=== PATIENT | male | born 1945 | race Caucasian/White ===

== ENCOUNTER → 2018-06-14 14:54 | Outpatient (CLI) | payer OTHER, SELFPAY ==
[2018-06-14 15:36] LABS: Add Manual Diff / Slide Review NO; Basophils Percent Auto 0.7 % (0-2); Eosinophils Percent Auto 2.7 % (2-4); Hemoglobin 10.4 g/dL (13.5-17.5); Lymphocytes Percent Auto 14.8 % (25-40); Mean Corpuscular HGB Conc 31.5 % (30-36); Mean Corpuscular Hemoglobin 24.2 PG (26-34); Mean Corpuscular Volume 76.8 fL (80-100); Monocytes Percent Auto 10.4 % (3-14); Neutrophils Absolute Auto 8100 /uL (3000-5900); Neutrophils Percent Auto 71.4 % (50-75); Platelet Count 445 X10^3/uL (150-400); Red Cell Distribution Width 23.1 % (11.6-14.8); White Blood Cell Count 11.3 X10^3/uL (4.5-11.0)
[2018-06-14 16:08] LABS: Anisocytosis 2+; Microcytosis 1+; Poikilocytosis 1+
[2018-06-14 16:09] LABS: Hypochromasia 1+
[2018-06-14 16:11] LABS: Alanine Aminotransferase 34 IU/L (21-72); Albumin 3.7 g/dL (3.5-5.0); Albumin Globulin Ratio 1.3 (1.0-2.8); Alkaline Phosphatase 67 U/L (38-126); Aspartate Aminotransferase 28 IU/L (17-59); BUN Creatinine Ratio 16.2 (6-22); Bilirubin Total 0.4 mg/dL (0.2-1.3); Blood Urea Nitrogen 21 mg/dL (9-20); Calcium 9.5 mg/dL (8.4-10.2); Carbon Dioxide 27 mmol/L (22-32); Chloride 101 mmol/L (98-107); Estimated Glomerular Filt Rate 54.4 mL/min (>60); Globulin 2.8 g/dL (1.7-4.1); Glucose 130 mg/dL (80-110); HEMOLYSIS < 15 (0-50); Potassium 4.5 mmol/L (3.4-5.1); Sodium 141 mmol/L (137-145); Total Protein 6.5 g/dL (6.3-8.2)
== END ==
DX: C18.9 Malignant neoplasm of colon, unspecified (principal)
CPT/HCPCS: 36415; 80053; 85025

== ENCOUNTER 2018-06-22 10:40 | Observation (INO) | payer OTHER, SELFPAY ==
[2018-06-22] VITALS (21 sets, daily range): BP systolic 113–165; BP diastolic 56–93; PULSE 75–90; RESP 10–22; TEMP 35.9–36.9; O2SAT 91–100; BMI 50.1
[2018-06-22] MEDS: LACTATED RINGERS 1,000 ML 42 ML IV (11:47)
[2018-06-22] MEDS: CLINDAMYCIN 900 MG/50 ML PIGGYBACK 50 MG IV (12:02)
--- NOTE | 2018-06-22 12:08 | P.HP_ITS ---
History of Present Illness Date Patient Seen: 06/22/18 Time Patient Seen: 12:05 Chief complaint: [id number] PORTACATH PLACEMENT Narrative: Pleasant gentleman with locally advanced colon cancer here for Port-A -Cath placement to facilitate chemotherapy. He has multiple complicating medical problems including morbid obesity. Patient History Medical History Diabetes mellitus with neuropathy (Acute) Difficulty walking (Acute) Dry skin (Acute) Edema (Acute) History of CHF (congestive heart failure) (Acute) History of headache (Acute) History of urinary retention (Acute) History of urinary tract obstruction (Acute) Incarcerated ventral hernia (Acute ~05/2018) Lightheaded (Acute) Limited mobility (Acute) Malaise and fatigue (Acute) Morbid obesity (Acute) Open wound (Acute) Paresthesias (Acute) Renal insufficiency (Acute) Shortness of breath (Acute) Sleep apnea (Acute) Tinnitus (Acute) Weakness (Acute) Weight loss (Acute) Surgical History H/O right hemicolectomy (Acute ~05/2018) History of cataract extraction with lens replacement (Acute) Family & Social History Family History: Reviewed 06/22/18 by Grace Singh MD Social History: household members spouse Tobacco & Substance use: Smoking Status Former smoker alcohol intake current alcohol intake frequency holiday/special occasion Substance Use Type prescription drug Meds Home Medications Medication Instructions Recorded Confirmed Type Topical Lidocaine Ointment 1 appful INTRA-URETHRAL PRN PRN 06/07/18 History calcium carbonate [Tums] 200 mg PO QID 06/07/18 06/15/18 History cholecalciferol (vitamin D3) 5,000 unit PO DAILY 06/07/18 06/15/18 History [Vitamin D3] diphenoxylate-atropine [Lomotil] 1 tab PO Q6-8H PRN 06/07/18 06/15/18 History ferrous sulfate [iron] 325 mg PO BID 06/07/18 06/15/18 History fluorouracil 4,800 mg IV NOW #1 device 06/07/18 Rx gabapentin 900 mg PO QDRHS 06/07/18 06/15/18 History hydrocodone-acetaminophen [Vicodin] 2 tab PO Q6H PRN 06/07/18 06/15/18 History losartan 100 mg PO DAILY 06/07/18 06/15/18 History metoclopramide HCl [Reglan] 10 mg PO Q6H 06/07/18 06/15/18 History tramadol [Ultram] 50 mg PO Q6H PRN 06/07/18 06/15/18 History zolpidem [Ambien] 10 mg PO BEDTIME PRN 06/07/18 06/15/18 History hydralazine 50 mg PO TID 06/09/18 06/09/18 History ondansetron [Zofran ODT] 4 mg PO Q6-8H PRN #30 tab 06/09/18 Rx Lasix 06/15/18 History Miralax 06/15/18 History lidocaine 1 applic TOPICAL PRN PRN 06/15/18 06/15/18 History methocarbamol 06/15/18 History oxycodone 06/15/18 History Allergies Allergy/AdvReac Type Severity Reaction Status Date / Time cephalexin AdvReac Severe Gastrointestinal Verified 06/07/18 14:48 Upset Review of Systems Review of Systems All systems reviewed & are unremarkable except as noted in HPI and below Exam Vital Signs (past 8 hours): - 06/22/18 11:23 Temperature 98.5 F Pulse Rate 86 Respiratory Rate 22 Blood Pressure 157/88 H Pulse Oximetry 95 Oxygen Delivery Method Room Air Narrative Exam Narrative: Pleasant gentleman in no obvious distress HEENT: Normocephalic atraumatic, pupils equal round reactive to light accommodation with anicteric sclera Lungs: Essentially clear but decreased bilaterally Heart: Regular rate and rhythm, distant heart sounds Abdomen: Soft, minimal tenderness to palpation, active bowel sounds Extremities: Bilateral edema without open lesions Assessment & Plan Plan: Assessment/Plan Narrative: 72-year-old gentleman with locally advanced colon cancer. We discussed the risks and benefits of Port-A-Cath placement including but not limited to infection, bleeding, damage to other organs or structures in the area, the risk of unexpected findings results, and risks associated with anesthesia including stroke, heart attack, and . The patient has expressed an understanding of the risks and desired to have the procedure.
--- NOTE | 2018-06-22 12:25 | SUR.OPER ---
Supine on padded OR bed, head on pillow, arms secured on padded arm boards at <90 degrees abduction, legs uncrossed, safety belt at thigh, tape over blanket over lower legs.
[2018-06-22] MEDS: BUPIVACAINE 0.5% (PF) VIAL 30 ML INJ (12:36)
[2018-06-22] MEDS: LIDOCAINE 1% W/EPI INJ 20 ML INJ (12:37)
[2018-06-22] MEDS: SODIUM CHLORIDE 0.9% FLUSH 10 ML IV (12:38)
--- NOTE | 2018-06-22 12:51 | DI.RAD.S_ITS ---
PROCEDURE: XR CHEST 1V INDICATIONS: PORT A CATH TECHNIQUE: One view of the chest was acquired. COMPARISON: None. FINDINGS: Surgical changes and devices: There is a new chest port, with the tip overlying the superior aspect of the superior vena cava. Lungs and pleura: There is a small left apical pneumothorax. Low lung volumes are noted, consistent with the incisional expiratory technique. This causes a crowded appearance to the lung markings and limits evaluation. Mediastinum: Mediastinal contours appear normal. Heart size is normal. Bones and chest wall: No suspicious bony lesions. Age-appropriate bony degenerative changes are seen. Overlying soft tissues appear unremarkable. IMPRESSION: Small left apical pneumothorax. Chest port, with the tip overlying the superior aspect of the superior vena cava. Note: The critical finding of pneumothorax [facility] Dr. Singh [facility]3 hrs[facility] on June 22, 2018. Dictated by: Garry Gamble M.D. on 06/22/2018 at 13:39 Transcribed by: GALLITO on 06/22/2018 at 13:43 Approved by: Garry Gamble M.D. on 06/22/2018 at 17:22
--- NOTE | 2018-06-22 13:02 | P.OP_ITS ---
Operative Date/Time/Diagnoses Date of procedure: 06/22/18 Time of procedure: 13:00 Pre-op diagnosis: Colon cancer Procedure & Clinicians Procedure: Left subclavian port placement Same procedure as scheduled: Yes Indications: Access for chemotherapy Surgeon: Grace Singh Click Yes if Unassisted: Yes Anesthesia Type: General (Goetter) and Local Operative Notes Findings: Power port in good position in the superior vena cava Closure Type: primary Specimen(s): none sent Implants & Drains: Low-profile power port Estimated Blood Loss (mL): 10 Procedure in detail: After obtaining informed consent, the patient was brought to the operating room and placed in the supine position on the operating table. Following successful induction of general endotracheal anesthesia, appropriate padding of all bony prominences, and placement of appropriate monitors, the left chest was prepped and draped in a standard surgical fashion. A timeout was held per SCOAP protocol.A mixture of local anesthetics was infiltrated in the deltopectoral groove on the left side. The right subclavian vein was accessed via the Seldinger technique and a wire was gently placed into the vein. Fluoroscopy was used to verify position of the wire in the subclavian vein. We next created a pocket of approximately 2 cm inferior to the access site of the vein. This was checked for size and found to fit the port nicely. The included tunneling device was used to place the tubing and the pocket connecting it to the access site of the subclavian vein. The tubing was trimmed to an appropriate length and connected to the Port-A-Cath. The Port -A-Cath was sewn into place in the pocket using interrupted Prolene sutures. The pocket was closed in 2 layers. The dilator and introducer were then gently passed over the wire and into the subclavian vein. The wire and dilator were removed leaving only the introducer. The tubing was then placed in the introducer and the introducer removed per journeyman welder's directions. The port was then flushed with saline solution and found to be functional and in good position. It was then hep-locked with 2000 units of heparin.The incision was closed in 2 layers with Vicryl and Monocryl sutures. Dermabond was applied to the skin. All sponge, needle, and instrument counts were correct at the conclusion of the case. Patient was allowed to awaken from anesthesia and taken to the post-anesthesia care unit in good condition. Complications: none Condition: stable Disposition: PACU Plan for aftercare: 1. A small pneumothorax is visualized on the post operative chest xray. I will admit the patient for observation. 2. The port is ready for use
[2018-06-22] MEDS: fentaNYL 100 MCG/2 ML INJ 50 MCG IV (13:24)
--- NOTE | 2018-06-22 14:26 | SUR.PHASEII ---
Ok to give po intake per Dr. Singh. Report called to Ragini. Lt chest surgical sites cdi. Ice in place.
--- NOTE | 2018-06-22 14:48 | SUR.PHASEII ---
Pt transferred to the floor. Report to JENNY Eid. VS stable. IV saline locked. Lt chest surgical site cdi, ice in place. RLQ joseg cdi. urinary catheter in place, draining clear, yellow urine.
--- NOTE | 2018-06-22 14:49 | SUR.PHASEII ---
Addendum: belongings bag and walker with wheels with patient
--- NOTE | 2018-06-22 14:56 | PC.NURSE ---
Pt arrived to floor from pacu via stretcher, pt was able to slid self over to bed. is A&Ox3 able to make needs known. oriented to room and call light. sats [id number]. pt does report he has more SOB then normal. lung sounds are clear. spouse at bedside. incision site to chest is dermabon and open to air, ice pack in place. pt has superpubic cath and dressing to right middle abdomen. vs 148/72 p 88 r 16 call light within erach and bed alarm on.
--- NOTE | 2018-06-22 16:04 | SUR.PHASEII ---
Addendum: Pt reported mild sob, Dr. Singh notified.
--- NOTE | 2018-06-22 17:40 | DI.RAD.S_ITS ---
PROCEDURE: XR CHEST 2V INDICATIONS: pneumothorax TECHNIQUE: 2 views of the chest were acquired. COMPARISON: [facility], , XR CHEST 1V, 06/22/2018, 13:08. FINDINGS: Surgical changes and devices: Left chest wall Port-A-Cath tip is in the region of SVC. Lungs and pleura: Pneumothorax in left upper lung field is again seen, increased in size from earlier study. Increased markings in left perihilar region and infrahilar region are seen, which may represent perihilar atelectasis. Mediastinum: Mildly tortuous thoracic aorta is seen. Heart size is mildly enlarged. Bones and chest wall: No suspicious bony abnormalities. Soft tissues appear unremarkable. IMPRESSION: Interval increase in size of patient's known left apical pneumothorax. No right-sided pneumothorax. Dictated by: Cullen Angulo M.D. on 06/22/2018 at 18:25 Approved by: Cullen Angulo M.D. on 06/22/2018 at 18:27
[2018-06-22] MEDS: CODEINE/ACETAMINOPHEN 30/300 TABLET 2 TAB PO ×2 (18:14→23:36)
--- NOTE | 2018-06-22 21:32 | PC.NURSE ---
oxygen RA sats continue mid s. 3L O2 via NC applied as pt states wears per home routine. 99%3L. continuous O2 monitor on. Pt has denied increase in SOB.
[2018-06-22] MEDS: TRAMADOL 50 MG TABLET PO (21:35)
[2018-06-22] MEDS: GABAPENTIN 300 MG CAPSULE 900 MG PO (21:36)
[2018-06-22] MEDS: HYDRALAZINE 25 MG TABLET 50 MG PO (21:36)
[2018-06-22] MEDS: FUROSEMIDE 40 MG TABLET PO (21:36)
[2018-06-22] MEDS: LOSARTAN 50 MG TABLET PO (22:51)
[2018-06-23] VITALS (11 sets, daily range): BP systolic 128–155; BP diastolic 62–89; PULSE 70–79; RESP 16–22; TEMP 36.3–36.8; O2SAT 93–98; BMI 50.1
[2018-06-23] MEDS: ZOLPIDEM 5 MG TABLET 10 MG PO ×2 (01:15→22:10)
[2018-06-23] MEDS: CODEINE/ACETAMINOPHEN 30/300 TABLET 2 TAB PO ×3 (05:59→17:09)
--- NOTE | 2018-06-23 07:00 | DI.RAD.S_ITS ---
PROCEDURE: XR CHEST 2V INDICATIONS: pneumothorax TECHNIQUE: 2 views of the chest were acquired. COMPARISON: [facility], CT, CT ABD PELVIS WO CON, 06/26/2015, 15:46. [facility], CR, XR CHEST 1V, 06/22/2018, 13:08. [facility], CR, XR CHEST 2V, 06/22/2018, 17:20. FINDINGS: Surgical changes and devices: Stable positioning of left subclavian chest port tube tip projected over the mid superior vena cava. Lungs and pleura: No significant change in size or appearance of moderate to large left non-tension pneumothorax. Left perihilar airspace and basilar airspace opacity unchanged. Right lung is clear.. Mediastinum: Mediastinal contours are normal. Heart size is enlarged. Bones and chest wall: No suspicious bony abnormalities. Soft tissues appear unremarkable. IMPRESSION: 1. No significant change in size or appearance of moderate to large left non-tension pneumothorax. 2. Left perihilar and basilar airspace opacity redemonstrated consistent with atelectasis versus pneumonia. Dictated by: Shaka Vargas A Interpreted: Elder Mcneal MD on 06/23/2018 at 9:53 Approved by: Elder Mcneal M.D. on 06/23/2018 at 10:37
[2018-06-23] MEDS: LOSARTAN 50 MG TABLET PO ×2 (09:25→22:10)
[2018-06-23] MEDS: ENOXAPARIN 40 MG/0.4 ML SYRINGE SUBCUT (09:25)
[2018-06-23] MEDS: HYDRALAZINE 25 MG TABLET 50 MG PO ×3 (09:26→22:09)
[2018-06-23] MEDS: CALCIUM CARBONATE 500 MG TAB 200 MG PO ×4 (09:29→22:09)
--- NOTE | 2018-06-23 10:32 | PC.NURSE ---
AC/AH blood sugar checks cancelled from interventions as pt takes no medication for his diabetes at this time. His reports that his blood sugars are checked regularly at home and have been within normal range. Pt is a retired RN.
--- NOTE | 2018-06-23 10:46 | CM.DANOTE ---
Patient is a 72 yo male admitted for Portacath placement. Insurance: [employer] Advantage Assessment: Patient with locally advanced colon cancer here for Port-A-Cath placement to facilitate chemotherapy. He has multiple complicating medical problems including morbid obesity. He reports living at home with his , son, grandson. He is I at baseline. He will be receiving chemo through [facility]. He reports using a HH agency in the past for wound care but felt it wasn't necessary, his could have done it. He doesn't know the plan yet for his chemo. He does not anticipate and barrier to d/c at this time. Plan: Home with family when medically stable.
[2018-06-23] MEDS: SODIUM CHLORIDE 0.9% FLUSH 10 ML IV ×2 (11:39→22:11)
[2018-06-23] MEDS: GABAPENTIN 300 MG CAPSULE 900 MG PO ×2 (11:39→22:09)
--- NOTE | 2018-06-23 13:23 | P.PN_ITS ---
Subjective Date Patient Seen: 06/23/18 Time Patient Seen: 13:21 Interval history: Postop day 1 after left subclavian PowerPort placement with iatrogenic pneumothorax. The pneumothorax was slightly larger on this morning' s chest x-ray but the patient remains asymptomatic. Mr. Bah denies any pain and reports that he feels pretty well. He denies any shortness of breath. Exam Vital Signs (past 8 hours): - 06/23/18 07:40 06/23/18 10:11 Temperature 97.3 F L Pulse Rate 72 Respiratory Rate 16 Blood Pressure 132/69 Pulse Oximetry 96 94 Oxygen Delivery Method Room Air Oxygen Flow Rate 3 Narrative Exam Narrative: Lungs are clear bilaterally. No crepitance is noted in the left chest. Heart: Regular rate and rhythm Chest: Operative site is with minimal bruising. No erythema. Extremities: No edema in upper extremities. Easily palpable radial pulses. Assessment & Plan Plan: Assessment/Plan Narrative: Iatrogenic left pneumothorax without evidence of tension. I will repeat a chest x-ray in the morning. If the pneumothorax remained stable, he could be discharged.
[2018-06-24 03:40] VITALS: BP 152/54; PULSE 71; RESP 24; TEMP 36.4; O2SAT 99
--- NOTE | 2018-06-24 05:00 | DI.RAD.S_ITS ---
PROCEDURE: XR CHEST 1V INDICATIONS: Pneumothorax TECHNIQUE: One view of the chest was acquired. COMPARISON: [facility], CR, XR CHEST 2V, 06/23/2018, 8:58. [facility], CR, XR CHEST 2V, 06/22/2018, 17:20. [facility], CR, XR CHEST 1V, 06/22/2018, 13:08. FINDINGS: Surgical changes and devices: A Port-A-Cath is noted in the left anterior chest. Lungs and pleura: Left pneumothorax has decreased. There is a small residual pneumothorax. No pleural effusions or pneumothorax. Lungs are clear. Mediastinum: Mediastinal contours appear normal. Heart size is normal. Bones and chest wall: No suspicious bony lesions. Overlying soft tissues appear unremarkable. IMPRESSION: Decreased left pneumothorax. A small residual left apical pneumothorax is present. Dictated by: Elder Mcneal M.D. on 06/24/2018 at 7:54 Approved by: Elder Mcneal M.D. on 06/24/2018 at 7:57
[2018-06-24] MEDS: CODEINE/ACETAMINOPHEN 30/300 TABLET 2 TAB PO (05:17)
[2018-06-24 08:00] VITALS: BP 150/73; PULSE 75; RESP 18; TEMP 36.4; O2SAT 100
--- NOTE | 2018-06-24 08:17 | PM.DS.1 ---
History of Present Illness Date Patient Seen: 06/24/18 Time Patient Seen: 08:17 Chief complaint: [id number] PORTACATH PLACEMENT Narrative: 72-year-old morbidly obese male with recently diagnosed with colon cancer status [facility] who is scheduled for systemic chemotherapy in the near future. He required long-term IV access to facilitate treatment. Port placement was recommended. Discharge Providers Date of admission: 06/22/18 15:07 Consults: 06/22/18 15:39 Consult to Dietitian, Adult Routine Comment: Reason For Exam: assessed at high risk 06/22/18 17:40 Consult to Discharge Planning Routine Comment: Discharge provider: Isidoro Silva MD Summary Discharge Diagnosis: [address] [address] History & Physical Report Patient: Reid Bah MR#: [id number] : 1945 Acct:[id number] Age/Sex: 72 / M Date of Service: 06/22/18 Provider: Grace Singh MD Left pneumothorax Left subclavian vein tunneled central venous port placement June 22, 2018 Diabetes mellitus with neuropathy (Acute) Difficulty walking (Acute) Dry skin (Acute) Edema (Acute) History of CHF (congestive heart failure) (Acute) History of headache (Acute) History of urinary retention (Acute) History of urinary tract obstruction (Acute) Incarcerated ventral hernia (Acute ~05/2018) Lightheaded (Acute) Limited mobility (Acute) Malaise and fatigue (Acute) Morbid obesity (Acute) Open wound (Acute) Paresthesias (Acute) Renal insufficiency (Acute) Shortness of breath (Acute) Sleep apnea (Acute) Tinnitus (Acute) Weakness (Acute) Weight loss (Acute) H/O right hemicolectomy (Acute ~05/2018) History of cataract extraction with lens replacement (Acute) Hospital Course: Patient was admitted to the preoperative area for planned Port-A-Cath placement as above. He tolerated the procedure without immediate obvious issues although the procedure was somewhat difficult technically because of his significant morbid obesity and body habitus. Postoperatively chest x-ray confirmed of small apical left pneumothorax. He was admitted for observation and continuous oxygen therapy. He is normally on 3 L nasal cannula oxygen at night per his usual home regimen. He had baseline mild shortness of breath but no progressive symptoms. He remained afebrile and otherwise hemodynamically stable. Saturations were at least 95% on his usual oxygen therapy. Follow-up chest x-ray on postoperative day 1, however, showed slight progression of the pneumothorax but he remained asymptomatic. He was therefore kept as an inpatient for further observation and repeat chest x-ray on June 24, 2018. Chest x-ray shows residual rim pneumothorax but without progression. Patient remains otherwise stable with no new symptoms or issues. He has some mild soreness and swelling at the port insertion site, but oral narcotics are controlling his pain accordingly. He will be discharged on those medications. His chronic suprapubic tube remains in place draining clear urine and otherwise functioning normally. Because of the stable nature of the pneumothorax with some ongoing slow resolution not requiring tube thoracostomy he is discharged home on postoperative day 2. He will follow up with medical oncology as scheduled on June 28, 2018 to begin chemotherapy for his known colon cancer. He may continue to use his usual home oxygen throughout the day rather than only at night if he wishes, especially if he feels that this makes him more comfortable with regard to his overall breathing status. Nevertheless he has been clearly instructed on multiple occasions including at the time of discharge by this physician in the presence of the attending nurse to return or call immediately for progressive shortness of breath, chest pain, wound drainage, fever, chills, productive cough, or hemoptysis. All questions were answered to his satisfaction, and he voiced understanding. Status at Discharge Cognitive/behavioral status at discharge: Alert oriented x3 Functional status at discharge: independent ambulation Overall status at discharge: patient is progressing back to baseline Time Spent with Patient Less than 30 minutes Exam Vital Signs (past 8 hours): - 06/24/18 03:40 Temperature 97.5 F L Pulse Rate 71 Respiratory Rate 24 Blood Pressure 152/54 H Pulse Oximetry 99 Oxygen Delivery Method Nasal Cannula Oxygen Flow Rate 3 Narrative Exam Narrative: Markedly obese male lying in bed in no acute distress. 3 L nasal cannula oxygen in place. He is phonating normally and talking in complete sentences without shortness of breath Chest clear to auscultation bilaterally with no crackles or wheezes. Breath sounds are present in the left apex. Left infraclavicular incision site at the port is clean, dry, and intact without erythema or ecchymoses. No obvious hematoma or seroma. Regular rate and rhythm Abdomen is obese but soft. Suprapubic tube is in place draining clear urine. Extremities show significant edema with hyperpigmentation of bilateral lower extremities. Objective Imaging Chest x-ray: My impression: Today's chest x-ray on June 24, 2018 shows residual rim pneumothorax but without progression. In fact, pneumothorax appears mildly improved compared to yesterday's film. No infiltrates. No significant effusion. Port device remains in good position. Labs Labs: No new laboratory studies for review Discharge Plan Discharge Plan Patient Disposition: Home Discharge Med Rec/Prescriptions Prescriptions: New lidocaine-prilocaine 2.5-2.5 % cream 1 applictn TOP QID Qty: 30 RF: 2 hydrocodone-acetaminophen 10-325 mg Tablet 1 tab PO Q4HR PRN (Reason: Pain, Moderate (4-6)) Qty: 30 RF: 0 Continue Lasix 40 mg PO DAILY RF: 0 lidocaine 5 % Ointment 1 applic TOPICAL PRN PRN (Reason: Uretheral Pain) RF: 0 losartan 50 mg Tablet 50 mg PO BID RF: 0 diphenoxylate-atropine [Lomotil] 2.5-0.025 mg Tablet 1 tab PO Q6-8H PRN (Reason: Diarrhea) RF: 0 tramadol [Ultram] 50 mg Tablet 50 mg PO Q6H PRN (Reason: pain) RF: 0 ferrous sulfate [iron] 325 mg (65 mg iron) Tablet 325 mg PO BID RF: 0 calcium carbonate [Tums] 200 mg calcium (500 mg) Tablet,Chewable 200 mg PO QID PRN (Reason: Abdominal Discomfort) RF: 0 zolpidem [Ambien] 10 mg Tablet 10 mg PO BEDTIME PRN (Reason: Insomnia) RF: 0 cholecalciferol (vitamin D3) [Vitamin D3] 5,000 unit Tablet 5,000 unit PO DAILY RF: 0 gabapentin 300 mg (9)- 600 mg (69) Tablet Extended Release 24 Hr 900 mg PO BID RF: 0 hydralazine 50 mg Tablet 50 mg PO TID RF: 0 ondansetron [Zofran ODT] 4 mg Tablet,Disintegrating 4 mg PO Q6-8H PRN (Reason: Nausea) Qty: 30 RF: 0 Provider Discharge Instructions Diet: Diet as Tolerated Activity: You may shower as desired. Do not soak the incisions in water for at least 2 weeks. Cold/Heat Therapy: Apply ice to the incision as often as tolerated for at least 72 hours. This will help with pain and bruising. Oxygen: Usual 3 L oxygen at night. May use during daytime if desired. Other treatments: Follow-up as scheduled on June 28, 2018 with Medical Oncology for planned chemotherapy. Skin/Wound/Dressing Care Report to your healthcare provider any signs of infection, such as:: chills, fever, night sweats, increased pain and unusual drainage Dressing: No dressing necessary Other wound treatment: Return or call immediately for progressive shortness of breath, progressive chest pain, difficulty breathing, wound drainage Visit Report/Discharge Packet Instructions: [facility]: Wound Care Stand Alone Forms: Surgery Discharge Discharge Data Attending Provider: Grace Singh Admaylin Date/Time: 06/22/18 15:07
--- NOTE | 2018-06-24 08:27 | P.DS_ITS ---
History of Present Illness Date Patient Seen: 06/24/18 Time Patient Seen: 08:17 Chief complaint: [id number] PORTACATH PLACEMENT Narrative: 72-year-old morbidly obese male with recently diagnosed with colon cancer status [facility] who is scheduled for systemic chemotherapy in the near future. He required long-term IV access to facilitate treatment. Port placement was recommended. Discharge Providers Date of admission: 06/22/18 15:07 Consults: 06/22/18 15:39 Consult to Dietitian, Adult Routine Comment: Reason For Exam: assessed at high risk 06/22/18 17:40 Consult to Discharge Planning Routine Comment: Discharge provider: Isidoro Silva MD Summary Discharge Diagnosis: [address] [address] History & Physical Report Patient: Reid Bah MR#: [id number] : 1945 Acct:[id number] Age/Sex: 72 / M Date of Service: 06/22/18 Provider: Grace Singh MD Left pneumothorax Left subclavian vein tunneled central venous port placement June 22, 2018 Diabetes mellitus with neuropathy (Acute) Difficulty walking (Acute) Dry skin (Acute) Edema (Acute) History of CHF (congestive heart failure) (Acute) History of headache (Acute) History of urinary retention (Acute) History of urinary tract obstruction (Acute) Incarcerated ventral hernia (Acute ~05/2018) Lightheaded (Acute) Limited mobility (Acute) Malaise and fatigue (Acute) Morbid obesity (Acute) Open wound (Acute) Paresthesias (Acute) Renal insufficiency (Acute) Shortness of breath (Acute) Sleep apnea (Acute) Tinnitus (Acute) Weakness (Acute) Weight loss (Acute) H/O right hemicolectomy (Acute ~05/2018) History of cataract extraction with lens replacement (Acute) Hospital Course: Patient was admitted to the preoperative area for planned Port- A-Cath placement as above. He tolerated the procedure without immediate obvious issues although the procedure was somewhat difficult technically because of his significant morbid obesity and body habitus. Postoperatively chest x-ray confirmed of small apical left pneumothorax. He was admitted for observation and continuous oxygen therapy. He is normally on 3 L nasal cannula oxygen at night per his usual home regimen. He had baseline mild shortness of breath but no progressive symptoms. He remained afebrile and otherwise hemodynamically stable. Saturations were at least 95% on his usual oxygen therapy. Follow-up chest x-ray on postoperative day 1, however, showed slight progression of the pneumothorax but he remained asymptomatic. He was therefore kept as an inpatient for further observation and repeat chest x-ray on June 24, 2018. Chest x-ray shows residual rim pneumothorax but without progression. Patient remains otherwise stable with no new symptoms or issues. He has some mild soreness and swelling at the port insertion site, but oral narcotics are controlling his pain accordingly. He will be discharged on those medications. His chronic suprapubic tube remains in place draining clear urine and otherwise functioning normally. Because of the stable nature of the pneumothorax with some ongoing slow resolution not requiring tube thoracostomy he is discharged home on postoperative day 2. He will follow up with medical oncology as scheduled on June 28, 2018 to begin chemotherapy for his known colon cancer. He may continue to use his usual home oxygen throughout the day rather than only at night if he wishes, especially if he feels that this makes him more comfortable with regard to his overall breathing status. Nevertheless he has been clearly instructed on multiple occasions including at the time of discharge by this physician in the presence of the attending nurse to return or call immediately for progressive shortness of breath, chest pain, wound drainage , fever, chills, productive cough, or hemoptysis. All questions were answered to his satisfaction, and he voiced understanding. Status at Discharge Cognitive/behavioral status at discharge: Alert oriented x3 Functional status at discharge: independent ambulation Overall status at discharge: patient is progressing back to baseline Time Spent with Patient Less than 30 minutes Exam Vital Signs (past 8 hours): - 06/24/18 03:40 Temperature 97.5 F L Pulse Rate 71 Respiratory Rate 24 Blood Pressure 152/54 H Pulse Oximetry 99 Oxygen Delivery Method Nasal Cannula Oxygen Flow Rate 3 Narrative Exam Narrative: Markedly obese male lying in bed in no acute distress. 3 L nasal cannula oxygen in place. He is phonating normally and talking in complete sentences without shortness of breath Chest clear to auscultation bilaterally with no crackles or wheezes. Breath sounds are present in the left apex. Left infraclavicular incision site at the port is clean, dry, and intact without erythema or ecchymoses. No obvious hematoma or seroma. Regular rate and rhythm Abdomen is obese but soft. Suprapubic tube is in place draining clear urine. Extremities show significant edema with hyperpigmentation of bilateral lower extremities. Objective Imaging Chest x-ray: My impression: Today's chest x-ray on June 24, 2018 shows residual rim pneumothorax but without progression. In fact, pneumothorax appears mildly improved compared to yesterday's film. No infiltrates. No significant effusion. Port device remains in good position. Labs Labs: No new laboratory studies for review Discharge Plan Discharge Plan Patient Disposition: Home Discharge Med Rec/Prescriptions Prescriptions: New lidocaine-prilocaine 2.5-2.5 % cream 1 applictn TOP QID Qty: 30 RF: 2 hydrocodone-acetaminophen 10-325 mg Tablet 1 tab PO Q4HR PRN (Reason: Pain, Moderate (4-6)) Qty: 30 RF: 0 Continue Lasix 40 mg PO DAILY RF: 0 lidocaine 5 % Ointment 1 applic TOPICAL PRN PRN (Reason: Uretheral Pain) RF: 0 losartan 50 mg Tablet 50 mg PO BID RF: 0 diphenoxylate-atropine [Lomotil] 2.5-0.025 mg Tablet 1 tab PO Q6-8H PRN (Reason: Diarrhea) RF: 0 tramadol [Ultram] 50 mg Tablet 50 mg PO Q6H PRN (Reason: pain) RF: 0 ferrous sulfate [iron] 325 mg (65 mg iron) Tablet 325 mg PO BID RF: 0 calcium carbonate [Tums] 200 mg calcium (500 mg) Tablet,Chewable 200 mg PO QID PRN (Reason: Abdominal Discomfort) RF: 0 zolpidem [Ambien] 10 mg Tablet 10 mg PO BEDTIME PRN (Reason: Insomnia) RF: 0 cholecalciferol (vitamin D3) [Vitamin D3] 5,000 unit Tablet 5,000 unit PO DAILY RF: 0 gabapentin 300 mg (9)- 600 mg (69) Tablet Extended Release 24 Hr 900 mg PO BID RF: 0 hydralazine 50 mg Tablet 50 mg PO TID RF: 0 ondansetron [Zofran ODT] 4 mg Tablet,Disintegrating 4 mg PO Q6-8H PRN (Reason: Nausea) Qty: 30 RF: 0 Provider Discharge Instructions Diet: Diet as Tolerated Activity: You may shower as desired. Do not soak the incisions in water for at least 2 weeks. Cold/Heat Therapy: Apply ice to the incision as often as tolerated for at least 72 hours. This will help with pain and bruising. Oxygen: Usual 3 L oxygen at night. May use during daytime if desired. Other treatments: Follow-up as scheduled on June 28, 2018 with Medical Oncology for planned chemotherapy. Skin/Wound/Dressing Care Report to your healthcare provider any signs of infection, such as:: chills, fever, night sweats, increased pain and unusual drainage Dressing: No dressing necessary Other wound treatment: Return or call immediately for progressive shortness of breath, progressive chest pain, difficulty breathing, wound drainage Visit Report/Discharge Packet Instructions: [facility]: Wound Care Stand Alone Forms: Surgery Discharge Discharge Data Attending Provider: Grace Singh Admaylin Date/Time: 06/22/18 15:07
[2018-06-24] MEDS: CALCIUM CARBONATE 500 MG TAB 200 MG PO (08:39)
[2018-06-24] MEDS: GABAPENTIN 300 MG CAPSULE 900 MG PO (08:40)
[2018-06-24] MEDS: HYDRALAZINE 25 MG TABLET 50 MG PO (08:41)
[2018-06-24] MEDS: ENOXAPARIN 40 MG/0.4 ML SYRINGE SUBCUT (08:41)
[2018-06-24] MEDS: LOSARTAN 50 MG TABLET PO (08:41)
[2018-06-24] MEDS: HYDROCODONE/ACET 10/325 TABLET 1 TAB PO (08:46)
[2018-06-24 09:26] VITALS: O2SAT 97
[2018-06-24 09:27] VITALS: O2SAT 88; O2SAT 93
--- NOTE | 2018-06-24 11:59 | PC.NURSE ---
DISCHARGE pt states norco helped his pain significantly and he is much more comfortable. d/c instructions provided to pt and his . PIV removed prior to d/c. port not accessed. Incision CDI with glue. aware to contact MD or return to ED for any questions/concerns. on RA, sats 94%. Pt states he is around 88% at home frequently. will check sats once home and use O2 during the day as per Dr Silva if needed. pt states he is taking all belongings home with him. Nothing in safe or pharmacy per pt. Rx for pain med given to pt's at d/c. Pt left in w/c with and [employer] escort to car.
== END 2018-06-24 12:00 | disposition home or self-care (01) ==
LOC: OR 13:58 → AC 06-23 09:04
PROVIDERS: Admitting Provider Surgery; Visit Provider Surgery
PROC: (CPT 36561; principal; 2018-06-22 12:00)
DX: C18.9 Malignant neoplasm of colon, unspecified (principal); Z45.2 Encounter for adjustment and management of vascular access device; E66.01 Morbid (severe) obesity due to excess calories; Z68.43 Body mass index [BMI] 50.0-59.9, adult; E11.42 Type 2 diabetes mellitus with diabetic polyneuropathy; I50.9 Heart failure, unspecified; G47.33 Obstructive sleep apnea (adult) (pediatric); Z87.891 Personal history of nicotine dependence; D64.9 Anemia, unspecified; J45.909 Unspecified asthma, uncomplicated; N28.9 Disorder of kidney and ureter, unspecified; J95.811 Postprocedural pneumothorax; Y69 Unspecified misadventure during surgical and medical care
CPT/HCPCS: 36561; 36415; 71045; 71046; 76000; 85025; 94760; 94762; C1788; G0378; G0379; J1644; J1650; J2250; J2405; J2704; J3010

== ENCOUNTER → 2018-06-22 10:44 | Outpatient (CLI) | payer OTHER, SELFPAY ==
[2018-06-22 11:30] LABS: Add Manual Diff / Slide Review NO; Basophils Percent Auto 0.8 % (0-2); Eosinophils Percent Auto 2.7 % (2-4); Hematocrit 33.3 % (41-53); Hemoglobin 10.8 g/dL (13.5-17.5); Lymphocytes Percent Auto 18.3 % (25-40); Mean Corpuscular HGB Conc 32.4 % (30-36); Mean Corpuscular Hemoglobin 25.3 PG (26-34); Neutrophils Absolute Auto 6100 /uL (3000-5900); Neutrophils Percent Auto 68.2 % (50-75); Platelet Count 386 X10^3/uL (150-400); Red Blood Cell Count 4.27 X10^6/uL (4.5-5.9); Red Cell Distribution Width 23.9 % (11.6-14.8); White Blood Cell Count 8.9 X10^3/uL (4.5-11.0)
[2018-06-22 12:16] LABS: Anisocytosis 1+; Hypochromasia 1+
== END ==
DX: C18.9 Malignant neoplasm of colon, unspecified (principal)
CPT/HCPCS: 36415; 85025

== ENCOUNTER → 2018-07-05 10:25 | Outpatient (CLI) | payer OTHER, SELFPAY ==
[2018-06-22 15:32] VITALS: BMI 50.1
[2018-07-05 10:39] LABS: Add Manual Diff / Slide Review NO; Eosinophils Percent Auto 5.5 % (2-4); Hematocrit 35.2 % (41-53); Hemoglobin 11.3 g/dL (13.5-17.5); Lymphocytes Percent Auto 14.2 % (25-40); Mean Corpuscular Hemoglobin 25.8 PG (26-34); Mean Corpuscular Volume 80.8 fL (80-100); Monocytes Percent Auto 7.2 % (3-14); Neutrophils Absolute Auto 7000 /uL (3000-5900); Neutrophils Percent Auto 72.1 % (50-75); Platelet Count 288 X10^3/uL (150-400); Red Blood Cell Count 4.36 X10^6/uL (4.5-5.9); Red Cell Distribution Width 22.5 % (11.6-14.8); White Blood Cell Count 9.6 X10^3/uL (4.5-11.0)
--- NOTE | 2018-07-05 10:50 | PC.NURSE ---
Pt presents one week after completing his first cycle of 5FU/LCV. CBC drawn as ordered, is showing stable at this time
[2018-07-05 11:04] LABS: Anisocytosis 1+
== END ==
DX: C18.9 Malignant neoplasm of colon, unspecified (principal)
CPT/HCPCS: 36415; 85025

== ENCOUNTER → 2018-08-15 10:46 | Outpatient (CLI) | payer OTHER, SELFPAY ==
[2018-06-22 15:32] VITALS: BMI 50.1
== END ==
PROVIDERS: PCP Family Medicine; Visit Provider Family Medicine
DX: S31.103A Unspecified open wound of abdominal wall, right lower quadrant without penetration into peritoneal cavity, initial encounter (principal); E11.628 Type 2 diabetes mellitus with other skin complications
CPT/HCPCS: 11043; 87070; 87075; 87077; 87186; 87205; 99213

== ENCOUNTER → 2018-08-22 15:12 | Outpatient (CLI) | payer OTHER, SELFPAY ==
[2018-06-22 15:32] VITALS: BMI 50.1
== END ==
PROVIDERS: PCP Family Medicine; Visit Provider Family Medicine
DX: T81.31XA Disruption of external operation (surgical) wound, not elsewhere classified, initial encounter (principal); S31.103A Unspecified open wound of abdominal wall, right lower quadrant without penetration into peritoneal cavity, initial encounter
CPT/HCPCS: 11042

== ENCOUNTER → 2018-08-30 15:47 | Outpatient (CLI) | payer OTHER, SELFPAY ==
[2018-06-22 15:32] VITALS: BMI 50.1
== END ==
PROVIDERS: PCP Family Medicine; Visit Provider Family Medicine
DX: S31.103A Unspecified open wound of abdominal wall, right lower quadrant without penetration into peritoneal cavity, initial encounter (principal)
CPT/HCPCS: 87070; 87075; 87077; 87186; 87205; 99213

== ENCOUNTER → 2018-09-06 13:47 | Outpatient (CLI) | payer OTHER, SELFPAY ==
[2018-06-22 15:32] VITALS: BMI 50.1
== END ==
PROVIDERS: PCP Family Medicine; Visit Provider Family Medicine
DX: S31.103A Unspecified open wound of abdominal wall, right lower quadrant without penetration into peritoneal cavity, initial encounter (principal); L08.9 Local infection of the skin and subcutaneous tissue, unspecified; L24.9 Irritant contact dermatitis, unspecified cause
CPT/HCPCS: 99213

== ENCOUNTER → 2018-09-06 15:27 | Outpatient (CLI) | payer OTHER, SELFPAY ==
[2018-06-22 15:32] VITALS: BMI 50.1
--- NOTE | 2018-09-06 | DI.CT.S_ITS ---
PROCEDURE: CT ABDOMEN W CON INDICATIONS: Unspecified open wound of abdominal wall, right lo TECHNIQUE: After the administration of oral and intravenous contrast, 5 mm thick sections acquired from the diaphragms to the iliac crests. 5 mm thick coronal and sagittal reformats were acquired. For radiation dose reduction, the following was used: automated exposure control, adjustment of mA and/or kV according to patient size. COMPARISON: None. FINDINGS: Image quality: Excellent. Lung bases: Lung bases are clear. Heart size is normal. Coronary artery calcifications are seen. Solid organs: Liver is normal in size and enhancement. Calcified granulomas can be seen within the liver and spleen. Gallbladder is not seen and is presumed to have been previously removed. Biliary system is non dilated. Pancreas enhances normally. Spleen is normal in size and enhancement. There is a left adrenal mass, which measures 7.7 x 6.1 cm in greatest axial dimension and measures 5.5 cm craniocaudally. On this postcontrast study, this measures 40 Hounsfield units centrally. No right adrenal nodules. Kidneys are normal in size, without hydronephrosis. Non-enhancing cysts are seen involving the kidneys with the largest seen at the inferior pole of the left kidney measuring 2.4 cm. Peritoneum and bowel: Contrast enhanced bowel loops appear normal in caliber. No free fluid or air. There is anastomotic staple line seen involving the ascending colon. Nodes and vessels: There is partial thrombosis seen of the superior mesenteric vein, as on series 4 image 29 and on series 2 image 38. No retroperitoneal or mesenteric adenopathy by size criteria. Aorta and inferior vena cava are normal in size. Bones: No suspicious bony lesions. No vertebral body compression fractures. Miscellaneous: There is focal inflammatory change seen involving the periumbilical region and the right abdomen, which is consistent with the given history of an open wound. Subcutaneous gas can be seen. No drainable abscess is seen. Age-appropriate bony degenerative changes are seen. IMPRESSION: Open wound involving the midline and the right anterior subcutaneous fat, which is incompletely seen. No drainable abscess can be seen. There is a left adrenal mass seen. Please correlate with known patient history and prior imaging. If this mass has not been previously defined, then please consider an adrenal protocol CT (without and with contrast) for further evaluation. 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 Incidental note is made of: Coronary artery calcifications Cholecystectomy Nonenhancing bilateral renal cysts Prior granulomatous exposure. Postoperative change of the ascending colon. Note: Findings left on the secure voicemail of Dr. Carney at 5:47 PM on September 06, 2018. Dictated by: Garry Gamble M.D. on 09/06/2018 at 16:41 Approved by: Garry Gamble M.D. on 09/06/2018 at 16:50
== END ==
PROVIDERS: PCP Family Medicine; Visit Provider Family Medicine
DX: S31.103A Unspecified open wound of abdominal wall, right lower quadrant without penetration into peritoneal cavity, initial encounter (principal); T81.89XA Other complications of procedures, not elsewhere classified, initial encounter; E27.9 Disorder of adrenal gland, unspecified; I81 Portal vein thrombosis; I25.10 Atherosclerotic heart disease of native coronary artery without angina pectoris; Z90.49 Acquired absence of other specified parts of digestive tract; N28.1 Cyst of kidney, acquired
CPT/HCPCS: 74160; Q9967

== ENCOUNTER → 2018-09-19 09:55 | Outpatient (CLI) | payer OTHER, SELFPAY ==
[2018-06-22 15:32] VITALS: BMI 50.1
--- NOTE | 2018-09-19 09:57 | DI.CT.S_ITS ---
PROCEDURE: CT ABDOMEN WO/W CON INDICATIONS: Left adrenal mass identified on CT abd 09/06 TECHNIQUE: Noncontrast 3 mm thick sections acquired from the diaphragms to the iliac crests. After the administration of intravenous contrast, 3 mm thick venous-phase and 10-minute delayed images acquired from the diaphragms to the iliac crests. For radiation dose reduction, the following was used: automated exposure control, adjustment of mA and/or kV according to patient size. COMPARISON: [facility], CT, CT ABDOMEN W CON, 09/06/2018, 16:14. FINDINGS: Image quality: Excellent. Lung bases: Mild bibasilar dependent atelectasis are noted posteriorly. Heart size is normal. Adrenal glands: 6 x 8.4 x 5.9 cm left adrenal gland heterogeneously hypodense lesion is seen and measures 34 Hounsfield unit in density without contrast. Post contrast density measures 63 Hounsfield units. Density delayed series measures 50 Hounsfield unit. Absolute washout is 44.8%. Relative washout is 20.6%. No right adrenal nodule is seen. Solid organs: Liver is normal in size and enhancement. A few calcified granulomas are seen scattered in the liver parenchyma. Gallbladder is surgically absent. Biliary system is non dilated. Pancreas enhances normally. Spleen is normal in size and enhancement. A few calcified granuloma are seen scattered in splenic parenchyma. Kidneys are normal in size and enhancement. No hydronephrosis or nephrolithiasis. Peritoneum and bowel: Unenhanced bowel loops are normal in caliber and wall thickness. No free fluid or air. Post surgical changes from prior partial colectomy are again seen in right side of abdomen. Nodes and vessels: No retroperitoneal or mesenteric adenopathy by size criteria. Aorta and inferior vena cava are normal in size. 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 Miscellaneous: Postsurgical changes in right anterior abdominal wall are seen consistent with patient's given history of open wound. Subcutaneous gas is noted in this region. Small fluid collection is seen in subcutaneous soft tissue of anterior abdominal wall and measures 2.5 x 2.2 x 8.6 cm in size, and is concerning for abscess collection. Surrounding fat stranding is seen. No communication with the peritoneal space is noted. Bones: No suspicious bony lesions. No vertebral body compression fractures. IMPRESSION: 1. 6 x 8.4 x 5.9 cm heterogeneously hypodense left adrenal gland lesion as described above. Enhancement characteristics are not consistent with benign adrenal adenoma. Given its shear size, finding is more concerning for malignant process involving left adrenal gland. Endocrine correlation is recommended. Normal appearing right adrenal gland. 2. Post surgical changes in right side of abdomen. Interval decrease in amount of air in right anterior abdominal wall deep to open wound with a communicating fluid collection in right anterior abdominal wall subcutaneous soft tissue and measures approximately 2.5 x 2.2 x 8.6 cm in size concerning for abscess collection. 3. No peritoneal free fluid or free air. Dictated by: Cullen Angulo M.D. on 09/19/2018 at 17:07 Approved by: Cullen Angulo M.D. on 09/19/2018 at 17:38
== END ==
PROVIDERS: PCP Family Medicine
DX: C18.9 Malignant neoplasm of colon, unspecified (principal); E27.9 Disorder of adrenal gland, unspecified; Z90.49 Acquired absence of other specified parts of digestive tract
CPT/HCPCS: 74170; Q9967

== ENCOUNTER 2018-09-26 08:16 | Day surgery (SDC) | payer OTHER, SELFPAY ==
[2018-06-22 15:32] VITALS: BMI 50.1
[2018-09-26] VITALS (17 sets, daily range): BP systolic 105–181; BP diastolic 56–105; PULSE 58–75; RESP 15–24; TEMP 36.4–37; O2SAT 18–98; BMI 53.2
--- NOTE | 2018-09-26 | PATH_ITS ---
[facility] Accession Number: [id number] . 01 Material submitted: . L ADRENAL MASS . 01 Clinical history: . L ADRENAL MASS NEEDLE CORE BIOPSY PATHOLOGY + ODIN MUTATION + MMR. . 02 Diagnosis: Needle Core Biopsies from Left Adrenal Mass: Metastatic poorly differentiated carcinoma, not further classified (see microscopic description). Special studies for possible KRAS mutation ordered and to be reported by addendum. Mismatch repair gene immunohistochemistry panel ordered, to be reported by addendum. MRV/09/29/2018 . 02 Electronically signed: . Vitaly Escudero MD, Pathologist NPI- [id number] . 01 Gross description: . Received in formalin labeled Mathews Bah are multiple alvarez-white delicate core biopsies, which range from 0.2 x less than 0.1 cm to 1.6 x 0.1 cm. These cores are entirely submitted as A1 and A2. Multiple pieces in each cassette. (SB:[id number]) /[facility] . 02 Microscopic: . Sections are of needle core biopsy material stated to be from a mass in the left adrenal gland. The tissue cores are all involved by an infiltrating and very poorly differentiated carcinoma. The neoplastic cells are of intermediate to large size with irregular configuration, large, somewhat vesicular nuclei and prominent nucleoli. Mitotic figures are frequent and there are broad areas of necrosis present. Some background chronic inflammatory infiltrate is also noted as well as reactive fibrosis. Normal adrenal tissue is not seen. In some areas the neoplastic cells appear to be forming abortive duct and/or gland-like structures suggestive of possible adenocarcinoma; however, the findings are not at all definitive. . At the request of the attending physician special studies are ordered including KRAS mutation studies and also the immunohistochemistry for mismatch repair gene alterations. Because the attending physician has ordered these special studies it is assumed that the primary site of this tumor is known. For this reason additional immuohistochemistry studies attempting to definitely ascertain the primary site are not ordered. If these studies are necessary, they can be performed if requested. . 02 Pathologist provided ICD-10: C79.72 . 02 CPT . 902422, A40631, [id number] Performed at: 01 [facility] [address] [id number] MD Yann Dia MD Phone: [phone] Performed at: 02 [facility] [id number] [place] [id number] MD Ally Sanchez MD Phone: [phone]
--- NOTE | 2018-09-26 | DI.RAD.S_ITS ---
PROCEDURE: XR CHEST 1V INDICATIONS: post biospy chest xray TECHNIQUE: One view of the chest was acquired. COMPARISON: [facility], CT, CT ABDOMEN WO/W CON, 09/19/2018, 10:46. [facility], CT, CT BIOPSY ABDOMEN PERCUTANEOUS, 09/26/2018, 9:14. [facility], CR, XR CHEST 1V, 06/24/2018, 5:04. FINDINGS: Surgical changes and devices: Chest port. Lungs and pleura: No pleural effusions or pneumothorax. Lungs are clear. Mediastinum: The cardiac contours are within normal limits. The aorta demonstrates calcification and tortuosity. Bones and chest wall: No suspicious bony lesions. Overlying soft tissues appear unremarkable. Age-appropriate bony degenerative changes are seen. No pneumoperitoneum can be seen. IMPRESSION: No pneumothorax or pneumoperitoneum can be seen by plain film. Dictated by: Garry Gamble M.D. on 09/26/2018 at 13:06 Approved by: Garry Gamble M.D. on 09/26/2018 at 13:08
--- NOTE | 2018-09-26 08:20 | DI.CT.S_ITS ---
PROCEDURE: CT BIOPSY ABDOMEN PERCUTANEOUS INDICATIONS: newly identified adrenal mass, possible mets TECHNIQUE: The indications, alternatives, benefits, risks, and possible complications of the procedure were communicated to the patient. Informed written consent from the patient was obtained and placed in the chart. Continuous EKG and hemodynamic monitoring was started by trained personnel. The patient was brought to the CT suite and abrasive mixer spiral CT imaging was performed with localization grid. The appropriate site for percutaneous access to the biopsy target was marked, was prepped and draped sterilely, and was infused with local anaesthesia. Under CT guidance, a core biopsy trocar and needle set was advanced to the biopsy target, and specimen(s) were obtained. The trocar and needle were then removed, and the patient was sent for post-procedure monitoring. COMPARISON: [facility], CR, XR CHEST 1V, 09/26/2018, 13:46. [facility], CT, CT ABDOMEN WO/W CON, 09/19/2018, 10:46. [facility], CT, CT ABDOMEN W CON, 09/06/2018, 16:14. FINDINGS: Biopsy site: Left adrenal gland mass. Needle: 20 gauge biopsy needle with introducer trocar. Number of passes: 6 Medications: 1% lidocaine for local anaesthesia. IV Fentanyl and Versed were utilized for conscious sedation (see nursing record). Complications: The patient was observed for 4 hours after the procedure and demonstrated no postprocedural complications. Patient reports that his baseline blood pressure varies between 120 and 180 systolic; blood pressure was approximately 170-180 systolic prior to the procedure, and decreased in an expected manner to between 120 and 140 systolic after the procedure after the patient had taken his regular blood pressure medication. Post biopsy chest radiograph demonstrated no pneumothorax. Limited noncontrast abdominal CT was performed 4 hours after biopsy and identified no significant postbiopsy hematoma, no CT evidence of injury to the spleen or left kidney, and no pneumothorax. The patient reported no current symptoms and feeling that he had returned to his normal baseline at 4 hours post biopsy, and was subsequently discharged after being advised to return to the emergency department for further evaluation should he feel anything change from his normal baseline status. Additional discharge instructions were provided. IMPRESSION: Successful CT-guided biopsy of a left adrenal gland mass. Dictated by: Richard Felder M.D. on 09/26/2018 at 16:51 Approved by: Richard Felder M.D. on 09/26/2018 at 17:03
[2018-09-26 14:14] LABS: Hematocrit 38.4 % (41-53)
--- NOTE | 2018-09-26 14:53 | SUR.PHASEII ---
In the past hour has made two trips to XR per Dr Felder to assess for post procedural internal bleeding. Tolerated both well. Okay to discharge received in person from Dr. Felder now.
--- NOTE | 2018-09-26 15:00 | SUR.PHASEII ---
last bp lower than previous - pt states took his own BP meds at 1100 am here in department. radiologist took one more film to rule out bleed and cleared him to go home- pt and reviewed post op instructions
[2018-09-26] MEDS: fentaNYL 100 MCG/2 ML INJ IV (16:44)
[2018-09-26] MEDS: MIDAZOLAM 2 MG/2 ML VIAL 1.5 MG IV (16:44)
--- NOTE | 2018-09-29 14:53 | PC.NURSE ---
Pathologist Dr Escudero called regarding Adrenal sample he received. Prior to my speaking with him, he initially had already done the work up on the sample but after reading your notes I did explain to him he had multiple morbidities with the primary being Colon Ca. I also told him per your notes that this was a new finding. He indicated you wanted some specific testing and he really didnt want to move in that direction if it wasnt necessary. In short, he will be ordering further testing to identify the source of the new finding bladder being one as well as colon. When you receive the report it may or may not include the addendum, but it will be forthcoming if it isnt present by the time you receive it
== END 2018-09-26 15:05 | disposition home or self-care (01) ==
PROVIDERS: Radiology Diagnostic Radiology; PCP Family Medicine
PROC: BR2CZZZ Computerized Tomography (CT Scan) of Pelvis (ICD-10-PCS; CPT 77012; principal; 2018-09-26 09:30)
DX: C79.72 Secondary malignant neoplasm of left adrenal gland (principal); C18.9 Malignant neoplasm of colon, unspecified; E66.9 Obesity, unspecified; E11.42 Type 2 diabetes mellitus with diabetic polyneuropathy; I50.9 Heart failure, unspecified; Z93.6 Other artificial openings of urinary tract status; N28.9 Disorder of kidney and ureter, unspecified; R06.00 Dyspnea, unspecified; G47.33 Obstructive sleep apnea (adult) (pediatric); R45.4 Irritability and anger
CPT/HCPCS: 49180; 71045; 77012; 85014; J2250; J3010

== ENCOUNTER → 2018-10-10 13:15 | Outpatient (CLI) | payer OTHER, SELFPAY ==
[2018-06-22 15:32] VITALS: BMI 50.1
== END ==
PROVIDERS: PCP Family Medicine; Visit Provider Family Medicine
DX: Z48.817 Encounter for surgical aftercare following surgery on the skin and subcutaneous tissue (principal)
CPT/HCPCS: 99212

== ENCOUNTER 2018-12-13 08:19 | Emergency (ER) | payer OTHER, SELFPAY ==
[2018-06-22 15:32] VITALS: BMI 50.1
[2018-12-13 08:18] VITALS: BP 146/95; PULSE 77; RESP 21; O2SAT 94; BMI 50.8
--- NOTE | 2018-12-13 08:27 | DI.RAD.S_ITS ---
PROCEDURE: XR CHEST 1V INDICATIONS: [place] TECHNIQUE: One view of the chest was acquired. COMPARISON: [facility], CR, XR CHEST 1V, 09/26/2018, 13:46. [facility], CR, XR CHEST 1V, 06/24/2018, 5:04. [facility], CR, XR CHEST 1V, 06/22/2018, 13:08. FINDINGS: Surgical changes and devices: Left chest wall brittany catheter, tip of which is in the upper SVC. Lungs and pleura: Lungs are clear. No pleural effusions or pneumothorax. Mediastinum: Mediastinal contours appear normal. Heart size is normal. Bones and chest wall: No suspicious bony lesions. Overlying soft tissues appear unremarkable. IMPRESSION: No acute process. Dictated by: Orlando Sparks M.D. on 12/13/2018 at 9:09 Approved by: Orlando Sparks M.D. on 12/13/2018 at 9:09
--- NOTE | 2018-12-13 08:34 | ED_ITS ---
HPI - Weakness General Chief complaint: Weakness Stated complaint: Weakness, GLF Time Seen by Provider: 12/13/18 08:26 Source: patient, EMS and old records reviewed Mode of arrival: EMS Limitations: no limitations History of Present Illness HPI Narrative: The patient is a 73-year-old male with history of metastatic colon cancer presenting with increased weakness and falling. Scheduled chemotherapy at 9:[address] Blunt at the cancer center. He was actually admitted December [address] [facility]. He has home health set up for him after discharge. Today he fell while getting up to shower and was unable to get himself up therefore EMS was called. He denies hitting his head no injury. Still requesting to go to chemotherapy. He states he did not want to come to the emergency department want the ambulance to deliver him straight chemotherapy MD Complaint: generalized weakness Related Data Home Medications Medication Instructions Recorded Confirmed calcium carbonate [Tums] 200 mg PO QID PRN 06/07/18 11/08/18 cholecalciferol (vitamin D3) 5,000 unit PO DAILY 06/07/18 11/08/18 [Vitamin D3] diphenoxylate-atropine [Lomotil] 1 tab PO Q6-8H PRN 06/07/18 11/08/18 ferrous sulfate [iron] 325 mg PO BID 06/07/18 11/08/18 gabapentin 900 mg PO BID 06/07/18 11/08/18 zolpidem [Ambien] 10 mg PO BEDTIME PRN 06/07/18 11/08/18 hydralazine 50 mg PO TID 06/09/18 11/08/18 Lasix 20 mg PO BID 06/15/18 12/13/18 lidocaine 1 applic TOPICAL PRN PRN 06/15/18 11/08/18 losartan 50 mg PO BID 07/12/18 11/08/18 Previous Rx's Medication Instructions Recorded oxycodone-acetaminophen 1 tab PO Q4-6H PRN #60 tab 10/18/18 fluorouracil 4,800 mg IV NOW #1 device 11/08/18 paroxetine HCl [Paxil] 20 mg PO DAILY 30 Days #30 tab 11/08/18 paroxetine HCl [Paxil] 30 mg PO DAILY #30 tab 11/08/18 ondansetron 8 mg PO TID PRN #60 tab 11/22/18 fluorouracil 4,000 mg IV NOW #1 device 12/13/18 sulfamethoxazole-trimethoprim 1 tab PO BID #14 tab 12/13/18 [Bactrim DS] Allergies Allergy/AdvReac Type Severity Reaction Status Date / Time cephalexin AdvReac Severe Gastrointestinal Verified 12/13/18 08:31 Upset Review of Systems Review of Systems ROS Unobtainable: All systems reviewed & are unremarkable except as noted in HPI and below Constitutional Denies body ache(s), Reports fatigue, Denies fever(s), Reports frequent falls, Reports poor appetite and Reports weakness Eyes Denies change in vision, Denies eye discharge, Denies irritation and Denies loss of vision ENT Ears, Nose, Mouth, and Throat: Denies change in voice, Denies neck pain and Denies sore throat Cardiovascular Denies chest pain, Denies irregular heart rhythm, Denies lightheadedness, Denies palpitations, Denies dyspnea, Denies dyspnea on exertion and Denies orthopnea Respiratory Denies cough, Denies dyspnea, Denies dyspnea on exertion and Denies wheezing Gastrointestinal Gastrointestinal: Denies abdominal pain, Denies change in bowel habits, Denies diarrhea, Denies nausea and Denies vomiting Genitourinary Comments: Suprapubic catheter Musculoskeletal Denies deformity and Denies neck pain Integumentary/Breasts Denies pruritus, Denies erythema, Denies rash and Denies wounds Neurologic Reports frequent falls, Denies loss of vision and Reports weakness Endocrine Reports fatigue and Denies palpitations Allergic/Immunologic Denies wheezing FORMERLY [facility] Medical History Colon cancer (Acute) Diabetes mellitus with neuropathy (Acute) Difficulty walking (Acute) Dry skin (Acute) Edema (Acute) History of CHF (congestive heart failure) (Acute) History of headache (Acute) History of urinary retention (Acute) History of urinary tract obstruction (Acute) Incarcerated ventral hernia (Acute ~05/2018) Lightheaded (Acute) Limited mobility (Acute) Malaise and fatigue (Acute) Morbid obesity (Acute) Open wound (Acute) Paresthesias (Acute) Renal insufficiency (Acute) Shortness of breath (Acute) Sleep apnea (Acute) Tinnitus (Acute) Weakness (Acute) Weight loss (Acute) Surgical History H/O hernia repair (Acute) H/O right hemicolectomy (Acute ~05/2018) History of cataract extraction with lens replacement (Acute) Social History household members: spouse and children Smoking Status: Former smoker substance use type: does not use Social History Smoking Status: Former smoker substance use type: does not use Exam Initial Vital Signs Initial Vital Signs: Vital Signs Pulse Rate 77 12/13/18 08:18 Respiratory Rate 21 12/13/18 08:18 Blood Pressure 146/95 H 12/13/18 08:18 Pulse Oximetry 94 12/13/18 08:18 Const General: cooperative Nutritional Appearance: malnourished and overweight Orientation: alert, awake and oriented x3 HENMT Head: normal to inspection and normocephalic Eyes General: appearance normal, both eyes and all related structures Neck Neck: normal visual inspection and full ROM Chest Chest: normal inspection of the chest and normal palpation of entire chest wall Resp Effort & Inspection: normal respiratory effort and able to speak in complete sentences Auscultation: clear to auscultation bilaterally, no rales, no rhonchi and no wheezes Cardio Rate: regular rate Rhythm: regular rhythm Heart Sounds: S1 normal, S2 normal and no murmurs GI Palpation: soft, No firm and No guarding Other: Suprapubic catheter grow sediment in ellis Skin General: no rashes or lesions noted, No jaundice and No petechiae Neuro General: alert, oriented x3, gait normal and no focal motor deficits Speech: speech normal Course Orders Ordered: ED Orders 12/13/18 08:27 XR chest 1V Stat 12/13/18 08:41 Influenza A and B by PCR Rapid Stat 12/13/18 09:10 Complete Blood Count AUTO DIFF Stat Comprehensive Metabolic Panel Stat Lactate (Lactic Acid) Stat Magnesium Stat Partial Thromboplastin Time Stat Procalcitonin Stat Prothrombin Time INR Stat 12/13/18 09:19 Blood Culture Stat 12/13/18 10:45 Urinalysis and Microscopic Stat Urine Culture Stat Discontinued Medications Sodium Chloride (Normal Saline 0.9%) 1,000 mls @ 250 mls/hr IV BOLUS ONE Stop: 12/13/18 12:26 Last Infusion: 12/13/18 11:40 Dose: 0 mls/hr Admin: 12/13/18 09:06 Dose: 250 mls/hr Vital Signs - 8 hr 12/13/18 08:18 12/13/18 09:00 12/13/18 10:05 Pulse Rate 77 73 72 Respiratory Rate 21 18 19 Blood Pressure 146/95 H Blood Pressure [Right Arm] 139/81 156/66 H Pulse Oximetry 94 95 95 12/13/18 11:47 Pulse Rate 75 Respiratory Rate 18 Blood Pressure Blood Pressure [Right Arm] 173/96 H Pulse Oximetry 94 MDM - Weakness Lab Data Attestation: I reviewed the patient's lab results. Result diagrams: 12/13/18 09:10 12/13/18 09:10 Lab Results 12/13/18 12/13/18 12/13/18 Range/Units 08:41 09:10 09:10 WBC 5.4 (4.5-11.0) X10^3/uL RBC 4.04 L (4.5-5.9) X10^6/uL Hgb 12.4 L (13.5-17.5) g/dL Hct 36.6 L (41-53) % MCV 90.8 (80-100) fL MCH 30.8 (26-34) PG MCHC 33.9 (30-36) % RDW 14.6 (11.6-14.8) % Plt Count 252 (150-400) X10^3/uL Neut % (Auto) 59.7 (50-75) % Lymph % (Auto) 22.7 L (25-40) % [place] % (Auto) 8.6 (3-14) % Eos % (Auto) 8.0 H (2-4) % Baso % (Auto) 1.0 (0-2) % Neut # (Auto) 3200 (5756-3029) /uL Lymph # (Auto) 1200 (4175-4232) /uL [place] # (Auto) 500 (0-900) /uL Eos # (Auto) 400 (0-450) /uL Baso # (Auto) 100 (0-100) /uL PT 10.8 (10.1-12.7) SECONDS INR 0.9 (0.9-1.3) APTT 31 (26.4-36.2) SECONDS Sodium (137-145) mmol/L Potassium (3.4-5.1) mmol/L Chloride (98-107) mmol/L Carbon Dioxide (22-32) mmol/L BUN (9-20) mg/dL Creatinine (0.66-1.25) mg/dL Estimated GFR (>60) mL/min BUN/Creatinine Ratio (6-22) Glucose (80-110) mg/dL Lactate (0.7-2.1) mmol/L Calcium (8.4-10.2) mg/dL Magnesium (1.6-2.3) mg/dL Total Bilirubin (0.2-1.3) mg/dL AST (17-59) IU/L ALT (21-72) IU/L Alkaline Phosphatase (38-126) U/L Total Protein (6.3-8.2) g/dL Albumin (3.5-5.0) g/dL Globulin (1.7-4.1) g/dL Albumin/Globulin Ratio (1.0-2.8) Procalcitonin (<0.5) ng/mL Urine Color Urine Appearance Urine pH (4.5-8.0) Ur Specific [place] (1.000-1.035) Urine Protein (Negative) Urine Glucose (UA) (Negative) g/dL Urine Ketones (NEGATIVE) Urine Occult Blood (Negative) Urine Nitrate (Negative) Urine Bilirubin (NEGATIVE) Urine Urobilinogen (0.2) E.U./dL Ur Leukocyte Esterase (NEGATIVE) Urine RBC (0-5/HPF) Urine WBC (0-5/HPF) Urine Bacteria (None) Hyaline Casts (None) Ur Culture Indicated? Micro UA Comment Influenza A & B (PCR) Negative (Negative) 12/13/18 12/13/18 12/13/18 Range/Units 09:10 09:10 09:10 WBC (4.5-11.0) X10^3/uL RBC (4.5-5.9) X10^6/uL Hgb (13.5-17.5) g/dL Hct (41-53) % MCV (80-100) fL MCH (26-34) PG MCHC (30-36) % RDW (11.6-14.8) % Plt Count (150-400) X10^3/uL Neut % (Auto) (50-75) % Lymph % (Auto) (25-40) % [place] % (Auto) (3-14) % Eos % (Auto) (2-4) % Baso % (Auto) (0-2) % Neut # (Auto) (8366-5056) /uL Lymph # (Auto) (0231-6132) /uL [place] # (Auto) (0-900) /uL Eos # (Auto) (0-450) /uL Baso # (Auto) (0-100) /uL PT (10.1-12.7) SECONDS INR (0.9-1.3) APTT (26.4-36.2) SECONDS Sodium 139 (137-145) mmol/L Potassium 3.9 (3.4-5.1) mmol/L Chloride 98 (98-107) mmol/L Carbon Dioxide 33 H (22-32) mmol/L BUN 14 (9-20) mg/dL Creatinine 1.30 H (0.66-1.25) mg/dL Estimated GFR 54.3 L (>60) mL/min BUN/Creatinine Ratio 10.8 (6-22) Glucose 104 (80-110) mg/dL Lactate 2.1 (0.7-2.1) mmol/L Calcium 8.9 (8.4-10.2) mg/dL Magnesium 1.5 L (1.6-2.3) mg/dL Total Bilirubin 0.3 (0.2-1.3) mg/dL AST 34 (17-59) IU/L ALT 47 (21-72) IU/L Alkaline Phosphatase 81 (38-126) U/L Total Protein 6.5 (6.3-8.2) g/dL Albumin 3.5 (3.5-5.0) g/dL Globulin 3.0 (1.7-4.1) g/dL Albumin/Globulin Ratio 1.2 (1.0-2.8) Procalcitonin 0.08 (<0.5) ng/mL Urine Color Urine Appearance Urine pH (4.5-8.0) Ur Specific [place] (1.000-1.035) Urine Protein (Negative) Urine Glucose (UA) (Negative) g/dL Urine Ketones (NEGATIVE) Urine Occult Blood (Negative) Urine Nitrate (Negative) Urine Bilirubin (NEGATIVE) Urine Urobilinogen (0.2) E.U./dL Ur Leukocyte Esterase (NEGATIVE) Urine RBC (0-5/HPF) Urine WBC (0-5/HPF) Urine Bacteria (None) Hyaline Casts (None) Ur Culture Indicated? Micro UA Comment Influenza A & B (PCR) (Negative) 12/13/18 Range/Units 10:45 WBC (4.5-11.0) X10^3/uL RBC (4.5-5.9) X10^6/uL Hgb (13.5-17.5) g/dL Hct (41-53) % MCV (80-100) fL MCH (26-34) PG MCHC (30-36) % RDW (11.6-14.8) % Plt Count (150-400) X10^3/uL Neut % (Auto) (50-75) % Lymph % (Auto) (25-40) % [place] % (Auto) (3-14) % Eos % (Auto) (2-4) % Baso % (Auto) (0-2) % Neut # (Auto) (5760-0947) /uL Lymph # (Auto) (5697-5891) /uL [place] # (Auto) (0-900) /uL Eos # (Auto) (0-450) /uL Baso # (Auto) (0-100) /uL PT (10.1-12.7) SECONDS INR (0.9-1.3) APTT (26.4-36.2) SECONDS Sodium (137-145) mmol/L Potassium (3.4-5.1) mmol/L Chloride (98-107) mmol/L Carbon Dioxide (22-32) mmol/L BUN (9-20) mg/dL Creatinine (0.66-1.25) mg/dL Estimated GFR (>60) mL/min BUN/Creatinine Ratio (6-22) Glucose (80-110) mg/dL Lactate (0.7-2.1) mmol/L Calcium (8.4-10.2) mg/dL Magnesium (1.6-2.3) mg/dL Total Bilirubin (0.2-1.3) mg/dL AST (17-59) IU/L ALT (21-72) IU/L Alkaline Phosphatase (38-126) U/L Total Protein (6.3-8.2) g/dL Albumin (3.5-5.0) g/dL Globulin (1.7-4.1) g/dL Albumin/Globulin Ratio (1.0-2.8) Procalcitonin (<0.5) ng/mL Urine Color Yellow Urine Appearance Cloudy Urine pH 5.5 (4.5-8.0) Ur Specific [place] 1.020 (1.000-1.035) Urine Protein Negative (Negative) Urine Glucose (UA) Negative (Negative) g/dL Urine Ketones Negative (NEGATIVE) Urine Occult Blood 1+ H (Negative) Urine Nitrate Positive (Negative) Urine Bilirubin Negative (NEGATIVE) Urine Urobilinogen 0.2 (0.2) E.U./dL Ur Leukocyte Esterase 2+ H (NEGATIVE) Urine RBC 1-5/hpf (0-5/HPF) Urine WBC 10-30/hpf H (0-5/HPF) Urine Bacteria Many (>30) H (None) Hyaline Casts 0-1/lpf (None) Ur Culture Indicated? Specimen cultured Micro UA Comment Influenza A & B (PCR) (Negative) Imaging Data Chest x-ray: Radiologist's impression: PROCEDURE: XR CHEST 1V INDICATIONS: wekaness TECHNIQUE: One view of the chest was acquired. COMPARISON: [facility], , XR CHEST 1V, 09/26/2018, 13:46. [facility], , XR CHEST 1V, 06/24/2018, 5:04. [facility], , XR CHEST 1V, 06/22/2018, 13:08. FINDINGS: Surgical changes and devices: Left chest wall brittany catheter, tip of which is in the upper SVC. Lungs and pleura: Lungs are clear. No pleural effusions or pneumothorax. Mediastinum: Mediastinal contours appear normal. Heart size is normal. Bones and chest wall: No suspicious bony lesions. Overlying soft tissues appear unremarkable. IMPRESSION: No acute process. Dictated by: Orlando Sparks M.D. on 12/13/2018 at 9:09 MDM Narrative Medical decision making narrative: Patient requesting he go immediately to chemotherapy. He is agreeable to blood work and workup. I have reviewed records and discharge summary from [facility]. The patient does not want to be admitted to the hospital he does not want to be in a long-term care facility. I have spoken at length with his who states that he yesterday was able to walk around and get himself around. He has difficulty getting out of bed which is when he fell this morning. She is unable to get him up off the floor which is when 911 was called. She says that this frequently happens. She feels comfortable with him going home. At this time blood work is reassuring. Minimally elevated lactic acid. Await for urinalysis culture results. Patient has chronic Ellis catheter. He does have nitrates. Based on previous culture results will start Bactrim empirical ly. I talked with both and patient about possibly getting a wheelchair is at home. He is given information. Recommend he follow up with PCP in regards to that. We arranged for chemotherapy with the [facility]. Patient ambulate well with walker. Discharge Plan Departure Patient Disposition: Home Clinical Impression: Acute UTI, Weakness Colon cancer Qualifiers: Colon location: ascending Qualified Code(s): C18.2 - Malignant neoplasm of ascending colon Discharge Date/Time: 12/13/18 11:38 Interventions: ED Discharge Assessment Last Done: 12/13/18 11:40 Instructions: DI for Dehydration -- Adult Activity Restrictions/Additional Instructions: *You have been diagnosed with weakness, colon cancer *What to do: Use a walker or wheelchair well getting around be sure to use assistance *Continue to take medications as directed -Bactrim 1 tab twice a day for 7 days *Follow up with your primary care provider in 2-3 days *Return to ER if you should have persistent vomiting inability to tolerate fluids, increasing falls or any new, worsening or concerning symptoms Prescriptions: New sulfamethoxazole-trimethoprim [Bactrim DS] 800-160 mg tablet 1 tab PO BID Qty: 14 RF: 0 No Action Lasix 20 mg PO BID RF: 0 lidocaine 5 % Ointment 1 applic TOPICAL PRN PRN (Reason: Uretheral Pain) RF: 0 diphenoxylate-atropine [Lomotil] 2.5-0.025 mg Tablet 1 tab PO Q6-8H PRN (Reason: Diarrhea) RF: 0 ferrous sulfate [iron] 325 mg (65 mg iron) Tablet 325 mg PO BID RF: 0 calcium carbonate [Tums] 200 mg calcium (500 mg) Tablet,Chewable 200 mg PO QID PRN (Reason: Abdominal Discomfort) RF: 0 zolpidem [Ambien] 10 mg Tablet 10 mg PO BEDTIME PRN (Reason: Insomnia) RF: 0 cholecalciferol (vitamin D3) [Vitamin D3] 5,000 unit Tablet 5,000 unit PO DAILY RF: 0 gabapentin 300 mg (9)- 600 mg (69) Tablet Extended Release 24 Hr 900 mg PO BID RF: 0 hydralazine 50 mg Tablet 50 mg PO TID RF: 0 losartan 50 mg Tablet 50 mg PO BID RF: 0 oxycodone-acetaminophen 5-325 mg Tablet 1 tab PO Q4-6H PRN (Reason: Pain (Scale Score 4-6)) Qty: 60 RF: 0 paroxetine HCl [Paxil] 20 mg Tablet 20 mg PO DAILY 30 Days Qty: 30 RF: 3 paroxetine HCl [Paxil] 30 mg Tablet 30 mg PO DAILY Qty: 30 RF: 3 fluorouracil 2.5 gram/50 mL Solution 4,800 mg IV NOW Qty: 1 RF: 0 ondansetron 8 mg Tablet,Disintegrating 8 mg PO TID PRN (Reason: Nausea) Qty: 60 RF: 3 fluorouracil 2.5 gram/50 mL Solution 4,000 mg IV NOW Qty: 1 RF: 0 Referrals: Walt Mendez MD [Primary Care Provider] -
[2018-12-13 09:00] VITALS: BP 139/81; PULSE 73; RESP 18; O2SAT 95
[2018-12-13] MEDS: SODIUM CHLORIDE 0.9% 1,000 ML 250 ML IV (09:06)
[2018-12-13 09:18] LABS: Influenza A and B by PCR Rapid Negative (Negative)
[2018-12-13 09:29] LABS: Add Manual Diff / Slide Review NO; Basophils Absolute Auto 100 /uL (0-100); Eosinophils Absolute Auto 400 /uL (0-450); Hematocrit 36.6 % (41-53); Hemoglobin 12.4 g/dL (13.5-17.5); Lymphocytes Absolute Auto 1200 /uL (1100-4500); Lymphocytes Percent Auto 22.7 % (25-40); Mean Corpuscular HGB Conc 33.9 % (30-36); Mean Corpuscular Hemoglobin 30.8 PG (26-34); Mean Corpuscular Volume 90.8 fL (80-100); Monocytes Absolute Auto 500 /uL (0-900); Monocytes Percent Auto 8.6 % (3-14); Neutrophils Absolute Auto 3200 /uL (1500-7000); Neutrophils Percent Auto 59.7 % (50-75); Platelet Count 252 X10^3/uL (150-400); Red Blood Cell Count 4.04 X10^6/uL (4.5-5.9); Red Cell Distribution Width 14.6 % (11.6-14.8); White Blood Cell Count 5.4 X10^3/uL (4.5-11.0)
[2018-12-13 09:36] LABS: INR 0.9 (0.9-1.3); Prothrombin Time 10.8 SECONDS (10.1-12.7)
[2018-12-13 09:38] LABS: PTT Partial Thromboplastin Tim 31 SECONDS (26.4-36.2)
[2018-12-13 09:40] LABS: Alanine Aminotransferase 47 IU/L (21-72); Albumin 3.5 g/dL (3.5-5.0); Albumin Globulin Ratio 1.2 (1.0-2.8); Alkaline Phosphatase 81 U/L (38-126); Aspartate Aminotransferase 34 IU/L (17-59); BUN Creatinine Ratio 10.8 (6-22); Bilirubin Total 0.3 mg/dL (0.2-1.3); Blood Urea Nitrogen 14 mg/dL (9-20); Calcium 8.9 mg/dL (8.4-10.2); Carbon Dioxide 33 mmol/L (22-32); Chloride 98 mmol/L (98-107); Estimated Glomerular Filt Rate 54.3 mL/min (>60); Glucose 104 mg/dL (80-110); HEMOLYSIS < 15 (0-50); Magnesium 1.5 mg/dL (1.6-2.3); Potassium 3.9 mmol/L (3.4-5.1); Sodium 139 mmol/L (137-145); Total Protein 6.5 g/dL (6.3-8.2)
[2018-12-13 09:41] LABS: Lactate (Lactic Acid) 2.1 mmol/L (0.7-2.1)
[2018-12-13 10:04] LABS: Procalcitonin 0.08 ng/mL (<0.5)
[2018-12-13 10:05] VITALS: BP 156/66; PULSE 72; RESP 19; O2SAT 95
--- NOTE | 2018-12-13 10:47 | PC.NURSE ---
dried blood. suprapubic cleansed and irrigated with ns, tolerated procedure well. ellis tubing changed.
[2018-12-13 10:55] LABS: Appearance Urine UA CLOUDY; Bilirubin Urine UA NEGATIVE (NEGATIVE); Color Urine UA YELLOW; Glucose Urine UA NEGATIVE (Negative); Ketones Urine UA NEGATIVE (NEGATIVE); Leukocyte Esterase Urine UA 2+ (NEGATIVE); Nitrite Urine UA POSITIVE (Negative); Occult Blood Urine UA 1+ (Negative); Protein Urine UA NEGATIVE (Negative); Urobilinogen Urine UA 0.2 E.U./dL (0.2); pH Urine UA 5.5 (4.5-8.0)
[2018-12-13 11:10] LABS: Bacteria Urine Many (>30); Culture Indicated Urine Specimen Cultured; Hyaline Casts Urine 0-1/LPF; RBC Urine 1-5/HPF (0-5/HPF); WBC Urine 10-30/HPF (0-5/HPF)
[2018-12-13 11:47] VITALS: BP 173/96; PULSE 75; RESP 18; O2SAT 94
--- NOTE | 2018-12-13 11:58 | PC.NURSE ---
patient ambulated to wheelchair outside of room, then I assisted patient in the wheel chair over to oncology.
== END 2018-12-13 11:38 | disposition home or self-care (01) ==
PROVIDERS: Emergency Provider Emergency Medicine; PCP Family Medicine
DX: N39.0 Urinary tract infection, site not specified (principal); R53.1 Weakness; W18.30XA Fall on same level, unspecified, initial encounter; C18.2 Malignant neoplasm of ascending colon
CPT/HCPCS: 36415; 71045; 80053; 81001; 83605; 83735; 84145; 85025; 85610; 85730; 87040; 87077; 87086; 87186; 87400; 96360; 99283; 99284

== ENCOUNTER → 2019-01-09 12:25 | Outpatient (CLI) | payer OTHER, SELFPAY ==
[2018-06-22 15:32] VITALS: BMI 50.1
--- NOTE | 2019-01-09 13:15 | DI.CT.S_ITS ---
PATIENT NAME: SUSANNE STAFFORD : 1945 EXAM DATE: 01/09/2019 13:[address].: ELKE Campbell CC: ALVARADO SEBASTIAN M.D. MODALITY: CT PATIENT TYPE: Out CONTRAST MEDIA: STATION ID: [id number] FLUORO TIME: PROCEDURE: CT CHEST ABD PEL WO CON INDICATIONS: colon cancer TECHNIQUE: After the administration of oral contrast, 5 mm thick sections acquired from the lung apices to the symphysis pubis. 5 mm thick coronal and sagittal reformats acquired, with additional 7 mm coronal MIP reformats through the lungs. For radiation dose reduction, the following was used: automated exposure control, adjustment of mA and/or kV according to patient size. COMPARISON: [facility], CT, CT SHRESTHA, 11/24/2018, 14:43. [facility], [place], [place] PET CT FUSION SKULL 2 THIGH, 10/26/2018, 16:32. [facility], CT, CT BIOPSY ABDOMEN PERCUTANEOUS, 09/26/2018, 9:14. [facility], CT, CT ABDOMEN WO/W CON, 09/19/2018, 10:46. FINDINGS: Image quality: Excellent. CHEST: Lungs and pleura: No acute pulmonary opacities, and the 1.4 cm nodular mass at the medial right lung apex is again noted, without appreciable increase or decrease in size over time. This was mildly positive on nuclear medicine PET CT scanning and likely represents either a primary or metastatic malignancy. No pleural effusions or pneumothorax. Central and peripheral airways are patent are normal in caliber. Mediastinum: Heart size is normal. No pericardial effusion. No mediastinal adenopathy by CT size criteria. Thoracic aorta and central pulmonary arteries are normal in size. Esophagus is normal in caliber. No hiatal hernia. Port-A-Cath in normal position, from left- sided approach. Port-A-Cath tip just enters the origin of the superior vena cava. Chest wall: No axillary or supraclavicular adenopathy by size criteria. Thyroid gland is not well-visualized due to the absence of intravenous contrast but appears normal where well seen.. ABDOMEN: Solid organs: Liver is normal in size. Gallbladder is not seen. Pancreas is normal in contours. Spleen is normal in size. No change in the right adrenal nodule which was mildly positive on nuclear medicine PET CT scanning consistent with metastatic disease. The left adrenal mass, Continued Report - Page 2 of 3 PATIENT NAME: SUSANNE STAFFORD : 1945 EXAM DATE: 01/09/2019 13:[address].: ELKE Cambpell CC: ALVARADO SEBASTIAN M.D. MODALITY: CT PATIENT TYPE: Out CONTRAST MEDIA: STATION ID: [id number] FLUORO TIME: previously biopsied, as prominently diminished in size and now measures approximately 5.6 cm AP and 3.0 cm transverse. Both kidneys are normal in size, without hydronephrosis or nephrolithiasis. Several small renal cortical cysts are again seen. Peritoneum and bowel: Small and large bowel loops are normal in caliber and wall thickness. No free fluid or air. Nodes and vessels: No mesenteric adenopathy by size criteria. Para-aortic and aortocaval lymph nodes are present in a greater number than is generally seen but no pathologically enlarged nodes are seen in this area. Suspect charlene metastatic disease as the underlying cause. Aorta and inferior vena cava are normal in size. Miscellaneous: No ventral hernias. PELVIS: Genitourinary: Bladder wall thickness is difficult to accurately assess due to emptying of the bladder by a suprapubic Cabrera catheter centrally positioned. Miscellaneous: No inguinal hernias or adenopathy. Bones: No suspicious bony lesions. No vertebral body compression fractures. IMPRESSION: 1. Stable appearance of a 1.4 cm medial right lung apex mass positive on recent prior PET CT scanning warranting additional attention on followup imaging. 2. No change in a nodular mass involving the right adrenal gland, small in size, but positive on recent prior nuclear medicine PET CT scanning. Presumed metastatic disease. 3. Significant interval reduction in size of the large mass involving the left adrenal gland, representing successful response to therapy. The residual left adrenal mass measures approximately 5.6 x 3.0 cm in maximal AP and transverse dimensions. 4. Several slightly prominent lymph nodes are seen along the para-aortic and aortocaval retroperitoneum at and below the level of the mid kidneys. No pathologically enlarged nodes are present but in this clinical circumstance there is a significant likelihood that these nodes represent a manifestation of metastatic disease and continued attention to this region on followup imaging is recommended. Dictated by: Mina Short M.D. on 01/09/2019 at 14:04 Continued Report - Page 3 of 3 PATIENT NAME: SUSANNE STAFFORD : 1945 EXAM DATE: 01/09/2019 13:[address].: ELKE Campbell CC: ALVARADO SEBASTIAN M.D. MODALITY: CT PATIENT TYPE: Out CONTRAST MEDIA: STATION ID: [id number] FLUORO TIME: Approved by: Mina Short M.D. on 01/09/2019 at 14:33
== END ==
PROVIDERS: PCP Family Medicine
DX: C18.9 Malignant neoplasm of colon, unspecified (principal); R91.8 Other nonspecific abnormal finding of lung field; E27.9 Disorder of adrenal gland, unspecified
CPT/HCPCS: 71250; 74176

== ENCOUNTER 2019-01-19 12:51 | Emergency (ER) | payer OTHER, SELFPAY ==
[2018-06-22 15:32] VITALS: BMI 50.1
[2019-01-19 12:55] VITALS: BP 132/80; PULSE 80; RESP 16; TEMP 36; O2SAT 96; BMI 49.3
[2019-01-19 14:19] LABS: Add Manual Diff / Slide Review NO; Basophils Absolute Auto 0 /uL (0-100); Basophils Percent Auto 0.8 % (0-2); Eosinophils Absolute Auto 300 /uL (0-450); Eosinophils Percent Auto 5.2 % (2-4); Hematocrit 36.4 % (41-53); Hemoglobin 12.2 g/dL (13.5-17.5); Lymphocytes Absolute Auto 800 /uL (1100-4500); Lymphocytes Percent Auto 13.7 % (25-40); Mean Corpuscular HGB Conc 33.4 % (30-36); Mean Corpuscular Hemoglobin 31.4 PG (26-34); Mean Corpuscular Volume 93.8 fL (80-100); Monocytes Absolute Auto 400 /uL (0-900); Monocytes Percent Auto 7.5 % (3-14); Neutrophils Absolute Auto 4000 /uL (1500-7000); Neutrophils Percent Auto 72.8 % (50-75); Platelet Count 250 X10^3/uL (150-400); Red Blood Cell Count 3.88 X10^6/uL (4.5-5.9); Red Cell Distribution Width 15.8 % (11.6-14.8); White Blood Cell Count 5.5 X10^3/uL (4.5-11.0)
[2019-01-19 14:27] LABS: Alanine Aminotransferase 36 IU/L (21-72); Albumin 3.7 g/dL (3.5-5.0); Albumin Globulin Ratio 1.4 (1.0-2.8); Alkaline Phosphatase 77 U/L (38-126); Aspartate Aminotransferase 31 IU/L (17-59); BUN Creatinine Ratio 18.8 (6-22); Bilirubin Total 0.3 mg/dL (0.2-1.3); Blood Urea Nitrogen 30 mg/dL (9-20); Calcium 8.9 mg/dL (8.4-10.2); Carbon Dioxide 25 mmol/L (22-32); Chloride 101 mmol/L (98-107); Estimated Glomerular Filt Rate 42.7 mL/min (>60); Globulin 2.7 g/dL (1.7-4.1); Glucose 192 mg/dL (80-110); HEMOLYSIS < 15 (0-50); Potassium 3.6 mmol/L (3.4-5.1); Sodium 138 mmol/L (137-145); Total Protein 6.4 g/dL (6.3-8.2)
--- NOTE | 2019-01-19 14:36 | ED.MALEGU ---
HPI - Male Genitourinary General Chief complaint: Urogenital-Male Stated complaint: Groin Bleeding Time Seen by Provider: 01/19/19 13:21 Source: patient Mode of arrival: ambulatory Limitations: no limitations History of Present Illness HPI Narrative: Patient is a 73-year-old male with history of metastatic colon cancer and lymphedema and chronic suprapubic catheter. He has significant abdominal lymphedema, he states that he had some bleeding where his urethra opening should be and some irritation. He has not had any fever or chills. He has significant amount of skin and swelling. He has actually bleeding in his groin between skin fold on the right side. He keep some cough and there to help it but is not being followed by wound care. Related Data Home Medications Medication Instructions Recorded Confirmed calcium carbonate [Tums] 200 mg PO QID PRN 06/07/18 01/11/19 cholecalciferol (vitamin D3) 5,000 unit PO DAILY 06/07/18 01/11/19 [Vitamin D3] diphenoxylate-atropine [Lomotil] 1 tab PO Q6-8H PRN 06/07/18 01/11/19 ferrous sulfate [iron] 325 mg PO BID 06/07/18 01/11/19 gabapentin 900 mg PO BID 06/07/18 01/19/19 zolpidem [Ambien] 10 mg PO BEDTIME PRN 06/07/18 01/19/19 Lasix 20 mg PO BID 06/15/18 01/11/19 lidocaine 1 applic TOPICAL PRN PRN 06/15/18 01/11/19 losartan 50 mg PO BID 07/12/18 01/19/19 hydralazine 25 mg PO TID 01/19/19 01/19/19 morphine 15 mg PO BID 01/19/19 01/19/19 tramadol 50 mg PO BID 01/19/19 01/19/19 Previous Rx's Medication Instructions Recorded paroxetine HCl [Paxil] 30 mg PO DAILY #30 tab 11/08/18 ondansetron 8 mg PO TID PRN #60 tab 11/22/18 prochlorperazine maleate 10 mg PO Q6-8H PRN #30 tab 12/13/18 [Compazine] oxycodone-acetaminophen 1 tab PO Q4-6H PRN #60 tab 01/11/19 fluorouracil 4,000 mg IV NOW #1 device 01/17/19 carisoprodol [Soma] 350 mg PO TID PRN #30 tab 01/18/19 Allergies Allergy/AdvReac Type Severity Reaction Status Date / Time cephalexin AdvReac Severe Gastrointestinal Verified 01/19/19 12:55 Upset Review of Systems Review of Systems ROS Unobtainable: All systems reviewed & are unremarkable except as noted in HPI and below Constitutional Denies chills, Denies fever(s), Denies lethargy and Denies weakness Cardiovascular Denies chest pain, Denies irregular heart rhythm, Denies lightheadedness, Denies palpitations, Denies dyspnea, Denies dyspnea on exertion and Denies orthopnea Respiratory Denies cough, Denies dyspnea, Denies dyspnea on exertion and Denies wheezing Gastrointestinal Gastrointestinal: Denies abdominal pain, Denies change in bowel habits, Denies diarrhea, Denies nausea and Denies vomiting Genitourinary Reports as per HPI Integumentary/Breasts Reports as per HPI Neurologic Denies weakness Endocrine Denies palpitations Allergic/Immunologic Denies wheezing [facility] Medical History Colon cancer (Acute) Diabetes mellitus with neuropathy (Acute) Difficulty walking (Acute) Dry skin (Acute) Edema (Acute) History of CHF (congestive heart failure) (Acute) History of headache (Acute) History of urinary retention (Acute) History of urinary tract obstruction (Acute) Incarcerated ventral hernia (Acute ~05/2018) Lightheaded (Acute) Limited mobility (Acute) Malaise and fatigue (Acute) Morbid obesity (Acute) Open wound (Acute) Paresthesias (Acute) Renal insufficiency (Acute) Shortness of breath (Acute) Sleep apnea (Acute) Tinnitus (Acute) Weakness (Acute) Weight loss (Acute) Surgical History H/O hernia repair (Acute) H/O right hemicolectomy (Acute ~05/2018) History of cataract extraction with lens replacement (Acute) Social History household members: spouse and children Smoking Status: Former smoker substance use type: does not use Social History household members: spouse and children Smoking Status: Former smoker substance use type: does not use Exam Initial Vital Signs Initial Vital Signs: Vital Signs Temperature 96.8 F L 01/19/19 12:55 Pulse Rate 80 01/19/19 12:55 Respiratory Rate 16 01/19/19 12:55 Blood Pressure 132/80 01/19/19 12:55 Pulse Oximetry 96 01/19/19 12:55 Gen.: Alert overweight male HEENT: Head atraumatic, EOMI Neck: Supple no meningeal Lungs: Clear bilaterally no respiratory distress speaks in full sentences Cardiac: Regular rate no murmur Abdomen: Very large pannus, suprapubic catheter in place no erythema or drainage from site. Abdominal scar noted. : Penis is not seen but where it should be the opening small amount of erythema/irritation but no drool induration drainage no gross blood Extremities: Moving all extremities peripheral pulses intact Neurologic: Alert oriented x3 SKIN: Right groin area has significant skin breakdown with some bleeding and erythema Course Orders Ordered: ED Orders 01/19/19 14:03 Complete Blood Count AUTO DIFF Stat Comprehensive Metabolic Panel Stat Discontinued Medications Oxycodone/Acetaminophen (Percocet 5/325) 2 tab PO NOW ONE Stop: 01/19/19 15:05 Last Admin: 01/19/19 15:07 Dose: 2 tab Vital Signs - 8 hr 01/19/19 12:55 01/19/19 15:45 Temperature 96.8 F L Pulse Rate 80 75 Respiratory Rate 16 20 Blood Pressure 132/80 161/84 H Pulse Oximetry 96 97 MDM - Male Genitourinary Lab Data Attestation: I reviewed the patient's lab results. Result diagrams: 01/19/19 14:03 01/19/19 14:03 Lab Results 01/19/19 01/19/19 Range/Units 14:03 14:03 WBC 5.5 (4.5-11.0) X10^3/uL RBC 3.88 L (4.5-5.9) X10^6/uL Hgb 12.2 L (13.5-17.5) g/dL Hct 36.4 L (41-53) % MCV 93.8 (80-100) fL MCH 31.4 (26-34) PG MCHC 33.4 (30-36) % RDW 15.8 H (11.6-14.8) % Plt Count 250 (150-400) X10^3/uL Neut % (Auto) 72.8 (50-75) % Lymph % (Auto) 13.7 L (25-40) % [place] % (Auto) 7.5 (3-14) % Eos % (Auto) 5.2 H (2-4) % Baso % (Auto) 0.8 (0-2) % Neut # (Auto) 4000 (1339-7632) /uL Lymph # (Auto) 800 L (5253-3458) /uL [place] # (Auto) 400 (0-900) /uL Eos # (Auto) 300 (0-450) /uL Baso # (Auto) 0 (0-100) /uL Sodium 138 (137-145) mmol/L Potassium 3.6 (3.4-5.1) mmol/L Chloride 101 (98-107) mmol/L Carbon Dioxide 25 (22-32) mmol/L BUN 30 H (9-20) mg/dL Creatinine 1.60 H (0.66-1.25) mg/dL Estimated GFR 42.7 L (>60) mL/min BUN/Creatinine Ratio 18.8 (6-22) Glucose 192 H (80-110) mg/dL Calcium 8.9 (8.4-10.2) mg/dL Total Bilirubin 0.3 (0.2-1.3) mg/dL AST 31 (17-59) IU/L ALT 36 (21-72) IU/L Alkaline Phosphatase 77 (38-126) U/L Total Protein 6.4 (6.3-8.2) g/dL Albumin 3.7 (3.5-5.0) g/dL Globulin 2.7 (1.7-4.1) g/dL Albumin/Globulin Ratio 1.4 (1.0-2.8) MDM Narrative Medical decision making narrative: I called and spoke with wound care in regards to skin escoriation right groin area which is actively bleeding. They recommended inter dry they even brought up some extra. Patient is given an extra piece as well a can be washed and reused. Recommend follow-up with Urology. Site of bleeding at penis not appreciated or found. states it only happens when he bears down for a bowel movement. Discharge Plan Departure Patient Disposition: Home Clinical Impression: Candidal intertrigo Discharge Date/Time: 01/19/19 15:30 Interventions: ED Discharge Assessment Last Done: 01/19/19 15:45 Instructions: Silver Sulfadiazine (On the skin) Activity Restrictions/Additional Instructions: *You have been diagnosed with feared complaint not found *What to do: You do have a wound in the right groin area and skin breakdown. Apply inter dry daily you may wash and reviewed *Continue to take medications as directed *Follow up with your primary care provider in 2-3 days *Return to ER if you should have increasing redness, vision drainage or any new, worsening or concerning symptoms Prescriptions: No Action Lasix 20 mg PO BID RF: 0 lidocaine 5 % Ointment 1 applic TOPICAL PRN PRN (Reason: Uretheral Pain) RF: 0 hydralazine 25 mg tablet 25 mg PO TID RF: 0 tramadol 50 mg tablet 50 mg PO BID RF: 0 morphine 15 mg tablet extended release 15 mg PO BID RF: 0 diphenoxylate-atropine [Lomotil] 2.5-0.025 mg Tablet 1 tab PO Q6-8H PRN (Reason: Diarrhea) RF: 0 ferrous sulfate [iron] 325 mg (65 mg iron) Tablet 325 mg PO BID RF: 0 calcium carbonate [Tums] 200 mg calcium (500 mg) Tablet,Chewable 200 mg PO QID PRN (Reason: Abdominal Discomfort) RF: 0 zolpidem [Ambien] 10 mg Tablet 10 mg PO BEDTIME PRN (Reason: Insomnia) RF: 0 cholecalciferol (vitamin D3) [Vitamin D3] 5,000 unit Tablet 5,000 unit PO DAILY RF: 0 gabapentin 300 mg (9)- 600 mg (69) Tablet Extended Release 24 Hr 900 mg PO BID RF: 0 losartan 50 mg Tablet 50 mg PO BID RF: 0 paroxetine HCl [Paxil] 30 mg Tablet 30 mg PO DAILY Qty: 30 RF: 3 ondansetron 8 mg Tablet,Disintegrating 8 mg PO TID PRN (Reason: Nausea) Qty: 60 RF: 3 prochlorperazine maleate [Compazine] 10 mg Tablet 10 mg PO Q6-8H PRN (Reason: Nausea) Qty: 30 RF: 3 oxycodone-acetaminophen 5-325 mg Tablet 1 tab PO Q4-6H PRN (Reason: Pain (Scale Score 4-6)) Qty: 60 RF: 0 fluorouracil 2.5 gram/50 mL Solution 4,000 mg IV NOW Qty: 1 RF: 0 carisoprodol [Soma] 350 mg Tablet 350 mg PO TID PRN (Reason: Muscle Pain) Qty: 30 RF: 1 Referrals: Walt Mendez MD [Primary Care Provider] -
[2019-01-19] MEDS: OXYCODONE/ACETAMINOPHEN 5/325 TABLET 2 TAB PO (15:07)
[2019-01-19 15:45] VITALS: BP 161/84; PULSE 75; RESP 20; O2SAT 97
== END 2019-01-19 15:30 | disposition home or self-care (01) ==
PROVIDERS: Emergency Provider Emergency Medicine; PCP Family Medicine
DX: B37.2 Candidiasis of skin and nail (principal); R58 Hemorrhage, not elsewhere classified
CPT/HCPCS: 36591; 80053; 85025; 99282; 99283

== ENCOUNTER 2019-02-07 17:53 | Observation (INO) | payer OTHER, SELFPAY ==
[2018-06-22 15:32] VITALS: BMI 50.1
[2019-02-07 18:02] VITALS: BP 142/92; PULSE 79; RESP 18; TEMP 35.8; O2SAT 96
--- NOTE | 2019-02-07 18:54 | ED.ABDPAIN ---
HPI - Abdominal Pain General Chief Complaint: Abdominal Pain Stated Complaint: STATES N/V, DEHYDRATION Time Seen by Provider: 02/07/19 18:52 Source: patient and family Mode of arrival: wheelchair Limitations: no limitations History of Present Illness HPI narrative: a 73-year-old male with stage III colon cancer currently presenting with weakness and all multiple vague complaints. His he is supposed to have chemotherapy tomorrow. According to the he has been vomiting for the last 2 weeks unable hold anything down. He feels dizzy lightheaded at times he has passed out at times but not for 1 week. He really has no abdominal pain. He is always short of breath due to his CHF but he is currently lying down speaking in full sentences. He says the shortness of breath is not any worse than it normally is. He denies any fever. He has a chronic indwelling suprapubic catheter which is draining.. states that she tried to feed him 2 small pieces today which he promptly threw up. He refuses to drink any sort of Gatorade water or liquid. According to oncology notes he is supposed to have a CT to check for progression of disease may need to consider stopping chemotherapy if too far progression. Patient has not had a CT yet. Onset (ago): week(s) (2) Pain Consistency: intermittent Related Data Home Medications Medication Instructions Recorded Confirmed calcium carbonate [Tums] 200 mg PO QID PRN 06/07/18 02/07/19 cholecalciferol (vitamin D3) 5,000 unit PO BID 06/07/18 02/07/19 [Vitamin D3] diphenoxylate-atropine [Lomotil] 1 tab PO Q6-8H PRN 06/07/18 02/07/19 gabapentin 900 mg PO DAILY 06/07/18 02/07/19 zolpidem [Ambien] 10 mg PO BEDTIME PRN 06/07/18 02/07/19 lidocaine 1 applic TOPICAL PRN PRN 06/15/18 02/07/19 losartan 50 mg PO BID 07/12/18 02/07/19 morphine 15 mg PO BID 01/19/19 02/07/19 tramadol 50 mg PO BID 01/19/19 02/07/19 furosemide [Lasix] 10 mg PO BID 02/07/19 02/07/19 Previous Rx's Medication Instructions Recorded ondansetron 8 mg PO TID PRN #60 tab 11/22/18 prochlorperazine maleate 10 mg PO Q6-8H PRN #30 tab 12/13/18 [Compazine] oxycodone-acetaminophen 1 tab PO Q4-6H PRN #60 tab 01/11/19 carisoprodol [Soma] 350 mg PO TID PRN #30 tab 01/18/19 fluorouracil 4,000 mg IV NOW #1 device 01/25/19 Allergies Allergy/AdvReac Type Severity Reaction Status Date / Time cephalexin AdvReac Severe Gastrointestinal Verified 01/19/19 12:55 Upset Review of Systems Review of Systems ROS Unobtainable: All systems reviewed & are unremarkable except as noted in HPI and below Constitutional Denies chills, Denies excessive sweating, Denies fever(s), Denies lethargy, Reports poor appetite and Reports weakness Eyes Denies change in vision, Denies eye discharge, Denies irritation and Denies loss of vision ENT Ears, Nose, Mouth, and Throat: Denies change in voice, Denies neck pain and Denies sore throat Cardiovascular Denies chest pain, Reports syncope, Denies irregular heart rhythm, Reports lightheadedness, Denies palpitations, Reports dyspnea (Unchanged today) and Denies orthopnea Respiratory Denies cough, Reports dyspnea (Unchanged today) and Denies wheezing Gastrointestinal Gastrointestinal: Denies abdominal pain, Denies change in bowel habits, Denies diarrhea, Denies nausea and Denies vomiting Genitourinary Reports as per HPI, Denies hematuria, Denies flank pain, Denies urinary incontinence and Denies urinary urgency Musculoskeletal Denies neck pain Integumentary/Breasts Denies pruritus, Denies erythema, Denies rash and Denies wounds Neurologic Reports syncope, Denies loss of vision and Reports weakness Endocrine Denies excessive sweating and Denies palpitations Allergic/Immunologic Denies wheezing [facility] Medical History Colon cancer (Acute) Diabetes mellitus with neuropathy (Acute) Difficulty walking (Acute) Dry skin (Acute) Edema (Acute) History of CHF (congestive heart failure) (Acute) History of headache (Acute) History of urinary retention (Acute) History of urinary tract obstruction (Acute) Incarcerated ventral hernia (Acute ~05/2018) Lightheaded (Acute) Limited mobility (Acute) Malaise and fatigue (Acute) Morbid obesity (Acute) Open wound (Acute) Paresthesias (Acute) Renal insufficiency (Acute) Shortness of breath (Acute) Sleep apnea (Acute) Tinnitus (Acute) Weakness (Acute) Weight loss (Acute) Surgical History H/O hernia repair (Acute) H/O right hemicolectomy (Acute ~05/2018) History of cataract extraction with lens replacement (Acute) Social History household members: spouse and children Smoking Status: Former smoker substance use type: does not use Social History household members: spouse and children Smoking Status: Former smoker alcohol intake: current substance use type: does not use Exam Initial Vital Signs Initial Vital Signs: Vital Signs Temperature 96.5 F L 02/07/19 18:02 Pulse Rate 79 02/07/19 18:02 Respiratory Rate 18 02/07/19 18:02 Blood Pressure 142/92 H 02/07/19 18:02 Pulse Oximetry 96 02/07/19 18:02 GENERAL: Obese male no acute distress HEENT: Head atraumatic,EOMI, pupils reactive, face symmetric, CARDIOVASCULAR: Regular rate and rhythm without murmurs, rubs or gallops. RESPIRATORY: A speaks in full sentences without difficulty clear bilaterally ABDOMEN: Soft, Obese nontender. Normoactive bowel sounds all 4 quadrants. No guarding or rebound. : Indwelling suprapubic EXTREMITIES: Normal range of motion, no clubbing or edema. Neurovascularly intact NEUROLOGICAL: Alert and oriented x4.Normal gait and speech. Cranial nerves II through XII grossly intact. SKIN: Rash between skin folds on the right groin is appears irritated slightly bloody similar to when I have seen him in the past states that it is actually improving Course Orders Ordered: ED Orders 02/07/19 18:59 EKG-12 Lead Stat 02/07/19 19:00 Complete Blood Count AUTO DIFF Stat Comprehensive Metabolic Panel Stat Lactate (Lactic Acid) Stat 02/07/19 19:02 CT chest abd pel w con Stat 02/07/19 19:04 CT head/brain wo con Stat 02/07/19 22:18 Consult to Dietitian, Adult Routine Sodium Chloride (Normal Saline 0.9%) 1,000 mls @ 150 mls/hr IV CONT SAI Last Infusion: 02/07/19 22:13 Dose: 150 mls/hr Infusion: 02/07/19 20:00 Dose: 150 mls/hr Infusion: 02/07/19 19:36 Dose: 0 mls/hr Admin: 02/07/19 19:09 Dose: 150 mls/hr Discontinued Medications Metoclopramide HCl (Reglan) 10 mg IV NOW ONE Stop: 02/07/19 21:07 Last Admin: 02/07/19 21:15 Dose: 10 mg Ondansetron HCl (Zofran) 4 mg IV NOW ONE Stop: 02/07/19 19:03 Last Admin: 02/07/19 19:09 Dose: 4 mg Vital Signs - 8 hr 02/07/19 20:31 02/07/19 21:30 02/07/19 22:18 Temperature 98.2 F Pulse Rate 74 79 77 Respiratory Rate 14 19 20 Blood Pressure 148/89 H Blood Pressure [Right Wrist] 153/102 H 131/83 Pulse Oximetry 98 02/07/19 23:20 Temperature 98.5 F Pulse Rate 79 Respiratory Rate 19 Blood Pressure 148/78 H Blood Pressure [Right Wrist] Pulse Oximetry 98 MDM - Abdominal Pain Lab Data Attestation: I reviewed the patient's lab results. Result diagrams: 02/07/19 19:00 02/07/19 19:00 Lab Results 02/07/19 02/07/19 02/07/19 Range/Units 19:00 19:00 19:00 WBC 6.5 (4.5-11.0) X10^3/uL RBC 3.87 L (4.5-5.9) X10^6/uL Hgb 12.2 L (13.5-17.5) g/dL Hct 37.3 L (41-53) % MCV 96.4 (80-100) fL MCH 31.5 (26-34) PG MCHC 32.7 (30-36) % RDW 17.8 H (11.6-14.8) % Plt Count 235 (150-400) X10^3/uL Neut % (Auto) 73.9 (50-75) % Lymph % (Auto) 10.6 L (25-40) % Rice % (Auto) 11.0 (3-14) % Eos % (Auto) 3.6 (2-4) % Baso % (Auto) 0.9 (0-2) % Neut # (Auto) 4800 (4265-6121) /uL Lymph # (Auto) 700 L (7882-7322) /uL Rice # (Auto) 700 (0-900) /uL Eos # (Auto) 200 (0-450) /uL Baso # (Auto) 100 (0-100) /uL Sodium 140 (137-145) mmol/L Potassium 3.8 (3.4-5.1) mmol/L Chloride 100 (98-107) mmol/L Carbon Dioxide 31 (22-32) mmol/L BUN 16 (9-20) mg/dL Creatinine 1.60 H (0.66-1.25) mg/dL Estimated GFR 42.7 L (>60) mL/min BUN/Creatinine Ratio 10.0 (6-22) Glucose 126 H (80-110) mg/dL Lactate 1.9 (0.7-2.1) mmol/L Calcium 9.4 (8.4-10.2) mg/dL Total Bilirubin 0.7 (0.2-1.3) mg/dL AST 24 (17-59) IU/L ALT 24 (21-72) IU/L Alkaline Phosphatase 80 (38-126) U/L Total Protein 6.9 (6.3-8.2) g/dL Albumin 3.8 (3.5-5.0) g/dL Globulin 3.1 (1.7-4.1) g/dL Albumin/Globulin Ratio 1.2 (1.0-2.8) Imaging Data CT scan - head: Radiologist's impression: PROCEDURE: CT HEAD/BRAIN WO CON INDICATIONS: cancer lightheaded vomiting TECHNIQUE: Noncontrast 4.5 mm thick angled axial sections acquired from the foramen magnum to the vertex, with coronal and sagittal reformats. For radiation dose reduction, the following was used: automated exposure control, adjustment of mA and/or kV according to patient size. COMPARISON: None. FINDINGS: Image quality: Excellent. CSF spaces: Basal cisterns are patent. No extra-axial fluid collections. The ventricles are symmetric in size and shape. Brain: No intracranial bleeds or masses. There is cerebral volume loss for age, with resultant ventricular and sulcal prominence. There are periventricular and deep white matter chronic small vessel ischemic changes. There is intracranial internal carotid artery atherosclerosis. Skull and face: Calvarium and visualized facial bones appear intact, without suspicious lesions. Sinuses: Visualized sinuses and mastoids are clear. IMPRESSION: 1. No acute intracranial findings. 2. Findings likely associated with chronic microvascular ischemia. Dictated by: Nevaeh Alfaro M.D. on 02/07/2019 at 19:44 ct chest ab pelvis: Radiologist's impression: PROCEDURE: CT CHEST ABD PEL W CON INDICATIONS: colon cancer vomiting, lightheaded TECHNIQUE: After the administration of intravenous contrast, 5 mm thick sections acquired from the lung apices to the symphysis. 2.5 mm thick coronal and sagittal reformats were acquired. Additional 7 mm thick coronal maximum intensity projection (MIP) reformats acquired through the lungs. Optional 10-minute delayed imaging may be performed from the kidneys to the bladder. For radiation dose reduction, the following was used: automated exposure control, adjustment of mA and/or kV according to patient size. COMPARISON: [facility], CT, CT CHEST ABD PEL WO CON, 01/09/2019, 13:10. FINDINGS: Image quality: Excellent. CHEST: Lungs: The 10 mm diameter spiculated mass adjacent to the SVC within the right upper lobe is unchanged when compared with the CT dated 01/09/19. No acute airspace opacities. Mild honeycombing fibrosis is present at the posterior lung bases. No pleural effusion or pneumothorax. Mediastinum: Heart size is normal. No pericardial effusion. Thoracic aorta and pulmonary arteries demonstrate normal size and enhancement. Scattered atheromatous calcifications are present within the aortic arch. No mediastinal or hilar adenopathy. Esophagus is normal in caliber. No hiatal hernia. Chest wall: There is a left Port-A-Cath, the tip of which is at the confluence of the brachiocephalic veins. No bony abnormalities. No axillary or supraclavicular adenopathy. Thyroid gland is unremarkable. ABDOMEN: Solid organs: Liver is normal in size and enhancement. Gallbladder is not visualized and may be surgically absent. Biliary system is non-dilated. Pancreas enhances normally. Spleen is normal in size and enhancement. The small right and large left adrenal gland mass lesions are similar in size to the study dated 01/09/19.. Both kidneys enhance normally, without hydronephrosis. There are bilateral low-density exophytic cortical lesions within the kidneys. Peritoneum and bowel: No free fluid or air. Unenhanced bowel loops demonstrate normal wall thickness and caliber. Patient is likely status post right hemicolectomy or appendectomy. There are scattered sigmoid diverticula. No evidence for diverticulitis. Nodes and vessels: No retroperitoneal or mesenteric adenopathy. Aorta and inferior vena cava are normal in size and enhancement. Miscellaneous: No ventral hernias. PELVIS: Genitourinary: Bladder wall thickness is normal. Miscellaneous: No inguinal hernias or adenopathy. Bones: Pelvic ring and hip joints appear intact. No vertebral compression fractures. IMPRESSION: 1. No acute intra-abdominal or cardiothoracic findings. 2. Stable right pulmonary nodule and adrenal gland mass lesions when compared with the prior CT dated 01/09/19. Dictated by: Nevaeh Alfaro M.D. on 02/07/2019 at 19:52 Approved by: Nevaeh Alfaro M.D. on 02/07/2019 at 19:58 [facility] Narrative Medical decision making narrative: Patient overall continues to feel weak. He has actually been seen multiple times. His concerned about his persistent nausea and vomiting and inability to control is at home. She says she throws up every night multiple times. Lab work actually does look stable. patient has frequent falls scheduled for chemotherapy tomorrow Pablo accepts Discharge Plan Departure Patient Disposition: Admitted as Observation Clinical Impression: Adult failure to thrive Vomiting Qualifiers: Vomiting type: unspecified Vomiting Intractability: intractable Nausea presence: with nausea Qualified Code(s): R11.2 - Nausea with vomiting, unspecified Discharge Date/Time: 02/07/19 22:14 Interventions: ED Discharge Assessment Last Done: 02/07/19 22:14 Referrals: Walt Mendez MD [Primary Care Provider] - Admit Date/Time: 02/07/19 21:43 Admit Provider: Andrey Shah
--- NOTE | 2019-02-07 19:02 | DI.CT.S_ITS ---
PROCEDURE: CT CHEST ABD PEL W CON INDICATIONS: colon cancer vomiting, lightheaded TECHNIQUE: After the administration of intravenous contrast, 5 mm thick sections acquired from the lung apices to the symphysis. 2.5 mm thick coronal and sagittal reformats were acquired. Additional 7 mm thick coronal maximum intensity projection (MIP) reformats acquired through the lungs. Optional 10-minute delayed imaging may be performed from the kidneys to the bladder. For radiation dose reduction, the following was used: automated exposure control, adjustment of mA and/or kV according to patient size. COMPARISON: [facility], CT, CT CHEST ABD PEL WO CON, 01/09/2019, 13:10. FINDINGS: Image quality: Excellent. CHEST: Lungs: The 10 mm diameter spiculated mass adjacent to the SVC within the right upper lobe is unchanged when compared with the CT dated 01/09/19. No acute airspace opacities. Mild honeycombing fibrosis is present at the posterior lung bases. No pleural effusion or pneumothorax. Mediastinum: Heart size is normal. No pericardial effusion. Thoracic aorta and pulmonary arteries demonstrate normal size and enhancement. Scattered atheromatous calcifications are present within the aortic arch. No mediastinal or hilar adenopathy. Esophagus is normal in caliber. No hiatal hernia. Chest wall: There is a left Port-A-Cath, the tip of which is at the confluence of the brachiocephalic veins. No bony abnormalities. No axillary or supraclavicular adenopathy. Thyroid gland is unremarkable. ABDOMEN: Solid organs: Liver is normal in size and enhancement. Gallbladder is not visualized and may be surgically absent. Biliary system is non-dilated. Pancreas enhances normally. Spleen is normal in size and enhancement. The small right and large left adrenal gland mass lesions are similar in size to the study dated 01/09/19.. Both kidneys enhance normally, without hydronephrosis. There are bilateral low-density exophytic cortical lesions within the kidneys. Peritoneum and bowel: No free fluid or air. Unenhanced bowel loops demonstrate normal wall thickness and caliber. Patient is likely status post right hemicolectomy or appendectomy. There are scattered sigmoid diverticula. No evidence for diverticulitis. Nodes and vessels: No retroperitoneal or mesenteric adenopathy. Aorta and inferior vena cava are normal in size and enhancement. Miscellaneous: No ventral hernias. PELVIS: Genitourinary: Bladder wall thickness is normal. Miscellaneous: No inguinal hernias or adenopathy. Bones: Pelvic ring and hip joints appear intact. No vertebral compression fractures. IMPRESSION: 1. No acute intra-abdominal or cardiothoracic findings. 2. Stable right pulmonary nodule and adrenal gland mass lesions when compared with the prior CT dated 01/09/19. Dictated by: Nevaeh Alfaro M.D. on 02/07/2019 at 19:52 Approved by: Nevaeh Alfaro M.D. on 02/07/2019 at 19:58
--- NOTE | 2019-02-07 19:04 | DI.CT.S_ITS ---
PROCEDURE: CT HEAD/BRAIN WO CON INDICATIONS: cancer lightheaded vomiting TECHNIQUE: Noncontrast 4.5 mm thick angled axial sections acquired from the foramen magnum to the vertex, with coronal and sagittal reformats. For radiation dose reduction, the following was used: automated exposure control, adjustment of mA and/or kV according to patient size. COMPARISON: None. FINDINGS: Image quality: Excellent. CSF spaces: Basal cisterns are patent. No extra-axial fluid collections. The ventricles are symmetric in size and shape. Brain: No intracranial bleeds or masses. There is cerebral volume loss for age, with resultant ventricular and sulcal prominence. There are periventricular and deep white matter chronic small vessel ischemic changes. There is intracranial internal carotid artery atherosclerosis. Skull and face: Calvarium and visualized facial bones appear intact, without suspicious lesions. Sinuses: Visualized sinuses and mastoids are clear. IMPRESSION: 1. No acute intracranial findings. 2. Findings likely associated with chronic microvascular ischemia. Dictated by: Nevaeh Alfaro M.D. on 02/07/2019 at 19:44 Approved by: Nevaeh Alfaro M.D. on 02/07/2019 at 19:45
[2019-02-07] MEDS: SODIUM CHLORIDE 0.9% 1,000 ML 150 ML IV (19:09)
[2019-02-07] MEDS: ONDANSETRON 4 MG/2 ML INJ IV (19:09)
[2019-02-07 19:12] LABS: Add Manual Diff / Slide Review NO; Basophils Absolute Auto 100 /uL (0-100); Basophils Percent Auto 0.9 % (0-2); Eosinophils Absolute Auto 200 /uL (0-450); Eosinophils Percent Auto 3.6 % (2-4); Hematocrit 37.3 % (41-53); Hemoglobin 12.2 g/dL (13.5-17.5); Lymphocytes Absolute Auto 700 /uL (1100-4500); Lymphocytes Percent Auto 10.6 % (25-40); Mean Corpuscular HGB Conc 32.7 % (30-36); Mean Corpuscular Hemoglobin 31.5 PG (26-34); Mean Corpuscular Volume 96.4 fL (80-100); Monocytes Absolute Auto 700 /uL (0-900); Neutrophils Absolute Auto 4800 /uL (1500-7000); Neutrophils Percent Auto 73.9 % (50-75); Platelet Count 235 X10^3/uL (150-400); Red Blood Cell Count 3.87 X10^6/uL (4.5-5.9); Red Cell Distribution Width 17.8 % (11.6-14.8); White Blood Cell Count 6.5 X10^3/uL (4.5-11.0)
[2019-02-07 19:18] LABS: Lactate (Lactic Acid) 1.9 mmol/L (0.7-2.1)
[2019-02-07 19:19] LABS: Alanine Aminotransferase 24 IU/L (21-72); Albumin 3.8 g/dL (3.5-5.0); Albumin Globulin Ratio 1.2 (1.0-2.8); Alkaline Phosphatase 80 U/L (38-126); Aspartate Aminotransferase 24 IU/L (17-59); Bilirubin Total 0.7 mg/dL (0.2-1.3); Blood Urea Nitrogen 16 mg/dL (9-20); Calcium 9.4 mg/dL (8.4-10.2); Carbon Dioxide 31 mmol/L (22-32); Chloride 100 mmol/L (98-107); Estimated Glomerular Filt Rate 42.7 mL/min (>60); Globulin 3.1 g/dL (1.7-4.1); Glucose 126 mg/dL (80-110); HEMOLYSIS < 15 (0-50); Potassium 3.8 mmol/L (3.4-5.1); Sodium 140 mmol/L (137-145); Total Protein 6.9 g/dL (6.3-8.2)
[2019-02-07 20:31] VITALS: BP 153/102; PULSE 74; RESP 14
[2019-02-07] MEDS: METOCLOPRAMIDE 10 MG/2 ML INJ IV (21:15)
[2019-02-07 21:30] VITALS: BP 131/83; PULSE 79; RESP 19
[2019-02-07 22:11] VITALS: BMI 47.4
[2019-02-07 22:18] VITALS: BP 148/89; PULSE 77; RESP 20; TEMP 36.8; O2SAT 98
[2019-02-07 23:20] VITALS: BP 148/78; PULSE 79; RESP 19; TEMP 36.9; O2SAT 98
[2019-02-08] MEDS: SODIUM CHLORIDE 0.9% 1,000 ML 150 ML IV (02:54)
[2019-02-08 03:24] VITALS: BP 173/94; PULSE 76; RESP 19; TEMP 37.1; O2SAT 98
--- NOTE | 2019-02-08 03:25 | P.HP_ITS ---
History of Present Illness Date Patient Seen: 02/08/19 Time Patient Seen: 03:24 Chief complaint: STATES N/V, DEHYDRATION Narrative: Patient is being admitted for intractable nausea and vomiting. Associated symptoms include generalized weakness. Patient is known to have stage III colon cancer, he has had recurrence with biopsy-proven adrenal metastasis. Currently he is undergoing chemotherapy. Patient admits to a plethora of chemotherapy associated side effects such as headache, nausea, vomiting, diarrhea, and fatigue. He notes having abdominal pain all the time, this has not been worse from his baseline. He also notes having exertional dyspnea for number of years, and this also has not been worse from his baseline. Patient states that in the last 2 weeks he has had more pronounced nausea and vomiting. No recent diarrhea, however he does have occasional episodes. Luis Daniel nt reports dizziness and lightheadedness as a side effect of chemotherapy, which also has worsened. He reports a number of falls that are preceded by loss of consciousness with position change. Most recent 1 week ago. Denies injury to the head and neck. Patient has difficulty ambulating on his own and attending to activities of daily living. Patient reports 20 lb weight loss over the past month. He states that he has difficulty keeping food down. Notes significant decline in food and fluid consumption. Since admission to the unit patient has not had any nausea or vomiting. Patient himself states that he feels pretty well and that he felt well in the ED. He emphasizes that his insisted that he stays in the hospital because she has difficulty taking care of him at home. Patient is scheduled for chemotherapy on 02/08/2019 at 8:30 a.m.. Currently undergoing chemotherapy with FOLFIRI and Avastin. Patient had a pending repeat CT imaging to check for progression of disease, this was done in the ED, results outlined below. One month ago CT imaging showed ongoing stable disease. Patient states that he will leave Against Medical Advice if he is not discharged at 8:00 a.m. to make it in time for chemotherapy. Patient History Medical History Colon cancer (Acute) Diabetes mellitus with neuropathy (Acute) Difficulty walking (Acute) Dry skin (Acute) Edema (Acute) History of CHF (congestive heart failure) (Acute) History of headache (Acute) History of urinary retention (Acute) History of urinary tract obstruction (Acute) Incarcerated ventral hernia (Acute ~05/2018) Lightheaded (Acute) Limited mobility (Acute) Malaise and fatigue (Acute) Morbid obesity (Acute) Open wound (Acute) Paresthesias (Acute) Renal insufficiency (Acute) Shortness of breath (Acute) Sleep apnea (Acute) Tinnitus (Acute) Weakness (Acute) Weight loss (Acute) Surgical History H/O hernia repair (Acute) H/O right hemicolectomy (Acute ~05/2018) History of cataract extraction with lens replacement (Acute) Social History household members: spouse and children Smoking Status: Former smoker alcohol intake: current substance use type: does not use Family & Social History Family History Mother No known health problems Father No known health problems Social History: household members spouse,children Prior Living Arrangements House Safety & Behavioral: Feels Safe in Current Yes Environment Been Physically Hurt or No Threatened By a Person Suicidal Ideation Description None Suicide Plan Description No Plan Tobacco & Substance use: Smoking Status Former smoker alcohol intake current alcohol intake frequency holiday/special occasion Substance Use Type does not use,prescription drug Meds Home Medications Medication Instructions Recorded Confirmed Type calcium carbonate [Tums] 200 mg PO QID PRN 06/07/18 02/07/19 History cholecalciferol (vitamin D3) 5,000 unit PO BID 06/07/18 02/07/19 History [Vitamin D3] diphenoxylate-atropine [Lomotil] 1 tab PO Q6-8H PRN 06/07/18 02/07/19 History gabapentin 900 mg PO DAILY 06/07/18 02/07/19 History zolpidem [Ambien] 10 mg PO BEDTIME PRN 06/07/18 02/07/19 History lidocaine 1 applic TOPICAL PRN PRN 06/15/18 02/07/19 History losartan 50 mg PO BID 07/12/18 02/07/19 History ondansetron 8 mg PO TID PRN #60 tab 11/22/18 02/07/19 Rx prochlorperazine maleate 10 mg PO Q6-8H PRN #30 tab 12/13/18 02/07/19 Rx [Compazine] oxycodone-acetaminophen 1 tab PO Q4-6H PRN #60 tab 01/11/19 02/07/19 Rx carisoprodol [Soma] 350 mg PO TID PRN #30 tab 01/18/19 02/07/19 Rx morphine 15 mg PO BID 01/19/19 02/07/19 History tramadol 50 mg PO BID 01/19/19 02/07/19 History fluorouracil 4,000 mg IV NOW #1 device 01/25/19 02/07/19 Rx furosemide [Lasix] 10 mg PO BID 02/07/19 02/07/19 History Allergies Allergy/AdvReac Type Severity Reaction Status Date / Time cephalexin AdvReac Severe Gastrointestinal Verified 01/19/19 12:55 Upset Review of Systems Review of Systems All systems reviewed & are unremarkable except as noted in HPI and below Exam Vital Signs (past 8 hours): - 02/07/19 20:31 02/07/19 21:30 02/07/19 22:18 Temperature 98.2 F Pulse Rate 74 79 77 Respiratory Rate 14 19 20 Blood Pressure 148/89 H Blood Pressure [Right Wrist] 153/102 H 131/83 Pulse Oximetry 98 02/07/19 23:20 Temperature 98.5 F Pulse Rate 79 Respiratory Rate 19 Blood Pressure 148/78 H Blood Pressure [Right Wrist] Pulse Oximetry 98 Oxygen Delivery Method Room Air Oxygen Flow Rate 0 Narrative Exam Narrative: Constitutional: No acute distress. He has a washcloth on his forehead and states that he has a headache. Morbidly obese male BMI 47.5 Neurologic: AOx3, no focal neurological deficits or unilateral weakness Head: NC, AT Eyes: PERRL, EOMI, Ears: external ears normal, no otorrhea Nose: external nose normal, no rhinorrhea or epistaxis Throat: MMM, oropharynx w/o exudate Neck: no masses, lymphadenopathy, or JVD Chest / Respiratory: equal chest rise, unlabored respiratory effort, diminished, on room air Heart / CV: S1S2, no murmur Abdomen / GI: Large abdominal contour, nontender, nondistended; organomegaly difficult to palpate : Suprapubic catheter is present with Cabrera back to dependent drainage. yellow turbid urine output is noted. Fall below pannus and inguinal folds remarkable for intertrigo and wounds Peripheral / Vascular: Bilateral lymphedema, pitting 2+, vascular changes noted Peripheral pulses diminished, sensation intact, Musc: ROM of upper extremities intact, but diminished in lower extremities. Skin: Intertrigo of inguinal falls with break in skin Objective Labs Result Diagrams: 02/07/19 19:00 02/07/19 19:00 Labs: Laboratory Results - last 24 hr 02/07/19 02/07/19 02/07/19 19:00 19:00 19:00 WBC 6.5 RBC 3.87 L Hgb 12.2 L Hct 37.3 L MCV 96.4 MCH 31.5 MCHC 32.7 RDW 17.8 H Plt Count 235 Neut % (Auto) 73.9 Lymph % (Auto) 10.[address] % (Auto) 11.0 Eos % (Auto) 3.6 Baso % (Auto) 0.9 Neut # (Auto) 4800 Lymph # (Auto) [address] # (Auto) 700 Eos # (Auto) 200 Baso # (Auto) 100 Sodium 140 Potassium 3.8 Chloride 100 Carbon Dioxide 31 BUN 16 Creatinine 1.60 H Estimated GFR 42.7 L BUN/Creatinine Ratio 10.0 Glucose 126 H Lactate 1.9 Calcium 9.4 Total Bilirubin 0.7 AST 24 ALT 24 Alkaline Phosphatase 80 Total Protein 6.9 Albumin 3.8 Globulin 3.1 Albumin/Globulin Ratio 1.2 Assessment & Plan Assessment & Plan narrative: Intractable nausea and vomiting, acute on chronic, present on admission, active Known side effect of chemo therapy in this patient - appears to have gained control with a dose of Zofran and Reglan in the ED - patient notes partial to adequate relief of GI symptoms with his home dose of Zofran - BP stable without overt electrolyte abnormalities, [place], or liver injury. 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 Haseeb oconnor/ oncology. Patient is undergoing chemotherapy. - at present time struggles with side effects of chemotherapy and tolerating for further treatment - patient states that he will attend his last chemotherapy tomorrow and then will plan to take a break Discussed with patient that it may not be feasible to discharge him by 830 in the morning, patient stated that he will leave Against Medical Advice - patient declined palliative care consult Postural dizziness with near syncope, acute, present on admission, active - improving Did not complain of dizziness or head syncopal events overnight. - orthostatic blood pressures Q shift x4 - IV fluids Pain, chronic secondary to underlying malignancy, present on admission, active -patient on multiple opioid medications for malignancy related discomfort, discussed with patient in detail, will only resume Soma and Percocet at this time Patient wishes to be full code at this time. His is surrogate decision maker. Home medications reviewed and reconciled accordingly VTE prophylaxis with
--- NOTE | 2019-02-08 03:29 | PC.NURSE ---
Mycology Teacher Summary: 0100: Awake, watching TV. Pt denies pain and nausea. IV in place in lt AC with NS infusing at 150cc/hr. Vital signs stable. Pt is alert, oriented X3. He states that he is going to have chemotherapy in the morning, at the Oncology clinic. 0300: Pt awake, having headache. Blake Shah notified.
[2019-02-08] MEDS: CARISOPRODOL 350 MG TABLET PO (05:03)
[2019-02-08 07:43] VITALS: BP 147/80; PULSE 81; RESP 15; TEMP 36.9; O2SAT 100; O2SAT 96
[2019-02-08] MEDS: FUROSEMIDE 20 MG TABLET 10 MG PO (08:09)
[2019-02-08] MEDS: LOSARTAN 50 MG TABLET PO (08:09)
[2019-02-08] MEDS: CHOLECALCIFEROL (VITAMIN D3) 5,000 UNIT TABLET 5000 UNIT PO (08:10)
--- NOTE | 2019-02-08 08:41 | P.PNONC_ITS ---
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 Right hemicolectomy in April 2018. 2. 7 cycles of adjuvant 5 FU and leucovorin 3. Metastatic disease involving the adrenal gland Treated with 6 cycles of FOLFIRI and Avastin thus far 4. Stereotactic radiation to the adrenal gland in December 2018. Interval history: Patient is a 73-year-old man who I follow regularly in clinic. He has history of colon cancer with lung and adrenal metastasis. He has been on FOLFIRI and Avastin for 6 cycles. He has had a couple of dose reductions. Despite this, he has been tolerating his chemotherapy quite poorly. He has had progressive weakness and falls. He has some dizziness when he stands. His appetite has been poor and he has been losing weight steadily. He has had ongoing nausea and vomiting. Because of his progressive symptoms and his 's difficulty in handling his care at home, he was admitted to the hospital last night. This morning, he feels hungry. He has not had any vomiting since his admission. He does have some headache. His abdominal pain has been stable. He denies any fevers or chills. He is still weak and has not been out of bed. He has only been eating a clear liquid diet but is nevertheless anxious to go home. Home Medications and Allergies Home Medications Medication Instructions Recorded Confirmed Type calcium carbonate [Tums] 200 mg PO QID PRN 06/07/18 02/07/19 History cholecalciferol (vitamin D3) 5,000 unit PO BID 06/07/18 02/07/19 History [Vitamin D3] diphenoxylate-atropine [Lomotil] 1 tab PO Q6-8H PRN 06/07/18 02/07/19 History gabapentin 900 mg PO DAILY 06/07/18 02/07/19 History zolpidem [Ambien] 10 mg PO BEDTIME PRN 06/07/18 02/07/19 History lidocaine 1 applic TOPICAL PRN PRN 06/15/18 02/07/19 History losartan 50 mg PO BID 07/12/18 02/07/19 History ondansetron 8 mg PO TID PRN #60 tab 11/22/18 02/07/19 Rx prochlorperazine maleate 10 mg PO Q6-8H PRN #30 tab 12/13/18 02/07/19 Rx [Compazine] oxycodone-acetaminophen 1 tab PO Q4-6H PRN #60 tab 01/11/19 02/07/19 Rx carisoprodol [Soma] 350 mg PO TID PRN #30 tab 01/18/19 02/07/19 Rx morphine 15 mg PO BID 01/19/19 02/07/19 History tramadol 50 mg PO BID 01/19/19 02/07/19 History fluorouracil 4,000 mg IV NOW #1 device 01/25/19 02/07/19 Rx furosemide [Lasix] 10 mg PO BID 02/07/19 02/07/19 History Allergies Allergy/AdvReac Type Severity Reaction Status Date / Time cephalexin AdvReac Severe Gastrointestinal Verified 01/19/19 12:55 Upset Exam Vital signs: Vital Signs Temp Pulse Resp BP BP Pulse Ox 02/08/19 07:43 98.4 F 81 15 147/80 H 96 02/08/19 03:24 98.7 F 76 19 173/94 H 98 02/07/19 23:20 98.5 F 79 19 148/78 H 98 02/07/19 22:18 98.2 F 77 20 148/89 H 98 02/07/19 21:30 79 19 131/83 02/07/19 20:31 74 14 153/102 H 02/07/19 18:02 96.5 F L 79 18 142/92 H 96 Intake and Output 02/07/19 02/08/19 02/08/19 23:59 07:59 15:59 Intake Total 400.0 / 400.0 1436 / 1436 Output Total 550 / 550 Balance 400.0 / 400.0 886 / 886 Intake: IV 400.0 / 400.0 600 / 600 Sodium Chloride 0.9% 1,000 ml @ 400.0 / 400.0 600 / 600 150 mls/hr IV CONT SAI Rx#: [id number] Oral 836 / 836 Output: Urine Amount (Catheter) 550 / 550 Other: Weight 139.5 kg 140 kg Patient Weight 02/08/19 23:59 Weight 140 kg - Constitutional positive morbidly obese, positive chronically ill appearing - Routine HEENT Exam Head: Present: normocephalic, atraumatic Eye: Present: EOMI, PERRL. Absent: conjunctival icterus, scleral injection ENT: Present: mucous membranes moist, oropharynx clear - Routine Respiratory Exam Present: Clear to auscultation bilaterally. Absent: rales, wheezes - Routine Cardiovascular Exam Present: RRR, S1, S2. Absent: murmur - Routine Abdominal Exam Present: soft. Absent: tenderness, organomegaly Comments: He has a suprapubic catheter in place. Results - Labs Laboratory Last Values WBC 6.5 X10^3/uL (4.5-11.0) 02/07/19 19:00 RBC 3.87 X10^6/uL (4.5-5.9) L 02/07/19 19:00 Hgb 12.2 g/dL (13.5-17.5) L 02/07/19 19:00 Hct 37.3 % (41-53) L 02/07/19 19:00 MCV 96.4 fL (80-100) 02/07/19 19:00 MCH 31.5 PG (26-34) 02/07/19 19: MCHC 32.7 % (30-36) 02/07/19 19:00 RDW 17.8 % (11.6-14.8) H 02/07/19 19:00 Plt Count 235 X10^3/uL (150-400) 02/07/19 19:00 Neut % (Auto) 73.9 % (50-75) 02/07/19 19:00 Lymph % (Auto) 10.6 % (25-40) L 02/07/19 19:00 [place] % (Auto) 11.0 % (3-14) 02/07/19 19:00 Eos % (Auto) 3.6 % (2-4) 02/07/19 19:00 Baso % (Auto) 0.9 % (0-2) 02/07/19 19:00 Neut # (Auto) 4800 /uL (2295-1429) 02/07/19 19:00 Lymph # (Auto) 700 /uL (9427-1910) L 02/07/19 19:00 [place] # (Auto) 700 /uL (0-900) 02/07/19 19:00 Eos # (Auto) 200 /uL (0-450) 02/07/19 19:00 Baso # (Auto) 100 /uL (0-100) 02/07/19 19:00 Sodium 140 mmol/L (137-145) 02/07/19 19:00 Potassium 3.8 mmol/L (3.4-5.1) 02/07/19 19:00 Chloride 100 mmol/L (98-107) 02/07/19 19:00 Carbon Dioxide 31 mmol/L (22-32) 02/07/19 19:00 BUN 16 mg/dL (9-20) 02/07/19 19:00 Creatinine 1.60 mg/dL (0.66-1.25) H 02/07/19 19:00 Estimated GFR 42.7 mL/min (>60) L 02/07/19 19:00 BUN/Creatinine Ratio 10.0 (6-22) 02/07/19 19:00 Glucose 126 mg/dL (80-110) H 02/07/19 19:00 Lactate 1.9 mmol/L (0.7-2.1) 02/07/19 19:00 Calcium 9.4 mg/dL (8.4-10.2) 02/07/19 19:00 Total Bilirubin 0.7 mg/dL (0.2-1.3) 02/07/19 19:00 AST 24 IU/L (17-59) 02/07/19 19:00 ALT 24 IU/L (21-72) 02/07/19 19:00 Alkaline Phosphatase 80 U/L (38-126) 02/07/19 19:00 Total Protein 6.9 g/dL (6.3-8.2) 02/07/19 19:00 Albumin 3.8 g/dL (3.5-5.0) 02/07/19 19:00 Globulin 3.1 g/dL (1.7-4.1) 02/07/19 19:00 Albumin/Globulin Ratio 1.2 (1.0-2.8) 02/07/19 19:00 - Imaging CT scan - abdomen: report reviewed CT scan - chest: report reviewed CT scan - pelvis: report reviewed (His adrenal lesion and pulmonary nodules have been stable in size. There is no evidence of new or progressive disease.) Additional studies: Procedures Insertion of intraocular lens prosthesis at time of cataract extraction, one- stage (08/04/11) Phacoemulsification and aspiration of cataract (08/04/11) Assessment and Plan (1) Colon cancer Problem details: 72-year-old man with initially stage III colon cancer now with metastasis. Current visit: No Status: Acute 73-year-old man with metastatic colon cancer that developed while on adjuvant chemotherapy. He has been on FOLFIRI and Avastin and has been tolerating a poorly despite dose reductions. His performance status is steadily declining. CT scan however shows stable disease. I believe that his decline of performance status is primarily related to his chemotherapy rather than to progression of his cancer. The patient's goal is to be able to move to [place] to be with his daughters. In order to facilitate that, I think a break from chemotherapy would be in order to allow him to try and regain some strength. I think he would benefit from a nutrition consult, physical therapy consult and social Work consult. We will plan on holding his chemotherapy.
--- NOTE | 2019-02-08 09:57 | PT.IIE ---
Surgical History (Last Reviewed 02/08/19 @ 04:01 by FEDERICO Sebastian) H/O hernia repair (Acute) H/O right hemicolectomy (Acute ~05/2018) History of cataract extraction with lens replacement (Acute) Medical History (Last Reviewed 02/08/19 @ 04:01 by FEDERICO Sebastian) Colon cancer (Acute) Diabetes mellitus with neuropathy (Acute) Difficulty walking (Acute) Dry skin (Acute) Edema (Acute) History of CHF (congestive heart failure) (Acute) History of headache (Acute) History of urinary retention (Acute) History of urinary tract obstruction (Acute) Incarcerated ventral hernia (Acute ~05/2018) Lightheaded (Acute) Limited mobility (Acute) Malaise and fatigue (Acute) Morbid obesity (Acute) Open wound (Acute) Paresthesias (Acute) Renal insufficiency (Acute) Shortness of breath (Acute) Sleep apnea (Acute) Tinnitus (Acute) Weakness (Acute) Weight loss (Acute) Physical Therapy Inpatient Evaluation/Re-Eval M1 PT/OT-IP Prior Functional Status Start: 02/08/19 11:16 Freq: NEEDED Status: Active Protocol: Document 02/08/19 09:57 AB (Rec: 02/08/19 11:34 AB [id number]) Medical Review Prior Functional Status Medical History Reviewed Yes Communication able to make needs known Mobility and Gait pt stated that his assists him. stated that he had ~ 30 falls for the last 6 months. Usually has dizziness and passes out. stated that he can ambulate using a 4WW but occasionally uses a SPC, spends most of his day in bed and gets up only when he uses the toilet. Social History Household Members spouse Living Arrangements House Number of Floors (Floors) One Floor Number of Stairs To Enter/Railing? 1 step to enter Home Environment Standard Height Toilet Walk in Shower Home Equipment Four Wheel Walker Bedside Commode Shower Seat with Backrest Additional Social History Comment has a hurrycane M2 PT-IP Current Condition Start: 02/08/19 11:16 Freq: NEEDED Status: Active Protocol: Document 02/08/19 09:57 AB (Rec: 02/08/19 11:34 AB [id number]) Physical Therapy Current Condition Current Condition Evaluation Date 02/08/19 Treatment Diagnosis colon CA, adrenal mets; nausea /vomiting; generalized weakness Onset Date 02/07/19 M3 PT-IP Subjective Start: 02/08/19 11:16 Freq: NEEDED Status: Active Protocol: Document 02/08/19 09:57 AB (Rec: 02/08/19 11:34 AB [id number]) Subjective Physical Therapy Visit Type Type Initial Evaluation Visit Start Time 09:57 Visit Stop Time 10:26 Total Visit Minutes 29 Number of EDUCATIONAL INSTITUTION CURATOR Visits 0 Physical Therapy Visit Comments Patient Comments pt stated that he does not need PT but agreed to get up with PT. stated that he is going home today and if he has to go AMA he will. M4 PT-IP Mobility and Gait Start: 02/08/19 11:16 Freq: NEEDED Status: Active Protocol: Document 02/08/19 09:57 AB (Rec: 02/08/19 11:34 AB [id number]) PT-Bed Mobility Assessment Supine to Sit Supine to Sit Standby Assistance Head of Bed Elevated Bedrails Sit to Supine Sit to Supine Standby Assistance Head of Bed Elevated Bedrails Scooting Scooting to Edge of Bed Standby Assistance PT-Transfer Assessment Sit to and From Stand Sit to and from Stand Contact Guard Assistance 1 Person Assistance Use of Upper Extremities Equipment Transfer Assistive Device Gait Belt Front Wheeled Walker Orthotic/Prosthetic Devices or Brace: No Transfers Transfer Destination Chair Transfer Technique pt ambulated using FWW Transfer Ability Level of Assist Contact Guard Assistance 1 Person Assistance Use of Upper Extremities Gait Assessment Gait Gait Assistance Required: Contact Guard Assist Distance (Feet) 15 Able to Maintain Weight Bearing Status Yes During Gait Assistive Devices Assistive Device Gait Belt Front Wheeled Walker Orthotic/Prosthetic Devices or Brace: No Factors Limiting Gait Function Factors Limiting Gait Function Decreased Activity Tolerance Decreased Strength Poor Balance PT-Balance Assessment Sitting Balance and Reactions Static Sitting Balance Ability Good Dynamic Sitting Balance Ability Good Standing Balance and Reactions Static Standing Balance Ability Fair Dynamic Standing Balance Ability Fair Device Used FWW M5 PT-IP Objective Assessments Start: 02/08/19 11:16 Freq: NEEDED Status: Active Protocol: Document 02/08/19 09:57 AB (Rec: 02/08/19 11:34 AB [id number]) Orientation Orientation/Cognition Level of Alertness Alert Orientation Name Age Birthday Month Date Year Day of Week Place Situation Language Function Ability No Deficits Noted Safety Awareness Understands Safety Issues Memory Description No Deficits Noted Gross Range of Motion Lower Extremity ROM Assessment Within Functional Limits Strength Lower Extremity Strength Assessment Within Functional Limits Coordination Assessment Gross Coordination Gross Coordination WNL Sensation Assessment Sensation Gross Sensation WNL Muscle Tone Muscle Tone WNL Yes M6 PT-IP Treatment Start: 02/08/19 11:16 Freq: NEEDED Status: Active Protocol: Document 02/08/19 09:57 AB (Rec: 02/08/19 11:34 AB [id number]) Physical Therapy Treatment Education Education Provided Safety M7 PT-IP Assessment and Plan Start: 02/08/19 11:16 Freq: NEEDED Status: Active Protocol: Document 02/08/19 09:57 AB (Rec: 02/08/19 11:34 AB [id number]) PT Summary Assessment and Plan Potential Rehabilitation Potential Fair Status of Condition at Evaluation Evolving Summary Impairments Pain ROM Strength Balance Bed Mobility Transfers Gait Activity Tolerance Assessment Summary pt requiring CGA with ambulation using FWW but unable to tolerate much activity. pt stated that he cannot do PT if he is not eating. pt is on clear liquid diet at this time. will has to f/u . informed shelter case manager and stated that she is going to have a meeting with pt and spouse. Goals Bed Mobility Goal Standby Assistance Transfer Goal Standby Assistance Front Wheeled Walker Gait Goal Standby Assistance Front Wheel Walker Gait Distance 50 Other Goals improve ambulation using 4WW 100 ft SBA up/down 1 step CGA Days to Meet Goals 5 Frequency of Treatment Frequency Of Treatment Once a Day Treatment Plan Physical Therapy Treatment Plan Bed Mobility Training Transfer Training Gait Training Therapeutic Exercise Balance Retraining Discharge Planning Hot or Cold Pack Neuromuscular Re-ed Coordination Retraining Manual Therapy Recommendations To Nursing Amount of Assist Needed 1 Person Assist Discharge Recommendations PT Discharge Recommendations Home with / Assist Home Health Equipment Needed for Home Before FWW if not safe with 4WW Discharge
[2019-02-08] MEDS: OXYCODONE/ACETAMINOPHEN 5/325 TABLET 1 TAB PO (10:31)
[2019-02-08 11:00] VITALS: BP 146/84; PULSE 82; RESP 16; TEMP 36.5; O2SAT 93; O2SAT 98
--- NOTE | 2019-02-08 13:42 | PC.NURSE ---
1330 Pt resting in bed. Has been up to recliner chair x 1 this shift with assist of PT. Pt is slow moving, needs stand by .
--- NOTE | 2019-02-08 13:59 | DIET.PN ---
Met for nutrition education. Initially met w/pt who painted a picture of not being able to eat well because his has limited ability to cook r/t bad knees, pain which limits standing for long and because she cooks things he doesn't like. Later met w/pt and . Per , she can still cook on most days, but does need to do easy prep and reports he has become so picky. They often resort to [employer] meals - chicken sandwich and fries. DX: metastatic cancer-adrenals, N/V MNA: 9 r/t recent wt loss-approx 10# BMI: 47 Usual Diet: small AM meal of toast and fruit, Dinner-[employer], Snacks. Snacks consist mostly of cake, cookies, ice cream, pudding, tapioca, candy Diet before chemotherapy: per , was good eater. Loves seafood, almost every vegetable, limited fruit, but likes berries, peaches and bananas. Assessment: Poor PO intake r/t side effects of chemotherapy. Plan is to hold off on chemo for awhile; build up strength, then move to [place] to be near daughters for more support. It appears that usual diet, when not affected by chemo, is pretty well-balanced. Intervention: Provided ed on anti-inflammatory foods vs. inflammatory ones. Encouraged to choose more anti-inflammatory foods. Pt hates all ONS's, so suggested try high pro juice blends such as Odwalla or Naked Juices. Emphasized need for nutritionally balanced, high protein diet to help build strength/avoid loss of muscle Plan: Discharging home soon. No f/u planned
--- NOTE | 2019-02-08 14:36 | P.DS_ITS ---
History of Present Illness Date Patient Seen: 02/08/19 Chief complaint: STATES N/V, DEHYDRATION Narrative: Written by Andrey CABALLERO: Patient is being admitted for intractable nausea and vomiting. Associated symptoms include generalized weakness. Patient is known to have stage III colon cancer, he has had recurrence with biopsy-proven adrenal metastasis. Currently he is undergoing chemotherapy. Patient admits to a plethora of chemotherapy associated side effects such as headache, nausea, vomiting, diarrhea, and fatigue. He notes having abdominal pain all the time, this has not been worse from his baseline. He also notes having exertional dyspnea for number of years, and this also has not been worse from his baseline. Patient states that in the last 2 weeks he has had more pronounced nausea and vomiting. No recent diarrhea, however he does have occasional episodes. Patient reports dizziness and lightheadedness as a side effect of chemotherapy, which also has worsened. He reports a number of falls that are preceded by loss of consciousness with position change. Most recent 1 week ago. Denies injury to the head and neck. Patient has difficulty ambulating on his own and atten ding to activities of daily living. Patient reports 20 lb weight loss over the past month. He states that he has difficulty keeping food down. Notes significant decline in food and fluid consumption. Since admission to the unit patient has not had any nausea or vomiting. Patient himself states that he feels pretty well and that he felt well in the ED. He emphasizes that his insisted that he stays in the hospital because she has difficulty taking care of him at home. Patient is scheduled for chemotherapy on 02/08/2019 at 8:30 a.m.. Currently undergoing chemotherapy with FOLFIRI and Avastin. Patient had a pending repeat CT imaging to check for progression of disease, this was done in the ED, results outlined below. One month ago CT imaging showed ongoing stable disease. Patient states that he will leave Against Medical Advice if he is not discharged at 8:00 a.m. to make it in time for chemotherapy. Discharge Providers Date of admission: 02/07/19 21:43 Discharge Date: 02/08/19 Primary care physician: Walt Mendez MD Consults: 02/07/19 22:18 Consult to Dietitian, Adult Routine Comment: Reason For Exam: decrease weight since chemo started 02/08/19 03:48 Consult to Dietitian, Adult Routine Comment: Reason For Exam: weight loss 20 lbs in past month, metastatic ca Consult to Discharge Planning Routine Comment: wishes to leave at 8 am to make to his chemo tx 02/08/19 03:49 Consult to Physical Therapy Evaluate & Treat Comment: generalized weakness Physician Instructions: Evaluate and Treat Discharge provider: Samantha Person DO Summary Discharge Diagnosis: 1. Intractable nausea and vomiting, acute on chronic, present on admission. Resolved. 2. Acute postural dizziness with near syncope, secondary to dehydration, present on admission. Resolved. 3. Acute on chronic generalized weakness with failure to thrive, present on admission. Active. 4. 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 Active. 5. Chronic pain, secondary to underlying malignancy, present on admission. Stable. 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 1. Intractable nausea and vomiting, acute on chronic, present on admission. Resolved. -Likely secondary to chemotherapy reaction which improved substantially with Zofran and Reglan in the ED. -BP stable without overt electrolyte abnormalities, kidney or liver injury. 2. Acute postural dizziness with near syncope, secondary to dehydration, present on admission. Resolved. -Did not complain of dizziness or near syncopal episodes throughout hospitalization. -Orthostatic blood pressures normal once adequately hydrated with IVF. 3. Acute on chronic generalized weakness with failure to thrive, present on admission. Active. -Progressive weight loss, debility and deconditioning in the setting of malignancy and burden of chemotherapy treatment. -Physical therapy consulted for evaluation and treatment. Recommended continued follow-up with PT in [place]. -Consulted archery equipment hay sorter and abnormal diet and eating patterns seem to be due to chemotherapy. Provided recommendations. Patient is planning to move to [place] to be closer to daughters for additional support. Recommended continued follow- up with a archery equipment hay sorter in [place]. 4. 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 Active. -Currently follows with Dr. Membreno of oncology. Patient has currently been undergoing FOLFIRI and Avastin with plans now to hold chemotherapy at discretion of oncologist. -Patient declined palliative care consult. 5. Chronic pain, secondary to underlying malignancy, present on admission. Stable. -Patient on multiple opioid medications for malignancy related discomfort, discussed with patient in detail, will only resume Soma and Percocet at this time. Exam Vital Signs (past 8 hours): - 02/08/19 07:43 02/08/19 11:00 Temperature 98.4 F 97.7 F Pulse Rate 81 82 Respiratory Rate 15 16 Blood Pressure 147/80 H 146/84 H Pulse Oximetry 100 93 Oxygen Delivery Method Room Air Oxygen Flow Rate 0 Narrative Exam Narrative: General: Elderly gentleman lying in bed and in no acute distress, well- developed, well-nourished, disgruntled and irritable as he unpleased with how long it took to receive tylenol but otherwise appropriately interactive. HEENT: Normocephalic, atraumatic. External ears without defect. Pupils equal, round, and reactive to light. Anicteric sclerae, moist conjunctivae, and no lid lag. Oropharynx free of erythema and cobble stoning with moist mucosa. Neck: Supple with full range of motion. No lymphadenopathy or thyromegaly. Cardiovascular: Regular rate and rhythm with no murmurs, rubs, or gallops appreciated Pulmonary: Clear to auscultation bilaterally with no crackles, wheezes, or rhonchi. Normal respiratory effort with no use of accessory muscles. Abdomen: Soft, obese, bowel sounds present, nontender, nondistended. Unable to appreciate hepatosplenomegaly or masses due to obesity. : suprapubic catheter in place and draining well. Extremities: No clubbing, cyanosis, or edema. Skin: Normal temperature, turgor, and texture; no rash, ulcers, or subcutaneous nodules appreciated. Neurological: Cranial nerves grossly intact. Psychiatric: Depressed mood and flat affect. Alert and oriented to person, place, and time. Disgruntled and irritable. Objective Labs Result Diagrams: 02/07/19 19:00 02/07/19 19:00 Labs: Laboratory Results - last 24 hr 02/07/19 02/07/19 02/07/19 19: 19: 19:00 WBC 6.5 RBC 3.87 L Hgb 12.2 L Hct 37.3 L MCV 96.4 MCH 31.5 MCHC 32.7 RDW 17.8 H Plt Count 235 Neut % (Auto) 73.9 Lymph % (Auto) 10.6 L [place] % (Auto) 11.0 Eos % (Auto) 3.6 Baso % (Auto) 0.9 Neut # (Auto) 4800 Lymph # (Auto) 700 L [place] # (Auto) 700 Eos # (Auto) 200 Baso # (Auto) 100 Sodium 140 Potassium 3.8 Chloride 100 Carbon Dioxide 31 BUN 16 Creatinine 1.60 H Estimated GFR 42.7 L BUN/Creatinine Ratio 10.0 Glucose 126 H Lactate 1.9 Calcium 9.4 Total Bilirubin 0.7 AST 24 ALT 24 Alkaline Phosphatase 80 Total Protein 6.9 Albumin 3.8 Globulin 3.1 Albumin/Globulin Ratio 1.2 Discharge Plan Discharge Plan Patient Disposition: Home Health Service Discharge comment: You are being discharged home with home health PT/OT/Nursing/OVEN EQUIPMENT REPAIRER. Please follow-up with your oncologist as instructed. Continue all your medications as prescribed. Discharge Med Rec/Prescriptions Prescriptions: Continued lidocaine 5 % Ointment 1 applic TOPICAL PRN PRN (Reason: Uretheral Pain) RF: 0 tramadol 50 mg tablet 50 mg PO BID RF: 0 furosemide [Lasix] 20 mg Tablet 10 mg PO BID RF: 0 diphenoxylate-atropine [Lomotil] 2.5-0.025 mg Tablet 1 tab PO Q6-8H PRN (Reason: Diarrhea) RF: 0 calcium carbonate [Tums] 200 mg calcium (500 mg) Tablet,Chewable 200 mg PO QID PRN (Reason: Abdominal Discomfort) RF: 0 zolpidem [Ambien] 10 mg Tablet 10 mg PO BEDTIME PRN (Reason: Insomnia) RF: 0 cholecalciferol (vitamin D3) [Vitamin D3] 5,000 unit Tablet 5,000 unit PO BID RF: 0 gabapentin 300 mg (9)- 600 mg (69) Tablet Extended Release 24 Hr 900 mg PO DAILY RF: 0 losartan 50 mg Tablet 50 mg PO BID RF: 0 ondansetron 8 mg Tablet,Disintegrating 8 mg PO TID PRN (Reason: Nausea) Qty: 60 RF: 3 prochlorperazine maleate [Compazine] 10 mg Tablet 10 mg PO Q6-8H PRN (Reason: Nausea) Qty: 30 RF: 3 oxycodone-acetaminophen 5-325 mg Tablet 1 tab PO Q4-6H PRN (Reason: Pain (Scale Score 4-6)) Qty: 60 RF: 0 carisoprodol [Soma] 350 mg Tablet 350 mg PO TID PRN (Reason: Muscle Pain) Qty: 30 RF: 1 fluorouracil 2.5 gram/50 mL Solution 4,000 mg IV NOW Qty: 1 RF: 0 No Action morphine 15 mg tablet extended release 15 mg PO BID 30 Days Qty: 60 RF: 0 Follow up/Referrals: Walt Mendez MD [Primary Care Provider] - Discharge Data Primary Care Provider: Walt Mendez Attending Provider: Andrey Shah Admit Date/Time: 02/07/19 21:43 Discharges patient from system. Discharge Date/Time: 02/08/19 14:50
--- NOTE | 2019-02-08 16:23 | CM.DANOTE ---
Discharge Planning/Care Management: Case received, EMR reviewed. Received a call from mechanical maintenance worker Pita Sandhu-Laws /see her note of today under Oncology clinic. Pita has been working with pt and his Adeline for the last 2 years and will continue to assist them in addition to the social media marketing specialist/ added to the resume orders for today. Pt is a 73 year old male who admitted late last night to care of hospitalist team. Dr. Membreno/oncology consulted early this morning and is holding his chemo for an extended period of time. Pt lives with in [place]. Is open to [facility] for RN only. Agreed to adding PT/OT and NEWSPAPER PUBLISHER. Pt Brianna worked with him today and he was able to mobilize in the room at a [facility]. Pt says when he is not feeling poorly from the chemo he does well at home. Uses a 4ww with basket and seat. Uses shower chair and his stands by for prn support. He and his plan to sell their home and move to [place] to be near family. Pt notes I know what I have is terminal and wish to spend some time with my daughters and make sure that Adeline is all set up with family support once I am gone. Pt is aware of the Hospice option and says he expects he will pursue this at some point in [place]. Pt is ok'd for home today. Adeline arrived to take him home. Have discussed case with [facility] and will fax her the d/c summary as well as this note and the ground worker's note. Payer: [employer] Admission status: OBS/cofirmed by LIANA Lerner. CM Discharge Assessment Start: 02/08/19 16:21 Freq: Status: Active Protocol: Document 02/08/19 16:22 ITV (Rec: 02/08/19 16:22 ITV [id number]) Discharge Planning Assessment Advance Directives? No History Provided By Patient Medical Record Prior Living Arrangements House Household Members spouse Type of transporation used prior to Relies on Others admit Independent with ADL's No Is patient alert and oriented? Yes Review Status In Process Next Review Type Continued Stay Review
== END 2019-02-08 14:50 | disposition home health service (06) ==
LOC: ED 21:31 → AC 21:44
PROVIDERS: Admitting Provider Nurse Practitioner Gerontology; Emergency Provider Emergency Medicine; Family Provider Family Medicine; PCP Family Medicine; Visit Provider Nurse Practitioner Gerontology
DX: C18.9 Malignant neoplasm of colon, unspecified (principal); R11.2 Nausea with vomiting, unspecified; C79.70 Secondary malignant neoplasm of unspecified adrenal gland; E11.43 Type 2 diabetes mellitus with diabetic autonomic (poly)neuropathy; I50.9 Heart failure, unspecified; I48.91 Unspecified atrial fibrillation; Z87.891 Personal history of nicotine dependence; R53.1 Weakness; R62.7 Adult failure to thrive
CPT/HCPCS: 36591; 70450; 71260; 74177; 80053; 82962; 83605; 85025; 93005; 96361; 96374; 96375; 97162; 99231; 99283; 99285; G0378; J2405; J2765; Q9967

== ENCOUNTER → 2019-02-09 14:36 | Outpatient (CLI) | payer OTHER, SELFPAY ==
[2019-02-07 22:11] VITALS: BMI 47.4
== END ==
PROVIDERS: Family Provider Family Medicine; PCP Family Medicine; Visit Provider Family Medicine
DX: S31.109A Unspecified open wound of abdominal wall, unspecified quadrant without penetration into peritoneal cavity, initial encounter (principal); L08.1 Erythrasma; B37.2 Candidiasis of skin and nail; E11.9 Type 2 diabetes mellitus without complications; C18.9 Malignant neoplasm of colon, unspecified; R10.9 Unspecified abdominal pain
CPT/HCPCS: 87070; 87075; 87102; 87205; 99213; 99214

== ENCOUNTER → 2019-02-16 13:04 | Outpatient (CLI) | payer OTHER, SELFPAY ==
[2019-02-07 22:11] VITALS: BMI 47.4
== END ==
PROVIDERS: Family Provider Family Medicine; PCP Family Medicine; Visit Provider Family Medicine
DX: S31.109A Unspecified open wound of abdominal wall, unspecified quadrant without penetration into peritoneal cavity, initial encounter (principal); L08.1 Erythrasma; B37.2 Candidiasis of skin and nail; T88.7XXA Unspecified adverse effect of drug or medicament, initial encounter
CPT/HCPCS: 99213; 99214

== ENCOUNTER → 2019-02-23 13:02 | Outpatient (CLI) | payer OTHER, SELFPAY ==
[2019-02-07 22:11] VITALS: BMI 47.4
== END ==
PROVIDERS: Family Provider Family Medicine; PCP Family Medicine; Visit Provider Family Medicine
DX: S31.109A Unspecified open wound of abdominal wall, unspecified quadrant without penetration into peritoneal cavity, initial encounter (principal); L08.1 Erythrasma; B37.2 Candidiasis of skin and nail
CPT/HCPCS: 99213

== ENCOUNTER → 2019-03-08 10:45 | Outpatient (CLI) | payer OTHER, SELFPAY ==
[2019-02-07 22:11] VITALS: BMI 47.4
== END ==
PROVIDERS: Family Provider Family Medicine; PCP Family Medicine; Visit Provider Family Medicine
DX: S31.109D Unspecified open wound of abdominal wall, unspecified quadrant without penetration into peritoneal cavity, subsequent encounter (principal)
CPT/HCPCS: 99213; 99214

== ENCOUNTER → 2019-03-15 14:04 | Outpatient (CLI) | payer OTHER, SELFPAY | PROVIDERS: Family Provider Family Medicine; PCP Family Medicine; Visit Provider Family Medicine | DX: S31.109A Unspecified open wound of abdominal wall, unspecified quadrant without penetration into peritoneal cavity, initial encounter (principal); B37.2 Candidiasis of skin and nail | CPT/HCPCS: 99213 ==

== ENCOUNTER → 2019-03-22 14:49 | Outpatient (CLI) | payer OTHER, SELFPAY | PROVIDERS: Family Provider Family Medicine; PCP Family Medicine; Visit Provider Family Medicine | DX: S31.109D Unspecified open wound of abdominal wall, unspecified quadrant without penetration into peritoneal cavity, subsequent encounter (principal); B37.2 Candidiasis of skin and nail | CPT/HCPCS: 99212; 99213 ==

== ENCOUNTER → 2019-03-29 11:00 | Oncology outpatient (ONC) | payer OTHER, SELFPAY ==
[2018-06-07 14:41] VITALS: BP 151/83; PULSE 86; RESP 17; TEMP 36.8; O2SAT 97
--- NOTE | 2018-06-07 15:36 | P.CONONC_ITS ---
History of Present Illness - Data of Consult Consult date: 06/07/18 Requesting Physician: Libia Kolb Primary Care Provider: Walt Mendez - Consult Narrative Reason for consult: colon cancer Narrative: Diagnosis: Colon cancer, T3 N2 Previous treatment: 1. Right hemicolectomy in April 2018. History of present illness: Reid Bah is a 72 year old male who is seen today for further evaluation of a newly diagnosed colon cancer. Patient reports that he has been ill for about a year. He has had trouble with constipation poor appetite nausea. Over the last year he has lost about 100 lb. Recently he developed small bowel obstruction and had a CT scan done. It showed an apparent mass in the cecum with evidence of a bowel obstruction. There is no evidence of distant metastasis. He was transferred to [place]. He underwent a right hemicolectomy on May 02. 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 The tumor invaded the ileocecal valve and terminal ileum as well as the appendiceal orifice and extended into the appendix. It invaded through the muscularis propria into the pericolonic soft tissue there is no evidence of micro satellite stable. Thirty-seven lymph nodes were sampled 9 of which were positive for metastatic disease. Postoperatively, the patient has been recovering fairly well. He still has occasional pain but is not using any pain medication. His appetite remains low and he continues to lose some weight. He does have some fear about eating and is afraid of gaining back some of the weight that he lost. His bowels have been moving. He is not having any nausea or vomiting. The surgical incisions are healing although he does have an open area on the more superior incision. He is treating this with a wet to dry dressings and it does appear to be healing. He has past medical history that is complicated by morbid obesity. He has very limited mobility. He has diabetes with neuropathy. He does have sleep apnea and uses oxygen at night. 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 He has a history of congestive heart failure. He did have some renal insufficiency around the time of his surgery. His medications include lactobacillus methocarbamol oxycodone although he is not taking and MiraLax losartan Lasix gabapentin tramadol. His family history is negative for malignancy although his in her family have been affected. Social history: He is . 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 He quit smoking 30-40 years ago. He does not drink any significant alcohol though perhaps as a beer every few months. CC: Zay Membreno MD Patient reports pain?: No Home Medications and Allergies Home Medications Medication Instructions Recorded Confirmed Type Topical Lidocaine Ointment 1 appful INTRA-URETHRAL PRN PRN 06/07/18 History calcium carbonate [Tums] 200 mg PO QID 06/07/18 06/07/18 History cholecalciferol (vitamin D3) 5,000 unit PO DAILY 06/07/18 06/07/18 History [Vitamin D3] diphenoxylate-atropine [Lomotil] 1 tab PO Q6-8H PRN 06/07/18 06/07/18 History ferrous sulfate [iron] 325 mg PO BID 06/07/18 06/07/18 History gabapentin 900 mg PO QDRHS 06/07/18 06/07/18 History hydrocodone-acetaminophen [Vicodin] 2 tab PO Q6H PRN 06/07/18 06/07/18 History losartan 100 mg PO DAILY 06/07/18 06/07/18 History metoclopramide HCl [Reglan] 10 mg PO Q6H 06/07/18 06/07/18 History tramadol [Ultram] 50 mg PO Q6H PRN 06/07/18 06/07/18 History zolpidem [Ambien] 10 mg PO BEDTIME PRN 06/07/18 06/07/18 History Allergies Allergy/AdvReac Type Severity Reaction Status Date / Time cephalexin AdvReac Severe Gastrointestinal Verified 06/07/18 14:48 Upset Medical History - Social History Smoking Status: Former smoker Substance Use Type: does not use Alcohol Intake Frequency: holidays/special occasions only Review of Systems - Patient Self-Reported Symptoms SR Constitution: Weight loss/gain, Fatigue/Malaise SR ears, nose, mouth, throat issues: Ears ringing, Changes in taste SR respiratory issues: Shortness of breath SR Skin issues: Dry skin SR Musculoskeletal issues: Difficulty walking SR Neuro issues: Headache, Lightheaded/dizzy Constitutional: weight loss, poor state of general health, decreased activity level, decreased exercise tolerance Ears, nose, mouth, throat: lightheadedness, apnea Cardiovascular: edema Gastrointestinal: change in appetite, constipation Musculoskeletal: weakness Neurological: paresthesias (He has neuropathy involving his feet and legs. He does require gabapentin and tramadol for this.) Exam Vital signs: Last Vital Signs Temp 98.2 F 06/07/18 14:41 Pulse 86 06/07/18 14:41 Resp 17 06/07/18 14:41 BP 151/83 H 06/07/18 14:41 Pulse Ox 97 06/07/18 14:41 - Constitutional positive no acute distress, positive morbidly obese - Routine HEENT Exam Head: Present: normocephalic, atraumatic Eye: Present: EOMI, PERRL. Absent: conjunctival icterus, scleral injection ENT: Present: mucous membranes moist, oropharynx clear Comments: He is edentulous - Routine Neck Exam Present: supple. Absent: lymphadenopathy, thyromegaly - Routine Respiratory Exam Present: Clear to auscultation bilaterally, distant breath sounds. Absent: wheezes - Routine Cardiovascular Exam Present: RRR, S1, S2. Absent: murmur - Routine Abdominal Exam Present: soft, normoactive bowel sounds, wound. Absent: tenderness Comments: The surgical incisions are covered with dressings. There is no purulence or drainage. - Routine Extremities Exam Present: edema. Absent: cyanosis, clubbing - Routine Back/Spine Exam Back/Spine: Absent: paraspinal tenderness, vertebral tenderness - Routine Skin Exam Present: intact. Absent: petechiae, rash - Routine Neurological Exam Present: alert, oriented X3 - Routine Psychiatric Exam Present: normal affect, normal thought process Results - Imaging Additional studies: Procedures Insertion of intraocular lens prosthesis at time of cataract extraction, one- stage (08/04/11) Phacoemulsification and aspiration of cataract (08/04/11) Assessment and Plan (1) Colon cancer Problem details: 72-year-old man with stage III colon cancer status post surgical resection about a month ago. He is recovering adequately from his surgery. He does have morbid obesity and limited mobility as well as an underlying neuropathy. I do not think that he would tolerate adjuvant oxaliplatin because of toxicity. Instead, we reviewed the role of 5 FU or Xeloda in reducing his risk for recurrence. Either of these treatments would reduce the risk by about a quarter. Baseline risk of recurrence for stage III disease is about 60%. His tumor did have some high risk features including obstruction. Side effects of 5 FU and Xeloda including mouth sores, skin rash and diarrhea were reviewed. We also talked about fatigue, changes in taste and appetite risk for infection. There would be a low risk for alopecia or nausea or vomiting. After discussing risks and benefits, a we have elected to go ahead with infusional 5 FU and leucovorin. He will need to have a port placed. I would anticipate starting therapy in 2-3 weeks. Will plan on 6 months of therapy. He is willing to proceed. Current visit: Yes Status: Acute
--- NOTE | 2018-06-08 11:21 | ONC.SCHED ---
Fluorouracil & Leucovorin 06/08/18 MCR OK
--- NOTE | 2018-06-09 08:43 | P.CHEMO_ITS ---
Chemotherapy Counseling - History of present illness History of present illness: 72-year-old male with newly diagnosed colon cancer, stage III status post surgical resection. Patient consulted with oncologist Dr. Membreno and plan is to move forward with treatment in the form of 5 FU and xeloda, plan is to complete about 6 months of therapy. Reid presents with his today. He reports he is doing well postoperatively. Feeling better than he did prior to surgery. He is not having any diarrhea. Denies any blood in his stool. Feels as though he is getting ?stronger and stronger every day?. No cough, fever, chills. No new pain. Nausea and vomiting have also resolved appetite starting to come back. He has appointments already scheduled for port placement also appointment to begin chemotherapy. - General New Chemotherapy Patient: Yes Treatment Plan Reviewed: yes - Chemotherapy Counseling Chemotherapy Counseling: Chemotherapy Education: Reid Bah provided written information on all topics discussed. Written materials printed from www.[facility].[employer] and www.[employer].org. Reid was given an overview of cancer and mechanism of action of cancer cells, that cancer is caused by cells that are dividing rapidly, and out of control. Traditional chemotherapy works by targeting the fast dividing cells and killing them. Chemotherapy affecting healthy cells dividing quickly causes many of the side effects (hair follicles, bone marrow, mucus membranes). Overview of blood cell functions of white cells to fight infection, red cells to carry oxygen, and platelets to stop bleeding was discussed, and that when bone marrow is affected by chemo, there is a decrease in production of these cells. Home care of the patient following chemotherapy was discussed. Body fluids will be contaminated for 48 hours following treatment, and any body fluids handled by caregivers should be handled wearing gloves, surfaces need to be cleaned with soap and water, any soiled linens or clothing need to be washed separately in hot water, toilet lid should be closed when flushing, person cleaning the toilet should wear gloves. How chemotherapy is administered by the RN?s in the clinic, that orders are double checked by pharmacy and checked again by two RN?s prior to administration. Nurses wear protective gear to prevent exposure to them of the chemotherapy agents which can also cause cancer. Cancer center information discussed and written hand out provided listing on- call oncologist available weekends and after hours triage R.N. hours and infusion room guide. New patient binder given to Reid, which includes clinic names, phone numbers, clinic information, calendar, cancer glossary, and list of resources. Handout on advanced directives Common side effects of chemotherapy were discussed with self care tips for prevention of complications. Information also provided in writing. These included: Low blood counts (anemia, thrombocytopenia, neutropenia) Hair loss (alopecia) Nausea and vomiting Decreased appetite Loss of fertility Diarrhea Mouth sores Constipation Peripheral neuropathy Chemo brain/cognitive changes Fatigue Instructions on when to call your healthcare team or on-call physician immediately: Fever of 100.4 or higher, chills, any signs of infection Shortness of breath, wheezing, difficulty breathing, closing of throat, swelling of face, hives (signs of possible allergic reaction) Chest pain, fast heart beat or feelings of a different heart rhythm Swelling of an extremity with or without pain signs of stroke Instructions on when to call your healthcare team within the next 24 hours Nausea that interferes with ability to eat and unrelieved with prescribed medication Diarrhea (4-6 episodes in 24 hour period). Unusual bleeding or bruising Black or tarry stools, or blood in your stools Blood in the urine pain or burning with urination Extreme fatigue (unable to perform self-care activities) Mouth sores or sore areas in your mouth Bad headache Dizziness or lightheadedness Large weight gain over a short period of time General self-care tips while undergoing treatment discussed were as follows. Written materials were provided covering in detail and additional self care tips. Drink at least 2-3 quarts (8-10 glasses) of no-caffeinated beverages daily unless you are instructed otherwise and empty your bladder frequently Report any concerning symptoms to your healthcare team Avoid crowds and sick people, wash your hands frequently Use a soft bristled toothbrush, rinse three times a day with 1 tsp baking soda or 1 tsp salt mixed with warm water Avoid any mouthwashes or oral and skin products containing alcohol or fragrances Use electric razors to avoid cutting yourself Avoid contact sports or activities that could cause head injury or bleeding Avoid sun exposure, wear SPF 15 or higher, wear protective clothing Get plenty of rest, meter your activities Maintain good nutrition Avoid alcoholic beverages Attend your scheduled appointments and lab draws Treatment regimen reviewed and medications were discussed with attention to specific side effects and self care for the pt?s treatment regimen which includes [5FU and xeloda]. Reid was provided with literature regarding [5 FU and xeloda] and common side effects. Additionally, Reid was provided with literature regarding the diagnosis of [st III colon cancer]. Reid instructed to read literature at home. Keep a list of questions which we are happy to go over at future visits. For any urgent questions please feel free to call any time. - Response to Teaching Response to Teaching: Verbalizes Understanding - Referrals Referrals: [facility] (reid and his met with [facility] re:financial concerns)
--- NOTE | 2018-06-10 11:52 | ONC.NAV ---
Late Entry: Visit 06/09/18 Description: New Pt Intro Activity: Met with both pt and spouse to introduce myself and provide services card. Pt and both express financial stress as being their primary need for assistance at this time. Pt states that he already is receiving thousands of dollars in bills from his recent hospitalizations and surgery, and was concerned that if he had a large [id number] with chemo medications, that he would not be able to afford it. [employer] researched his insurance, spoke with our [facility] pharmacist, Sherri, and we were able to determine that he should not have any out of pocket re: the chemo meds. [employer] also explained the availability of the Medical Relief Fund as well. Lastly, completed a Medical Marijuana Authorization Form, signed by Haylie Kim, for his to take with him during his visit today. Plan: Ongoing assistance and support as needed. Initialized on 06/10/18 11:48 - END OF NOTE
--- NOTE | 2018-06-23 12:49 | ONC.SCHED ---
FLUOROURACIL [id number] / LEUCOVORIN [id number] [facility] [place] [id number]
[2018-06-28 08:30] LABS: Add Manual Diff / Slide Review NO; Basophils Percent Auto 1.1 % (0-2); Eosinophils Percent Auto 4.3 % (2-4); Lymphocytes Percent Auto 20.9 % (25-40); Mean Corpuscular HGB Conc 32.3 % (30-36); Mean Corpuscular Hemoglobin 25.5 PG (26-34); Mean Corpuscular Volume 79.1 fL (80-100); Monocytes Percent Auto 8.6 % (3-14); Neutrophils Absolute Auto 5200 /uL (3000-5900); Neutrophils Percent Auto 65.1 % (50-75); Platelet Count 324 X10^3/uL (150-400); Red Blood Cell Count 4.29 X10^6/uL (4.5-5.9); Red Cell Distribution Width 23.3 % (11.6-14.8)
[2018-06-28 08:35] LABS: Alanine Aminotransferase 29 IU/L (21-72); Albumin 3.9 g/dL (3.5-5.0); Albumin Globulin Ratio 1.3 (1.0-2.8); Alkaline Phosphatase 67 U/L (38-126); Aspartate Aminotransferase 25 IU/L (17-59); BUN Creatinine Ratio 20.8 (6-22); Bilirubin Total 0.3 mg/dL (0.2-1.3); Blood Urea Nitrogen 27 mg/dL (9-20); Calcium 9.7 mg/dL (8.4-10.2); Carbon Dioxide 35 mmol/L (22-32); Chloride 98 mmol/L (98-107); Estimated Glomerular Filt Rate 54.4 mL/min (>60); Glucose 121 mg/dL (80-110); HEMOLYSIS < 15 (0-50); Sodium 142 mmol/L (137-145); Total Protein 6.9 g/dL (6.3-8.2)
[2018-06-28 08:38] VITALS: BP 159/100; PULSE 86; RESP 18; TEMP 37.3; O2SAT 94
--- NOTE | 2018-06-28 08:47 | ONC.PN ---
PN -Subjective Interval history: Diagnosis: Colon cancer, T3 N2 Previous treatment: 1. Right hemicolectomy in April 2018. Interval history: Since his last visit here, he had his port placed. Fortunately, it was complicated by a small pneumothorax. He was observed in the hospital but did not require chest tube placement. Today, his breathing feels okay. He is still having some discomfort in the chest. He denies any shortness of breath though. He was having some cough. He stopped his losartan 2 or 3 days ago and the cough has improved. His appetite has been good. He has not had any vomiting but has had a little bit of nausea. No fevers or chills. Bowels are moving normally. His incision is healing well. His is still doing daily dressing changes. Strength and energy level have been low but stable. He denies any unusual bleeding or bruising. He is ready to begin his chemotherapy today. His medications include gabapentin Vicodin Reglan tramadol. He was taking losartan but stopped a couple days ago. He is also taking an iron supplement. - Patient Self-Reported Symptoms SR Constitution: Weight loss/gain, Fatigue/Malaise SR ears, nose, mouth, throat issues: Ears ringing, Cough SR respiratory issues: Cough, Shortness of breath, Mucous SR Cardiovascular issues: Shortness of breath with activity or lying flat, Dizzy/lightheaded SR Skin issues: Dry skin SR Gastrointestinal issues: Nausea SR Musculoskeletal issues: Joint pain or swelling, Cold hands or feet, Difficulty walking SR Neuro issues: Lightheaded/dizzy Home Medications and Allergies Home Medications Medication Instructions Recorded Confirmed Type calcium carbonate [Tums] 200 mg PO QID PRN 06/07/18 06/15/18 History cholecalciferol (vitamin D3) 5,000 unit PO DAILY 06/07/18 06/22/18 History [Vitamin D3] diphenoxylate-atropine [Lomotil] 1 tab PO Q6-8H PRN 06/07/18 06/15/18 History ferrous sulfate [iron] 325 mg PO BID 06/07/18 06/22/18 History gabapentin 900 mg PO BID 06/07/18 06/22/18 History tramadol [Ultram] 50 mg PO Q6H PRN 06/07/18 06/15/18 History zolpidem [Ambien] 10 mg PO BEDTIME PRN 06/07/18 06/15/18 History hydralazine 50 mg PO TID 06/09/18 06/22/18 History ondansetron [Zofran ODT] 4 mg PO Q6-8H PRN #30 tab 06/09/18 06/22/18 Rx Lasix 40 mg PO DAILY 06/15/18 06/22/18 History lidocaine 1 applic TOPICAL PRN PRN 06/15/18 06/15/18 History lidocaine-prilocaine 1 applictn TOP QID #30 gram 06/22/18 Rx hydrocodone-acetaminophen 1 tab PO Q4HR PRN #30 tab 06/24/18 Rx Allergies Allergy/AdvReac Type Severity Reaction Status Date / Time cephalexin AdvReac Severe Gastrointestinal Verified 06/07/18 14:48 Upset Exam Vital signs: Last Vital Signs Temp 99.1 F 06/28/18 08:38 Pulse 86 06/28/18 08:38 Resp 18 06/28/18 08:38 BP 159/100 H 06/28/18 08:38 Pulse Ox 94 06/28/18 08:38 - Constitutional positive no acute distress, positive morbidly obese - Routine HEENT Exam Head: Present: normocephalic, atraumatic Eye: Present: EOMI, PERRL. Absent: conjunctival icterus, scleral injection ENT: Present: mucous membranes moist, oropharynx clear - Routine Neck Exam Present: supple. Absent: lymphadenopathy, thyromegaly - Routine Respiratory Exam Present: Clear to auscultation bilaterally. Absent: rales, wheezes - Routine Cardiovascular Exam Present: RRR, S1, S2. Absent: murmur - Routine Abdominal Exam Present: soft, normoactive bowel sounds. Absent: tenderness, mass - Routine Extremities Exam Absent: cyanosis, clubbing, edema Comments: He is a little bit pale. - Routine Skin Exam Present: intact. Absent: petechiae, rash - Routine Neurological Exam Present: alert, oriented X3 - Routine Psychiatric Exam Present: normal affect, normal thought process Results - Labs Laboratory Last Values WBC 8.0 X10^3/uL (4.5-11.0) 06/28/18 08:06 RBC 4.29 X10^6/uL (4.5-5.9) L 06/28/18 08:06 Hgb 11.0 g/dL (13.5-17.5) L 06/28/18 08:06 Hct 34.0 % (41-53) L 06/28/18 08:06 MCV 79.1 fL (80-100) L 06/28/18 08:06 MCH 25.5 PG (26-34) L 06/28/18 08:06 MCHC 32.3 % (30-36) 06/28/18 08:06 RDW 23.3 % (11.6-14.8) H 06/28/18 08:06 Plt Count 324 X10^3/uL (150-400) 06/28/18 08:06 Neut % (Auto) 65.1 % (50-75) 06/28/18 08:06 Lymph % (Auto) 20.9 % (25-40) L 06/28/18 08:06 [place] % (Auto) 8.6 % (3-14) 06/28/18 08:06 Eos % (Auto) 4.3 % (2-4) H 06/28/18 08:06 Baso % (Auto) 1.1 % (0-2) 06/28/18 08:06 Neut # (Auto) 5200 /uL (4620-8235) 06/28/18 08:06 Sodium 142 mmol/L (137-145) 06/28/18 08:06 Potassium 4.0 mmol/L (3.4-5.1) 06/28/18 08:06 Chloride 98 mmol/L (98-107) 06/28/18 08:06 Carbon Dioxide 35 mmol/L (22-32) H 06/28/18 08:06 BUN 27 mg/dL (9-20) H 06/28/18 08:06 Creatinine 1.30 mg/dL (0.66-1.25) H 06/28/18 08:06 Estimated GFR 54.4 mL/min (>60) L 06/28/18 08:06 BUN/Creatinine Ratio 20.8 (6-22) 06/28/18 08:06 Glucose 121 mg/dL (80-110) H 06/28/18 08:06 Calcium 9.7 mg/dL (8.4-10.2) 06/28/18 08:06 Total Bilirubin 0.3 mg/dL (0.2-1.3) 06/28/18 08:06 AST 25 IU/L (17-59) 06/28/18 08:06 ALT 29 IU/L (21-72) 06/28/18 08:06 Alkaline Phosphatase 67 U/L (38-126) 06/28/18 08:06 Total Protein 6.9 g/dL (6.3-8.2) 06/28/18 08:06 Albumin 3.9 g/dL (3.5-5.0) 06/28/18 08:06 Globulin 3.0 g/dL (1.7-4.1) 06/28/18 08:06 Albumin/Globulin Ratio 1.3 (1.0-2.8) 06/28/18 08:06 - Imaging Additional studies: Procedures Insertion of intraocular lens prosthesis at time of cataract extraction, one-stage (08/04/11) Phacoemulsification and aspiration of cataract (08/04/11) Assessment and Plan (1) Colon cancer Problem details: 72-year-old man with stage III colon cancer status post surgical resection about a month ago. He is ready to begin his adjuvant chemotherapy. Today, I reviewed again the mechanics of infusional 5 FU and leucovorin. He will receive the leucovorin over about 2 hr. As we followed by a bolus of 5 FU then a a 2 day infusion of 5 FU. He will have a CBC drawn next week. Return to clinic in about 2 weeks for follow-up and proceed with this 2nd cycle at that time if he is doing well. His blood pressure is elevated today since stopping his losartan but his cough is improved. I have asked him to follow up with his primary physician regarding additional antihypertensives. Current visit: Yes Status: Acute
[2018-06-28 08:51] LABS: Anisocytosis 2+; Microcytosis 2+
[2018-06-28 08:52] LABS: Poikilocytosis 1+
[2018-06-28] MEDS: SODIUM CHLORIDE 0.9% 100 ML 20 ML IV (09:31)
[2018-06-28] MEDS: DEXAMETHASONE 10 MG/ML VIAL 8 MG IV (09:33)
[2018-06-28] MEDS: ONDANSETRON 8 MG in SODIUM CHLORIDE 0.9% 50 ML 216 ML IV (10:07)
[2018-06-28] MEDS: DEXTROSE 5% IV (10:47)
[2018-06-28] MEDS: LEUCOVORIN IV (10:47)
[2018-06-28] MEDS: ISOOSMOTIC VEHICLE IV (13:12)
[2018-06-28] MEDS: FLUOROURACIL IV (13:12)
--- NOTE | 2018-06-28 13:16 | ONC.NAV ---
Description: Financial Assistance Activity: Provided a check from the [employer] for $69.00 to reimburse for travel to [facility].
--- NOTE | 2018-06-28 14:16 | PC.NURSE ---
5FU cadd pump settings and dosage checked with second RN Ubaldo. Blood return verified prior to connecting to port. Infusing without difficulty.
--- NOTE | 2018-06-28 14:19 | PC.NURSE ---
[employer] [employer] notifed pump start time at 1405. Spoke with Pita ALVARADO.
[2018-07-12] MEDS: ALTEPLASE 2 MG/2 ML VIAL IV (09:03)
[2018-07-12 09:09] LABS: Add Manual Diff / Slide Review NO; Eosinophils Percent Auto 4.8 % (2-4); Hematocrit 34.3 % (41-53); Hemoglobin 10.9 g/dL (13.5-17.5); Lymphocytes Percent Auto 12.9 % (25-40); Mean Corpuscular HGB Conc 31.7 % (30-36); Mean Corpuscular Hemoglobin 25.8 PG (26-34); Mean Corpuscular Volume 81.4 fL (80-100); Monocytes Percent Auto 6.7 % (3-14); Neutrophils Absolute Auto 6700 /uL (3000-5900); Neutrophils Percent Auto 74.6 % (50-75); Platelet Count 302 X10^3/uL (150-400); Red Blood Cell Count 4.22 X10^6/uL (4.5-5.9); Red Cell Distribution Width 21.2 % (11.6-14.8); White Blood Cell Count 8.9 X10^3/uL (4.5-11.0)
[2018-07-12 09:23] LABS: Alanine Aminotransferase 29 IU/L (21-72); Albumin 3.8 g/dL (3.5-5.0); Albumin Globulin Ratio 1.3 (1.0-2.8); Alkaline Phosphatase 67 U/L (38-126); Aspartate Aminotransferase 26 IU/L (17-59); BUN Creatinine Ratio 15.4 (6-22); Bilirubin Total 0.3 mg/dL (0.2-1.3); Blood Urea Nitrogen 20 mg/dL (9-20); Calcium 9.2 mg/dL (8.4-10.2); Carbon Dioxide 31 mmol/L (22-32); Chloride 102 mmol/L (98-107); Estimated Glomerular Filt Rate 54.4 mL/min (>60); Globulin 2.9 g/dL (1.7-4.1); Glucose 163 mg/dL (80-110); HEMOLYSIS < 15 (0-50); Potassium 3.8 mmol/L (3.4-5.1); Sodium 143 mmol/L (137-145); Total Protein 6.7 g/dL (6.3-8.2)
[2018-07-12 09:39] VITALS: BP 161/88; PULSE 92; RESP 20; TEMP 36.7; O2SAT 94
[2018-07-12 09:41] LABS: Anisocytosis 1+; Hypochromasia 2+
--- NOTE | 2018-07-12 09:42 | P.PNONC_ITS ---
PN -Subjective Interval history: Diagnosis: Colon cancer, T3 N2 Previous treatment: 1. Right hemicolectomy in April 2018. 2. One cycle of adjuvant 5 FU and leucovorin Interval history: The patient is a 72-year-old man who returns today for follow-up. He started his chemotherapy with infusional 5 FU. He has had 1 cycle thus far and is due for his 2nd cycle today. He notes that he did have some nausea for about 3 days after the treatment. It responded well to oral antiemetics and he did not have any vomiting. He did have some loose stool and diarrhea. He took Imodium once which seemed to help. He has noted some increased fatigue. 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 He denies any worsening shortness of breath or cough. He has not noted any skin rash or mouth sores. No fevers chills or sweats. - Patient Self-Reported Symptoms SR Constitution: Weight loss/gain, Fatigue/Malaise SR ears, nose, mouth, throat issues: Ears ringing, Cough SR respiratory issues: Cough, Shortness of breath, Mucous SR Cardiovascular issues: Shortness of breath with activity or lying flat, Dizzy /lightheaded SR Skin issues: Dry skin SR Gastrointestinal issues: Nausea SR Musculoskeletal issues: Joint pain or swelling, Cold hands or feet, Difficulty walking SR Neuro issues: Lightheaded/dizzy Home Medications and Allergies Home Medications Medication Instructions Recorded Confirmed Type calcium carbonate [Tums] 200 mg PO QID PRN 06/07/18 06/15/18 History cholecalciferol (vitamin D3) 5,000 unit PO DAILY 06/07/18 06/22/18 History [Vitamin D3] diphenoxylate-atropine [Lomotil] 1 tab PO Q6-8H PRN 06/07/18 06/15/18 History ferrous sulfate [iron] 325 mg PO BID 06/07/18 06/28/18 History gabapentin 900 mg PO BID 06/07/18 06/28/18 History tramadol [Ultram] 50 mg PO Q6H PRN 06/07/18 06/28/18 History zolpidem [Ambien] 10 mg PO BEDTIME PRN 06/07/18 06/28/18 History hydralazine 50 mg PO TID 06/09/18 06/28/18 History ondansetron [Zofran ODT] 4 mg PO Q6-8H PRN #30 tab 06/09/18 06/28/18 Rx Lasix 40 mg PO DAILY 06/15/18 06/28/18 History lidocaine 1 applic TOPICAL PRN PRN 06/15/18 06/28/18 History lidocaine-prilocaine 1 applictn TOP QID #30 gram 06/22/18 06/28/18 Rx hydrocodone-acetaminophen 1 tab PO Q4HR PRN #30 tab 06/24/18 06/28/18 Rx losartan 50 mg PO BID 07/12/18 07/12/18 History Allergies Allergy/AdvReac Type Severity Reaction Status Date / Time cephalexin AdvReac Severe Gastrointestinal Verified 06/07/18 14:48 Upset Exam Vital signs: Last Vital Signs Temp 99.1 F 06/28/18 08:38 Pulse 86 06/28/18 08:38 Resp 18 06/28/18 08:38 BP 159/100 H 06/28/18 08:38 Pulse Ox 94 06/28/18 08:38 - Constitutional positive no acute distress, positive morbidly obese - Routine HEENT Exam Head: Present: normocephalic, atraumatic Eye: Present: EOMI, PERRL. Absent: conjunctival icterus, scleral injection ENT: Present: mucous membranes moist, oropharynx clear - Routine Neck Exam Present: supple. Absent: lymphadenopathy - Routine Chest/Breast/Axilla Exam Comments: I has a port in the left chest. There is no erythema or tenderness. - Routine Respiratory Exam Present: Clear to auscultation bilaterally, distant breath sounds. Absent: rales, wheezes - Routine Cardiovascular Exam Present: RRR, S1, S2. Absent: murmur - Routine Abdominal Exam Present: soft. Absent: tenderness, mass - Routine Extremities Exam Absent: cyanosis, clubbing, edema - Routine Skin Exam Present: intact. Absent: petechiae, rash - Routine Neurological Exam Present: alert, oriented X3 - Routine Psychiatric Exam Present: normal affect, normal thought process Results - Labs Laboratory Last Values WBC 8.9 X10^3/uL (4.5-11.0) 07/12/18 08:45 RBC 4.22 X10^6/uL (4.5-5.9) L 07/12/18 08:45 Hgb 10.9 g/dL (13.5-17.5) L 07/12/18 08:45 Hct 34.3 % (41-53) L 07/12/18 08:45 MCV 81.4 fL (80-100) 07/12/18 08:45 MCH 25.8 PG (26-34) L 07/12/18 08:45 MCHC 31.7 % (30-36) 07/12/18 08:45 RDW 21.2 % (11.6-14.8) H 07/12/18 08:45 Plt Count 302 X10^3/uL (150-400) 07/12/18 08:45 Neut % (Auto) 74.6 % (50-75) 07/12/18 08:45 Lymph % (Auto) 12.9 % (25-40) L 07/12/18 08:45 [place] % (Auto) 6.7 % (3-14) 07/12/18 08:45 Eos % (Auto) 4.8 % (2-4) H 07/12/18 08:45 Baso % (Auto) 1.0 % (0-2) 07/12/18 08:45 Neut # (Auto) 6700 /uL (9201-0081) H 07/12/18 08:45 RBC Morphology Not Reportable 06/28/18 08:06 Poikilocytosis 1+ H 06/28/18 08:06 Anisocytosis 2+ H 06/28/18 08:06 Microcytosis 2+ H 06/28/18 08:06 Sodium 143 mmol/L (137-145) 07/12/18 08:45 Potassium 3.8 mmol/L (3.4-5.1) 07/12/18 08:45 Chloride 102 mmol/L (98-107) 07/12/18 08:45 Carbon Dioxide 31 mmol/L (22-32) 07/12/18 08:45 BUN 20 mg/dL (9-20) 07/12/18 08:45 Creatinine 1.30 mg/dL (0.66-1.25) H 07/12/18 08:45 Estimated GFR 54.4 mL/min (>60) L 07/12/18 08:45 BUN/Creatinine Ratio 15.4 (6-22) 07/12/18 08:45 Glucose 163 mg/dL (80-110) H 07/12/18 08:45 Calcium 9.2 mg/dL (8.4-10.2) 07/12/18 08:45 Total Bilirubin 0.3 mg/dL (0.2-1.3) 07/12/18 08:45 AST 26 IU/L (17-59) 07/12/18 08:45 ALT 29 IU/L (21-72) 07/12/18 08:45 Alkaline Phosphatase 67 U/L (38-126) 07/12/18 08:45 Total Protein 6.7 g/dL (6.3-8.2) 07/12/18 08:45 Albumin 3.8 g/dL (3.5-5.0) 07/12/18 08:45 Globulin 2.9 g/dL (1.7-4.1) 07/12/18 08:45 Albumin/Globulin Ratio 1.3 (1.0-2.8) 07/12/18 08:45 - Imaging Additional studies: Procedures Insertion of intraocular lens prosthesis at time of cataract extraction, one- stage (08/04/11) Phacoemulsification and aspiration of cataract (08/04/11) Assessment and Plan (1) Colon cancer Problem details: 72-year-old man with stage III colon cancer. He tolerated his 1st cycle of adjuvant 5 FU and leucovorin with expected toxicity. He will proceed with his 2nd cycle today. He will return to clinic in about 2 weeks for follow-up. He did ask us to draw a hemoglobin A1c today and will add that to his labs. He will continue with antiemetics and Imodium as needed. Current visit: Yes Status: Acute
[2018-07-12] MEDS: DEXAMETHASONE 10 MG/ML VIAL 8 MG IV (10:24)
[2018-07-12] MEDS: SODIUM CHLORIDE 0.9% 100 ML 20 ML IV (10:44)
[2018-07-12] MEDS: ONDANSETRON 8 MG in SODIUM CHLORIDE 0.9% 50 ML 216 ML IV (10:44)
[2018-07-12] MEDS: LEUCOVORIN 800 MG in DEXTROSE 5% (CHEMO IV) 250 ML 250 ML 145 ML IV (11:44)
[2018-07-12 12:26] LABS: Hemoglobin A1C% w Est Avg Glu 5.3 % (4.0-6.0)
--- NOTE | 2018-07-12 14:00 | ONC.NAV ---
Description: Financial Assistance Activity: Provided a check from the [employer] for $74.00 for travel reimbursement to treatment.
[2018-07-12] MEDS: FLUOROURACIL 800 MG in ISOOSMOTIC VEHICLE (CHEMO) 0 ML 96 ML IV (14:11)
--- NOTE | 2018-07-12 14:50 | PC.NURSE ---
CADD pump setting verified with second RN, KARLENE. Blood returned confirmed from port. 5FU pump attached with equa shield in place, clear dressing CDI. 5fu infusing w/o difficulty, green light flashing.
[2018-07-26] MEDS: ALTEPLASE 2 MG/2 ML VIAL IV (09:22)
[2018-07-26 09:23] VITALS: BP 131/60; PULSE 80; RESP 20; TEMP 36.4; O2SAT 94
[2018-07-26 09:24] LABS: Hematocrit 37.7 % (41-53); Hemoglobin 12.1 g/dL (13.5-17.5); Mean Corpuscular HGB Conc 32.1 % (30-36); Mean Corpuscular Hemoglobin 26.9 PG (26-34); Mean Corpuscular Volume 83.9 fL (80-100); Platelet Count 274 X10^3/uL (150-400); Red Blood Cell Count 4.49 X10^6/uL (4.5-5.9); Red Cell Distribution Width 20.9 % (11.6-14.8); White Blood Cell Count 10.8 X10^3/uL (4.5-11.0)
[2018-07-26 09:35] LABS: Alanine Aminotransferase 33 IU/L (21-72); Albumin 4.3 g/dL (3.5-5.0); Albumin Globulin Ratio 1.5 (1.0-2.8); Alkaline Phosphatase 74 U/L (38-126); Aspartate Aminotransferase 32 IU/L (17-59); BUN Creatinine Ratio 21.3 (6-22); Bilirubin Total 0.4 mg/dL (0.2-1.3); Blood Urea Nitrogen 32 mg/dL (9-20); Calcium 9.1 mg/dL (8.4-10.2); Carbon Dioxide 29 mmol/L (22-32); Chloride 99 mmol/L (98-107); Estimated Glomerular Filt Rate 46.1 mL/min (>60); Globulin 2.9 g/dL (1.7-4.1); Glucose 172 mg/dL (80-110); HEMOLYSIS < 15 (0-50); Potassium 3.9 mmol/L (3.4-5.1); Sodium 140 mmol/L (137-145); Total Protein 7.2 g/dL (6.3-8.2)
[2018-07-26 09:59] LABS: Anisocytosis 2+; Poikilocytosis 1+; Spherocytes 1+
[2018-07-26] MEDS: DEXAMETHASONE 10 MG/ML VIAL 8 MG IV (10:04)
[2018-07-26] MEDS: SODIUM CHLORIDE 0.9% 100 ML 20 ML IV (10:06)
[2018-07-26 10:08] LABS: Smudge Cells 2+
[2018-07-26 10:09] LABS: Add Manual Diff / Slide Review YES
[2018-07-26 10:16] LABS: Neutrophils Absolute Manual 8316 /uL (3000-5900); Total Cells Counted 100
[2018-07-26] MEDS: ONDANSETRON 8 MG in SODIUM CHLORIDE 0.9% 50 ML 216 ML IV (10:22)
--- NOTE | 2018-07-26 10:47 | ONC.PN ---
PN -Subjective Interval history: Diagnosis: Colon cancer, T3 N2 Previous treatment: 1. Right hemicolectomy in April 2018. 2. 2 cycles of adjuvant 5 FU and leucovorin Interval history: The patient is a 72-year-old man who returns today for follow-up. He has completed 2 cycles of adjuvant 5 FU and leucovorin and is due for his 3rd cycle today. He notes that over the last week or so, he has been having some increased upper abdominal pain mostly on the left side. It has been intermittent. It does not seem to be related to eating. He has had some nausea but no vomiting. He thinks that the antiemetics may help somewhat. He has continued with his usual pain medication and has been getting reasonably good relief with that. His bowels have been moving little bit more frequently but he denies any joe diarrhea. No shortness of breath or cough. He does have some dyspnea on exertion which has been stable. His notes that he has had low activity level. He is walking around his house but not getting out of the house very often. His weight has been stable. He has not noted any increasing lower extremity edema. No fevers chills or sweats. He is not having any pain in the chest. No skin rash or mouth sores. - Patient Self-Reported Symptoms SR Constitution: Fatigue/Malaise SR ears, nose, mouth, throat issues: Ears ringing, Congestion, Changes in taste SR respiratory issues: Shortness of breath SR Cardiovascular issues: Shortness of breath with activity or lying flat, Dizzy/lightheaded SR Skin issues: Dry skin SR Gastrointestinal issues: Nausea, Vomiting, Abdominal pain SR Musculoskeletal issues: Difficulty walking SR Neuro issues: Lightheaded/dizzy Home Medications and Allergies Home Medications Medication Instructions Recorded Confirmed Type calcium carbonate [Tums] 200 mg PO QID PRN 06/07/18 06/15/18 History cholecalciferol (vitamin D3) 5,000 unit PO DAILY 06/07/18 06/22/18 History [Vitamin D3] diphenoxylate-atropine [Lomotil] 1 tab PO Q6-8H PRN 06/07/18 06/15/18 History ferrous sulfate [iron] 325 mg PO BID 06/07/18 06/28/18 History gabapentin 900 mg PO BID 06/07/18 06/28/18 History tramadol [Ultram] 50 mg PO Q6H PRN 06/07/18 06/28/18 History zolpidem [Ambien] 10 mg PO BEDTIME PRN 06/07/18 06/28/18 History hydralazine 50 mg PO TID 06/09/18 06/28/18 History ondansetron [Zofran ODT] 4 mg PO Q6-8H PRN #30 tab 06/09/18 06/28/18 Rx Lasix 40 mg PO DAILY 06/15/18 06/28/18 History lidocaine 1 applic TOPICAL PRN PRN 06/15/18 06/28/18 History lidocaine-prilocaine 1 applictn TOP QID #30 gram 06/22/18 06/28/18 Rx hydrocodone-acetaminophen 1 tab PO Q4HR PRN #30 tab 06/24/18 06/28/18 Rx losartan 50 mg PO BID 07/12/18 07/12/18 History Allergies Allergy/AdvReac Type Severity Reaction Status Date / Time cephalexin AdvReac Severe Gastrointestinal Verified 06/07/18 14:48 Upset Exam - Constitutional positive no acute distress, positive morbidly obese - Routine HEENT Exam Head: Present: normocephalic, atraumatic Eye: Present: EOMI, PERRL. Absent: conjunctival icterus, scleral injection ENT: Present: mucous membranes moist, oropharynx clear - Routine Neck Exam Present: supple. Absent: lymphadenopathy, thyromegaly - Routine Respiratory Exam Present: Clear to auscultation bilaterally. Absent: rales, wheezes - Routine Cardiovascular Exam Present: RRR, S1, S2 Comments: His heart sounds are distant. - Routine Abdominal Exam Present: soft, wound. Absent: organomegaly, mass Comments: He has some mild tenderness to palpation in the left upper abdomen but no rebound or guarding. I do not feel any mass. He does have a dressing on the lower abdomen. There is no tenderness around that. - Routine Extremities Exam Present: edema. Absent: cyanosis, clubbing Comments: He has trace to 1+ bilateral lower extremity edema. - Routine Back/Spine Exam Back/Spine: Absent: paraspinal tenderness, vertebral tenderness - Routine Skin Exam Present: intact. Absent: erythema, petechiae, rash - Routine Neurological Exam Present: alert, oriented X3 - Routine Psychiatric Exam Present: normal affect, normal thought process Results - Labs Laboratory Last Values WBC 10.8 X10^3/uL (4.5-11.0) 07/26/18 09:02 RBC 4.49 X10^6/uL (4.5-5.9) L 07/26/18 09:02 Hgb 12.1 g/dL (13.5-17.5) L 07/26/18 09:02 Hct 37.7 % (41-53) L 07/26/18 09:02 MCV 83.9 fL (80-100) 07/26/18 09:02 MCH 26.9 PG (26-34) 07/26/18 09:02 MCHC 32.1 % (30-36) 07/26/18 09:02 RDW 20.9 % (11.6-14.8) H 07/26/18 09:02 Plt Count 274 X10^3/uL (150-400) 07/26/18 09:02 Neut % (Auto) [employer]ist 07/26/18 09:02 Lymph % (Auto) [employer] Specialist 07/26/18 09:02 [place] % (Auto) [employer] Specialist 07/26/18 09:02 Eos % (Auto) [employer] Specialist 07/26/18 09:02 Baso % (Auto) [employer] Specialist 07/26/18 09:02 Neut # (Auto) [employer] Specialist 07/26/18 09:02 Total Counted 100 07/26/18 09:02 Seg Neutrophils % 77.0 % (38-70) H 07/26/18 09:02 Lymphocytes % (Manual) 8.0 % (25-45) L 07/26/18 09:02 Monocytes % (Manual) 7.0 % (2-11) 07/26/18 09:02 Eosinophils % (Manual) 1.0 % (2-4) L 07/26/18 09:02 Basophils % (Manual) 2.0 % (0-1) H 07/26/18 09:02 Myelocytes % 1.0 % (-0) H 07/26/18 09:02 Blast Cells % 4.0 % (-0) H 07/26/18 09:02 Neutrophils # (Manual) 8316 /uL (0776-5796) H 07/26/18 09:02 Smudge Cells 2+ H 07/26/18 09:02 RBC Morphology See below 07/26/18 09:02 Hypochromasia 2+ H 07/12/18 08:45 Poikilocytosis 1+ H 07/26/18 09:02 Anisocytosis 2+ H 07/26/18 09:02 Microcytosis 2+ H 06/28/18 08:06 Spherocytes 1+ H 07/26/18 09:02 Sodium 140 mmol/L (137-145) 07/26/18 09:02 Potassium 3.9 mmol/L (3.4-5.1) 07/26/18 09:02 Chloride 99 mmol/L (98-107) 07/26/18 09:02 Carbon Dioxide 29 mmol/L (22-32) 07/26/18 09:02 BUN 32 mg/dL (9-20) H 07/26/18 09:02 Creatinine 1.50 mg/dL (0.66-1.25) H 07/26/18 09:02 Estimated GFR 46.1 mL/min (>60) L 07/26/18 09:02 BUN/Creatinine Ratio 21.3 (6-22) 07/26/18 09:02 Glucose 172 mg/dL (80-110) H 07/26/18 09:02 Hemoglobin A1c 5.3 % (4.0-6.0) 07/12/18 09:00 Calcium 9.1 mg/dL (8.4-10.2) 07/26/18 09:02 Total Bilirubin 0.4 mg/dL (0.2-1.3) 07/26/18 09:02 AST 32 IU/L (17-59) 07/26/18 09:02 ALT 33 IU/L (21-72) 07/26/18 09:02 Alkaline Phosphatase 74 U/L (38-126) 07/26/18 09:02 Total Protein 7.2 g/dL (6.3-8.2) 07/26/18 09:02 Albumin 4.3 g/dL (3.5-5.0) 07/26/18 09:02 Globulin 2.9 g/dL (1.7-4.1) 07/26/18 09:02 Albumin/Globulin Ratio 1.5 (1.0-2.8) 07/26/18 09:02 - Imaging Additional studies: Procedures Insertion of intraocular lens prosthesis at time of cataract extraction, one-stage (08/04/11) Phacoemulsification and aspiration of cataract (08/04/11) Assessment and Plan (1) Colon cancer Problem details: 72-year-old man with stage III colon cancer. He will proceed with his 3rd cycle of adjuvant 5 FU and leucovorin today. He will return to clinic in about 2 weeks for follow-up. I am not sure what's really causing his upper abdominal pain. I have encouraged him to continue with his antiemetics more proactively to see if that might provide some relief. If his pain persists or worsens, we might need to consider a CT scan. I have also encouraged him to trying increase his activity level little bit. Return to clinic in about 2 weeks for follow-up. Current visit: Yes Status: Acute
[2018-07-26] MEDS: LEUCOVORIN 800 MG in DEXTROSE 5% (CHEMO IV) 250 ML 250 ML 145 ML IV (11:18)
[2018-07-26] MEDS: FLUOROURACIL 800 MG in ISOOSMOTIC VEHICLE (CHEMO) 0 ML 96 ML IV (13:41)
[2018-08-10 09:23] VITALS: BP 152/86; PULSE 78; RESP 18; TEMP 36.4; O2SAT 94
[2018-08-10] MEDS: ALTEPLASE 2 MG/2 ML VIAL IV (09:25)
[2018-08-10 09:32] LABS: Add Manual Diff / Slide Review NO; Basophils Percent Auto 0.9 % (0-2); Hematocrit 37.4 % (41-53); Hemoglobin 12.2 g/dL (13.5-17.5); Lymphocytes Percent Auto 14.8 % (25-40); Mean Corpuscular HGB Conc 32.6 % (30-36); Mean Corpuscular Hemoglobin 27.7 PG (26-34); Monocytes Percent Auto 9.1 % (3-14); Neutrophils Absolute Auto 6000 /uL (3000-5900); Neutrophils Percent Auto 72.2 % (50-75); Platelet Count 241 X10^3/uL (150-400); Red Cell Distribution Width 20.4 % (11.6-14.8); White Blood Cell Count 8.4 X10^3/uL (4.5-11.0)
[2018-08-10 09:43] LABS: Alanine Aminotransferase 38 IU/L (21-72); Albumin 3.9 g/dL (3.5-5.0); Albumin Globulin Ratio 1.3 (1.0-2.8); Alkaline Phosphatase 76 U/L (38-126); Aspartate Aminotransferase 32 IU/L (17-59); BUN Creatinine Ratio 21.5 (6-22); Bilirubin Total 0.3 mg/dL (0.2-1.3); Blood Urea Nitrogen 28 mg/dL (9-20); Calcium 9.2 mg/dL (8.4-10.2); Carbon Dioxide 29 mmol/L (22-32); Chloride 102 mmol/L (98-107); Estimated Glomerular Filt Rate 54.3 mL/min (>60); Globulin 2.9 g/dL (1.7-4.1); Glucose 196 mg/dL (80-110); HEMOLYSIS < 15 (0-50); Potassium 3.7 mmol/L (3.4-5.1); Sodium 145 mmol/L (137-145); Total Protein 6.8 g/dL (6.3-8.2)
--- NOTE | 2018-08-10 09:43 | ONC.PN ---
PN -Subjective Interval history: Diagnosis: Colon cancer, T3 N2 Previous treatment: 1. Right hemicolectomy in April 2018. 2. 3 cycles of adjuvant 5 FU and leucovorin Interval history: The patient is a 72-year-old man who returns today for follow-up. He has completed 3 cycles of adjuvant 5 FU and leucovorin and is due for his 4th cycle today. Since his last visit here, he has continued to be bothered by pain in the left flank area and also in the left lower quadrant of the abdomen. It has been worse over the last week or so. He feels like it may be coming from the kidney. He has not noted any blood in the urine. He does not have any history of kidney stones. He has not noted any fevers or chills. He is not having any dysuria. His appetite has been fair and he has actually gained some weight. He denies any vomiting. He did have some nausea about 3 days after the treatment that was treated with oral antiemetics effectively. He denies any mouth sores or skin rash. Strength and energy level have been low. He has noted a little bit of an increased shortness of breath particularly when lying flat. - Patient Self-Reported Symptoms SR Constitution: Fatigue/Malaise SR ears, nose, mouth, throat issues: Congestion, Cough, Changes in taste SR respiratory issues: Cough, Shortness of breath, Difficulty breathing SR Cardiovascular issues: Shortness of breath with activity or lying flat, Extreme swelling, Dizzy/lightheaded SR Skin issues: Dry skin SR Gastrointestinal issues: Change in bowel pattern, Constipation, Abdominal pain SR Musculoskeletal issues: Difficulty walking SR Neuro issues: Lightheaded/dizzy Home Medications and Allergies Home Medications Medication Instructions Recorded Confirmed Type calcium carbonate [Tums] 200 mg PO QID PRN 06/07/18 06/15/18 History cholecalciferol (vitamin D3) 5,000 unit PO DAILY 06/07/18 06/22/18 History [Vitamin D3] diphenoxylate-atropine [Lomotil] 1 tab PO Q6-8H PRN 06/07/18 06/15/18 History ferrous sulfate [iron] 325 mg PO BID 06/07/18 06/28/18 History gabapentin 900 mg PO BID 06/07/18 06/28/18 History tramadol [Ultram] 50 mg PO Q6H PRN 06/07/18 06/28/18 History zolpidem [Ambien] 10 mg PO BEDTIME PRN 06/07/18 06/28/18 History hydralazine 50 mg PO TID 06/09/18 06/28/18 History ondansetron [Zofran ODT] 4 mg PO Q6-8H PRN #30 tab 06/09/18 06/28/18 Rx Lasix 40 mg PO DAILY 06/15/18 06/28/18 History lidocaine 1 applic TOPICAL PRN PRN 06/15/18 06/28/18 History lidocaine-prilocaine 1 applictn TOP QID #30 gram 06/22/18 06/28/18 Rx hydrocodone-acetaminophen 1 tab PO Q4HR PRN #30 tab 06/24/18 06/28/18 Rx losartan 50 mg PO BID 07/12/18 07/12/18 History oxycodone-acetaminophen [Percocet] 1 tab PO Q4H PRN 30 Days #30 tab 08/10/18 Rx Allergies Allergy/AdvReac Type Severity Reaction Status Date / Time cephalexin AdvReac Severe Gastrointestinal Verified 06/07/18 14:48 Upset Exam - Constitutional positive no acute distress, positive morbidly obese - Routine HEENT Exam Head: Present: normocephalic, atraumatic Eye: Present: EOMI, PERRL. Absent: conjunctival icterus, scleral injection ENT: Present: mucous membranes moist, oropharynx clear - Routine Neck Exam Present: supple. Absent: lymphadenopathy, thyromegaly - Routine Respiratory Exam Present: Clear to auscultation bilaterally. Absent: rales, wheezes - Routine Cardiovascular Exam Present: RRR, S1, S2 - Routine Abdominal Exam Present: soft, normoactive bowel sounds. Absent: tenderness, organomegaly, mass Comments: His surgical incision still covered with dressing. He has a urostomy. There is no palpable masses. No rebound or guarding. He has not really tender to palpation. - Routine Extremities Exam Comments: He has 1+ bilateral lower extremity edema. - Routine Back/Spine Exam Back/Spine: Absent: paraspinal tenderness, vertebral tenderness - Routine Skin Exam Present: pallor. Absent: petechiae, rash - Routine Neurological Exam Present: alert, oriented X3 - Routine Psychiatric Exam Present: normal affect, normal thought process Results - Labs Laboratory Last Values WBC 8.4 X10^3/uL (4.5-11.0) 08/10/18 09:10 RBC 4.40 X10^6/uL (4.5-5.9) L 08/10/18 09:10 Hgb 12.2 g/dL (13.5-17.5) L 08/10/18 09:10 Hct 37.4 % (41-53) L 08/10/18 09:10 MCV 85.0 fL (80-100) 08/10/18 09:10 MCH 27.7 PG (26-34) 08/10/18 09:10 MCHC 32.6 % (30-36) 08/10/18 09:10 RDW 20.4 % (11.6-14.8) H 08/10/18 09:10 Plt Count 241 X10^3/uL (150-400) 08/10/18 09:10 Neut % (Auto) 72.2 % (50-75) 08/10/18 09:10 Lymph % (Auto) 14.8 % (25-40) L 08/10/18 09:10 [place] % (Auto) 9.1 % (3-14) 08/10/18 09:10 Eos % (Auto) 3.0 % (2-4) 08/10/18 09:10 Baso % (Auto) 0.9 % (0-2) 08/10/18 09:10 Neut # (Auto) 6000 /uL (3938-0307) H 08/10/18 09:10 Total Counted 100 07/26/18 09:02 Seg Neutrophils % 77.0 % (38-70) H 07/26/18 09:02 Lymphocytes % (Manual) 8.0 % (25-45) L 07/26/18 09:02 Monocytes % (Manual) 7.0 % (2-11) 07/26/18 09:02 Eosinophils % (Manual) 1.0 % (2-4) L 07/26/18 09:02 Basophils % (Manual) 2.0 % (0-1) H 07/26/18 09:02 Myelocytes % 1.0 % (-0) H 07/26/18 09:02 Blast Cells % 4.0 % (-0) H 07/26/18 09:02 Neutrophils # (Manual) 8316 /uL (4518-9064) H 07/26/18 09:02 Smudge Cells 2+ H 07/26/18 09:02 RBC Morphology See below 07/26/18 09:02 Hypochromasia 2+ H 07/12/18 08:45 Poikilocytosis 1+ H 07/26/18 09:02 Anisocytosis 2+ H 07/26/18 09:02 Microcytosis 2+ H 06/28/18 08:06 Spherocytes 1+ H 07/26/18 09:02 Smear Path Review 07/26/18 09:02 Sodium 140 mmol/L (137-145) 07/26/18 09:02 Potassium 3.9 mmol/L (3.4-5.1) 07/26/18 09:02 Chloride 99 mmol/L (98-107) 07/26/18 09:02 Carbon Dioxide 29 mmol/L (22-32) 07/26/18 09:02 BUN 32 mg/dL (9-20) H 07/26/18 09:02 Creatinine 1.50 mg/dL (0.66-1.25) H 07/26/18 09:02 Estimated GFR 46.1 mL/min (>60) L 07/26/18 09:02 BUN/Creatinine Ratio 21.3 (6-22) 07/26/18 09:02 Glucose 172 mg/dL (80-110) H 07/26/18 09:02 Hemoglobin A1c 5.3 % (4.0-6.0) 07/12/18 09:00 Calcium 9.1 mg/dL (8.4-10.2) 07/26/18 09:02 Total Bilirubin 0.4 mg/dL (0.2-1.3) 07/26/18 09:02 AST 32 IU/L (17-59) 07/26/18 09:02 ALT 33 IU/L (21-72) 07/26/18 09:02 Alkaline Phosphatase 74 U/L (38-126) 07/26/18 09:02 Total Protein 7.2 g/dL (6.3-8.2) 07/26/18 09:02 Albumin 4.3 g/dL (3.5-5.0) 07/26/18 09:02 Globulin 2.9 g/dL (1.7-4.1) 07/26/18 09:02 Albumin/Globulin Ratio 1.5 (1.0-2.8) 07/26/18 09:02 - Imaging Additional studies: Procedures Insertion of intraocular lens prosthesis at time of cataract extraction, one-stage (08/04/11) Phacoemulsification and aspiration of cataract (08/04/11) Assessment and Plan (1) Colon cancer Problem details: 72-year-old man with stage III colon cancer. He will proceed with his 4th cycle of adjuvant chemotherapy today. He will return to clinic in about 3 weeks. He requests a delay of week because of upcoming holiday. He is having slow healing of his surgical incision. Will make referral to the wound care center to see if any additional measures might be helpful. For his abdominal pain, will check a urinalysis and culture. I did give him prescription for some Percocet. If his pain worsens, it may be reasonable to look for a kidney stone or other cause for abdominal pain. He will return to clinic in about 2-3 weeks for follow-up. Current visit: Yes Status: Acute
[2018-08-10 10:03] LABS: Anisocytosis 1+
[2018-08-10] MEDS: ONDANSETRON 8 MG in SODIUM CHLORIDE 0.9% 50 ML 216 ML IV (10:34)
[2018-08-10] MEDS: SODIUM CHLORIDE 0.9% 100 ML 20 ML IV (10:34)
[2018-08-10 10:39] LABS: Bilirubin Urine UA NEGATIVE (NEGATIVE); Color Urine UA YELLOW; Glucose Urine UA NEGATIVE (Normal); Ketones Urine UA NEGATIVE (NEGATIVE); Leukocyte Esterase Urine UA 1+ (NEGATIVE); Nitrite Urine UA POSITIVE (Negative); Occult Blood Urine UA 1+ (Negative); Protein Urine UA TRACE (Negative); Specific Gravity Urine UA 1.025 (1.000-1.035); Urobilinogen Urine UA 0.2 E.U./dL (0.2)
[2018-08-10 10:40] LABS: Appearance Urine UA Slightly Cloudy
[2018-08-10 10:47] LABS: Bacteria Urine Many (>30); RBC Urine 0-1/HPF (0-5/HPF); WBC Urine >100/HPF (0-5/HPF)
[2018-08-10 10:48] LABS: Culture Indicated Urine Specimen Cultured; Hyaline Casts Urine 0-1/LPF; Mucus Urine 1+ (Negative)
[2018-08-10] MEDS: DEXAMETHASONE 10 MG/ML VIAL 8 MG IV (10:51)
[2018-08-10] MEDS: OXYCODONE IR 5 MG TABLET 10 MG PO (11:02)
[2018-08-10] MEDS: LEUCOVORIN 800 MG in DEXTROSE 5% (CHEMO IV) 250 ML 250 ML 145 ML IV (11:26)
[2018-08-10] MEDS: FLUOROURACIL 800 MG in ISOOSMOTIC VEHICLE (CHEMO) 0 ML 96 ML IV (13:23)
--- NOTE | 2018-08-10 14:26 | ONC.NAV ---
Description: Financial Assistance, Coping Support Activity: Met with pt/ to check-in re: coping, support needs and their request for financial assistance. Provided a check from the [facility] for $64.00 to reimburse for travel to treatment fuel purchase. Pt indicated a (10) on his distress screening, expressing: financial difficulties, sadness, depression, anger, worry/fear, and chronic back pain. His wrote on his distress screen that he is more irritable, angry, can become verbally aggressive at times, and yells at everyone. In meeting with him, patient shares that he is profoundly depressed. He's thinking about his mortality, is feeling hopeless about his disease and treatment, and feels overall very sad. 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 Made a plan to call pt the day before his next infusion treatment in order to schedule a time to meet.
--- NOTE | 2018-08-12 15:20 | PC.NURSE ---
Cipro Rx ordered by Dr. Membreno called to [facility] per pts request
--- NOTE | 2018-08-30 08:54 | ONC.APRN.PN ---
PN -Subjective Interval history: Diagnosis: Colon cancer, T3 N2 Previous treatment: 1. Right hemicolectomy in April 2018. 2. 3 cycles of adjuvant 5 FU and leucovorin Interval history: The patient is a 72-year-old man with significant medical comorbidities who returns today for scheduled follow up and consideration of cycle 5 of 5FU and leucovorin. Previously he was reporting pain in the left flank area and also in the left lower quadrant of the abdomen. He felt like it may be coming from the kidney. He did not note any blood in the urine. He does not have any history of kidney stones. He did not noted any fevers or chills. He was not having any dysuria. He does have a suprapubic catheter and is followed by Dr Nicholas at [facility] in [place]. The pt is evaluated monthly in the urology clinic also monthly catheter changes. Dr Membreno ordered UA and culture and provided the pt with RX for percocet with instructions if pain worsens RTC we will evaluate further . Urinalysis was positive for many bacteria, leukocyte esterase, nitrates. Urine culture demonstrated E coli Pseudomonas, ESBL. Patient was provided a prescription for ciprofloxacin. He did not complete the treatment reporting his urologist instructed him to PA. He presents today reporting I feel the same, no better no worse. He continues to report back pain rather than flank pain. States it is mid back. Not new is more chronic. Feels better when he lays down, pain is exacerbated when he is standing or sitting. Per the patient and his he is definitely spending more time in bed. Appetite is stable. No nausea or vomiting. No new lumps or bumps. No diarrhea, no blood in stool. No fever or chills. He does admit to a cough however he states ?this is also normal its from my blood pressure medicine?. He also endorses shortness of breath, worse than usual, worse when lying down. He takes Lasix 40 mg once daily. Pt goes on to report he is upset nobody here will do surgery, specifically surgery to fix his bladder. PMH: Morbid obesity Type 2 diabetes with neuropathy Difficulty with ambulation Chronic CHF with acute exacerbations Urinary tract obstruction Suprapubic catheter Incarcerated ventral hernia Open wound Renal insufficiency Dyspnea Sleep apnea History of right hemicolectomy - Patient Self-Reported Symptoms SR Constitution: Fatigue/Malaise SR ears, nose, mouth, throat issues: Congestion, Cough, Changes in taste SR respiratory issues: Cough, Shortness of breath, Difficulty breathing SR Cardiovascular issues: Shortness of breath with activity or lying flat, Extreme swelling, Dizzy/lightheaded SR Skin issues: Dry skin SR Gastrointestinal issues: Change in bowel pattern, Constipation, Abdominal pain SR Musculoskeletal issues: Difficulty walking SR Neuro issues: Lightheaded/dizzy Home Medications and Allergies Home Medications Medication Instructions Recorded Confirmed Type calcium carbonate [Tums] 200 mg PO QID PRN 06/07/18 08/30/18 History cholecalciferol (vitamin D3) 5,000 unit PO DAILY 06/07/18 08/30/18 History [Vitamin D3] diphenoxylate-atropine [Lomotil] 1 tab PO Q6-8H PRN 06/07/18 08/30/18 History ferrous sulfate [iron] 325 mg PO BID 06/07/18 08/30/18 History gabapentin 900 mg PO BID 06/07/18 08/30/18 History tramadol [Ultram] 50 mg PO Q6H PRN 06/07/18 08/30/18 History zolpidem [Ambien] 10 mg PO BEDTIME PRN 06/07/18 08/30/18 History hydralazine 50 mg PO TID 06/09/18 08/30/18 History ondansetron [Zofran ODT] 4 mg PO Q6-8H PRN #30 tab 06/09/18 08/30/18 Rx Lasix 40 mg PO DAILY 06/15/18 08/30/18 History lidocaine 1 applic TOPICAL PRN PRN 06/15/18 08/30/18 History lidocaine-prilocaine 1 applictn TOP QID #30 gram 06/22/18 08/30/18 Rx hydrocodone-acetaminophen 1 tab PO Q4HR PRN #30 tab 06/24/18 08/30/18 Rx losartan 50 mg PO BID 07/12/18 08/30/18 History oxycodone-acetaminophen [Percocet] 1 tab PO Q4H PRN 30 Days #30 tab 08/10/18 Rx Allergies Allergy/AdvReac Type Severity Reaction Status Date / Time cephalexin AdvReac Severe Gastrointestinal Verified 06/07/18 14:48 Upset Exam - Constitutional positive no acute distress, positive morbidly obese, positive chronically ill appearing, positive disheveled, positive agitated - Routine HEENT Exam Eye: Present: conjunctivae pink. Absent: conjunctival icterus, scleral injection ENT: Present: mucous membranes moist, oropharynx clear - Routine Neck Exam Present: supple. Absent: lymphadenopathy - Routine Respiratory Exam Present: rales, crackles. Absent: respiratory distress, rhonchi, stridor, wheezes Comments: fine bibasilar crackles, chronic - Routine Cardiovascular Exam Present: RRR, S1, S2. Absent: murmur, gallop, rubs, JVD - Routine Abdominal Exam Present: soft, normoactive bowel sounds. Absent: tenderness, distended, organomegaly, mass Comments: obese abdomen no palpable adenopathy or hepatosplenomegaly. - Routine Extremities Exam Present: edema. Absent: calf tenderness Comments: chronic symmetric BLE, 1+ - Routine Back/Spine Exam Back/Spine: Absent: CVA tenderness - Routine Skin Exam Present: intact, normal turgor. Absent: petechiae, rash - Routine Neurological Exam Present: alert, oriented X3 - Routine Psychiatric Exam Present: agitated Results - Labs Laboratory Last Values WBC 8.4 X10^3/uL (4.5-11.0) 08/10/18 09:10 RBC 4.40 X10^6/uL (4.5-5.9) L 08/10/18 09:10 Hgb 12.2 g/dL (13.5-17.5) L 08/10/18 09:10 Hct 37.4 % (41-53) L 08/10/18 09:10 MCV 85.0 fL (80-100) 08/10/18 09:10 MCH 27.7 PG (26-34) 08/10/18 09:10 MCHC 32.6 % (30-36) 08/10/18 09:10 RDW 20.4 % (11.6-14.8) H 08/10/18 09:10 Plt Count 241 X10^3/uL (150-400) 08/10/18 09:10 Neut % (Auto) 72.2 % (50-75) 08/10/18 09:10 Lymph % (Auto) 14.8 % (25-40) L 08/10/18 09:10 [place] % (Auto) 9.1 % (3-14) 08/10/18 09:10 Eos % (Auto) 3.0 % (2-4) 08/10/18 09:10 Baso % (Auto) 0.9 % (0-2) 08/10/18 09:10 Neut # (Auto) 6000 /uL (5626-6050) H 08/10/18 09:10 Total Counted 100 07/26/18 09:02 Seg Neutrophils % 77.0 % (38-70) H 07/26/18 09:02 Lymphocytes % (Manual) 8.0 % (25-45) L 07/26/18 09:02 Monocytes % (Manual) 7.0 % (2-11) 07/26/18 09:02 Eosinophils % (Manual) 1.0 % (2-4) L 07/26/18 09:02 Basophils % (Manual) 2.0 % (0-1) H 07/26/18 09:02 Myelocytes % 1.0 % (-0) H 07/26/18 09:02 Blast Cells % 4.0 % (-0) H 07/26/18 09:02 Neutrophils # (Manual) 8316 /uL (5604-5098) H 07/26/18 09:02 Smudge Cells 2+ H 07/26/18 09:02 RBC Morphology Not Reportable 08/10/18 09:10 Hypochromasia 2+ H 07/12/18 08:45 Poikilocytosis 1+ H 07/26/18 09:02 Anisocytosis 1+ H 08/10/18 09:10 Microcytosis 2+ H 06/28/18 08:06 Spherocytes 1+ H 07/26/18 09:02 Smear Path Review 07/26/18 09:02 Sodium 145 mmol/L (137-145) 08/10/18 09:10 Potassium 3.7 mmol/L (3.4-5.1) 08/10/18 09:10 Chloride 102 mmol/L (98-107) 08/10/18 09:10 Carbon Dioxide 29 mmol/L (22-32) 08/10/18 09:10 BUN 28 mg/dL (9-20) H 08/10/18 09:10 Creatinine 1.30 mg/dL (0.66-1.25) H 08/10/18 09:10 Estimated GFR 54.3 mL/min (>60) L 08/10/18 09:10 BUN/Creatinine Ratio 21.5 (6-22) 08/10/18 09:10 Glucose 196 mg/dL (80-110) H 08/10/18 09:10 Hemoglobin A1c 5.3 % (4.0-6.0) 07/12/18 09:00 Calcium 9.2 mg/dL (8.4-10.2) 08/10/18 09:10 Total Bilirubin 0.3 mg/dL (0.2-1.3) 08/10/18 09:10 AST 32 IU/L (17-59) 08/10/18 09:10 ALT 38 IU/L (21-72) 08/10/18 09:10 Alkaline Phosphatase 76 U/L (38-126) 08/10/18 09:10 Total Protein 6.8 g/dL (6.3-8.2) 08/10/18 09:10 Albumin 3.9 g/dL (3.5-5.0) 08/10/18 09:10 Globulin 2.9 g/dL (1.7-4.1) 08/10/18 09:10 Albumin/Globulin Ratio 1.3 (1.0-2.8) 08/10/18 09:10 Urine Color Yellow 08/10/18 10:18 Urine Appearance Slightly cloudy 08/10/18 10:18 Urine pH 5.0 (4.5-8.0) 08/10/18 10:18 Ur Specific [place] 1.025 (1.000-1.035) 08/10/18 10:18 Urine Protein Trace (Negative) H 08/10/18 10:18 Urine Glucose (UA) Negative g/dL (Normal) 08/10/18 10:18 Urine Ketones Negative (NEGATIVE) 08/10/18 10:18 Urine Occult Blood 1+ (Negative) H 08/10/18 10:18 Urine Nitrate Positive (Negative) 08/10/18 10:18 Urine Bilirubin Negative (NEGATIVE) 08/10/18 10:18 Urine Urobilinogen 0.2 E.U./dL (0.2) 08/10/18 10:18 Ur Leukocyte Esterase 1+ (NEGATIVE) H 08/10/18 10:18 Urine RBC 0-1/hpf (0-5/HPF) 08/10/18 10:18 Urine WBC >100/hpf (0-5/HPF) H 08/10/18 10:18 Urine Bacteria Many (>30) (None) H 08/10/18 10:18 Hyaline Casts 0-1/lpf (None) 08/10/18 10:18 Urine Mucus 1+ (Negative) H 08/10/18 10:18 Ur Culture Indicated? Specimen cultured 08/10/18 10:18 Micro UA Comment Not Reportable 08/10/18 10:18 - Imaging Additional studies: Procedures Insertion of intraocular lens prosthesis at time of cataract extraction, one-stage (08/04/11) Phacoemulsification and aspiration of cataract (08/04/11) Assessment and Plan (1) Colon cancer Problem details: 72-year-old man with stage III colon cancer. He will proceed with his 4th cycle of adjuvant chemotherapy today. He will return to clinic in about 3 weeks. He requests a delay of week because of upcoming holiday. He is having slow healing of his surgical incision. Will make referral to the wound care center to see if any additional measures might be helpful. For his abdominal pain, will check a urinalysis and culture. I did give him prescription for some Percocet. If his pain worsens, it may be reasonable to look for a kidney stone or other cause for abdominal pain. He will return to clinic in about 2-3 weeks for follow-up. Current visit: Yes Status: Acute 73-year-old male presenting today for consideration of cycle 5 day 1 5Fu and leucovorin. We will proceed with treatment today, no red flags. Patient does have chronic back pain along with multiple other chronic issues. He did endorse some worsening shortness of breath he declined chest x-ray patient does have history of CHF both chronic and acute. BNP unremarkable today at 98. He does have chronic symmetric lower extremity edema. CBC, CMP largely unremarkable. CEA pending at time of dictation. Return to clinic in 2 weeks time for consideration of cycle 6 day 1 along with visit with Dr Membreno. (2) Urinary tract infection due to extended-spectrum beta lactamase (ESBL) producing Escherichia coli Current visit: Yes Status: Acute Patient was symptomatic with flank pain. Urine culture demonstrated E coli Pseudomonas, ESBL. Patient was treated with oral ciprofloxacin however patient discontinued per the instructions of his urologist Dr Nicholas at [facility] [place]. I called and spoke with her today, she checks a monthly UA and culture and reports historically the pt has grown resistant organisms. She recommends against treating in the absence of fever, acute changes. Indication to treat would be fever and/or acute changes. I discussed with the pt he verbalizes understanding and agrees with POC. (3) Morbid obesity Current visit: Yes Status: Acute Complicating his care and functional status. Will cont to monitor closely. (4) CHF (congestive heart failure) Current visit: Yes Status: Acute Chronic, with hx of acute exacerbations. Patient was reporting worsening shortness of breath specifically dyspnea with exertion also orthopnea. He declined chest x-ray however he did agree to a blood draw. BNP was unremarkable at 98. Continue Lasix 40 mg once daily. Also takes daily ARB, not on beta isabella. (5) Diabetes mellitus type 2 in obese Current visit: Yes Status: Acute Chronic. Diet-controlled. Most recent hemoglobin A1c July 12, 2018 5.3. Glucose today on CMP 162. (6) Chronic renal insufficiency Current visit: Yes Status: Acute Chronic with acute exacerbations due to obstruction. Creatinine stable today at 1.10 BUN 23 GFR >60. Will continue to monitor. - Time Spent with Patient 30 mins
[2018-08-30 09:21] VITALS: BP 173/77; PULSE 73; RESP 19; TEMP 36.7; O2SAT 94
[2018-08-30] MEDS: ALTEPLASE 2 MG/2 ML VIAL IV (10:04)
[2018-08-30 10:33] LABS: Add Manual Diff / Slide Review NO; Basophils Percent Auto 1.2 % (0-2); Eosinophils Percent Auto 4.1 % (2-4); Hematocrit 34.7 % (41-53); Hemoglobin 11.4 g/dL (13.5-17.5); Lymphocytes Percent Auto 21.8 % (25-40); Mean Corpuscular HGB Conc 32.8 % (30-36); Mean Corpuscular Hemoglobin 28.3 PG (26-34); Mean Corpuscular Volume 86.2 fL (80-100); Monocytes Percent Auto 11.8 % (3-14); Neutrophils Absolute Auto 4200 /uL (3000-5900); Neutrophils Percent Auto 61.1 % (50-75); Platelet Count 325 X10^3/uL (150-400); Red Blood Cell Count 4.02 X10^6/uL (4.5-5.9); Red Cell Distribution Width 19.7 % (11.6-14.8); White Blood Cell Count 6.9 X10^3/uL (4.5-11.0)
[2018-08-30 10:44] LABS: Alanine Aminotransferase 25 IU/L (21-72); Albumin 3.8 g/dL (3.5-5.0); Albumin Globulin Ratio 1.2 (1.0-2.8); Alkaline Phosphatase 55 U/L (38-126); Aspartate Aminotransferase 50 IU/L (17-59); BUN Creatinine Ratio 20.9 (6-22); Bilirubin Total 0.7 mg/dL (0.2-1.3); Blood Urea Nitrogen 23 mg/dL (9-20); Calcium 8.5 mg/dL (8.4-10.2); Carbon Dioxide 24 mmol/L (22-32); Chloride 103 mmol/L (98-107); Estimated Glomerular Filt Rate > 60.0 mL/min (>60); Globulin 3.1 g/dL (1.7-4.1); Glucose 162 mg/dL (80-110); Magnesium 1.8 mg/dL (1.6-2.3); Potassium 4.6 mmol/L (3.4-5.1); Sodium 139 mmol/L (137-145); Total Protein 6.9 g/dL (6.3-8.2)
[2018-08-30 10:46] LABS: HEMOLYSIS 146 (0-50)
[2018-08-30 10:58] LABS: B Type Natriuretic Peptide 98.8 (<100)
[2018-08-30] MEDS: DEXAMETHASONE 10 MG/ML VIAL 8 MG IV (11:40)
[2018-08-30] MEDS: ONDANSETRON 8 MG in SODIUM CHLORIDE 0.9% 50 ML 216 ML IV (11:41)
[2018-08-30] MEDS: SODIUM CHLORIDE 0.9% 100 ML 20 ML IV (12:21)
[2018-08-30] MEDS: LEUCOVORIN 800 MG in DEXTROSE 5% (CHEMO IV) 250 ML 250 ML 145 ML IV (12:22)
[2018-08-30] MEDS: FLUOROURACIL 800 MG in ISOOSMOTIC VEHICLE (CHEMO) 0 ML 96 ML IV (14:35)
--- NOTE | 2018-08-30 15:27 | PC.NURSE ---
CADD pump setting confirmed with second RN, Ubaldo. Blood return from port verified. 5fU pump connected with equa shield in place; infusing w/o difficulty, green light flashing. Clear dressing in place, CDI.
--- NOTE | 2018-09-13 09:23 | P.PNONC_ITS ---
PN -Subjective Interval history: Diagnosis: Colon cancer, T3 N2 Previous treatment: 1. Right hemicolectomy in April 2018. 2. 5 cycles of adjuvant 5 FU and leucovorin Interval history: The patient is a 72-year-old man with significant medical comorbidities who returns today for scheduled follow up and consideration of cycle 5 of 5FU and leucovorin. Since his last visit here, he has continued to struggle with pain in the left flank area. He was taking some hydrocodone. He is taking about 1 and half tablets at night which does provide some relief. He ran out of the medication about a week ago. Since then his pain has been worse. He denies any other new aches or pains. He has been working with the wound clinic and his incision has almost healed. He denies any fevers or chills. He has occasional nausea but no vomiting. He has had some loose stools but no joe diarrhea. No mouth sores or skin rash. Strength and energy level have been stable but low. Both he and his noticed that he has been bothered by increased anger and irritability. This has been a longstanding problem for him but has gotten worse in the last month or 2. He states that he is unwilling to see a psychiatrist or to consider support group. He is willing to consider a antidepressant. He did try some medical marijuana but did not find it helpful and found that it gave him some palpitations. He stopped using it. He denies any other changes in his health. PMH: Morbid obesity Type 2 diabetes with neuropathy Difficulty with ambulation Chronic CHF with acute exacerbations Urinary tract obstruction Suprapubic catheter Incarcerated ventral hernia Open wound Renal insufficiency Dyspnea Sleep apnea History of right hemicolectomy - Patient Self-Reported Symptoms SR Constitution: Fatigue/Malaise SR ears, nose, mouth, throat issues: Congestion, Cough, Changes in taste SR respiratory issues: Cough, Shortness of breath, Difficulty breathing SR Cardiovascular issues: Shortness of breath with activity or lying flat, Extreme swelling, Dizzy/lightheaded SR Skin issues: Dry skin SR Gastrointestinal issues: Change in bowel pattern, Constipation, Abdominal pain SR Musculoskeletal issues: Difficulty walking SR Neuro issues: Lightheaded/dizzy SR Hematologic issues: Slow healing, Bleeding/bruising SR Endocrine issues: Cold intolerance, Heat intolerance Home Medications and Allergies Home Medications Medication Instructions Recorded Confirmed Type calcium carbonate [Tums] 200 mg PO QID PRN 06/07/18 08/30/18 History cholecalciferol (vitamin D3) 5,000 unit PO DAILY 06/07/18 08/30/18 History [Vitamin D3] diphenoxylate-atropine [Lomotil] 1 tab PO Q6-8H PRN 06/07/18 08/30/18 History ferrous sulfate [iron] 325 mg PO BID 06/07/18 08/30/18 History gabapentin 900 mg PO BID 06/07/18 08/30/18 History tramadol [Ultram] 50 mg PO Q6H PRN 06/07/18 08/30/18 History zolpidem [Ambien] 10 mg PO BEDTIME PRN 06/07/18 08/30/18 History hydralazine 50 mg PO TID 06/09/18 08/30/18 History ondansetron [Zofran ODT] 4 mg PO Q6-8H PRN #30 tab 06/09/18 08/30/18 Rx Lasix 40 mg PO DAILY 06/15/18 08/30/18 History lidocaine 1 applic TOPICAL PRN PRN 06/15/18 08/30/18 History lidocaine-prilocaine 1 applictn TOP QID #30 gram 06/22/18 08/30/18 Rx hydrocodone-acetaminophen 1 tab PO Q4HR PRN #30 tab 06/24/18 08/30/18 Rx losartan 50 mg PO BID 07/12/18 08/30/18 History oxycodone-acetaminophen 1 tab PO Q4H PRN 30 Days #60 tab 09/13/18 Rx paroxetine HCl [Paxil] 20 mg PO DAILY 30 Days #30 tab 09/13/18 Rx Allergies Allergy/AdvReac Type Severity Reaction Status Date / Time cephalexin AdvReac Severe Gastrointestinal Verified 06/07/18 14:48 Upset Exam - Constitutional positive no acute distress, positive morbidly obese - Routine HEENT Exam Head: Present: normocephalic, atraumatic Eye: Present: EOMI, PERRL. Absent: conjunctival icterus, scleral injection ENT: Present: mucous membranes moist, oropharynx clear - Routine Neck Exam Present: supple. Absent: lymphadenopathy, thyromegaly - Routine Chest/Breast/Axilla Exam Chest wall exam standard: Absent: tenderness Comments: There is no CVA tenderness. - Routine Respiratory Exam Present: Clear to auscultation bilaterally. Absent: rales, wheezes - Routine Cardiovascular Exam Present: RRR, S1, S2. Absent: murmur - Routine Abdominal Exam Present: soft, normoactive bowel sounds. Absent: tenderness - Routine Neurological Exam Present: alert, oriented X3 - Routine Psychiatric Exam Present: normal affect, normal thought process Results - Labs Laboratory Last Values WBC 6.9 X10^3/uL (4.5-11.0) 08/30/18 10:15 RBC 4.02 X10^6/uL (4.5-5.9) L 08/30/18 10:15 Hgb 11.4 g/dL (13.5-17.5) L 08/30/18 10:15 Hct 34.7 % (41-53) L 08/30/18 10:15 MCV 86.2 fL (80-100) 08/30/18 10:15 MCH 28.3 PG (26-34) 08/30/18 10:15 MCHC 32.8 % (30-36) 08/30/18 10:15 RDW 19.7 % (11.6-14.8) H 08/30/18 10:15 Plt Count 325 X10^3/uL (150-400) 08/30/18 10:15 Neut % (Auto) 61.1 % (50-75) 08/30/18 10:15 Lymph % (Auto) 21.8 % (25-40) L 08/30/18 10:15 [place] % (Auto) 11.8 % (3-14) 08/30/18 10:15 Eos % (Auto) 4.1 % (2-4) H 08/30/18 10:15 Baso % (Auto) 1.2 % (0-2) 08/30/18 10:15 Neut # (Auto) 4200 /uL (8774-1003) 08/30/18 10:15 Total Counted 100 07/26/18 09:02 Seg Neutrophils % 77.0 % (38-70) H 07/26/18 09:02 Lymphocytes % (Manual) 8.0 % (25-45) L 07/26/18 09:02 Monocytes % (Manual) 7.0 % (2-11) 07/26/18 09:02 Eosinophils % (Manual) 1.0 % (2-4) L 07/26/18 09:02 Basophils % (Manual) 2.0 % (0-1) H 07/26/18 09:02 Myelocytes % 1.0 % (-0) H 07/26/18 09:02 Blast Cells % 4.0 % (-0) H 07/26/18 09:02 Neutrophils # (Manual) 8316 /uL (8663-7473) H 07/26/18 09:02 Smudge Cells 2+ H 07/26/18 09:02 RBC Morphology Not Reportable 08/10/18 09:10 Hypochromasia 2+ H 07/12/18 08:45 Poikilocytosis 1+ H 07/26/18 09:02 Anisocytosis 1+ H 08/10/18 09:10 Microcytosis 2+ H 06/28/18 08:06 Spherocytes 1+ H 07/26/18 09:02 Smear Path Review 07/26/18 09:02 Sodium 139 mmol/L (137-145) 08/30/18 10:15 Potassium 4.6 mmol/L (3.4-5.1) 08/30/18 10:15 Chloride 103 mmol/L (98-107) 08/30/18 10:15 Carbon Dioxide 24 mmol/L (22-32) 08/30/18 10:15 BUN 23 mg/dL (9-20) H 08/30/18 10:15 Creatinine 1.10 mg/dL (0.66-1.25) 08/30/18 10:15 Estimated GFR > 60.0 mL/min (>60) 08/30/18 10:15 BUN/Creatinine Ratio 20.9 (6-22) 08/30/18 10:15 Glucose 162 mg/dL (80-110) H 08/30/18 10:15 Hemoglobin A1c 5.3 % (4.0-6.0) 07/12/18 09:00 Calcium 8.5 mg/dL (8.4-10.2) 08/30/18 10:15 Magnesium 1.8 mg/dL (1.6-2.3) 08/30/18 10:15 Total Bilirubin 0.7 mg/dL (0.2-1.3) 08/30/18 10:15 AST 50 IU/L (17-59) 08/30/18 10:15 ALT 25 IU/L (21-72) 08/30/18 10:15 Alkaline Phosphatase 55 U/L (38-126) 08/30/18 10:15 B-Natriuretic Peptide 98.8 (<100) 08/30/18 10:15 Total Protein 6.9 g/dL (6.3-8.2) 08/30/18 10:15 Albumin 3.8 g/dL (3.5-5.0) 08/30/18 10:15 Globulin 3.1 g/dL (1.7-4.1) 08/30/18 10:15 Albumin/Globulin Ratio 1.2 (1.0-2.8) 08/30/18 10:15 Carcinoembryonic Ag 2.0 ng/mL (0.1-3.0) 08/30/18 10:15 Urine Color Yellow 08/10/18 10:18 Urine Appearance Slightly cloudy 08/10/18 10:18 Urine pH 5.0 (4.5-8.0) 08/10/18 10:18 Ur Specific [place] 1.025 (1.000-1.035) 08/10/18 10:18 Urine Protein Trace (Negative) H 08/10/18 10:18 Urine Glucose (UA) Negative g/dL (Normal) 08/10/18 10:18 Urine Ketones Negative (NEGATIVE) 08/10/18 10:18 Urine Occult Blood 1+ (Negative) H 08/10/18 10:18 Urine Nitrate Positive (Negative) 08/10/18 10:18 Urine Bilirubin Negative (NEGATIVE) 08/10/18 10:18 Urine Urobilinogen 0.2 E.U./dL (0.2) 08/10/18 10:18 Ur Leukocyte Esterase 1+ (NEGATIVE) H 08/10/18 10:18 Urine RBC 0-1/hpf (0-5/HPF) 08/10/18 10:18 Urine WBC >100/hpf (0-5/HPF) H 08/10/18 10:18 Urine Bacteria Many (>30) (None) H 08/10/18 10:18 Hyaline Casts 0-1/lpf (None) 08/10/18 10:18 Urine Mucus 1+ (Negative) H 08/10/18 10:18 Ur Culture Indicated? Specimen cultured 08/10/18 10:18 Micro UA Comment Not Reportable 08/10/18 10:18 - Imaging CT scan - abdomen: image reviewed (New prominent mass in the left adrenal gland. ) Additional studies: Procedures Insertion of intraocular lens prosthesis at time of cataract extraction, one- stage (08/04/11) Phacoemulsification and aspiration of cataract (08/04/11) Assessment and Plan (1) Colon cancer Problem details: 72-year-old man with stage III colon cancer. He will proceed with his 6th cycle of adjuvant chemotherapy today. He will return to clinic in about 2 weeks. I did give him a refill for his Percocet today. I also gave him a prescription for an antidepressant to see if that helps with his anger. CT scan shows a new mass in the left adrenal gland which is suspicious for metastasis. Will plan on getting a CT scan with adrenal protocol and I think it will also need a biopsy. If he does have recurrent disease, then I think a PET scan would be indicated. If he has a solitary metastasis, he could be considered for surgical resection or perhaps radiation. He will return to clinic in about 2 weeks or so for follow-up. Current visit: Yes Status: Acute (2) Morbid obesity Current visit: Yes Status: Acute Complicating his care and functional status. Will cont to monitor closely.
[2018-09-13 09:32] LABS: Add Manual Diff / Slide Review NO; Hematocrit 38.8 % (41-53); Mean Corpuscular HGB Conc 33.5 % (30-36); Mean Corpuscular Volume 86.4 fL (80-100); Monocytes Percent Auto 9.4 % (3-14); Neutrophils Absolute Auto 6100 /uL (3000-5900); Neutrophils Percent Auto 68.6 % (50-75); Platelet Count 212 X10^3/uL (150-400); Red Blood Cell Count 4.49 X10^6/uL (4.5-5.9); Red Cell Distribution Width 19.4 % (11.6-14.8); White Blood Cell Count 8.9 X10^3/uL (4.5-11.0)
[2018-09-13] MEDS: ALTEPLASE 2 MG/2 ML VIAL IV (09:35)
--- NOTE | 2018-09-13 09:39 | ONC.NAV ---
Description: Coping Support Activity: Pt indicated a (7) on her distress screening today, expressing: sadness, depression, anger, worry, fear, fear of dying, paranoia. His reports that pt has continued to be very verbally aggressive with her and others at home, yells and calls her names. He has reported depression for weeks, however it does seem to be getting worse. Pt is not open to counseling or to taking an antidepressant at this time. This C T TECH met with he and his to offer coping and emotional support. Pt expressed that he received some bad news during his provider appointment this morning, and is scared that his cancer has progressed. He feels like they are barely making it, financially, and feels helpless about improving his situation. C T TECH offered counseling for emotional support and encouragement, while acknowledging how exhausted and frustrated he is feeling. Plan: Continue to provide frequent support, monitor depression and coping. *Pt was provided a Chemo Quilt today.
[2018-09-13 09:46] LABS: Alanine Aminotransferase 30 IU/L (21-72); Albumin 4.1 g/dL (3.5-5.0); Albumin Globulin Ratio 1.3 (1.0-2.8); Alkaline Phosphatase 71 U/L (38-126); Aspartate Aminotransferase 33 IU/L (17-59); BUN Creatinine Ratio 17.1 (6-22); Bilirubin Total 0.4 mg/dL (0.2-1.3); Blood Urea Nitrogen 24 mg/dL (9-20); Calcium 9.3 mg/dL (8.4-10.2); Carbon Dioxide 30 mmol/L (22-32); Chloride 100 mmol/L (98-107); Estimated Glomerular Filt Rate 49.8 mL/min (>60); Globulin 3.1 g/dL (1.7-4.1); Glucose 132 mg/dL (80-110); HEMOLYSIS < 15 (0-50); Magnesium 1.7 mg/dL (1.6-2.3); Potassium 3.8 mmol/L (3.4-5.1); Sodium 144 mmol/L (137-145); Total Protein 7.2 g/dL (6.3-8.2)
[2018-09-13] MEDS: ONDANSETRON 8 MG in SODIUM CHLORIDE 0.9% 50 ML 216 ML IV (10:05)
[2018-09-13] MEDS: SODIUM CHLORIDE 0.9% 100 ML 20 ML IV (10:05)
[2018-09-13] MEDS: DEXAMETHASONE 10 MG/ML VIAL 8 MG IV (10:06)
[2018-09-13] MEDS: LEUCOVORIN 800 MG in DEXTROSE 5% (CHEMO IV) 250 ML 250 ML 145 ML IV (11:14)
[2018-09-13] MEDS: FLUOROURACIL 800 MG in ISOOSMOTIC VEHICLE (CHEMO) 0 ML 96 ML IV (13:53)
--- NOTE | 2018-09-13 14:16 | PC.NURSE ---
cadd pump order verified with vianey Polanco. [employer] and cap attached and line flushed. Pump verified to be running with pt and working properly. Pt to disconnect pump at home.
[2018-09-14 09:09] VITALS: BP 183/90; PULSE 86; RESP 19; TEMP 37.1; O2SAT 90
--- NOTE | 2018-09-14 10:05 | PC.NURSE ---
Dr. Membreno would like Mr. Bah to have his suprapubic catheter changed by an expert at a Urology office. Mr. Bah was requesting it be done here but it is not our specialty. Dr. Membreno has concerns that if we cannot get it placed, it would be very bad medically for Mr. Bah. I explained this to the patient and he agreed to seek placement in either [place] or [place].
--- NOTE | 2018-09-15 11:58 | ONC.SCHED ---
PA FOR PAROXETINE HCL RECEIVED FROM [employer]: AUTHORIZED THROUGH 09/14/2020
[2018-09-26 08:49] LABS: Platelet Count 238 X10^3/uL (150-400)
[2018-09-26 08:55] LABS: Prothrombin Time 11.2 SECONDS (10.1-12.7)
[2018-10-03] MEDS: ALTEPLASE 2 MG/2 ML VIAL IV (09:00)
[2018-10-03 09:02] VITALS: BP 156/76; PULSE 73; RESP 18; TEMP 36.9; O2SAT 94
--- NOTE | 2018-10-03 09:06 | ONC.APRN.PN ---
PN -Subjective Interval history: Diagnosis: Colon cancer, T3 N2 Previous treatment: 1. Right hemicolectomy in April 2018. 2. 6 cycles of adjuvant 5 FU and leucovorin Interval history: The patient is a 73-year-old man with significant medical comorbidities who returns today for scheduled follow up and consideration of cycle 7 of 5FU and leucovorin. Of significance patient underwent CT guided biopsy of left adrenal mass September 26, 2018. Pathology is pending. Patient reports ongoing nausea and fatigue, both grade 2. Patient reports Zofran has been quite effective at managing his nausea. He is able to eat. Since his previous visit September 13, 2018 patient has lost 2 kg otherwise his weight is stable. No worsening shortness of breath. No chest pain. He denies any other new aches or pains. He has been working with the wound clinic and his incision has almost healed. He denies any fevers or chills. He has occasional nausea but no vomiting. He has had intermittent loose stools but no joe diarrhea, no blood noted in stools. No mouth sores or skin rash. Mood might be a little better since Dr Membreno initiated antidepressant Paxil. PMH: Morbid obesity Type 2 diabetes with neuropathy Difficulty with ambulation Chronic CHF with acute exacerbations Urinary tract obstruction Suprapubic catheter Incarcerated ventral hernia Open wound Renal insufficiency Dyspnea Sleep apnea History of right hemicolectomy - Patient Self-Reported Symptoms SR Constitution: Fatigue/Malaise SR ears, nose, mouth, throat issues: Congestion, Cough, Changes in taste SR respiratory issues: Difficulty breathing SR Cardiovascular issues: Shortness of breath with activity or lying flat, Dizzy/lightheaded SR Skin issues: Dry skin SR Gastrointestinal issues: Nausea, Abdominal pain SR Musculoskeletal issues: Muscle weakness, Muscle pain or cramps, Back or neck pain, Cold hands or feet, Difficulty walking SR Neuro issues: Headache, Lightheaded/dizzy, Difficulty balancing SR Hematologic issues: Slow healing, Bleeding/bruising SR Endocrine issues: Cold intolerance, Excessive thirst Home Medications and Allergies Home Medications Medication Instructions Recorded Confirmed Type calcium carbonate [Tums] 200 mg PO QID PRN 06/07/18 10/03/18 History cholecalciferol (vitamin D3) 5,000 unit PO DAILY 06/07/18 09/26/18 History [Vitamin D3] diphenoxylate-atropine [Lomotil] 1 tab PO Q6-8H PRN 06/07/18 09/26/18 History ferrous sulfate [iron] 325 mg PO BID 06/07/18 09/26/18 History gabapentin 900 mg PO BID 06/07/18 09/26/18 History zolpidem [Ambien] 10 mg PO BEDTIME PRN 06/07/18 08/30/18 History hydralazine 50 mg PO TID 06/09/18 09/26/18 History ondansetron [Zofran ODT] 4 mg PO Q6-8H PRN #30 tab 06/09/18 09/26/18 Rx Lasix 40 mg PO BID 06/15/18 09/26/18 History lidocaine 1 applic TOPICAL PRN PRN 06/15/18 08/30/18 History losartan 50 mg PO BID 07/12/18 09/26/18 History oxycodone-acetaminophen 1 tab PO Q4H PRN 30 Days #60 tab 09/13/18 10/03/18 Rx paroxetine HCl [Paxil] 20 mg PO DAILY 30 Days #30 tab 09/13/18 10/03/18 Rx Allergies Allergy/AdvReac Type Severity Reaction Status Date / Time cephalexin AdvReac Severe Gastrointestinal Verified 06/07/18 14:48 Upset Exam - Constitutional positive no acute distress, positive morbidly obese - Routine HEENT Exam Eye: Present: conjunctivae pink. Absent: conjunctival icterus, scleral injection ENT: Present: mucous membranes moist, oropharynx clear - Routine Neck Exam Present: supple. Absent: lymphadenopathy - Routine Respiratory Exam Present: Clear to auscultation bilaterally, decreased breath sounds. Absent: accessory muscle use, prolonged expiratory phase, rales, respiratory distress, rhonchi, stridor, wheezes, crackles - Routine Cardiovascular Exam Present: RRR, S1, S2. Absent: murmur, gallop, rubs, JVD - Routine Abdominal Exam Present: soft, normoactive bowel sounds. Absent: tenderness, distended, organomegaly Comments: obese abd w/o palpable hepatosplenomegaly, masses - Routine Extremities Exam Present: edema. Absent: calf tenderness Comments: Symmetric trace bilateral lower extremity edema, pitting. - Routine Skin Exam Present: intact. Absent: petechiae, rash - Routine Neurological Exam Present: alert, oriented X3 - Routine Psychiatric Exam Present: normal affect, normal thought process. Absent: anxious, agitated Results - Labs Laboratory Last Values WBC 8.9 X10^3/uL (4.5-11.0) 09/13/18 09:13 RBC 4.49 X10^6/uL (4.5-5.9) L 09/13/18 09:13 Hgb 13.0 g/dL (13.5-17.5) L 09/13/18 09:13 Hct 38.8 % (41-53) L 09/13/18 09:13 MCV 86.4 fL (80-100) 09/13/18 09:13 MCH 29.0 PG (26-34) 09/13/18 09:13 MCHC 33.5 % (30-36) 09/13/18 09:13 RDW 19.4 % (11.6-14.8) H 09/13/18 09:13 Plt Count 238 X10^3/uL (150-400) 09/26/18 08:07 Neut % (Auto) 68.6 % (50-75) 09/13/18 09:13 Lymph % (Auto) 18.0 % (25-40) L 09/13/18 09:13 [place] % (Auto) 9.4 % (3-14) 09/13/18 09:13 Eos % (Auto) 3.0 % (2-4) 09/13/18 09:13 Baso % (Auto) 1.0 % (0-2) 09/13/18 09:13 Neut # (Auto) 6100 /uL (2345-7919) H 09/13/18 09:13 Total Counted 100 07/26/18 09:02 Seg Neutrophils % 77.0 % (38-70) H 07/26/18 09:02 Lymphocytes % (Manual) 8.0 % (25-45) L 07/26/18 09:02 Monocytes % (Manual) 7.0 % (2-11) 07/26/18 09:02 Eosinophils % (Manual) 1.0 % (2-4) L 07/26/18 09:02 Basophils % (Manual) 2.0 % (0-1) H 07/26/18 09:02 Myelocytes % 1.0 % (-0) H 07/26/18 09:02 Blast Cells % 4.0 % (-0) H 07/26/18 09:02 Neutrophils # (Manual) 8316 /uL (1349-5756) H 07/26/18 09:02 Smudge Cells 2+ H 07/26/18 09:02 RBC Morphology Not Reportable 08/10/18 09:10 Hypochromasia 2+ H 07/12/18 08:45 Poikilocytosis 1+ H 07/26/18 09:02 Anisocytosis 1+ H 08/10/18 09:10 Microcytosis 2+ H 06/28/18 08:06 Spherocytes 1+ H 07/26/18 09:02 Smear Path Review 07/26/18 09:02 PT 11.2 SECONDS (10.1-12.7) 09/26/18 08:07 INR 1.0 (0.9-1.3) 09/26/18 08:07 Sodium 144 mmol/L (137-145) 09/13/18 09:13 Potassium 3.8 mmol/L (3.4-5.1) 09/13/18 09:13 Chloride 100 mmol/L (98-107) 09/13/18 09:13 Carbon Dioxide 30 mmol/L (22-32) 09/13/18 09:13 BUN 24 mg/dL (9-20) H 09/13/18 09:13 Creatinine 1.40 mg/dL (0.66-1.25) H 09/13/18 09:13 Estimated GFR 49.8 mL/min (>60) L 09/13/18 09:13 BUN/Creatinine Ratio 17.1 (6-22) 09/13/18 09:13 Glucose 132 mg/dL (80-110) H 09/13/18 09:13 Hemoglobin A1c 5.3 % (4.0-6.0) 07/12/18 09:00 Calcium 9.3 mg/dL (8.4-10.2) 09/13/18 09:13 Magnesium 1.7 mg/dL (1.6-2.3) 09/13/18 09:13 Total Bilirubin 0.4 mg/dL (0.2-1.3) 09/13/18 09:13 AST 33 IU/L (17-59) 09/13/18 09:13 ALT 30 IU/L (21-72) 09/13/18 09:13 Alkaline Phosphatase 71 U/L (38-126) 09/13/18 09:13 B-Natriuretic Peptide 98.8 (<100) 08/30/18 10:15 Total Protein 7.2 g/dL (6.3-8.2) 09/13/18 09:13 Albumin 4.1 g/dL (3.5-5.0) 09/13/18 09:13 Globulin 3.1 g/dL (1.7-4.1) 09/13/18 09:13 Albumin/Globulin Ratio 1.3 (1.0-2.8) 09/13/18 09:13 Carcinoembryonic Ag 2.0 ng/mL (0.1-3.0) 08/30/18 10:15 Urine Color Yellow 08/10/18 10:18 Urine Appearance Slightly cloudy 08/10/18 10:18 Urine pH 5.0 (4.5-8.0) 08/10/18 10:18 Ur Specific [place] 1.025 (1.000-1.035) 08/10/18 10:18 Urine Protein Trace (Negative) H 08/10/18 10:18 Urine Glucose (UA) Negative g/dL (Normal) 08/10/18 10:18 Urine Ketones Negative (NEGATIVE) 08/10/18 10:18 Urine Occult Blood 1+ (Negative) H 08/10/18 10:18 Urine Nitrate Positive (Negative) 08/10/18 10:18 Urine Bilirubin Negative (NEGATIVE) 08/10/18 10:18 Urine Urobilinogen 0.2 E.U./dL (0.2) 08/10/18 10:18 Ur Leukocyte Esterase 1+ (NEGATIVE) H 08/10/18 10:18 Urine RBC 0-1/hpf (0-5/HPF) 08/10/18 10:18 Urine WBC >100/hpf (0-5/HPF) H 08/10/18 10:18 Urine Bacteria Many (>30) (None) H 08/10/18 10:18 Hyaline Casts 0-1/lpf (None) 08/10/18 10:18 Urine Mucus 1+ (Negative) H 08/10/18 10:18 Ur Culture Indicated? Specimen cultured 08/10/18 10:18 Micro UA Comment Not Reportable 08/10/18 10:18 - Imaging Additional studies: Procedures Insertion of intraocular lens prosthesis at time of cataract extraction, one-stage (08/04/11) Phacoemulsification and aspiration of cataract (08/04/11) Assessment and Plan (1) Colon cancer Problem details: 72-year-old man with stage III colon cancer. He will proceed with his 6th cycle of adjuvant chemotherapy today. He will return to clinic in about 2 weeks. I did give him a refill for his Percocet today. I also gave him a prescription for an antidepressant to see if that helps with his anger. CT scan shows a new mass in the left adrenal gland which is suspicious for metastasis. Will plan on getting a CT scan with adrenal protocol and I think it will also need a biopsy. If he does have recurrent disease, then I think a PET scan would be indicated. If he has a solitary metastasis, he could be considered for surgical resection or perhaps radiation. He will return to clinic in about 2 weeks or so for follow-up. Current visit: Yes Status: Acute 73-year-old male presenting today for consideration of cycle 7 day 1 5Fu and leucovorin. We will proceed with treatment today, no red flags no acute complaints. Fatigue is grade 2, nausea is also grade 2. He does have chronic symmetric lower extremity edema. CBC, CMP largely unremarkable. CEA pending at time of dictation. Return to clinic in 2 weeks time for consideration of cycle 8 day 1 along with visit with Dr Membreno at which time pathology from left adrenal mass biopsy should be available. (2) Morbid obesity Current visit: Yes Status: Acute Complicating his care and functional status. Will cont to monitor closely. Weight is stable. (3) Depression Current visit: Yes Status: Acute Patient reports mood is ?a little bit improved? since initiating Paxil about 2 weeks ago. Motivation remains low. Patient denies any suicidal ideations. Discussed again with the patient he still has not reached the full therapeutic benefit of the medication. Encouraged him to continue communicating with LANDSCAPE PHOTOGRAPHER Pita Fitzpatrick. (4) Adrenal mass, left Current visit: Yes Status: Acute Status post CT-guided biopsy September 26, 2018. Pathology results are pending.
[2018-10-03] MEDS: SODIUM CHLORIDE 0.9% 100 ML 20 ML IV (09:45)
[2018-10-03 09:54] LABS: Add Manual Diff / Slide Review NO; Eosinophils Percent Auto 3.3 % (2-4); Hematocrit 38.7 % (41-53); Hemoglobin 12.8 g/dL (13.5-17.5); Lymphocytes Percent Auto 21.5 % (25-40); Mean Corpuscular HGB Conc 33.1 % (30-36); Mean Corpuscular Hemoglobin 29.8 PG (26-34); Mean Corpuscular Volume 89.9 fL (80-100); Monocytes Percent Auto 13.5 % (3-14); Neutrophils Absolute Auto 4000 /uL (1500-7000); Neutrophils Percent Auto 60.7 % (50-75); Platelet Count 227 X10^3/uL (150-400); Red Cell Distribution Width 18.9 % (11.6-14.8); White Blood Cell Count 6.7 X10^3/uL (4.5-11.0)
[2018-10-03 10:02] LABS: Alanine Aminotransferase 28 IU/L (21-72); Albumin Globulin Ratio 1.3 (1.0-2.8); Alkaline Phosphatase 50 U/L (38-126); Aspartate Aminotransferase 53 IU/L (17-59); BUN Creatinine Ratio 21.5 (6-22); Bilirubin Total 0.6 mg/dL (0.2-1.3); Blood Urea Nitrogen 28 mg/dL (9-20); Carbon Dioxide 33 mmol/L (22-32); Chloride 98 mmol/L (98-107); Estimated Glomerular Filt Rate 54.3 mL/min (>60); Globulin 3.1 g/dL (1.7-4.1); Glucose 188 mg/dL (80-110); Magnesium 1.8 mg/dL (1.6-2.3); Potassium 4.6 mmol/L (3.4-5.1); Sodium 139 mmol/L (137-145); Total Protein 7.1 g/dL (6.3-8.2)
[2018-10-03 10:20] LABS: HEMOLYSIS 128 (0-50)
[2018-10-03] MEDS: ONDANSETRON 8 MG in SODIUM CHLORIDE 0.9% 50 ML 216 ML IV (10:32)
[2018-10-03] MEDS: DEXAMETHASONE 10 MG/ML VIAL 8 MG IV (10:37)
[2018-10-03] MEDS: LEUCOVORIN 800 MG in DEXTROSE 5% (CHEMO IV) 250 ML 250 ML 145 ML IV (11:43)
[2018-10-03] MEDS: FLUOROURACIL 800 MG in ISOOSMOTIC VEHICLE (CHEMO) 0 ML 96 ML IV (14:03)
--- NOTE | 2018-10-03 15:15 | PC.NURSE ---
cadd pump settings verified with OTILIA Perez. Line flushed, equashield attached and pump settings verified and confirmed with pt
--- NOTE | 2018-10-11 09:19 | ONC.NAV ---
Description: Disabled Parking Permit Activity: Completed a renewal form for pt's disabled parking permit. Will provide for him during his next appointment here on 10/18/18.
[2018-10-18 08:46] VITALS: BP 171/101; PULSE 82; RESP 18; TEMP 37.3; O2SAT 93
[2018-10-18 09:06] LABS: Magnesium 1.6 mg/dL (1.6-2.3)
--- NOTE | 2018-10-18 09:06 | ONC.PN ---
PN -Subjective Interval history: Diagnosis: Colon cancer, T3 N2 Previous treatment: 1. Right hemicolectomy in April 2018. 2. 7 cycles of adjuvant 5 FU and leucovorin Interval history: The patient is a 73-year-old man who returns today for follow-up. He has a history of stage III colon cancer. He has been tolerating his adjuvant 5 FU leucovorin with some difficulty. He notes ongoing fatigue. He has had some nausea but no vomiting. His appetite has been fair. He has had occasional diarrhea. Strength and energy level have been low but stable. He has continued to struggle with some flank pain. He has been using oxycodone which is providing some relief. He did get a prescription for Zofran 0DT but tells me that his insurance does not cover this. PMH: Morbid obesity Type 2 diabetes with neuropathy Difficulty with ambulation Chronic CHF with acute exacerbations Urinary tract obstruction Suprapubic catheter Incarcerated ventral hernia Open wound Renal insufficiency Dyspnea Sleep apnea History of right hemicolectomy - Patient Self-Reported Symptoms SR Constitution: Weight loss/gain, Fatigue/Malaise, Night Sweats SR ears, nose, mouth, throat issues: Ears ringing, Congestion, Cough, Changes in taste SR respiratory issues: Cough, Shortness of breath, Difficulty breathing, Mucous SR Cardiovascular issues: Palpitations, Shortness of breath with activity or lying flat, Dizzy/lightheaded SR Skin issues: Dry skin SR Gastrointestinal issues: Nausea, Diarrhea, Abdominal pain SR Musculoskeletal issues: Muscle weakness, Back or neck pain, Difficulty walking SR Neuro issues: Headache, Lightheaded/dizzy, Difficulty balancing SR Hematologic issues: Slow healing, Bleeding/bruising SR Endocrine issues: Cold intolerance, Heat intolerance, Excessive thirst Home Medications and Allergies Home Medications Medication Instructions Recorded Confirmed Type calcium carbonate [Tums] 200 mg PO QID PRN 06/07/18 10/18/18 History cholecalciferol (vitamin D3) 5,000 unit PO DAILY 06/07/18 10/18/18 History [Vitamin D3] diphenoxylate-atropine [Lomotil] 1 tab PO Q6-8H PRN 06/07/18 10/18/18 History ferrous sulfate [iron] 325 mg PO BID 06/07/18 10/18/18 History gabapentin 900 mg PO BID 06/07/18 10/18/18 History zolpidem [Ambien] 10 mg PO BEDTIME PRN 06/07/18 10/18/18 History hydralazine 50 mg PO TID 06/09/18 10/18/18 History ondansetron [Zofran ODT] 4 mg PO Q6-8H PRN #30 tab 06/09/18 10/18/18 Rx Lasix 40 mg PO BID 06/15/18 10/18/18 History lidocaine 1 applic TOPICAL PRN PRN 06/15/18 10/18/18 History losartan 50 mg PO BID 07/12/18 10/18/18 History paroxetine HCl [Paxil] 20 mg PO DAILY 30 Days #30 tab 09/13/18 10/18/18 Rx oxycodone-acetaminophen 1 tab PO Q4-6H PRN #60 tab 10/18/18 Rx Allergies Allergy/AdvReac Type Severity Reaction Status Date / Time cephalexin AdvReac Severe Gastrointestinal Verified 06/07/18 14:48 Upset Exam - Constitutional positive no acute distress, positive morbidly obese Comments: He is not further examined. Results - Labs Laboratory Last Values WBC 6.7 X10^3/uL (4.5-11.0) 10/03/18 09:41 RBC 4.30 X10^6/uL (4.5-5.9) L 10/03/18 09:41 Hgb 12.8 g/dL (13.5-17.5) L 10/03/18 09:41 Hct 38.7 % (41-53) L 10/03/18 09:41 MCV 89.9 fL (80-100) 10/03/18 09:41 MCH 29.8 PG (26-34) 10/03/18 09:41 MCHC 33.1 % (30-36) 10/03/18 09:41 RDW 18.9 % (11.6-14.8) H 10/03/18 09:41 Plt Count 227 X10^3/uL (150-400) 10/03/18 09:41 Neut % (Auto) 60.7 % (50-75) 10/03/18 09:41 Lymph % (Auto) 21.5 % (25-40) L 10/03/18 09:41 [place] % (Auto) 13.5 % (3-14) 10/03/18 09:41 Eos % (Auto) 3.3 % (2-4) 10/03/18 09:41 Baso % (Auto) 1.0 % (0-2) 10/03/18 09:41 Neut # (Auto) 4000 /uL (1175-4207) 10/03/18 09:41 Total Counted 100 07/26/18 09:02 Seg Neutrophils % 77.0 % (38-70) H 07/26/18 09:02 Lymphocytes % (Manual) 8.0 % (25-45) L 07/26/18 09:02 Monocytes % (Manual) 7.0 % (2-11) 07/26/18 09:02 Eosinophils % (Manual) 1.0 % (2-4) L 07/26/18 09:02 Basophils % (Manual) 2.0 % (0-1) H 07/26/18 09:02 Myelocytes % 1.0 % (-0) H 07/26/18 09:02 Blast Cells % 4.0 % (-0) H 07/26/18 09:02 Neutrophils # (Manual) 8316 /uL (7517-7819) H 07/26/18 09:02 Smudge Cells 2+ H 07/26/18 09:02 RBC Morphology Not Reportable 08/10/18 09:10 Hypochromasia 2+ H 07/12/18 08:45 Poikilocytosis 1+ H 07/26/18 09:02 Anisocytosis 1+ H 08/10/18 09:10 Microcytosis 2+ H 06/28/18 08:06 Spherocytes 1+ H 07/26/18 09:02 Smear Path Review 07/26/18 09:02 PT 11.2 SECONDS (10.1-12.7) 09/26/18 08:07 INR 1.0 (0.9-1.3) 09/26/18 08:07 Sodium 139 mmol/L (137-145) 10/03/18 09:41 Potassium 4.6 mmol/L (3.4-5.1) 10/03/18 09:41 Chloride 98 mmol/L (98-107) 10/03/18 09:41 Carbon Dioxide 33 mmol/L (22-32) H 10/03/18 09:41 BUN 28 mg/dL (9-20) H 10/03/18 09:41 Creatinine 1.30 mg/dL (0.66-1.25) H 10/03/18 09:41 Estimated GFR 54.3 mL/min (>60) L 10/03/18 09:41 BUN/Creatinine Ratio 21.5 (6-22) 10/03/18 09:41 Glucose 188 mg/dL (80-110) H 10/03/18 09:41 Hemoglobin A1c 5.3 % (4.0-6.0) 07/12/18 09:00 Calcium 9.0 mg/dL (8.4-10.2) 10/03/18 09:41 Magnesium 1.8 mg/dL (1.6-2.3) 10/03/18 09:41 Total Bilirubin 0.6 mg/dL (0.2-1.3) 10/03/18 09:41 AST 53 IU/L (17-59) 10/03/18 09:41 ALT 28 IU/L (21-72) 10/03/18 09:41 Alkaline Phosphatase 50 U/L (38-126) 10/03/18 09:41 B-Natriuretic Peptide 98.8 (<100) 08/30/18 10:15 Total Protein 7.1 g/dL (6.3-8.2) 10/03/18 09:41 Albumin 4.0 g/dL (3.5-5.0) 10/03/18 09:41 Globulin 3.1 g/dL (1.7-4.1) 10/03/18 09:41 Albumin/Globulin Ratio 1.3 (1.0-2.8) 10/03/18 09:41 Carcinoembryonic Ag 2.0 ng/mL (0.1-3.0) 10/03/18 09:41 Urine Color Yellow 08/10/18 10:18 Urine Appearance Slightly cloudy 08/10/18 10:18 Urine pH 5.0 (4.5-8.0) 08/10/18 10:18 Ur Specific [place] 1.025 (1.000-1.035) 08/10/18 10:18 Urine Protein Trace (Negative) H 08/10/18 10:18 Urine Glucose (UA) Negative g/dL (Normal) 08/10/18 10:18 Urine Ketones Negative (NEGATIVE) 08/10/18 10:18 Urine Occult Blood 1+ (Negative) H 08/10/18 10:18 Urine Nitrate Positive (Negative) 08/10/18 10:18 Urine Bilirubin Negative (NEGATIVE) 08/10/18 10:18 Urine Urobilinogen 0.2 E.U./dL (0.2) 08/10/18 10:18 Ur Leukocyte Esterase 1+ (NEGATIVE) H 08/10/18 10:18 Urine RBC 0-1/hpf (0-5/HPF) 08/10/18 10:18 Urine WBC >100/hpf (0-5/HPF) H 08/10/18 10:18 Urine Bacteria Many (>30) (None) H 08/10/18 10:18 Hyaline Casts 0-1/lpf (None) 08/10/18 10:18 Urine Mucus 1+ (Negative) H 08/10/18 10:18 Ur Culture Indicated? Specimen cultured 08/10/18 10:18 Micro UA Comment Not Reportable 08/10/18 10:18 - Imaging Additional studies: Procedures Insertion of intraocular lens prosthesis at time of cataract extraction, one-stage (08/04/11) Phacoemulsification and aspiration of cataract (08/04/11) Assessment and Plan (1) Colon cancer Problem details: 72-year-old man with stage III colon cancer. He has been tolerating adjuvant 5 FU leucovorin with difficulty. Unfortunately, his CT scan showed a new lesion in the adrenal gland. Biopsy does in fact confirm metastatic colon cancer. This appears to be potentially a solitary lesion. We will plan to get him scheduled for PET-CT. I will also make a referral back to his surgeon in [place]. I explained that solitary recurrence of colon cancer is sometimes curable with surgery. The likelihood of success is about 20 or 25%. Patients who have a longer disease-free interval, better response to chemotherapy and a better performance status tend to have a better outcome. He is I think less likely than that to be cured by this approach. In addition, ideally he would be treated with oxaliplatin based chemo regimen after his surgery. This would entail a risk for increased nausea vomiting, myelosuppression and especially neuropathy. Less aggressive approach with either FOLFIRI or FOLFOX possibly with Avastin could be pursued. This would be intended to prolong survival but would not be curative. Of least aggressive approach be to consider hospice. The patient does wish to be aggressive in his therapy and would like to pursue surgery if at all possible. We will plan on holding his chemotherapy. He will get scheduled for a PET-CT and make referral for surgery. Return to clinic here after that. 40 min was spent with the patient the majority in counseling. Current visit: Yes Status: Acute (2) Morbid obesity Current visit: Yes Status: Acute Complicating his care and functional status. Will cont to monitor closely. Weight is stable. (3) Depression Current visit: Yes Status: Acute Patient reports mood is ?a little bit improved? since initiating Paxil about 2 weeks ago. Motivation remains low. Patient denies any suicidal ideations. Discussed again with the patient he still has not reached the full therapeutic benefit of the medication. Encouraged him to continue communicating with SHREDDER TENDER Pita peace Laws.
[2018-10-18 09:07] LABS: Alanine Aminotransferase 46 IU/L (21-72); Albumin 4.2 g/dL (3.5-5.0); Albumin Globulin Ratio 1.4 (1.0-2.8); Alkaline Phosphatase 89 U/L (38-126); Aspartate Aminotransferase 39 IU/L (17-59); BUN Creatinine Ratio 21.7 (6-22); Bilirubin Total 0.4 mg/dL (0.2-1.3); Blood Urea Nitrogen 26 mg/dL (9-20); Calcium 9.4 mg/dL (8.4-10.2); Carbon Dioxide 28 mmol/L (22-32); Chloride 100 mmol/L (98-107); Estimated Glomerular Filt Rate 59.5 mL/min (>60); Glucose 232 mg/dL (80-110); HEMOLYSIS < 15 (0-50); Potassium 3.3 mmol/L (3.4-5.1); Sodium 140 mmol/L (137-145); Total Protein 7.2 g/dL (6.3-8.2)
[2018-10-18] MEDS: ALTEPLASE 2 MG/2 ML VIAL IV (09:10)
--- NOTE | 2018-10-18 09:12 | P.PNONC_ITS ---
PN -Subjective Interval history: Diagnosis: Colon cancer, T3 N2 Previous treatment: 1. Right hemicolectomy in April 2018. 2. 7 cycles of adjuvant 5 FU and leucovorin Interval history: The patient is a 73-year-old man who returns today for follow-up. He has a history of stage III colon cancer. He has been tolerating his adjuvant 5 FU leucovorin with some difficulty. He notes ongoing fatigue. He has had some nausea but no vomiting. His appetite has been fair. He has had occasional diarrhea. Strength and energy level have been low but stable. He has continued to struggle with some flank pain. He has been using oxycodone which is providing some relief. He did get a prescription for Zofran 0DT but tells me that his insurance does not cover this. PMH: Morbid obesity Type 2 diabetes with neuropathy Difficulty with ambulation Chronic CHF with acute exacerbations Urinary tract obstruction Suprapubic catheter Incarcerated ventral hernia Open wound Renal insufficiency Dyspnea Sleep apnea History of right hemicolectomy - Patient Self-Reported Symptoms SR Constitution: Weight loss/gain, Fatigue/Malaise, Night Sweats SR ears, nose, mouth, throat issues: Ears ringing, Congestion, Cough, Changes in taste SR respiratory issues: Cough, Shortness of breath, Difficulty breathing, Mucous SR Cardiovascular issues: Palpitations, Shortness of breath with activity or lying flat, Dizzy/lightheaded SR Skin issues: Dry skin SR Gastrointestinal issues: Nausea, Diarrhea, Abdominal pain SR Musculoskeletal issues: Muscle weakness, Back or neck pain, Difficulty walking SR Neuro issues: Headache, Lightheaded/dizzy, Difficulty balancing SR Hematologic issues: Slow healing, Bleeding/bruising SR Endocrine issues: Cold intolerance, Heat intolerance, Excessive thirst Home Medications and Allergies Home Medications Medication Instructions Recorded Confirmed Type calcium carbonate [Tums] 200 mg PO QID PRN 06/07/18 10/18/18 History cholecalciferol (vitamin D3) 5,000 unit PO DAILY 06/07/18 10/18/18 History [Vitamin D3] diphenoxylate-atropine [Lomotil] 1 tab PO Q6-8H PRN 06/07/18 10/18/18 History ferrous sulfate [iron] 325 mg PO BID 06/07/18 10/18/18 History gabapentin 900 mg PO BID 06/07/18 10/18/18 History zolpidem [Ambien] 10 mg PO BEDTIME PRN 06/07/18 10/18/18 History hydralazine 50 mg PO TID 06/09/18 10/18/18 History ondansetron [Zofran ODT] 4 mg PO Q6-8H PRN #30 tab 06/09/18 10/18/18 Rx Lasix 40 mg PO BID 06/15/18 10/18/18 History lidocaine 1 applic TOPICAL PRN PRN 06/15/18 10/18/18 History losartan 50 mg PO BID 07/12/18 10/18/18 History paroxetine HCl [Paxil] 20 mg PO DAILY 30 Days #30 tab 09/13/18 10/18/18 Rx oxycodone-acetaminophen 1 tab PO Q4-6H PRN #60 tab 10/18/18 Rx Allergies Allergy/AdvReac Type Severity Reaction Status Date / Time cephalexin AdvReac Severe Gastrointestinal Verified 06/07/18 14:48 Upset Exam - Constitutional positive no acute distress, positive morbidly obese Comments: He is not further examined. Results - Labs Laboratory Last Values WBC 6.7 X10^3/uL (4.5-11.0) 10/03/18 09:41 RBC 4.30 X10^6/uL (4.5-5.9) L 10/03/18 09:41 Hgb 12.8 g/dL (13.5-17.5) L 10/03/18 09:41 Hct 38.7 % (41-53) L 10/03/18 09:41 MCV 89.9 fL (80-100) 10/03/18 09:41 MCH 29.8 PG (26-34) 10/03/18 09:41 MCHC 33.1 % (30-36) 10/03/18 09:41 RDW 18.9 % (11.6-14.8) H 10/03/18 09:41 Plt Count 227 X10^3/uL (150-400) 10/03/18 09:41 Neut % (Auto) 60.7 % (50-75) 10/03/18 09:41 Lymph % (Auto) 21.5 % (25-40) L 10/03/18 09:41 [place] % (Auto) 13.5 % (3-14) 10/03/18 09:41 Eos % (Auto) 3.3 % (2-4) 10/03/18 09:41 Baso % (Auto) 1.0 % (0-2) 10/03/18 09:41 Neut # (Auto) 4000 /uL (8982-4456) 10/03/18 09:41 Total Counted 100 07/26/18 09:02 Seg Neutrophils % 77.0 % (38-70) H 07/26/18 09:02 Lymphocytes % (Manual) 8.0 % (25-45) L 07/26/18 09:02 Monocytes % (Manual) 7.0 % (2-11) 07/26/18 09:02 Eosinophils % (Manual) 1.0 % (2-4) L 07/26/18 09:02 Basophils % (Manual) 2.0 % (0-1) H 07/26/18 09:02 Myelocytes % 1.0 % (-0) H 07/26/18 09:02 Blast Cells % 4.0 % (-0) H 07/26/18 09:02 Neutrophils # (Manual) 8316 /uL (1628-0325) H 07/26/18 09:02 Smudge Cells 2+ H 07/26/18 09:02 RBC Morphology Not Reportable 08/10/18 09:10 Hypochromasia 2+ H 07/12/18 08:45 Poikilocytosis 1+ H 07/26/18 09:02 Anisocytosis 1+ H 08/10/18 09:10 Microcytosis 2+ H 06/28/18 08:06 Spherocytes 1+ H 07/26/18 09:02 Smear Path Review 07/26/18 09:02 PT 11.2 SECONDS (10.1-12.7) 09/26/18 08:07 INR 1.0 (0.9-1.3) 09/26/18 08:07 Sodium 139 mmol/L (137-145) 10/03/18 09:41 Potassium 4.6 mmol/L (3.4-5.1) 10/03/18 09:41 Chloride 98 mmol/L (98-107) 10/03/18 09:41 Carbon Dioxide 33 mmol/L (22-32) H 10/03/18 09:41 BUN 28 mg/dL (9-20) H 10/03/18 09:41 Creatinine 1.30 mg/dL (0.66-1.25) H 10/03/18 09:41 Estimated GFR 54.3 mL/min (>60) L 10/03/18 09:41 BUN/Creatinine Ratio 21.5 (6-22) 10/03/18 09:41 Glucose 188 mg/dL (80-110) H 10/03/18 09:41 Hemoglobin A1c 5.3 % (4.0-6.0) 07/12/18 09:00 Calcium 9.0 mg/dL (8.4-10.2) 10/03/18 09:41 Magnesium 1.8 mg/dL (1.6-2.3) 10/03/18 09:41 Total Bilirubin 0.6 mg/dL (0.2-1.3) 10/03/18 09:41 AST 53 IU/L (17-59) 10/03/18 09:41 ALT 28 IU/L (21-72) 10/03/18 09:41 Alkaline Phosphatase 50 U/L (38-126) 10/03/18 09:41 B-Natriuretic Peptide 98.8 (<100) 08/30/18 10:15 Total Protein 7.1 g/dL (6.3-8.2) 10/03/18 09:41 Albumin 4.0 g/dL (3.5-5.0) 10/03/18 09:41 Globulin 3.1 g/dL (1.7-4.1) 10/03/18 09:41 Albumin/Globulin Ratio 1.3 (1.0-2.8) 10/03/18 09:41 Carcinoembryonic Ag 2.0 ng/mL (0.1-3.0) 10/03/18 09:41 Urine Color Yellow 08/10/18 10:18 Urine Appearance Slightly cloudy 08/10/18 10:18 Urine pH 5.0 (4.5-8.0) 08/10/18 10:18 Ur Specific [place] 1.025 (1.000-1.035) 08/10/18 10:18 Urine Protein Trace (Negative) H 08/10/18 10:18 Urine Glucose (UA) Negative g/dL (Normal) 08/10/18 10:18 Urine Ketones Negative (NEGATIVE) 08/10/18 10:18 Urine Occult Blood 1+ (Negative) H 08/10/18 10:18 Urine Nitrate Positive (Negative) 08/10/18 10:18 Urine Bilirubin Negative (NEGATIVE) 08/10/18 10:18 Urine Urobilinogen 0.2 E.U./dL (0.2) 08/10/18 10:18 Ur Leukocyte Esterase 1+ (NEGATIVE) H 08/10/18 10:18 Urine RBC 0-1/hpf (0-5/HPF) 08/10/18 10:18 Urine WBC >100/hpf (0-5/HPF) H 08/10/18 10:18 Urine Bacteria Many (>30) (None) H 08/10/18 10:18 Hyaline Casts 0-1/lpf (None) 08/10/18 10:18 Urine Mucus 1+ (Negative) H 08/10/18 10:18 Ur Culture Indicated? Specimen cultured 08/10/18 10:18 Micro UA Comment Not Reportable 08/10/18 10:18 - Imaging Additional studies: Procedures Insertion of intraocular lens prosthesis at time of cataract extraction, one- stage (08/04/11) Phacoemulsification and aspiration of cataract (08/04/11) Assessment and Plan (1) Colon cancer Problem details: 72-year-old man with stage III colon cancer. He has been tolerating adjuvant 5 FU leucovorin with difficulty. Unfortunately, his CT scan showed a new lesion in the adrenal gland. Biopsy does in fact confirm metastatic colon cancer. This appears to be potentially a solitary lesion. We will plan to get him scheduled for PET-CT. I will also make a referral back to his surgeon in [place]. I explained that solitary recurrence of colon cancer is sometimes curable with surgery. The likelihood of success is about 20 or 25% . Patients who have a longer disease-free interval, better response to chemotherapy and a better performance status tend to have a better outcome. He is I think less likely than that to be cured by this approach. In addition, ideally he would be treated with oxaliplatin based chemo regimen after his surgery. This would entail a risk for increased nausea vomiting, myelosuppression and especially neuropathy. Less aggressive approach with either FOLFIRI or FOLFOX possibly with Avastin could be pursued. This would be intended to prolong survival but would not be curative. Of least aggressive approach be to consider hospice. The patient does wish to be aggressive in his therapy and would like to pursue surgery if at all possible. We will plan on holding his chemotherapy. He will get scheduled for a PET-CT and make referral for surgery. Return to clinic here after that. 40 min was spent with the patient the majority in counseling. Current visit: Yes Status: Acute (2) Morbid obesity Current visit: Yes Status: Acute Complicating his care and functional status. Will cont to monitor closely. Weight is stable. (3) Depression Current visit: Yes Status: Acute Patient reports mood is ?a little bit improved? since initiating Paxil about 2 weeks ago. Motivation remains low. Patient denies any suicidal ideations. Discussed again with the patient he still has not reached the full therapeutic benefit of the medication. Encouraged him to continue communicating with [employer] [facility].
[2018-10-18 09:13] LABS: Add Manual Diff / Slide Review NO; Basophils Absolute Auto 100 /uL (0-100); Basophils Percent Auto 0.9 % (0-2); Eosinophils Absolute Auto 200 /uL (0-450); Eosinophils Percent Auto 2.7 % (2-4); Hematocrit 41.3 % (41-53); Hemoglobin 13.5 g/dL (13.5-17.5); Lymphocytes Absolute Auto 1200 /uL (1100-4500); Lymphocytes Percent Auto 16.5 % (25-40); Mean Corpuscular HGB Conc 32.7 % (30-36); Mean Corpuscular Hemoglobin 29.9 PG (26-34); Mean Corpuscular Volume 91.5 fL (80-100); Monocytes Absolute Auto 600 /uL (0-900); Monocytes Percent Auto 8.3 % (3-14); Neutrophils Absolute Auto 5300 /uL (1500-7000); Neutrophils Percent Auto 71.6 % (50-75); Platelet Count 216 X10^3/uL (150-400); Red Blood Cell Count 4.51 X10^6/uL (4.5-5.9); Red Cell Distribution Width 17.2 % (11.6-14.8); White Blood Cell Count 7.4 X10^3/uL (4.5-11.0)
--- NOTE | 2018-11-01 16:05 | PC.NURSE ---
Addendum entered by Ally Hendricks R.N. 11/02/18 09:01: Dr Membreno reviewed PET scan results and determined that pt can cancel surgeon consult appt at [facility] and make an appt to see him sooner than his already scheduled follow up visit for Nov 15, so that further discussion can take place re: options for treatment. Dr Membreno called patient. Schedulers to follow up. Original Note: Pt called because he was referred to [facility] Dr Latif (surgeon) for a consult. He recently had a PET scan. He is wondering if Dr Membreno can look at the PET scan results and let him know if based on the PET results, if he should keep his appt with the [facility] surgeon or if he thinks it's too advanced for surgery he'd like to know so I don't waste a trip up to [facility] for nothing. PEt results printed for Dr Membreno and placed in his box to be reviewed and give his input.
[2018-11-08 09:30] VITALS: BP 149/88; PULSE 91; RESP 18; TEMP 37; O2SAT 96
--- NOTE | 2018-11-08 10:24 | P.PNONC_ITS ---
PN -Subjective Interval history: Diagnosis: Colon cancer, T3 N2 Previous treatment: 1. Right hemicolectomy in April 2018. 2. 7 cycles of adjuvant 5 FU and leucovorin Interval history: The patient is a 73-year-old man who returns today for follow-up. He has a history of stage III colon cancer but unfortunately has developed recurrence with biopsy-proven adrenal metastasis during adjuvant chemotherapy. Since his last visit here, he has been bothered by some increasing pain in the left back and flank area. He rates it as 6/10. He has been using Percocet taking 2-3 tablets at a time. He does get some relief from this although it is relatively brief. He has had a little bit of abdominal pain as well. He notes that taking a deep breath seems to exacerbated. He has had some nausea but no vomiting. His appetite has been somewhat low. He has not had any mouth sores skin rash or diarrhea. He has had some constipation. He has not had any unusual bleeding or bruising. He does have some neuropathy related to his diabetes. He notes that he has been having more anxiety. He feels like his depression also is not improving. PMH: Morbid obesity Type 2 diabetes with neuropathy Difficulty with ambulation Chronic CHF with acute exacerbations Urinary tract obstruction Suprapubic catheter Incarcerated ventral hernia Open wound Renal insufficiency Dyspnea Sleep apnea History of right hemicolectomy - Patient Self-Reported Symptoms SR Constitution: Fatigue/Malaise, Night Sweats SR ears, nose, mouth, throat issues: Ears ringing, Congestion, Cough SR respiratory issues: Cough, Shortness of breath SR Cardiovascular issues: Shortness of breath with activity or lying flat SR Skin issues: Dry skin SR Gastrointestinal issues: Poor or no appetite, Nausea, Constipation, Abdominal pain, Heartburn SR Musculoskeletal issues: Muscle weakness, Muscle pain or cramps, Back or neck pain, Cold hands or feet, Difficulty walking SR Neuro issues: Headache, Lightheaded/dizzy, Difficulty balancing SR Hematologic issues: Bleeding/bruising SR Endocrine issues: Cold intolerance Home Medications and Allergies Home Medications Medication Instructions Recorded Confirmed Type calcium carbonate [Tums] 200 mg PO QID PRN 06/07/18 11/08/18 History cholecalciferol (vitamin D3) 5,000 unit PO DAILY 06/07/18 11/08/18 History [Vitamin D3] diphenoxylate-atropine [Lomotil] 1 tab PO Q6-8H PRN 06/07/18 11/08/18 History ferrous sulfate [iron] 325 mg PO BID 06/07/18 11/08/18 History gabapentin 900 mg PO BID 06/07/18 11/08/18 History zolpidem [Ambien] 10 mg PO BEDTIME PRN 06/07/18 11/08/18 History hydralazine 50 mg PO TID 06/09/18 11/08/18 History ondansetron [Zofran ODT] 4 mg PO Q6-8H PRN #30 tab 06/09/18 11/08/18 Rx Lasix 40 mg PO BID 06/15/18 11/08/18 History lidocaine 1 applic TOPICAL PRN PRN 06/15/18 11/08/18 History losartan 50 mg PO BID 07/12/18 11/08/18 History oxycodone-acetaminophen 1 tab PO Q4-6H PRN #60 tab 10/18/18 11/08/18 Rx fluorouracil 4,800 mg IV NOW #1 device 11/08/18 Rx lorazepam 1 mg PO BID-TID PRN 30 Days #60 tab 11/08/18 Rx morphine [MS Contin] 15 mg PO Q12H 30 Days #60 tab 11/08/18 Rx oxycodone 10 mg PO Q4-6H PRN 30 Days #60 tab 11/08/18 Rx paroxetine HCl [Paxil] 20 mg PO DAILY 30 Days #30 tab 11/08/18 Rx paroxetine HCl [Paxil] 30 mg PO DAILY #30 tab 11/08/18 Rx Allergies Allergy/AdvReac Type Severity Reaction Status Date / Time cephalexin AdvReac Severe Gastrointestinal Verified 06/07/18 14:48 Upset Exam - Constitutional positive no acute distress, positive morbidly obese Comments: He is not further examined. Results - Labs Laboratory Last Values WBC 7.4 X10^3/uL (4.5-11.0) 10/18/18 08:43 RBC 4.51 X10^6/uL (4.5-5.9) 10/18/18 08:43 Hgb 13.5 g/dL (13.5-17.5) 10/18/18 08:43 Hct 41.3 % (41-53) 10/18/18 08:43 MCV 91.5 fL (80-100) 10/18/18 08:43 MCH 29.9 PG (26-34) 10/18/18 08:43 MCHC 32.7 % (30-36) 10/18/18 08:43 RDW 17.2 % (11.6-14.8) H 10/18/18 08:43 Plt Count 216 X10^3/uL (150-400) 10/18/18 08:43 Neut % (Auto) 71.6 % (50-75) 10/18/18 08:43 Lymph % (Auto) 16.5 % (25-40) L 10/18/18 08:43 [place] % (Auto) 8.3 % (3-14) 10/18/18 08:43 Eos % (Auto) 2.7 % (2-4) 10/18/18 08:43 Baso % (Auto) 0.9 % (0-2) 10/18/18 08:43 Neut # (Auto) 5300 /uL (6954-9100) 10/18/18 08:43 Lymph # (Auto) 1200 /uL (8860-2863) 10/18/18 08:43 [place] # (Auto) 600 /uL (0-900) 10/18/18 08:43 Eos # (Auto) 200 /uL (0-450) 10/18/18 08:43 Baso # (Auto) 100 /uL (0-100) 10/18/18 08:43 Total Counted 100 07/26/18 09:02 Seg Neutrophils % 77.0 % (38-70) H 07/26/18 09:02 Lymphocytes % (Manual) 8.0 % (25-45) L 07/26/18 09:02 Monocytes % (Manual) 7.0 % (2-11) 07/26/18 09:02 Eosinophils % (Manual) 1.0 % (2-4) L 07/26/18 09:02 Basophils % (Manual) 2.0 % (0-1) H 07/26/18 09:02 Myelocytes % 1.0 % (-0) H 07/26/18 09:02 Blast Cells % 4.0 % (-0) H 07/26/18 09:02 Neutrophils # (Manual) 8316 /uL (1548-3105) H 07/26/18 09:02 Smudge Cells 2+ H 07/26/18 09:02 RBC Morphology Not Reportable 08/10/18 09:10 Hypochromasia 2+ H 07/12/18 08:45 Poikilocytosis 1+ H 07/26/18 09:02 Anisocytosis 1+ H 08/10/18 09:10 Microcytosis 2+ H 06/28/18 08:06 Spherocytes 1+ H 07/26/18 09:02 Smear Path Review 07/26/18 09:02 PT 11.2 SECONDS (10.1-12.7) 09/26/18 08:07 INR 1.0 (0.9-1.3) 09/26/18 08:07 Sodium 140 mmol/L (137-145) 10/18/18 08:43 Potassium 3.3 mmol/L (3.4-5.1) L 10/18/18 08:43 Chloride 100 mmol/L (98-107) 10/18/18 08:43 Carbon Dioxide 28 mmol/L (22-32) 10/18/18 08:43 BUN 26 mg/dL (9-20) H 10/18/18 08:43 Creatinine 1.20 mg/dL (0.66-1.25) 10/18/18 08:43 Estimated GFR 59.5 mL/min (>60) L 10/18/18 08:43 BUN/Creatinine Ratio 21.7 (6-22) 10/18/18 08:43 Glucose 232 mg/dL (80-110) H 10/18/18 08:43 Hemoglobin A1c 5.3 % (4.0-6.0) 07/12/18 09:00 Calcium 9.4 mg/dL (8.4-10.2) 10/18/18 08:43 Magnesium 1.6 mg/dL (1.6-2.3) 10/18/18 08:43 Total Bilirubin 0.4 mg/dL (0.2-1.3) 10/18/18 08:43 AST 39 IU/L (17-59) 10/18/18 08:43 ALT 46 IU/L (21-72) 10/18/18 08:43 Alkaline Phosphatase 89 U/L (38-126) 10/18/18 08:43 B-Natriuretic Peptide 98.8 (<100) 08/30/18 10:15 Total Protein 7.2 g/dL (6.3-8.2) 10/18/18 08:43 Albumin 4.2 g/dL (3.5-5.0) 10/18/18 08:43 Globulin 3.0 g/dL (1.7-4.1) 10/18/18 08:43 Albumin/Globulin Ratio 1.4 (1.0-2.8) 10/18/18 08:43 Carcinoembryonic Ag 2.0 ng/mL (0.1-3.0) 10/03/18 09:41 Urine Color Yellow 08/10/18 10:18 Urine Appearance Slightly cloudy 08/10/18 10:18 Urine pH 5.0 (4.5-8.0) 08/10/18 10:18 Ur Specific [place] 1.025 (1.000-1.035) 08/10/18 10:18 Urine Protein Trace (Negative) H 08/10/18 10:18 Urine Glucose (UA) Negative g/dL (Normal) 08/10/18 10:18 Urine Ketones Negative (NEGATIVE) 08/10/18 10:18 Urine Occult Blood 1+ (Negative) H 08/10/18 10:18 Urine Nitrate Positive (Negative) 08/10/18 10:18 Urine Bilirubin Negative (NEGATIVE) 08/10/18 10:18 Urine Urobilinogen 0.2 E.U./dL (0.2) 08/10/18 10:18 Ur Leukocyte Esterase 1+ (NEGATIVE) H 08/10/18 10:18 Urine RBC 0-1/hpf (0-5/HPF) 08/10/18 10:18 Urine WBC >100/hpf (0-5/HPF) H 08/10/18 10:18 Urine Bacteria Many (>30) (None) H 08/10/18 10:18 Hyaline Casts 0-1/lpf (None) 08/10/18 10:18 Urine Mucus 1+ (Negative) H 08/10/18 10:18 Ur Culture Indicated? Specimen cultured 08/10/18 10:18 Micro UA Comment Not Reportable 08/10/18 10:18 - Imaging Additional studies: Procedures Insertion of intraocular lens prosthesis at time of cataract extraction, one- stage (11/01/11) Phacoemulsification and aspiration of cataract (08/04/11) Patient did have a PET-CT done last week. It showed enlargement of his left adrenal gland with intense metabolic activity. In addition there was some uptake in the right adrenal gland. There was also a pulmonary nodule with a modest degree of uptake as well. Assessment and Plan (1) Colon cancer Problem details: 72-year-old man with stage III colon cancer. He has been tolerating adjuvant 5 FU leucovorin with difficulty. Unfortunately, his CT scan showed a new lesion in the adrenal gland. Biopsy does in fact confirm metastatic colon cancer. His PET unfortunately shows multifocal disease. 40 min was spent with the patient the majority in counseling. Current visit: Yes Status: Acute 73-year-old man with colon cancer was initially stage III. Unfortunately he has evidence of a recurrence. His PET scan demonstrates that this was the head not in fact a solitary lesion. 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 I do not believe that he will be significantly helped by surgical procedures. He is having some increased pain from the left adrenal lesion and it might be worthwhile to consult with Radiation Oncology about whether that might be helpful for his discomfort. In the meantime, we talked about the possibility of additional chemotherapy. I described FOLFIRI and Avastin given intravenously over 2 days every other week. Side effects including nausea and vomiting, diarrhea, abdominal pain and cramping, mouth sores and skin rash as well as risk for cytopenias were reviewed. We also talked about the addition of Avastin with the potential side effects including hypertension as well as bleeding and clotting complications. The patient does wish to be aggressive in his chemotherapy. We will plan on starting FOLFIRI and Avastin as soon as it can be arranged. He is having increasing pain. I did give him a prescription for some MS Contin as well as oxycodone for breakthrough. (2) Depression Current visit: Yes Status: Acute Patient reports that he still has some depression which has been stable. He has been on Paxil 20 mg daily. Will increase the dose to 30 mg.
[2018-11-08] MEDS: DEXAMETHASONE 12 MG in SODIUM CHLORIDE 0.9% 50 ML 212 ML IV (11:11)
[2018-11-08] MEDS: SODIUM CHLORIDE 0.9% 100 ML 21 ML IV (11:12)
[2018-11-08] MEDS: diphenhydrAMINE 25 MG TABLET PO (11:13)
[2018-11-08] MEDS: ACETAMINOPHEN 325 MG TABLET 650 MG PO (11:13)
[2018-11-08] MEDS: ONDANSETRON 16 MG in SODIUM CHLORIDE 0.9% 50 ML 232 ML IV (11:43)
[2018-11-08] MEDS: DEXTROSE 5% IV ×2 (12:32)
[2018-11-08] MEDS: LEUCOVORIN IV (12:32)
[2018-11-08] MEDS: IRINOTECAN IV (12:32)
[2018-11-08] MEDS: ATROPINE 0.4 MG/ML VIAL 0.25 MG SUBCUT (14:16)
--- NOTE | 2018-11-08 14:39 | ONC.NAV ---
Description: Coping Support, Financial Assistance Activity: Pt indicated a (7) on his distress screening, expressing sadness, fear, depression, fear of dying. He was given information about new metastasis today, and is feeling scared and depressed about the probability that end of life is approaching. He will begin a new treatment, however he is losing his own sense of hope that he will be able to recover from this cancer. INC[employer]ATOR PL[employer] SUPER[employer]OR offered coping and emotional support, as well as normalized the prospect of hospice services, what they offer, and how they will be able to manage his symptoms, focus on quality of life, and offer support for his and family, when that time eventually comes. He requested an immediate need for assistance with paying for his prescriptions today. Permission was granted by JENNY Conner, for this INC[employer] SUPER[employer]OR to provide payment for the co-pay of his meds, and will plan to obtain reimbursement from the [employer] through his [facility] [employer] funds. Plan: INC[employer]ATOR PLANT SUPER[employer]OR will f/u with pt/spouse when they arrive in clinic again in 2-weeks to check on support and resource needs at that time.
[2018-11-08] MEDS: ISOOSMOTIC VEHICLE IV (15:04)
[2018-11-08] MEDS: FLUOROURACIL IV (15:04)
--- NOTE | 2018-11-15 13:52 | ONC.SCHED ---
called [employer] to check the status of authorization for [id number] Avastin. Per Dimple it is still in initial review.
[2018-11-22 08:35] LABS: Add Manual Diff / Slide Review NO; Basophils Absolute Auto 100 /uL (0-100); Basophils Percent Auto 1.2 % (0-2); Eosinophils Absolute Auto 200 /uL (0-450); Eosinophils Percent Auto 2.8 % (2-4); Hematocrit 42.8 % (41-53); Hemoglobin 14.1 g/dL (13.5-17.5); Lymphocytes Absolute Auto 1300 /uL (1100-4500); Lymphocytes Percent Auto 15.9 % (25-40); Mean Corpuscular Hemoglobin 30.1 PG (26-34); Mean Corpuscular Volume 91.1 fL (80-100); Monocytes Absolute Auto 700 /uL (0-900); Neutrophils Absolute Auto 5900 /uL (1500-7000); Neutrophils Percent Auto 71.1 % (50-75); Platelet Count 274 X10^3/uL (150-400); Red Blood Cell Count 4.69 X10^6/uL (4.5-5.9); Red Cell Distribution Width 14.4 % (11.6-14.8); White Blood Cell Count 8.3 X10^3/uL (4.5-11.0)
[2018-11-22 08:36] VITALS: BP 153/98; PULSE 78; RESP 18; TEMP 35.8; O2SAT 97
[2018-11-22 08:45] LABS: Alanine Aminotransferase 53 IU/L (21-72); Albumin 4.1 g/dL (3.5-5.0); Albumin Globulin Ratio 1.2 (1.0-2.8); Alkaline Phosphatase 99 U/L (38-126); Aspartate Aminotransferase 41 IU/L (17-59); BUN Creatinine Ratio 20.7 (6-22); Bilirubin Total 0.4 mg/dL (0.2-1.3); Blood Urea Nitrogen 31 mg/dL (9-20); Calcium 9.5 mg/dL (8.4-10.2); Carbon Dioxide 33 mmol/L (22-32); Chloride 98 mmol/L (98-107); Globulin 3.3 g/dL (1.7-4.1); Glucose 143 mg/dL (80-110); HEMOLYSIS < 15 (0-50); Potassium 3.2 mmol/L (3.4-5.1); Sodium 141 mmol/L (137-145); Total Protein 7.4 g/dL (6.3-8.2)
--- NOTE | 2018-11-22 08:50 | ONC.PN ---
PN -Subjective Interval history: Diagnosis: Colon cancer, T3 N2 Previous treatment: 1. Right hemicolectomy in April 2018. 2. 7 cycles of adjuvant 5 FU and leucovorin 3. Metastatic disease involving the adrenal gland Treated with 1 cycle of FOLFIRI thus far Interval history: The patient is a 73-year-old man who returns today for follow-up. He has a history of stage III colon cancer but unfortunately has developed recurrence with biopsy-proven adrenal metastasis during adjuvant chemotherapy. Since his last visit here, he started chemotherapy with FOLFIRI. He has had 1 cycle. He reports that over the last 2 weeks, he has felt poorly. He has had ongoing nausea and vomiting. He has been using ondansetron and finds that it provides relatively brief relief. He feels dizzy when he stands. A his weight has been down about 12 lb over the last 2 weeks. He has had ongoing diarrhea. He has had increasing weakness and fatigue and spent most of the last few weeks in bed. He denies any unusual bleeding or bruising. No skin rash or mouth sores. His flank pain is still present. He reports he is getting good relief from his pain medication. He does have an appointment tomorrow with Radiation Oncology. PMH: Morbid obesity Type 2 diabetes with neuropathy Difficulty with ambulation Chronic CHF with acute exacerbations Urinary tract obstruction Suprapubic catheter Incarcerated ventral hernia Open wound Renal insufficiency Dyspnea Sleep apnea History of right hemicolectomy - Patient Self-Reported Symptoms SR Constitution: Fatigue/Malaise SR ears, nose, mouth, throat issues: Ears ringing, Congestion, Cough SR respiratory issues: Shortness of breath, Difficulty breathing SR Cardiovascular issues: Shortness of breath with activity or lying flat, Dizzy/lightheaded SR Skin issues: Dry skin SR Gastrointestinal issues: Poor or no appetite, Change in bowel pattern, Nausea, Vomiting, Diarrhea, Constipation, Abdominal pain, Heartburn SR Musculoskeletal issues: Cold hands or feet, Difficulty walking SR Neuro issues: Headache, Lightheaded/dizzy, Difficulty balancing SR Hematologic issues: Bleeding/bruising SR Endocrine issues: Cold intolerance, Heat intolerance Home Medications and Allergies Home Medications Medication Instructions Recorded Confirmed Type calcium carbonate [Tums] 200 mg PO QID PRN 06/07/18 11/08/18 History cholecalciferol (vitamin D3) 5,000 unit PO DAILY 06/07/18 11/08/18 History [Vitamin D3] diphenoxylate-atropine [Lomotil] 1 tab PO Q6-8H PRN 06/07/18 11/08/18 History ferrous sulfate [iron] 325 mg PO BID 06/07/18 11/08/18 History gabapentin 900 mg PO BID 06/07/18 11/08/18 History zolpidem [Ambien] 10 mg PO BEDTIME PRN 06/07/18 11/08/18 History hydralazine 50 mg PO TID 06/09/18 11/08/18 History ondansetron [Zofran ODT] 4 mg PO Q6-8H PRN #30 tab 06/09/18 11/08/18 Rx Lasix 40 mg PO BID 06/15/18 11/08/18 History lidocaine 1 applic TOPICAL PRN PRN 06/15/18 11/08/18 History losartan 50 mg PO BID 07/12/18 11/08/18 History oxycodone-acetaminophen 1 tab PO Q4-6H PRN #60 tab 10/18/18 11/08/18 Rx fluorouracil 4,800 mg IV NOW #1 device 11/08/18 Rx lorazepam 1 mg PO BID-TID PRN 30 Days #60 tab 11/08/18 Rx morphine [MS Contin] 15 mg PO Q12H 30 Days #60 tab 11/08/18 Rx oxycodone 10 mg PO Q4-6H PRN 30 Days #60 tab 11/08/18 Rx paroxetine HCl [Paxil] 20 mg PO DAILY 30 Days #30 tab 11/08/18 Rx paroxetine HCl [Paxil] 30 mg PO DAILY #30 tab 11/08/18 Rx Allergies Allergy/AdvReac Type Severity Reaction Status Date / Time cephalexin AdvReac Severe Gastrointestinal Verified 06/07/18 14:48 Upset Exam - Constitutional positive no acute distress, positive morbidly obese - Routine HEENT Exam Head: Present: normocephalic, atraumatic Eye: Present: EOMI, PERRL. Absent: conjunctival icterus, scleral injection ENT: Present: mucous membranes dry, oropharynx clear - Routine Neck Exam Present: supple. Absent: lymphadenopathy, thyromegaly - Routine Respiratory Exam Present: Clear to auscultation bilaterally. Absent: rales, wheezes - Routine Cardiovascular Exam Present: RRR, S1, S2. Absent: murmur - Routine Abdominal Exam Present: soft, normoactive bowel sounds. Absent: tenderness, organomegaly - Routine Extremities Exam Absent: cyanosis, clubbing, edema - Routine Skin Exam Present: intact, pallor. Absent: petechiae, rash - Routine Neurological Exam Present: alert, oriented X3 - Routine Psychiatric Exam Present: normal affect, normal thought process Results - Labs Laboratory Last Values WBC 8.3 X10^3/uL (4.5-11.0) 11/22/18 08:23 RBC 4.69 X10^6/uL (4.5-5.9) 11/22/18 08:23 Hgb 14.1 g/dL (13.5-17.5) 11/22/18 08:23 Hct 42.8 % (41-53) 11/22/18 08:23 MCV 91.1 fL (80-100) 11/22/18 08:23 MCH 30.1 PG (26-34) 11/22/18 08:23 MCHC 33.0 % (30-36) 11/22/18 08:23 RDW 14.4 % (11.6-14.8) 11/22/18 08:23 Plt Count 274 X10^3/uL (150-400) 11/22/18 08:23 Neut % (Auto) 71.1 % (50-75) 11/22/18 08:23 Lymph % (Auto) 15.9 % (25-40) L 11/22/18 08:23 [place] % (Auto) 9.0 % (3-14) 11/22/18 08:23 Eos % (Auto) 2.8 % (2-4) 11/22/18 08:23 Baso % (Auto) 1.2 % (0-2) 11/22/18 08:23 Neut # (Auto) 5900 /uL (8934-0620) 11/22/18 08:23 Lymph # (Auto) 1300 /uL (1576-4834) 11/22/18 08:23 [place] # (Auto) 700 /uL (0-900) 11/22/18 08:23 Eos # (Auto) 200 /uL (0-450) 11/22/18 08:23 Baso # (Auto) 100 /uL (0-100) 11/22/18 08:23 Total Counted 100 07/26/18 09:02 Seg Neutrophils % 77.0 % (38-70) H 07/26/18 09:02 Lymphocytes % (Manual) 8.0 % (25-45) L 07/26/18 09:02 Monocytes % (Manual) 7.0 % (2-11) 07/26/18 09:02 Eosinophils % (Manual) 1.0 % (2-4) L 07/26/18 09:02 Basophils % (Manual) 2.0 % (0-1) H 07/26/18 09:02 Myelocytes % 1.0 % (-0) H 07/26/18 09:02 Blast Cells % 4.0 % (-0) H 07/26/18 09:02 Neutrophils # (Manual) 8316 /uL (7248-3175) H 07/26/18 09:02 Smudge Cells 2+ H 07/26/18 09:02 RBC Morphology Not Reportable 08/10/18 09:10 Hypochromasia 2+ H 07/12/18 08:45 Poikilocytosis 1+ H 07/26/18 09:02 Anisocytosis 1+ H 08/10/18 09:10 Microcytosis 2+ H 06/28/18 08:06 Spherocytes 1+ H 07/26/18 09:02 Smear Path Review 07/26/18 09:02 PT 11.2 SECONDS (10.1-12.7) 09/26/18 08:07 INR 1.0 (0.9-1.3) 09/26/18 08:07 Sodium 140 mmol/L (137-145) 10/18/18 08:43 Potassium 3.3 mmol/L (3.4-5.1) L 10/18/18 08:43 Chloride 100 mmol/L (98-107) 10/18/18 08:43 Carbon Dioxide 28 mmol/L (22-32) 10/18/18 08:43 BUN 26 mg/dL (9-20) H 10/18/18 08:43 Creatinine 1.20 mg/dL (0.66-1.25) 10/18/18 08:43 Estimated GFR 59.5 mL/min (>60) L 10/18/18 08:43 BUN/Creatinine Ratio 21.7 (6-22) 10/18/18 08:43 Glucose 232 mg/dL (80-110) H 10/18/18 08:43 Hemoglobin A1c 5.3 % (4.0-6.0) 07/12/18 09:00 Calcium 9.4 mg/dL (8.4-10.2) 10/18/18 08:43 Magnesium 1.6 mg/dL (1.6-2.3) 10/18/18 08:43 Total Bilirubin 0.4 mg/dL (0.2-1.3) 10/18/18 08:43 AST 39 IU/L (17-59) 10/18/18 08:43 ALT 46 IU/L (21-72) 10/18/18 08:43 Alkaline Phosphatase 89 U/L (38-126) 10/18/18 08:43 B-Natriuretic Peptide 98.8 (<100) 08/30/18 10:15 Total Protein 7.2 g/dL (6.3-8.2) 10/18/18 08:43 Albumin 4.2 g/dL (3.5-5.0) 10/18/18 08:43 Globulin 3.0 g/dL (1.7-4.1) 10/18/18 08:43 Albumin/Globulin Ratio 1.4 (1.0-2.8) 10/18/18 08:43 Carcinoembryonic Ag 2.0 ng/mL (0.1-3.0) 10/03/18 09:41 Urine Color Yellow 08/10/18 10:18 Urine Appearance Slightly cloudy 08/10/18 10:18 Urine pH 5.0 (4.5-8.0) 08/10/18 10:18 Ur Specific [place] 1.025 (1.000-1.035) 08/10/18 10:18 Urine Protein Trace (Negative) H 08/10/18 10:18 Urine Glucose (UA) Negative g/dL (Normal) 08/10/18 10:18 Urine Ketones Negative (NEGATIVE) 08/10/18 10:18 Urine Occult Blood 1+ (Negative) H 08/10/18 10:18 Urine Nitrate Positive (Negative) 08/10/18 10:18 Urine Bilirubin Negative (NEGATIVE) 08/10/18 10:18 Urine Urobilinogen 0.2 E.U./dL (0.2) 08/10/18 10:18 Ur Leukocyte Esterase 1+ (NEGATIVE) H 08/10/18 10:18 Urine RBC 0-1/hpf (0-5/HPF) 08/10/18 10:18 Urine WBC >100/hpf (0-5/HPF) H 08/10/18 10:18 Urine Bacteria Many (>30) (None) H 08/10/18 10:18 Hyaline Casts 0-1/lpf (None) 08/10/18 10:18 Urine Mucus 1+ (Negative) H 08/10/18 10:18 Ur Culture Indicated? Specimen cultured 08/10/18 10:18 Micro UA Comment Not Reportable 08/10/18 10:18 - Imaging Additional studies: Procedures Insertion of intraocular lens prosthesis at time of cataract extraction, one-stage (08/04/11) Phacoemulsification and aspiration of cataract (08/04/11) Assessment and Plan (1) Colon cancer Problem details: 72-year-old man with initially stage III colon cancer now with metastasis. Current visit: Yes Status: Acute 73-year-old man with colon cancer was initially stage III. Unfortunately he has evidence of a recurrence. He has tolerated his 1st cycle of FOLFIRI quite poorly. He is not strong enough for treatment today. We will plan on treating him with IV fluids and antiemetics. He will return to clinic in about 1 week for follow-up. If he has recovered sufficiently, we may be able to go ahead with his 2nd cycle with the addition of Avastin but dose reducing the irinotecan. If he does start on a course of radiation, we may need to wait until that is finished to resume chemotherapy. (2) Depression Current visit: Yes Status: Acute Patient reports that he still has some depression which has been stable. He has been on Paxil 20 mg daily. Will increase the dose to 30 mg.
[2018-11-22] MEDS: ONDANSETRON 8 MG in SODIUM CHLORIDE 0.9% 50 ML 216 ML IV (09:07)
[2018-11-22] MEDS: SODIUM CHLORIDE 0.9% 1,000 ML 1000 ML IV (09:07)
[2018-11-22] MEDS: DEXAMETHASONE 10 MG/ML VIAL IV (09:31)
[2018-11-29 09:31] LABS: Add Manual Diff / Slide Review NO; Basophils Absolute Auto 100 /uL (0-100); Basophils Percent Auto 1.1 % (0-2); Eosinophils Absolute Auto 300 /uL (0-450); Eosinophils Percent Auto 3.7 % (2-4); Hematocrit 40.4 % (41-53); Hemoglobin 13.5 g/dL (13.5-17.5); Lymphocytes Absolute Auto 1600 /uL (1100-4500); Lymphocytes Percent Auto 19.3 % (25-40); Mean Corpuscular HGB Conc 33.5 % (30-36); Mean Corpuscular Hemoglobin 30.5 PG (26-34); Monocytes Absolute Auto 1000 /uL (0-900); Monocytes Percent Auto 12.2 % (3-14); Neutrophils Absolute Auto 5300 /uL (1500-7000); Neutrophils Percent Auto 63.7 % (50-75); Platelet Count 298 X10^3/uL (150-400); Red Blood Cell Count 4.44 X10^6/uL (4.5-5.9); Red Cell Distribution Width 14.3 % (11.6-14.8); White Blood Cell Count 8.4 X10^3/uL (4.5-11.0)
[2018-11-29 09:50] VITALS: BP 103/62; PULSE 83; RESP 18; TEMP 36.4; O2SAT 94
[2018-11-29 09:50] LABS: Alanine Aminotransferase 46 IU/L (21-72); Albumin Globulin Ratio 1.3 (1.0-2.8); Alkaline Phosphatase 89 U/L (38-126); Aspartate Aminotransferase 40 IU/L (17-59); BUN Creatinine Ratio 11.1 (6-22); Bilirubin Total 0.5 mg/dL (0.2-1.3); Blood Urea Nitrogen 20 mg/dL (9-20); Calcium 8.9 mg/dL (8.4-10.2); Carbon Dioxide 32 mmol/L (22-32); Chloride 91 mmol/L (98-107); Estimated Glomerular Filt Rate 37.3 mL/min (>60); Glucose 126 mg/dL (80-110); HEMOLYSIS < 15 (0-50); Potassium 2.8 mmol/L (3.4-5.1); Sodium 139 mmol/L (137-145)
[2018-11-29 10:21] LABS: Carcinoembryonic Antigen 4.2 ng/mL (0.1-3.0)
[2018-11-29] MEDS: KCL 40 MEQ IN NS 1,000 ML 250 MEQ IV (10:29)
[2018-11-29] MEDS: DEXAMETHASONE 12 MG in SODIUM CHLORIDE 0.9% 50 ML 212 ML IV (10:39)
[2018-11-29] MEDS: ONDANSETRON 16 MG in SODIUM CHLORIDE 0.9% 50 ML 232 ML IV (11:08)
[2018-11-29] MEDS: diphenhydrAMINE 25 MG TABLET PO (11:22)
[2018-11-29] MEDS: ACETAMINOPHEN 325 MG TABLET 650 MG PO (11:22)
[2018-11-29] MEDS: BEVACIZUMAB IV (11:50)
[2018-11-29] MEDS: SODIUM CHLORIDE 0.9% IV (11:50)
[2018-11-29] MEDS: SODIUM CHLORIDE 0.9% 100 ML 21 ML IV (11:51)
--- NOTE | 2018-11-29 12:42 | P.PNONC_ITS ---
PN -Subjective Interval history: Diagnosis: Colon cancer, T3 N2 Previous treatment: 1. Right hemicolectomy in April 2018. 2. 7 cycles of adjuvant 5 FU and leucovorin 3. Metastatic disease involving the adrenal gland Treated with 1 cycle of FOLFIRI thus far Interval history: The patient is a 73-year-old man who returns today for follow-up. He has a history of stage III colon cancer but unfortunately has developed recurrence with biopsy-proven adrenal metastasis during adjuvant chemotherapy. A had 1 cycle of FOLFIRI thus far. He tolerated it poorly. His chemotherapy last week was delayed. Since then, he has been feeling a little bit stronger. He still is eating poorly. He has not had any nausea or vomiting no fevers or chills. He does have some ongoing dizziness when standing. His activity level has been quite low and he does have a generalized weakness. He is not having any chest pain. He has not had any further diarrhea. No mouth sores or skin rash. He denies any unusual bleeding or bruising. His flank pain has been under good control with his current dose of morphine. He did meet with the radiation oncology but has not started treatment yet. PMH: Morbid obesity Type 2 diabetes with neuropathy Difficulty with ambulation Chronic CHF with acute exacerbations Urinary tract obstruction Suprapubic catheter Incarcerated ventral hernia Open wound Renal insufficiency Dyspnea Sleep apnea History of right hemicolectomy - Patient Self-Reported Symptoms SR Constitution: Fatigue/Malaise SR ears, nose, mouth, throat issues: Ears ringing, Congestion, Cough SR respiratory issues: Shortness of breath, Difficulty breathing SR Cardiovascular issues: Shortness of breath with activity or lying flat, Dizzy/lightheaded SR Skin issues: Dry skin SR Gastrointestinal issues: Poor or no appetite, Change in bowel pattern, Nausea, Vomiting, Diarrhea, Constipation, Abdominal pain, Heartburn SR Musculoskeletal issues: Cold hands or feet, Difficulty walking SR Neuro issues: Headache, Lightheaded/dizzy, Difficulty balancing SR Hematologic issues: Bleeding/bruising SR Endocrine issues: Cold intolerance, Heat intolerance Home Medications and Allergies Home Medications Medication Instructions Recorded Confirmed Type calcium carbonate [Tums] 200 mg PO QID PRN 06/07/18 11/08/18 History cholecalciferol (vitamin D3) 5,000 unit PO DAILY 06/07/18 11/08/18 History [Vitamin D3] diphenoxylate-atropine [Lomotil] 1 tab PO Q6-8H PRN 06/07/18 11/08/18 History ferrous sulfate [iron] 325 mg PO BID 06/07/18 11/08/18 History gabapentin 900 mg PO BID 06/07/18 11/08/18 History zolpidem [Ambien] 10 mg PO BEDTIME PRN 06/07/18 11/08/18 History hydralazine 50 mg PO TID 06/09/18 11/08/18 History Lasix 40 mg PO BID 06/15/18 11/08/18 History lidocaine 1 applic TOPICAL PRN PRN 06/15/18 11/08/18 History losartan 50 mg PO BID 07/12/18 11/08/18 History oxycodone-acetaminophen 1 tab PO Q4-6H PRN #60 tab 10/18/18 11/08/18 Rx fluorouracil 4,800 mg IV NOW #1 device 11/08/18 Rx lorazepam 1 mg PO BID-TID PRN 30 Days #60 tab 11/08/18 Rx morphine [MS Contin] 15 mg PO Q12H 30 Days #60 tab 11/08/18 Rx oxycodone 10 mg PO Q4-6H PRN 30 Days #60 tab 11/08/18 Rx paroxetine HCl [Paxil] 20 mg PO DAILY 30 Days #30 tab 11/08/18 Rx paroxetine HCl [Paxil] 30 mg PO DAILY #30 tab 11/08/18 Rx ondansetron 8 mg PO TID PRN #60 tab 11/22/18 Rx Allergies Allergy/AdvReac Type Severity Reaction Status Date / Time cephalexin AdvReac Severe Gastrointestinal Verified 06/07/18 14:48 Upset Exam Vital signs: Vital Signs Temp Pulse Resp BP Pulse Ox 11/29/18 09:50 97.6 F 83 18 103/62 94 Intake and Output 11/28/18 11/29/18 11/29/18 23:59 07:59 15:59 Intake Total Balance Intake: IV Dexamethasone 12 mg In Sodium 53 / 53 Chloride 0.9% 50 ml @ 212 MLS/ HR 212 mls/hr IV PRECHEM SAI Rx #:[id number] Ondansetron 16 mg In Sodium 58 / 58 Chloride 0.9% 50 ml @ 232 MLS/ HR 232 mls/hr IV PRECHEM SAI Rx #:[id number] Other: Weight 147 kg Patient Weight 11/30/18 07:59 Weight 147 kg - Constitutional positive no acute distress, positive morbidly obese - Routine HEENT Exam Head: Present: normocephalic, atraumatic Eye: Present: EOMI, PERRL. Absent: conjunctival icterus ENT: Present: mucous membranes moist, oropharynx clear - Routine Neck Exam Present: supple. Absent: lymphadenopathy, thyromegaly - Routine Respiratory Exam Present: Clear to auscultation bilaterally. Absent: rales, wheezes - Routine Cardiovascular Exam Present: RRR, S1, S2. Absent: murmur - Routine Abdominal Exam Present: soft, normoactive bowel sounds, ostomy. Absent: tenderness - Routine Extremities Exam Absent: cyanosis, clubbing - Routine Skin Exam Present: intact, pallor. Absent: petechiae, rash - Routine Neurological Exam Present: alert, oriented X3 - Routine Psychiatric Exam Present: normal affect, normal thought process Results - Labs Laboratory Last Values WBC 8.4 X10^3/uL (4.5-11.0) 11/29/18 09:15 RBC 4.44 X10^6/uL (4.5-5.9) L 11/29/18 09:15 Hgb 13.5 g/dL (13.5-17.5) 11/29/18 09:15 Hct 40.4 % (41-53) L 11/29/18 09:15 MCV 91.0 fL (80-100) 11/29/18 09:15 MCH 30.5 PG (26-34) 11/29/18 09:15 MCHC 33.5 % (30-36) 11/29/18 09:15 RDW 14.3 % (11.6-14.8) 11/29/18 09:15 Plt Count 298 X10^3/uL (150-400) 11/29/18 09:15 Neut % (Auto) 63.7 % (50-75) 11/29/18 09:15 Lymph % (Auto) 19.3 % (25-40) L 11/29/18 09:15 [place] % (Auto) 12.2 % (3-14) 11/29/18 09:15 Eos % (Auto) 3.7 % (2-4) 11/29/18 09:15 Baso % (Auto) 1.1 % (0-2) 11/29/18 09:15 Neut # (Auto) 5300 /uL (1712-1047) 11/29/18 09:15 Lymph # (Auto) 1600 /uL (4532-1901) 11/29/18 09:15 [place] # (Auto) 1000 /uL (0-900) H 11/29/18 09:15 Eos # (Auto) 300 /uL (0-450) 11/29/18 09:15 Baso # (Auto) 100 /uL (0-100) 11/29/18 09:15 Total Counted 100 07/26/18 09:02 Seg Neutrophils % 77.0 % (38-70) H 07/26/18 09:02 Lymphocytes % (Manual) 8.0 % (25-45) L 07/26/18 09:02 Monocytes % (Manual) 7.0 % (2-11) 07/26/18 09:02 Eosinophils % (Manual) 1.0 % (2-4) L 07/26/18 09:02 Basophils % (Manual) 2.0 % (0-1) H 07/26/18 09:02 Myelocytes % 1.0 % (-0) H 07/26/18 09:02 Blast Cells % 4.0 % (-0) H 07/26/18 09:02 Neutrophils # (Manual) 8316 /uL (2450-4691) H 07/26/18 09:02 Smudge Cells 2+ H 07/26/18 09:02 RBC Morphology Not Reportable 08/10/18 09:10 Hypochromasia 2+ H 07/12/18 08:45 Poikilocytosis 1+ H 07/26/18 09:02 Anisocytosis 1+ H 08/10/18 09:10 Microcytosis 2+ H 06/28/18 08:06 Spherocytes 1+ H 07/26/18 09:02 Smear Path Review 07/26/18 09:02 PT 11.2 SECONDS (10.1-12.7) 09/26/18 08:07 INR 1.0 (0.9-1.3) 09/26/18 08:07 Sodium 139 mmol/L (137-145) 11/29/18 Unknown Potassium 2.8 mmol/L (3.4-5.1) L 11/29/18 Unknown Chloride 91 mmol/L (98-107) L 11/29/18 Unknown Carbon Dioxide 32 mmol/L (22-32) 11/29/18 Unknown BUN 20 mg/dL (9-20) 11/29/18 Unknown Creatinine 1.80 mg/dL (0.66-1.25) H 11/29/18 Unknown Estimated GFR 37.3 mL/min (>60) L 11/29/18 Unknown BUN/Creatinine Ratio 11.1 (6-22) 11/29/18 Unknown Glucose 126 mg/dL (80-110) H 11/29/18 Unknown Hemoglobin A1c 5.3 % (4.0-6.0) 07/12/18 09:00 Calcium 8.9 mg/dL (8.4-10.2) 11/29/18 Unknown Magnesium 1.6 mg/dL (1.6-2.3) 10/18/18 08:43 Total Bilirubin 0.5 mg/dL (0.2-1.3) 11/29/18 Unknown AST 40 IU/L (17-59) 11/29/18 Unknown ALT 46 IU/L (21-72) 11/29/18 Unknown Alkaline Phosphatase 89 U/L (38-126) 11/29/18 Unknown B-Natriuretic Peptide 98.8 (<100) 08/30/18 10:15 Total Protein 7.0 g/dL (6.3-8.2) 11/29/18 Unknown Albumin 4.0 g/dL (3.5-5.0) 11/29/18 Unknown Globulin 3.0 g/dL (1.7-4.1) 11/29/18 Unknown Albumin/Globulin Ratio 1.3 (1.0-2.8) 11/29/18 Unknown Carcinoembryonic Ag 4.2 ng/mL (0.1-3.0) H 11/29/18 Unknown Urine Color Yellow 08/10/18 10:18 Urine Appearance Slightly cloudy 08/10/18 10:18 Urine pH 5.0 (4.5-8.0) 08/10/18 10:18 Ur Specific [place] 1.025 (1.000-1.035) 08/10/18 10:18 Urine Protein Trace (Negative) H 08/10/18 10:18 Urine Glucose (UA) Negative g/dL (Normal) 08/10/18 10:18 Urine Ketones Negative (NEGATIVE) 08/10/18 10:18 Urine Occult Blood 1+ (Negative) H 08/10/18 10:18 Urine Nitrate Positive (Negative) 08/10/18 10:18 Urine Bilirubin Negative (NEGATIVE) 08/10/18 10:18 Urine Urobilinogen 0.2 E.U./dL (0.2) 08/10/18 10:18 Ur Leukocyte Esterase 1+ (NEGATIVE) H 08/10/18 10:18 Urine RBC 0-1/hpf (0-5/HPF) 08/10/18 10:18 Urine WBC >100/hpf (0-5/HPF) H 08/10/18 10:18 Urine Bacteria Many (>30) (None) H 08/10/18 10:18 Hyaline Casts 0-1/lpf (None) 08/10/18 10:18 Urine Mucus 1+ (Negative) H 08/10/18 10:18 Ur Culture Indicated? Specimen cultured 08/10/18 10:18 Micro UA Comment Not Reportable 08/10/18 10:18 - Imaging Additional studies: Procedures Insertion of intraocular lens prosthesis at time of cataract extraction, one- stage (08/04/11) Phacoemulsification and aspiration of cataract (08/04/11) Assessment and Plan (1) Colon cancer Problem details: 72-year-old man with initially stage III colon cancer now with metastasis. Current visit: Yes Status: Acute 73-year-old man with colon cancer was initially stage III. Unfortunately he has evidence of a recurrence. He has tolerated his 1st cycle of FOLFIRI quite poorly. Will proceed with his 2nd cycle today with about a 25% dose reduction. Hopefully this will be more tolerable for him. I would anticipate a follow-up CT scan after 3-4 cycles. Will also plan on given some extra fluid with his treatment today. If he does go ahead with radiation, we may need to delay his next cycle of treatment until that is complete. (2) Depression Current visit: Yes Status: Acute Patient reports that he still has some depression which has been stable. He has been on Paxil 20 mg daily. Will increase the dose to 30 mg.
[2018-11-29] MEDS: DEXTROSE 5% IV ×2 (14:02→14:03)
[2018-11-29] MEDS: IRINOTECAN IV (14:02)
[2018-11-29] MEDS: LEUCOVORIN IV (14:03)
[2018-11-29] MEDS: ATROPINE 0.4 MG/ML VIAL 0.25 MG SUBCUT (15:20)
[2018-11-29] MEDS: LORazepam 2 MG/ML SYRINGE 0.5 MG IV (15:47)
[2018-11-29] MEDS: FLUOROURACIL IV (16:33)
[2018-11-29] MEDS: ISOOSMOTIC VEHICLE IV (16:33)
--- NOTE | 2018-11-29 16:44 | PC.NURSE ---
Setting changes to 5fu pump r/t to dose reduction in treatment. Ally, [facility] Pharmacist, walked this typewriter operator automatic through pump setting changes. New dosage 4,000mg over 47 hours, rate 1.7mls/hr. Dose and setting reverified with Aurora Hendricks RN.
[2018-12-13 12:22] VITALS: BP 172/102; PULSE 82; RESP 18; TEMP 36.4; O2SAT 94
--- NOTE | 2018-12-13 12:47 | ONC.PN ---
PN -Subjective Interval history: Diagnosis: Colon cancer, T3 N2 Previous treatment: 1. Right hemicolectomy in April 2018. 2. 7 cycles of adjuvant 5 FU and leucovorin 3. Metastatic disease involving the adrenal gland Treated with 2 cycles of FOLFIRI thus far Interval history: The patient is a 73-year-old man who returns today for follow-up. He has a history of stage III colon cancer but unfortunately has developed recurrence with biopsy-proven adrenal metastasis during adjuvant chemotherapy. He had his 2nd cycle of FOLFIRI 2 weeks ago with a dose reduction. Unfortunately, he tolerated that poorly as well. He had trouble with diarrhea, poor appetite, nausea and vomiting, dizziness and dehydration. He had a fall and was hospitalized at [facility]. This morning, he had another fall in the bathroom and needed EMS to help get him up. He was brought to the emergency room. No injuries were discovered. He was treated with some IV fluids and came to our office. He still has some pain in his flank. He has met with the radiation oncology but has not yet started any therapy. He is not having any fevers or chills. He denies any unusual bleeding or bruising. No mouth sores or skin rash. He notes that his diarrhea has subsided although not completely resolved. Despite all of his side effects, he remains quite adamant that he does wish to continue treatment and do everything that he possibly can to treat his cancer even in the face of a significant toxicity. PMH: Morbid obesity Type 2 diabetes with neuropathy Difficulty with ambulation Chronic CHF with acute exacerbations Urinary tract obstruction Suprapubic catheter Incarcerated ventral hernia Open wound Renal insufficiency Dyspnea Sleep apnea History of right hemicolectomy - Patient Self-Reported Symptoms SR Constitution: Fatigue/Malaise SR ears, nose, mouth, throat issues: Ears ringing, Congestion, Cough SR respiratory issues: Shortness of breath, Difficulty breathing SR Cardiovascular issues: Shortness of breath with activity or lying flat, Dizzy/lightheaded SR Skin issues: Dry skin SR Gastrointestinal issues: Poor or no appetite, Change in bowel pattern, Nausea, Vomiting, Diarrhea, Constipation, Abdominal pain, Heartburn SR Musculoskeletal issues: Cold hands or feet, Difficulty walking SR Neuro issues: Headache, Lightheaded/dizzy, Difficulty balancing SR Hematologic issues: Bleeding/bruising SR Endocrine issues: Cold intolerance, Heat intolerance Home Medications and Allergies Home Medications Medication Instructions Recorded Confirmed Type calcium carbonate [Tums] 200 mg PO QID PRN 06/07/18 11/08/18 History cholecalciferol (vitamin D3) 5,000 unit PO DAILY 06/07/18 11/08/18 History [Vitamin D3] diphenoxylate-atropine [Lomotil] 1 tab PO Q6-8H PRN 06/07/18 11/08/18 History ferrous sulfate [iron] 325 mg PO BID 06/07/18 11/08/18 History gabapentin 900 mg PO BID 06/07/18 11/08/18 History zolpidem [Ambien] 10 mg PO BEDTIME PRN 06/07/18 11/08/18 History hydralazine 50 mg PO TID 06/09/18 11/08/18 History Lasix 20 mg PO BID 06/15/18 12/13/18 History lidocaine 1 applic TOPICAL PRN PRN 06/15/18 11/08/18 History losartan 50 mg PO BID 07/12/18 11/08/18 History oxycodone-acetaminophen 1 tab PO Q4-6H PRN #60 tab 10/18/18 11/08/18 Rx fluorouracil 4,800 mg IV NOW #1 device 11/08/18 Rx paroxetine HCl [Paxil] 20 mg PO DAILY 30 Days #30 tab 11/08/18 Rx paroxetine HCl [Paxil] 30 mg PO DAILY #30 tab 11/08/18 Rx ondansetron 8 mg PO TID PRN #60 tab 11/22/18 Rx fluorouracil 4,000 mg IV NOW #1 device 12/13/18 Rx sulfamethoxazole-trimethoprim 1 tab PO BID #14 tab 12/13/18 Rx [Bactrim DS] Allergies Allergy/AdvReac Type Severity Reaction Status Date / Time cephalexin AdvReac Severe Gastrointestinal Verified 12/13/18 08:31 Upset Exam Vital signs: Vital Signs Temp Pulse Resp BP Pulse Ox 12/13/18 12:22 97.5 F L 82 18 172/102 H 94 - Constitutional positive no acute distress, positive morbidly obese - Routine HEENT Exam Head: Present: normocephalic, atraumatic Eye: Present: EOMI, PERRL. Absent: conjunctival icterus, scleral injection ENT: Present: mucous membranes moist, oropharynx clear - Routine Neck Exam Present: supple. Absent: lymphadenopathy, thyromegaly - Routine Respiratory Exam Present: Clear to auscultation bilaterally. Absent: rales, wheezes - Routine Cardiovascular Exam Present: RRR, S1, S2. Absent: murmur - Routine Abdominal Exam Present: soft, normoactive bowel sounds. Absent: tenderness, organomegaly - Routine Extremities Exam Absent: cyanosis, clubbing, edema - Routine Skin Exam Present: intact, pallor. Absent: rash - Routine Neurological Exam Present: alert, oriented X3 - Routine Psychiatric Exam Present: normal affect, normal thought process Results - Labs Laboratory Last Values WBC 8.4 X10^3/uL (4.5-11.0) 11/29/18 09:15 RBC 4.44 X10^6/uL (4.5-5.9) L 11/29/18 09:15 Hgb 13.5 g/dL (13.5-17.5) 11/29/18 09:15 Hct 40.4 % (41-53) L 11/29/18 09:15 MCV 91.0 fL (80-100) 11/29/18 09:15 MCH 30.5 PG (26-34) 11/29/18 09:15 MCHC 33.5 % (30-36) 11/29/18 09:15 RDW 14.3 % (11.6-14.8) 11/29/18 09:15 Plt Count 298 X10^3/uL (150-400) 11/29/18 09:15 Neut % (Auto) 63.7 % (50-75) 11/29/18 09:15 Lymph % (Auto) 19.3 % (25-40) L 11/29/18 09:15 [place] % (Auto) 12.2 % (3-14) 11/29/18 09:15 Eos % (Auto) 3.7 % (2-4) 11/29/18 09:15 Baso % (Auto) 1.1 % (0-2) 11/29/18 09:15 Neut # (Auto) 5300 /uL (5635-6625) 11/29/18 09:15 Lymph # (Auto) 1600 /uL (0176-5753) 11/29/18 09:15 [place] # (Auto) 1000 /uL (0-900) H 11/29/18 09:15 Eos # (Auto) 300 /uL (0-450) 11/29/18 09:15 Baso # (Auto) 100 /uL (0-100) 11/29/18 09:15 Total Counted 100 07/26/18 09:02 Seg Neutrophils % 77.0 % (38-70) H 07/26/18 09:02 Lymphocytes % (Manual) 8.0 % (25-45) L 07/26/18 09:02 Monocytes % (Manual) 7.0 % (2-11) 07/26/18 09:02 Eosinophils % (Manual) 1.0 % (2-4) L 07/26/18 09:02 Basophils % (Manual) 2.0 % (0-1) H 07/26/18 09:02 Myelocytes % 1.0 % (-0) H 07/26/18 09:02 Blast Cells % 4.0 % (-0) H 07/26/18 09:02 Neutrophils # (Manual) 8316 /uL (2924-3048) H 07/26/18 09:02 Smudge Cells 2+ H 07/26/18 09:02 RBC Morphology Not Reportable 08/10/18 09:10 Hypochromasia 2+ H 07/12/18 08:45 Poikilocytosis 1+ H 07/26/18 09:02 Anisocytosis 1+ H 08/10/18 09:10 Microcytosis 2+ H 06/28/18 08:06 Spherocytes 1+ H 07/26/18 09:02 Smear Path Review 07/26/18 09:02 PT 11.2 SECONDS (10.1-12.7) 09/26/18 08:07 INR 1.0 (0.9-1.3) 09/26/18 08:07 Sodium 139 mmol/L (137-145) 11/29/18 Unknown Potassium 2.8 mmol/L (3.4-5.1) L 11/29/18 Unknown Chloride 91 mmol/L (98-107) L 11/29/18 Unknown Carbon Dioxide 32 mmol/L (22-32) 11/29/18 Unknown BUN 20 mg/dL (9-20) 11/29/18 Unknown Creatinine 1.80 mg/dL (0.66-1.25) H 11/29/18 Unknown Estimated GFR 37.3 mL/min (>60) L 11/29/18 Unknown BUN/Creatinine Ratio 11.1 (6-22) 11/29/18 Unknown Glucose 126 mg/dL (80-110) H 11/29/18 Unknown Hemoglobin A1c 5.3 % (4.0-6.0) 07/12/18 09:00 Calcium 8.9 mg/dL (8.4-10.2) 11/29/18 Unknown Magnesium 1.6 mg/dL (1.6-2.3) 10/18/18 08:43 Total Bilirubin 0.5 mg/dL (0.2-1.3) 11/29/18 Unknown AST 40 IU/L (17-59) 11/29/18 Unknown ALT 46 IU/L (21-72) 11/29/18 Unknown Alkaline Phosphatase 89 U/L (38-126) 11/29/18 Unknown B-Natriuretic Peptide 98.8 (<100) 08/30/18 10:15 Total Protein 7.0 g/dL (6.3-8.2) 11/29/18 Unknown Albumin 4.0 g/dL (3.5-5.0) 11/29/18 Unknown Globulin 3.0 g/dL (1.7-4.1) 11/29/18 Unknown Albumin/Globulin Ratio 1.3 (1.0-2.8) 11/29/18 Unknown Carcinoembryonic Ag 4.2 ng/mL (0.1-3.0) H 11/29/18 Unknown Urine Color Yellow 08/10/18 10:18 Urine Appearance Slightly cloudy 08/10/18 10:18 Urine pH 5.0 (4.5-8.0) 08/10/18 10:18 Ur Specific [place] 1.025 (1.000-1.035) 08/10/18 10:18 Urine Protein Trace (Negative) H 08/10/18 10:18 Urine Glucose (UA) Negative g/dL (Normal) 08/10/18 10:18 Urine Ketones Negative (NEGATIVE) 08/10/18 10:18 Urine Occult Blood 1+ (Negative) H 08/10/18 10:18 Urine Nitrate Positive (Negative) 08/10/18 10:18 Urine Bilirubin Negative (NEGATIVE) 08/10/18 10:18 Urine Urobilinogen 0.2 E.U./dL (0.2) 08/10/18 10:18 Ur Leukocyte Esterase 1+ (NEGATIVE) H 08/10/18 10:18 Urine RBC 0-1/hpf (0-5/HPF) 08/10/18 10:18 Urine WBC >100/hpf (0-5/HPF) H 08/10/18 10:18 Urine Bacteria Many (>30) (None) H 08/10/18 10:18 Hyaline Casts 0-1/lpf (None) 08/10/18 10:18 Urine Mucus 1+ (Negative) H 08/10/18 10:18 Ur Culture Indicated? Specimen cultured 08/10/18 10:18 Micro UA Comment Not Reportable 08/10/18 10:18 - Imaging Additional studies: Procedures Insertion of intraocular lens prosthesis at time of cataract extraction, one-stage (08/04/11) Phacoemulsification and aspiration of cataract (08/04/11) Assessment and Plan (1) Colon cancer Problem details: 72-year-old man with initially stage III colon cancer now with metastasis. Current visit: Yes Status: Acute 73-year-old man with colon cancer was initially stage III. Unfortunately he has evidence of a recurrence. He has tolerated his 1st 2 cycles of FOLFIRI quite poorly even with dose reduction. He is due for his 3rd cycle today. He is quite adamant that he does not want to stop his treatment. He wishes to do everything that he can to prolong his survival even modestly. He is willing to put up with side effects in order to accomplish that goal. Will plan to go ahead with his chemotherapy today with a further dose reduction. He will also get a L of fluid with his treatment today. He will return to clinic in about 2 weeks for follow-up. I would anticipate a CT scan after her his 4th cycle of treatment. The patient does understand that this therapy is not curative. The goal is to extend survival and to maintain quality of life. I pointed out that if we were causing significant toxicity even in the face of disease control, that it may not be worthwhile. He at this point, absolutely feels like it is worth it and does wish to continue. 40 min was spent with the patient the majority in counseling.
[2018-12-13] MEDS: ONDANSETRON 16 MG in SODIUM CHLORIDE 0.9% 50 ML 232 ML IV (13:27)
[2018-12-13] MEDS: DEXAMETHASONE 12 MG in SODIUM CHLORIDE 0.9% 50 ML 212 ML IV (13:27)
[2018-12-13] MEDS: ACETAMINOPHEN 325 MG TABLET 650 MG PO (13:28)
[2018-12-13] MEDS: diphenhydrAMINE 25 MG TABLET PO (13:28)
[2018-12-13] MEDS: SODIUM CHLORIDE 0.9% 1,000 ML 1000 ML IV (13:28)
[2018-12-13] MEDS: BEVACIZUMAB IV (13:49)
[2018-12-13] MEDS: SODIUM CHLORIDE 0.9% IV (13:49)
[2018-12-13] MEDS: ATROPINE 0.4 MG/ML VIAL 0.25 MG SUBCUT (14:59)
[2018-12-13] MEDS: LEUCOVORIN IV (15:00)
[2018-12-13] MEDS: DEXTROSE 5% IV ×2 (15:00)
[2018-12-13] MEDS: IRINOTECAN IV (15:00)
[2018-12-13] MEDS: ISOOSMOTIC VEHICLE IV (17:05)
[2018-12-13] MEDS: FLUOROURACIL IV (17:05)
[2018-12-28 08:38] VITALS: BP 141/81; PULSE 84; RESP 18; TEMP 36.8; O2SAT 96
[2018-12-28 08:46] LABS: Add Manual Diff / Slide Review NO; Basophils Absolute Auto 100 /uL (0-100); Basophils Percent Auto 1.1 % (0-2); Eosinophils Absolute Auto 200 /uL (0-450); Eosinophils Percent Auto 4.3 % (2-4); Hematocrit 38.5 % (41-53); Hemoglobin 13.1 g/dL (13.5-17.5); Lymphocytes Absolute Auto 700 /uL (1100-4500); Lymphocytes Percent Auto 16.5 % (25-40); Mean Corpuscular HGB Conc 33.9 % (30-36); Mean Corpuscular Hemoglobin 31.6 PG (26-34); Monocytes Absolute Auto 400 /uL (0-900); Neutrophils Absolute Auto 3000 /uL (1500-7000); Neutrophils Percent Auto 68.1 % (50-75); Platelet Count 283 X10^3/uL (150-400); Red Blood Cell Count 4.14 X10^6/uL (4.5-5.9); Red Cell Distribution Width 15.3 % (11.6-14.8); White Blood Cell Count 4.5 X10^3/uL (4.5-11.0)
--- NOTE | 2018-12-28 08:55 | ONC.PN ---
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 Right hemicolectomy in April 2018. 2. 7 cycles of adjuvant 5 FU and leucovorin 3. Metastatic disease involving the adrenal gland Treated with 3 cycles of FOLFIRI thus far 4. Stereotactic radiation to the adrenal gland in December 2018. Interval history: The patient is a 73-year-old man who returns today for follow-up. He has a history of stage III colon cancer but unfortunately has developed recurrence with biopsy-proven adrenal metastasis during adjuvant chemotherapy. He had his 3rd cycle of FOLFIRI 2 weeks ago with a further dose reduction. He seemed to tolerate this dose better. He did have some nausea but no vomiting. His appetite has been low. He has been eating and drinking. His weight has been fairly stable. He is not having any diarrhea. No mouth sores or skin rash. He still feels unsteady on his feet but has been moving around more than he has been previously. His pain has been under good control. He is using MS Contin 15 mg twice a day as well as an oxycodone for breakthrough pain. He needs that once or twice a day. He denies any fevers or chills. No shortness of breath or cough. No pain in the chest. He denies any other changes in his health. PMH: Morbid obesity Type 2 diabetes with neuropathy Difficulty with ambulation Chronic CHF with acute exacerbations Urinary tract obstruction Suprapubic catheter Incarcerated ventral hernia Open wound Renal insufficiency Dyspnea Sleep apnea History of right hemicolectomy - Patient Self-Reported Symptoms SR Constitution: Fatigue/Malaise, Night Sweats SR ears, nose, mouth, throat issues: Ears ringing, Congestion, Cough, Difficulty swallowing, Changes in taste, Hoarseness SR respiratory issues: Cough, Shortness of breath SR Cardiovascular issues: Shortness of breath with activity or lying flat, Dizzy/lightheaded SR Skin issues: Dry skin SR Gastrointestinal issues: Nausea, Abdominal pain, Heartburn SR Musculoskeletal issues: Muscle weakness, Back or neck pain, Difficulty walking SR Neuro issues: Tremors or shaking, Difficulty balancing SR Hematologic issues: Bleeding/bruising SR Endocrine issues: Cold intolerance, Heat intolerance Home Medications and Allergies Home Medications Medication Instructions Recorded Confirmed Type calcium carbonate [Tums] 200 mg PO QID PRN 06/07/18 11/08/18 History cholecalciferol (vitamin D3) 5,000 unit PO DAILY 06/07/18 11/08/18 History [Vitamin D3] diphenoxylate-atropine [Lomotil] 1 tab PO Q6-8H PRN 06/07/18 11/08/18 History ferrous sulfate [iron] 325 mg PO BID 06/07/18 11/08/18 History gabapentin 900 mg PO BID 06/07/18 11/08/18 History zolpidem [Ambien] 10 mg PO BEDTIME PRN 06/07/18 11/08/18 History hydralazine 50 mg PO TID 06/09/18 11/08/18 History Lasix 20 mg PO BID 06/15/18 12/13/18 History lidocaine 1 applic TOPICAL PRN PRN 06/15/18 11/08/18 History losartan 50 mg PO BID 07/12/18 11/08/18 History fluorouracil 4,800 mg IV NOW #1 device 11/08/18 Rx paroxetine HCl [Paxil] 20 mg PO DAILY 30 Days #30 tab 11/08/18 Rx paroxetine HCl [Paxil] 30 mg PO DAILY #30 tab 11/08/18 Rx ondansetron 8 mg PO TID PRN #60 tab 11/22/18 Rx fluorouracil 4,000 mg IV NOW #1 device 12/13/18 Rx morphine [MS Contin] 15 mg PO Q12H 30 Days #60 tab 12/13/18 Rx oxycodone-acetaminophen 1 tab PO Q4-6H PRN #60 tab 12/13/18 Rx prochlorperazine maleate 10 mg PO Q6-8H PRN #30 tab 12/13/18 Rx [Compazine] Allergies Allergy/AdvReac Type Severity Reaction Status Date / Time cephalexin AdvReac Severe Gastrointestinal Verified 12/13/18 08:31 Upset Exam Vital signs: Vital Signs Temp Pulse Resp BP Pulse Ox 12/28/18 08:38 98.2 F 84 18 141/81 H 96 Intake and Output 12/27/18 12/28/18 12/28/18 23:59 07:59 15:59 Other: Weight 149 kg Patient Weight 12/28/18 23:59 Weight 149 kg - Constitutional positive no acute distress, positive morbidly obese - Routine HEENT Exam Head: Present: normocephalic, atraumatic Eye: Present: EOMI, PERRL. Absent: conjunctival icterus, scleral injection ENT: Present: mucous membranes moist, oropharynx clear Comments: He is edentulous - Routine Neck Exam Present: supple. Absent: lymphadenopathy, thyromegaly - Routine Respiratory Exam Present: Clear to auscultation bilaterally. Absent: rales, wheezes - Routine Cardiovascular Exam Present: RRR, S1, S2. Absent: murmur - Routine Abdominal Exam Present: soft, normoactive bowel sounds, ostomy. Absent: tenderness, organomegaly - Routine Extremities Exam Absent: cyanosis, clubbing, edema - Routine Skin Exam Present: intact. Absent: petechiae, rash - Routine Neurological Exam Present: alert, oriented X3 - Routine Psychiatric Exam Present: normal affect, normal thought process Results - Labs Laboratory Last Values WBC 4.5 X10^3/uL (4.5-11.0) 12/28/18 08:35 RBC 4.14 X10^6/uL (4.5-5.9) L 12/28/18 08:35 Hgb 13.1 g/dL (13.5-17.5) L 12/28/18 08:35 Hct 38.5 % (41-53) L 12/28/18 08:35 MCV 93.0 fL (80-100) 12/28/18 08:35 MCH 31.6 PG (26-34) 12/28/18 08:35 MCHC 33.9 % (30-36) 12/28/18 08:35 RDW 15.3 % (11.6-14.8) H 12/28/18 08:35 Plt Count 283 X10^3/uL (150-400) 12/28/18 08:35 Neut % (Auto) 68.1 % (50-75) 12/28/18 08:35 Lymph % (Auto) 16.5 % (25-40) L 12/28/18 08:35 [place] % (Auto) 10.0 % (3-14) 12/28/18 08:35 Eos % (Auto) 4.3 % (2-4) H 12/28/18 08:35 Baso % (Auto) 1.1 % (0-2) 12/28/18 08:35 Neut # (Auto) 3000 /uL (5001-0046) 12/28/18 08:35 Lymph # (Auto) 700 /uL (2990-2321) L 12/28/18 08:35 [place] # (Auto) 400 /uL (0-900) 12/28/18 08:35 Eos # (Auto) 200 /uL (0-450) 12/28/18 08:35 Baso # (Auto) 100 /uL (0-100) 12/28/18 08:35 Total Counted 100 07/26/18 09:02 Seg Neutrophils % 77.0 % (38-70) H 07/26/18 09:02 Lymphocytes % (Manual) 8.0 % (25-45) L 07/26/18 09:02 Monocytes % (Manual) 7.0 % (2-11) 07/26/18 09:02 Eosinophils % (Manual) 1.0 % (2-4) L 07/26/18 09:02 Basophils % (Manual) 2.0 % (0-1) H 07/26/18 09:02 Myelocytes % 1.0 % (-0) H 07/26/18 09:02 Blast Cells % 4.0 % (-0) H 07/26/18 09:02 Neutrophils # (Manual) 8316 /uL (4840-6275) H 07/26/18 09:02 Smudge Cells 2+ H 07/26/18 09:02 RBC Morphology Not Reportable 08/10/18 09:10 Hypochromasia 2+ H 07/12/18 08:45 Poikilocytosis 1+ H 07/26/18 09:02 Anisocytosis 1+ H 08/10/18 09:10 Microcytosis 2+ H 06/28/18 08:06 Spherocytes 1+ H 07/26/18 09:02 Smear Path Review 07/26/18 09:02 PT 11.2 SECONDS (10.1-12.7) 09/26/18 08:07 INR 1.0 (0.9-1.3) 09/26/18 08:07 Sodium 139 mmol/L (137-145) 11/29/18 Unknown Potassium 2.8 mmol/L (3.4-5.1) L 11/29/18 Unknown Chloride 91 mmol/L (98-107) L 11/29/18 Unknown Carbon Dioxide 32 mmol/L (22-32) 11/29/18 Unknown BUN 20 mg/dL (9-20) 11/29/18 Unknown Creatinine 1.80 mg/dL (0.66-1.25) H 11/29/18 Unknown Estimated GFR 37.3 mL/min (>60) L 11/29/18 Unknown BUN/Creatinine Ratio 11.1 (6-22) 11/29/18 Unknown Glucose 126 mg/dL (80-110) H 11/29/18 Unknown Hemoglobin A1c 5.3 % (4.0-6.0) 07/12/18 09:00 Calcium 8.9 mg/dL (8.4-10.2) 11/29/18 Unknown Magnesium 1.6 mg/dL (1.6-2.3) 10/18/18 08:43 Total Bilirubin 0.5 mg/dL (0.2-1.3) 11/29/18 Unknown AST 40 IU/L (17-59) 11/29/18 Unknown ALT 46 IU/L (21-72) 11/29/18 Unknown Alkaline Phosphatase 89 U/L (38-126) 11/29/18 Unknown B-Natriuretic Peptide 98.8 (<100) 08/30/18 10:15 Total Protein 7.0 g/dL (6.3-8.2) 11/29/18 Unknown Albumin 4.0 g/dL (3.5-5.0) 11/29/18 Unknown Globulin 3.0 g/dL (1.7-4.1) 11/29/18 Unknown Albumin/Globulin Ratio 1.3 (1.0-2.8) 11/29/18 Unknown Carcinoembryonic Ag 4.2 ng/mL (0.1-3.0) H 11/29/18 Unknown Urine Color Yellow 08/10/18 10:18 Urine Appearance Slightly cloudy 08/10/18 10:18 Urine pH 5.0 (4.5-8.0) 08/10/18 10:18 Ur Specific [place] 1.025 (1.000-1.035) 08/10/18 10:18 Urine Protein Trace (Negative) H 08/10/18 10:18 Urine Glucose (UA) Negative g/dL (Normal) 08/10/18 10:18 Urine Ketones Negative (NEGATIVE) 08/10/18 10:18 Urine Occult Blood 1+ (Negative) H 08/10/18 10:18 Urine Nitrate Positive (Negative) 08/10/18 10:18 Urine Bilirubin Negative (NEGATIVE) 08/10/18 10:18 Urine Urobilinogen 0.2 E.U./dL (0.2) 08/10/18 10:18 Ur Leukocyte Esterase 1+ (NEGATIVE) H 08/10/18 10:18 Urine RBC 0-1/hpf (0-5/HPF) 08/10/18 10:18 Urine WBC >100/hpf (0-5/HPF) H 08/10/18 10:18 Urine Bacteria Many (>30) (None) H 08/10/18 10:18 Hyaline Casts 0-1/lpf (None) 08/10/18 10:18 Urine Mucus 1+ (Negative) H 08/10/18 10:18 Ur Culture Indicated? Specimen cultured 08/10/18 10:18 Micro UA Comment Not Reportable 08/10/18 10:18 - Imaging Additional studies: Procedures Insertion of intraocular lens prosthesis at time of cataract extraction, one-stage (08/04/11) Phacoemulsification and aspiration of cataract (08/04/11) Assessment and Plan (1) Colon cancer Problem details: 72-year-old man with initially stage III colon cancer now with metastasis. Current visit: Yes Status: Acute 73-year-old man with colon cancer was initially stage III. Unfortunately he has evidence of a recurrence. He has tolerated his 3rd cycle of treatment better. Will continue at his current dose. Return to clinic in 2 weeks for follow-up. He will be due for CT scan at that time to assess response. If his disease is stable or improved, we will continue with his current regimen. If he does have evidence of progression, we will need to consider an oxaliplatin based regimen.
[2018-12-28 08:58] LABS: Alanine Aminotransferase 28 IU/L (21-72); Albumin 3.9 g/dL (3.5-5.0); Albumin Globulin Ratio 1.3 (1.0-2.8); Alkaline Phosphatase 81 U/L (38-126); Aspartate Aminotransferase 28 IU/L (17-59); Bilirubin Total 0.2 mg/dL (0.2-1.3); Blood Urea Nitrogen 27 mg/dL (9-20); Calcium 9.3 mg/dL (8.4-10.2); Carbon Dioxide 27 mmol/L (22-32); Chloride 101 mmol/L (98-107); Globulin 3.1 g/dL (1.7-4.1); Glucose 136 mg/dL (80-110); HEMOLYSIS < 15 (0-50); Potassium 4.3 mmol/L (3.4-5.1); Sodium 138 mmol/L (137-145)
[2018-12-28 09:28] LABS: Carcinoembryonic Antigen 3.3 ng/mL (0.1-3.0)
[2018-12-28] MEDS: SODIUM CHLORIDE 0.9% 1,000 ML 1000 ML IV (09:30)
--- NOTE | 2018-12-28 09:34 | ONC.NAV ---
Description: Financial Assistance Activity: Pt turned in a gas receipt for reimbursement from the [facility] [employer] Fund. [employer] will mail the check to them once it is signed by the [employer].
[2018-12-28] MEDS: ACETAMINOPHEN 325 MG TABLET 650 MG PO (09:35)
[2018-12-28] MEDS: diphenhydrAMINE 25 MG TABLET PO (09:35)
[2018-12-28] MEDS: DEXAMETHASONE 12 MG in SODIUM CHLORIDE 0.9% 50 ML 212 ML IV (10:16)
[2018-12-28] MEDS: ONDANSETRON 16 MG in SODIUM CHLORIDE 0.9% 50 ML 232 ML IV (10:35)
[2018-12-28] MEDS: SODIUM CHLORIDE 0.9% IV (11:09)
[2018-12-28] MEDS: BEVACIZUMAB IV (11:09)
[2018-12-28] MEDS: ATROPINE 0.4 MG/ML VIAL 0.25 MG SUBCUT (11:54)
[2018-12-28] MEDS: LEUCOVORIN IV (12:15)
[2018-12-28] MEDS: DEXTROSE 5% IV ×2 (12:15→12:16)
[2018-12-28] MEDS: IRINOTECAN IV (12:16)
[2018-12-28] MEDS: FLUOROURACIL IV (13:57)
[2018-12-28] MEDS: ISOOSMOTIC VEHICLE IV (13:57)
[2018-12-28] MEDS: MAG HYDROX/ALUM/SIMETH 30 ML UDC PO (14:01)
--- NOTE | 2018-12-29 17:33 | PC.NURSE ---
5fu dose checked with NR.RSL. Pump connected to patient using equashield post positive blood return. Clamps open, settings correct and pump running with green light flashing. Patient will deaccess himself from pump on Wednesday, 12/30.
--- NOTE | 2019-01-02 10:03 | ONC.NAV ---
Description: Financial Assistance Activity: Sent check from the [employer] [facility] to reimburse pt for travel cost.
[2019-01-11 08:41] VITALS: BP 136/76; PULSE 85; RESP 20; TEMP 36.8; O2SAT 97
--- NOTE | 2019-01-11 09:04 | ONC.PN ---
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 Right hemicolectomy in April 2018. 2. 7 cycles of adjuvant 5 FU and leucovorin 3. Metastatic disease involving the adrenal gland Treated with 4 cycles of FOLFIRI thus far 4. Stereotactic radiation to the adrenal gland in December 2018. Interval history: The patient is a 73-year-old man who returns today for follow-up. He has a history of stage III colon cancer but unfortunately has developed recurrence with biopsy-proven adrenal metastasis during adjuvant chemotherapy. He had his 4th cycle of FOLFIRI 2 weeks ago with a dose reduction. He seemed to tolerate this reasonably well. He continues to struggle with poor appetite. He notes that food really does not have much flavor. He is eating and drinking some but continues to lose weight. He has had some nausea and a couple episodes of emesis. He does get relief with oral antiemetics. He has not had any sores in the mouth. He denies any difficulty swallowing. No fevers chills or sweats. He has had some mild diarrhea. No skin rash. He denies any new aches or pains. His left-sided flank pain has diminished although not resolved. He denies any other changes in his health. PMH: Morbid obesity Type 2 diabetes with neuropathy Difficulty with ambulation Chronic CHF with acute exacerbations Urinary tract obstruction Suprapubic catheter Incarcerated ventral hernia Open wound Renal insufficiency Dyspnea Sleep apnea History of right hemicolectomy - Patient Self-Reported Symptoms SR Constitution: Fatigue/Malaise, Night Sweats SR ears, nose, mouth, throat issues: Ears ringing, Congestion, Cough, Difficulty swallowing, Changes in taste, Hoarseness SR respiratory issues: Cough, Shortness of breath SR Cardiovascular issues: Shortness of breath with activity or lying flat, Dizzy/lightheaded SR Skin issues: Dry skin SR Gastrointestinal issues: Nausea, Abdominal pain, Heartburn SR Musculoskeletal issues: Muscle weakness, Back or neck pain, Difficulty walking SR Neuro issues: Tremors or shaking, Difficulty balancing SR Hematologic issues: Bleeding/bruising SR Endocrine issues: Cold intolerance, Heat intolerance Home Medications and Allergies Home Medications Medication Instructions Recorded Confirmed Type calcium carbonate [Tums] 200 mg PO QID PRN 06/07/18 12/28/18 History cholecalciferol (vitamin D3) 5,000 unit PO DAILY 06/07/18 12/28/18 History [Vitamin D3] diphenoxylate-atropine [Lomotil] 1 tab PO Q6-8H PRN 06/07/18 12/28/18 History ferrous sulfate [iron] 325 mg PO BID 06/07/18 12/28/18 History gabapentin 900 mg PO BID 06/07/18 12/28/18 History zolpidem [Ambien] 10 mg PO BEDTIME PRN 06/07/18 11/08/18 History hydralazine 50 mg PO TID 06/09/18 12/28/18 History Lasix 20 mg PO BID 06/15/18 12/28/18 History lidocaine 1 applic TOPICAL PRN PRN 06/15/18 12/28/18 History losartan 50 mg PO BID 07/12/18 12/28/18 History fluorouracil 4,800 mg IV NOW #1 device 11/08/18 Rx paroxetine HCl [Paxil] 30 mg PO DAILY #30 tab 11/08/18 12/28/18 Rx ondansetron 8 mg PO TID PRN #60 tab 11/22/18 12/28/18 Rx fluorouracil 4,000 mg IV NOW #1 device 12/13/18 Rx morphine [MS Contin] 15 mg PO Q12H 30 Days #60 tab 12/13/18 12/28/18 Rx oxycodone-acetaminophen 1 tab PO Q4-6H PRN #60 tab 12/13/18 12/28/18 Rx prochlorperazine maleate 10 mg PO Q6-8H PRN #30 tab 12/13/18 Rx [Compazine] fluorouracil 4,000 mg IV NOW #1 device 01/09/19 Rx Allergies Allergy/AdvReac Type Severity Reaction Status Date / Time cephalexin AdvReac Severe Gastrointestinal Verified 12/13/18 08:31 Upset Exam Vital signs: Vital Signs Temp Pulse Resp BP Pulse Ox 01/11/19 08:41 98.2 F 85 20 136/76 97 Intake and Output 01/10/19 01/11/19 01/11/19 23:59 07:59 15:59 Other: Weight 142.8 kg Patient Weight 01/11/19 23:59 Weight 142.8 kg - Constitutional positive no acute distress, positive obese - Routine HEENT Exam Head: Present: normocephalic, atraumatic Eye: Present: EOMI, PERRL. Absent: conjunctival icterus, scleral injection ENT: Present: mucous membranes moist, oropharynx clear - Routine Respiratory Exam Present: Clear to auscultation bilaterally. Absent: rales, wheezes - Routine Cardiovascular Exam Present: RRR, S1, S2. Absent: murmur - Routine Abdominal Exam Present: soft, normoactive bowel sounds. Absent: tenderness, organomegaly - Routine Extremities Exam Absent: cyanosis, clubbing, edema - Routine Skin Exam Present: intact. Absent: petechiae, rash - Routine Neurological Exam Present: alert, oriented X3 - Routine Psychiatric Exam Present: normal affect, normal thought process Results - Labs Laboratory Last Values WBC 4.5 X10^3/uL (4.5-11.0) 12/28/18 08:35 RBC 4.14 X10^6/uL (4.5-5.9) L 12/28/18 08:35 Hgb 13.1 g/dL (13.5-17.5) L 12/28/18 08:35 Hct 38.5 % (41-53) L 12/28/18 08:35 MCV 93.0 fL (80-100) 12/28/18 08:35 MCH 31.6 PG (26-34) 12/28/18 08:35 MCHC 33.9 % (30-36) 12/28/18 08:35 RDW 15.3 % (11.6-14.8) H 12/28/18 08:35 Plt Count 283 X10^3/uL (150-400) 12/28/18 08:35 Neut % (Auto) 68.1 % (50-75) 12/28/18 08:35 Lymph % (Auto) 16.5 % (25-40) L 12/28/18 08:35 [place] % (Auto) 10.0 % (3-14) 12/28/18 08:35 Eos % (Auto) 4.3 % (2-4) H 12/28/18 08:35 Baso % (Auto) 1.1 % (0-2) 12/28/18 08:35 Neut # (Auto) 3000 /uL (4277-4704) 12/28/18 08:35 Lymph # (Auto) 700 /uL (4472-7194) L 12/28/18 08:35 [place] # (Auto) 400 /uL (0-900) 12/28/18 08:35 Eos # (Auto) 200 /uL (0-450) 12/28/18 08:35 Baso # (Auto) 100 /uL (0-100) 12/28/18 08:35 Total Counted 100 07/26/18 09:02 Seg Neutrophils % 77.0 % (38-70) H 07/26/18 09:02 Lymphocytes % (Manual) 8.0 % (25-45) L 07/26/18 09:02 Monocytes % (Manual) 7.0 % (2-11) 07/26/18 09:02 Eosinophils % (Manual) 1.0 % (2-4) L 07/26/18 09:02 Basophils % (Manual) 2.0 % (0-1) H 07/26/18 09:02 Myelocytes % 1.0 % (-0) H 07/26/18 09:02 Blast Cells % 4.0 % (-0) H 07/26/18 09:02 Neutrophils # (Manual) 8316 /uL (6834-9911) H 07/26/18 09:02 Smudge Cells 2+ H 07/26/18 09:02 RBC Morphology Not Reportable 08/10/18 09:10 Hypochromasia 2+ H 07/12/18 08:45 Poikilocytosis 1+ H 07/26/18 09:02 Anisocytosis 1+ H 08/10/18 09:10 Microcytosis 2+ H 06/28/18 08:06 Spherocytes 1+ H 07/26/18 09:02 Smear Path Review 07/26/18 09:02 PT 11.2 SECONDS (10.1-12.7) 09/26/18 08:07 INR 1.0 (0.9-1.3) 09/26/18 08:07 Sodium 138 mmol/L (137-145) 12/28/18 08:35 Potassium 4.3 mmol/L (3.4-5.1) 12/28/18 08:35 Chloride 101 mmol/L (98-107) 12/28/18 08:35 Carbon Dioxide 27 mmol/L (22-32) 12/28/18 08:35 BUN 27 mg/dL (9-20) H 12/28/18 08:35 Creatinine 1.50 mg/dL (0.66-1.25) H 12/28/18 08:35 Estimated GFR 46.0 mL/min (>60) L 12/28/18 08:35 BUN/Creatinine Ratio 18.0 (6-22) 12/28/18 08:35 Glucose 136 mg/dL (80-110) H 12/28/18 08:35 Hemoglobin A1c 5.3 % (4.0-6.0) 07/12/18 09:00 Calcium 9.3 mg/dL (8.4-10.2) 12/28/18 08:35 Magnesium 1.6 mg/dL (1.6-2.3) 10/18/18 08:43 Total Bilirubin 0.2 mg/dL (0.2-1.3) 12/28/18 08:35 AST 28 IU/L (17-59) 12/28/18 08:35 ALT 28 IU/L (21-72) 12/28/18 08:35 Alkaline Phosphatase 81 U/L (38-126) 12/28/18 08:35 B-Natriuretic Peptide 98.8 (<100) 08/30/18 10:15 Total Protein 7.0 g/dL (6.3-8.2) 12/28/18 08:35 Albumin 3.9 g/dL (3.5-5.0) 12/28/18 08:35 Globulin 3.1 g/dL (1.7-4.1) 12/28/18 08:35 Albumin/Globulin Ratio 1.3 (1.0-2.8) 12/28/18 08:35 Carcinoembryonic Ag 3.3 ng/mL (0.1-3.0) H 12/28/18 08:35 Urine Color Yellow 08/10/18 10:18 Urine Appearance Slightly cloudy 08/10/18 10:18 Urine pH 5.0 (4.5-8.0) 08/10/18 10:18 Ur Specific [place] 1.025 (1.000-1.035) 08/10/18 10:18 Urine Protein Trace (Negative) H 08/10/18 10:18 Urine Glucose (UA) Negative g/dL (Normal) 08/10/18 10:18 Urine Ketones Negative (NEGATIVE) 08/10/18 10:18 Urine Occult Blood 1+ (Negative) H 08/10/18 10:18 Urine Nitrate Positive (Negative) 08/10/18 10:18 Urine Bilirubin Negative (NEGATIVE) 08/10/18 10:18 Urine Urobilinogen 0.2 E.U./dL (0.2) 08/10/18 10:18 Ur Leukocyte Esterase 1+ (NEGATIVE) H 08/10/18 10:18 Urine RBC 0-1/hpf (0-5/HPF) 08/10/18 10:18 Urine WBC >100/hpf (0-5/HPF) H 08/10/18 10:18 Urine Bacteria Many (>30) (None) H 08/10/18 10:18 Hyaline Casts 0-1/lpf (None) 08/10/18 10:18 Urine Mucus 1+ (Negative) H 08/10/18 10:18 Ur Culture Indicated? Specimen cultured 08/10/18 10:18 Micro UA Comment Not Reportable 08/10/18 10:18 - Imaging Additional studies: Procedures Insertion of intraocular lens prosthesis at time of cataract extraction, one-stage (08/04/11) Phacoemulsification and aspiration of cataract (08/04/11) Assessment and Plan (1) Colon cancer Problem details: 72-year-old man with initially stage III colon cancer now with metastasis. Current visit: Yes Status: Acute 73-year-old man with colon cancer was initially stage III. Unfortunately he has evidence of a recurrence. He has tolerated his 4th cycle reasonably well. His CT scan demonstrated improvement in his adrenal lesion which has been radiated. His pulmonary lesion and his right-sided adrenal lesion were stable. There are no new lesions seen. Overall, I think he has stable disease with the FOLFIRI and is tolerating it with acceptable toxicity. We did discuss the possibility of adding Avastin but I have elected to continue with his current regimen. He will get an additional L of fluid today. Will check to see if he might be eligible for some hydration at home through home health. He will return to clinic in 2 weeks for follow-up.
[2019-01-11 10:06] LABS: Add Manual Diff / Slide Review NO; Basophils Absolute Auto 100 /uL (0-100); Basophils Percent Auto 0.9 % (0-2); Eosinophils Absolute Auto 300 /uL (0-450); Eosinophils Percent Auto 3.7 % (2-4); Hematocrit 35.4 % (41-53); Lymphocytes Absolute Auto 800 /uL (1100-4500); Lymphocytes Percent Auto 9.7 % (25-40); Mean Corpuscular HGB Conc 33.9 % (30-36); Mean Corpuscular Hemoglobin 31.5 PG (26-34); Mean Corpuscular Volume 92.8 fL (80-100); Monocytes Absolute Auto 900 /uL (0-900); Monocytes Percent Auto 10.2 % (3-14); Neutrophils Absolute Auto 6500 /uL (1500-7000); Neutrophils Percent Auto 75.5 % (50-75); Platelet Count 159 X10^3/uL (150-400); Red Blood Cell Count 3.82 X10^6/uL (4.5-5.9); Red Cell Distribution Width 16.2 % (11.6-14.8); White Blood Cell Count 8.7 X10^3/uL (4.5-11.0)
[2019-01-11] MEDS: ALTEPLASE 2 MG/2 ML VIAL IV (10:10)
[2019-01-11 10:21] LABS: Alanine Aminotransferase 42 IU/L (21-72); Albumin 3.8 g/dL (3.5-5.0); Albumin Globulin Ratio 1.4 (1.0-2.8); Alkaline Phosphatase 77 U/L (38-126); Aspartate Aminotransferase 27 IU/L (17-59); BUN Creatinine Ratio 14.8 (6-22); Bilirubin Total 0.4 mg/dL (0.2-1.3); Blood Urea Nitrogen 34 mg/dL (9-20); Calcium 9.3 mg/dL (8.4-10.2); Carbon Dioxide 28 mmol/L (22-32); Chloride 98 mmol/L (98-107); Estimated Glomerular Filt Rate 28.1 mL/min (>60); Globulin 2.8 g/dL (1.7-4.1); Glucose 136 mg/dL (80-110); HEMOLYSIS < 15 (0-50); Potassium 4.6 mmol/L (3.4-5.1); Sodium 136 mmol/L (137-145); Total Protein 6.6 g/dL (6.3-8.2)
[2019-01-11] MEDS: SODIUM CHLORIDE 0.9% 1,000 ML 1000 ML IV (10:42)
[2019-01-11] MEDS: ACETAMINOPHEN 325 MG TABLET 650 MG PO (10:44)
[2019-01-11] MEDS: diphenhydrAMINE 25 MG TABLET PO (10:44)
[2019-01-11 10:52] LABS: Carcinoembryonic Antigen 2.6 ng/mL (0.1-3.0)
[2019-01-11] MEDS: DEXAMETHASONE 12 MG in SODIUM CHLORIDE 0.9% 50 ML 212 ML IV (11:15)
[2019-01-11] MEDS: ONDANSETRON 16 MG in SODIUM CHLORIDE 0.9% 50 ML 232 ML IV (11:37)
[2019-01-11] MEDS: SODIUM CHLORIDE 0.9% IV (12:12)
[2019-01-11] MEDS: BEVACIZUMAB IV (12:12)
--- NOTE | 2019-01-11 12:12 | PC.NURSE ---
Pt c/o of headaches that increase during treatment weeks, unrelieved with Tylenol. According to pt Soma has worked in the past. Pt requesting RX for Soma. Will notify Dr. Membreno to see if he will prescribe.
[2019-01-11] MEDS: LEUCOVORIN IV (13:03)
[2019-01-11] MEDS: DEXTROSE 5% IV ×2 (13:03→13:04)
[2019-01-11] MEDS: IRINOTECAN IV (13:04)
--- NOTE | 2019-01-11 14:54 | PC.NURSE ---
Received VVO from Dr. Membreno for pt to receive IV fluids 2xweek for 4week of NS bolus over 1 hr at home. Spoke with Ally, Pharmacist from [facility] to set up fluid infusions. Per Ally, she will contact pt for scheduling and set up. Pt aware of plan.
[2019-01-11] MEDS: ATROPINE 0.4 MG/ML VIAL 0.25 MG SUBCUT (15:11)
[2019-01-11] MEDS: FLUOROURACIL IV (15:37)
[2019-01-11] MEDS: ISOOSMOTIC VEHICLE IV (15:37)
--- NOTE | 2019-01-11 16:28 | PC.NURSE ---
5fu dose for CADD pump double checked with [email or web address]. Blood return positive. Tubing of pump attached using equashield. Pump running with all clamps open. Patient informed to deaccess pump at 1415 on Saturday 01/13. Patient has supplies for deaccess.
--- NOTE | 2019-01-12 09:53 | PC.NURSE ---
Markel FRANK called into [facility] in [place], pt aware.
--- NOTE | 2019-01-18 08:44 | PC.NURSE ---
New RX for 350mg Soma called to [facility] in [place], pt aware
[2019-01-25] MEDS: ALTEPLASE 2 MG/2 ML VIAL IV (08:49)
[2019-01-25 08:50] LABS: Add Manual Diff / Slide Review NO; Basophils Absolute Auto 100 /uL (0-100); Basophils Percent Auto 1.4 % (0-2); Eosinophils Absolute Auto 400 /uL (0-450); Eosinophils Percent Auto 6.5 % (2-4); Hematocrit 37.1 % (41-53); Hemoglobin 12.6 g/dL (13.5-17.5); Lymphocytes Absolute Auto 1200 /uL (1100-4500); Lymphocytes Percent Auto 18.5 % (25-40); Mean Corpuscular HGB Conc 34.1 % (30-36); Mean Corpuscular Hemoglobin 32.2 PG (26-34); Mean Corpuscular Volume 94.3 fL (80-100); Monocytes Absolute Auto 500 /uL (0-900); Monocytes Percent Auto 7.8 % (3-14); Neutrophils Absolute Auto 4300 /uL (1500-7000); Neutrophils Percent Auto 65.8 % (50-75); Platelet Count 313 X10^3/uL (150-400); Red Blood Cell Count 3.93 X10^6/uL (4.5-5.9); Red Cell Distribution Width 16.9 % (11.6-14.8); White Blood Cell Count 6.5 X10^3/uL (4.5-11.0)
--- NOTE | 2019-01-25 08:55 | ONC.NAV ---
Description: Financial Assistance Activity: Pt asked if there was any assistance at [facility] for his high medical bill, around $2200. CLIENT CARE SPECIALIST suggested that he apply for [facility] [employer], and that if he qualifies, that it could be greatly reduced. CLIENT CARE SPECIALIST provided the forms and instructions for pt/spouse to complete and submit the forms to patient accounts. No other needs identified at this time.
[2019-01-25 08:57] VITALS: BP 116/64; PULSE 78; RESP 18; TEMP 36.9; O2SAT 97
[2019-01-25 09:01] LABS: Alanine Aminotransferase 43 IU/L (21-72); Albumin Globulin Ratio 1.4 (1.0-2.8); Alkaline Phosphatase 101 U/L (38-126); Aspartate Aminotransferase 36 IU/L (17-59); BUN Creatinine Ratio 13.9 (6-22); Bilirubin Total 0.3 mg/dL (0.2-1.3); Blood Urea Nitrogen 25 mg/dL (9-20); Calcium 9.2 mg/dL (8.4-10.2); Carbon Dioxide 26 mmol/L (22-32); Chloride 100 mmol/L (98-107); Estimated Glomerular Filt Rate 37.3 mL/min (>60); Globulin 2.9 g/dL (1.7-4.1); Glucose 192 mg/dL (80-110); HEMOLYSIS < 15 (0-50); Potassium 4.2 mmol/L (3.4-5.1); Sodium 138 mmol/L (137-145); Total Protein 6.9 g/dL (6.3-8.2)
--- NOTE | 2019-01-25 09:21 | ONC.PN ---
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 Right hemicolectomy in April 2018. 2. 7 cycles of adjuvant 5 FU and leucovorin 3. Metastatic disease involving the adrenal gland Treated with 5 cycles of FOLFIRI and Avastin thus far 4. Stereotactic radiation to the adrenal gland in December 2018. Interval history: The patient is a 73-year-old man who returns today for follow-up. He has a history of stage III colon cancer but unfortunately has developed recurrence with biopsy-proven adrenal metastasis during adjuvant chemotherapy. He had his 5th cycle of FOLFIRI and Avastin 2 weeks ago with a dose reduction. He continues to tolerate with some difficulty but overall finds it manageable. He has had some nausea and a couple episodes of emesis. He has not had much diarrhea and has had mostly soft stools. No fevers or chills. His appetite remains low. He is getting lots of fluids. He has had a little bit of epistaxis but no gingival bleeding. He is also notice some bleeding from his penis but not around his suprapubic catheter. He does have an appointment with a urologist tomorrow. He has not noticed any blood in the stool. He denies any fevers chills or sweats. His flank pain has continued to diminished somewhat but he is having some anterior abdominal pain. he also has noted some feeling of fullness or congestion in his right ear. He denies any other changes in his health. PMH: Morbid obesity Type 2 diabetes with neuropathy Difficulty with ambulation Chronic CHF with acute exacerbations Urinary tract obstruction Suprapubic catheter Incarcerated ventral hernia Open wound Renal insufficiency Dyspnea Sleep apnea History of right hemicolectomy He tells me that he is considering moving to [place] with his daughters. He does not have a definite time frame yet. - Patient Self-Reported Symptoms SR Constitution: Weight loss/gain SR ears, nose, mouth, throat issues: Congestion, Difficulty swallowing SR respiratory issues: Cough, Shortness of breath SR Cardiovascular issues: Palpitations SR Skin issues: Dry skin SR Gastrointestinal issues: Poor or no appetite, Nausea, Vomiting, Diarrhea, Abdominal pain SR Musculoskeletal issues: Muscle weakness, Back or neck pain, Difficulty walking SR Neuro issues: Headache, Lightheaded/dizzy, Tremors or shaking, Difficulty balancing SR Hematologic issues: Bleeding/bruising SR Endocrine issues: Cold intolerance Home Medications and Allergies Home Medications Medication Instructions Recorded Confirmed Type calcium carbonate [Tums] 200 mg PO QID PRN 06/07/18 01/11/19 History cholecalciferol (vitamin D3) 5,000 unit PO DAILY 06/07/18 01/11/19 History [Vitamin D3] diphenoxylate-atropine [Lomotil] 1 tab PO Q6-8H PRN 06/07/18 01/11/19 History ferrous sulfate [iron] 325 mg PO BID 06/07/18 01/11/19 History gabapentin 900 mg PO BID 06/07/18 01/19/19 History zolpidem [Ambien] 10 mg PO BEDTIME PRN 06/07/18 01/19/19 History Lasix 20 mg PO BID 06/15/18 01/11/19 History lidocaine 1 applic TOPICAL PRN PRN 06/15/18 01/11/19 History losartan 50 mg PO BID 07/12/18 01/19/19 History paroxetine HCl [Paxil] 30 mg PO DAILY #30 tab 11/08/18 01/19/19 Rx ondansetron 8 mg PO TID PRN #60 tab 11/22/18 01/19/19 Rx prochlorperazine maleate 10 mg PO Q6-8H PRN #30 tab 12/13/18 01/11/19 Rx [Compazine] oxycodone-acetaminophen 1 tab PO Q4-6H PRN #60 tab 01/11/19 01/19/19 Rx fluorouracil 4,000 mg IV NOW #1 device 01/17/19 Rx carisoprodol [Soma] 350 mg PO TID PRN #30 tab 01/18/19 01/19/19 Rx hydralazine 25 mg PO TID 01/19/19 01/19/19 History morphine 15 mg PO BID 01/19/19 01/19/19 History tramadol 50 mg PO BID 01/19/19 01/19/19 History fluorouracil 4,000 mg IV NOW #1 device 01/25/19 Rx Allergies Allergy/AdvReac Type Severity Reaction Status Date / Time cephalexin AdvReac Severe Gastrointestinal Verified 01/19/19 12:55 Upset Exam Vital signs: Vital Signs Temp Pulse Resp BP Pulse Ox 01/25/19 08:57 98.5 F 78 18 116/64 97 Intake and Output 01/24/19 01/25/19 01/25/19 23:59 07:59 15:59 Other: Weight 142.3 kg Patient Weight 01/25/19 23:59 Weight 142.3 kg - Constitutional positive no acute distress, positive morbidly obese - Routine HEENT Exam Head: Present: normocephalic, atraumatic Eye: Present: EOMI, PERRL. Absent: conjunctival icterus, scleral injection ENT: Present: mucous membranes moist, oropharynx clear, TM's clear bilaterally - Routine Neck Exam Present: supple. Absent: lymphadenopathy - Routine Respiratory Exam Present: Clear to auscultation bilaterally. Absent: rales, wheezes - Routine Cardiovascular Exam Present: RRR, S1, S2. Absent: murmur - Routine Abdominal Exam Present: soft, normoactive bowel sounds. Absent: tenderness, mass - Routine Extremities Exam Absent: cyanosis, clubbing - Routine Skin Exam Present: intact. Absent: petechiae, rash - Routine Neurological Exam Present: alert, oriented X3 - Routine Psychiatric Exam Present: normal affect, normal thought process Results - Labs Laboratory Last Values WBC 6.5 X10^3/uL (4.5-11.0) 01/25/19 08:45 RBC 3.93 X10^6/uL (4.5-5.9) L 01/25/19 08:45 Hgb 12.6 g/dL (13.5-17.5) L 01/25/19 08:45 Hct 37.1 % (41-53) L 01/25/19 08:45 MCV 94.3 fL (80-100) 01/25/19 08:45 MCH 32.2 PG (26-34) 01/25/19 08:45 MCHC 34.1 % (30-36) 01/25/19 08:45 RDW 16.9 % (11.6-14.8) H 01/25/19 08:45 Plt Count 313 X10^3/uL (150-400) 01/25/19 08:45 Neut % (Auto) 65.8 % (50-75) 01/25/19 08:45 Lymph % (Auto) 18.5 % (25-40) L 01/25/19 08:45 [place] % (Auto) 7.8 % (3-14) 01/25/19 08:45 Eos % (Auto) 6.5 % (2-4) H 01/25/19 08:45 Baso % (Auto) 1.4 % (0-2) 01/25/19 08:45 Neut # (Auto) 4300 /uL (1894-1717) 01/25/19 08:45 Lymph # (Auto) 1200 /uL (1177-8300) 01/25/19 08:45 [place] # (Auto) 500 /uL (0-900) 01/25/19 08:45 Eos # (Auto) 400 /uL (0-450) 01/25/19 08:45 Baso # (Auto) 100 /uL (0-100) 01/25/19 08:45 Total Counted 100 07/26/18 09:02 Seg Neutrophils % 77.0 % (38-70) H 07/26/18 09:02 Lymphocytes % (Manual) 8.0 % (25-45) L 07/26/18 09:02 Monocytes % (Manual) 7.0 % (2-11) 07/26/18 09:02 Eosinophils % (Manual) 1.0 % (2-4) L 07/26/18 09:02 Basophils % (Manual) 2.0 % (0-1) H 07/26/18 09:02 Myelocytes % 1.0 % (-0) H 07/26/18 09:02 Blast Cells % 4.0 % (-0) H 07/26/18 09:02 Neutrophils # (Manual) 8316 /uL (5028-9797) H 07/26/18 09:02 Smudge Cells 2+ H 07/26/18 09:02 RBC Morphology Not Reportable 08/10/18 09:10 Hypochromasia 2+ H 07/12/18 08:45 Poikilocytosis 1+ H 07/26/18 09:02 Anisocytosis 1+ H 08/10/18 09:10 Microcytosis 2+ H 06/28/18 08:06 Spherocytes 1+ H 07/26/18 09:02 Smear Path Review 07/26/18 09:02 PT 11.2 SECONDS (10.1-12.7) 09/26/18 08:07 INR 1.0 (0.9-1.3) 09/26/18 08:07 Sodium 138 mmol/L (137-145) 01/25/19 08:45 Potassium 4.2 mmol/L (3.4-5.1) 01/25/19 08:45 Chloride 100 mmol/L (98-107) 01/25/19 08:45 Carbon Dioxide 26 mmol/L (22-32) 01/25/19 08:45 BUN 25 mg/dL (9-20) H 01/25/19 08:45 Creatinine 1.80 mg/dL (0.66-1.25) H 01/25/19 08:45 Estimated GFR 37.3 mL/min (>60) L 01/25/19 08:45 BUN/Creatinine Ratio 13.9 (6-22) 01/25/19 08:45 Glucose 192 mg/dL (80-110) H 01/25/19 08:45 Hemoglobin A1c 5.3 % (4.0-6.0) 07/12/18 09:00 Calcium 9.2 mg/dL (8.4-10.2) 01/25/19 08:45 Magnesium 1.6 mg/dL (1.6-2.3) 10/18/18 08:43 Total Bilirubin 0.3 mg/dL (0.2-1.3) 01/25/19 08:45 AST 36 IU/L (17-59) 01/25/19 08:45 ALT 43 IU/L (21-72) 01/25/19 08:45 Alkaline Phosphatase 101 U/L (38-126) 01/25/19 08:45 B-Natriuretic Peptide 98.8 (<100) 08/30/18 10:15 Total Protein 6.9 g/dL (6.3-8.2) 01/25/19 08:45 Albumin 4.0 g/dL (3.5-5.0) 01/25/19 08:45 Globulin 2.9 g/dL (1.7-4.1) 01/25/19 08:45 Albumin/Globulin Ratio 1.4 (1.0-2.8) 01/25/19 08:45 Carcinoembryonic Ag 2.6 ng/mL (0.1-3.0) 01/11/19 08:08 Urine Color Yellow 08/10/18 10:18 Urine Appearance Slightly cloudy 08/10/18 10:18 Urine pH 5.0 (4.5-8.0) 08/10/18 10:18 Ur Specific [place] 1.025 (1.000-1.035) 08/10/18 10:18 Urine Protein Trace (Negative) H 08/10/18 10:18 Urine Glucose (UA) Negative g/dL (Normal) 08/10/18 10:18 Urine Ketones Negative (NEGATIVE) 08/10/18 10:18 Urine Occult Blood 1+ (Negative) H 08/10/18 10:18 Urine Nitrate Positive (Negative) 08/10/18 10:18 Urine Bilirubin Negative (NEGATIVE) 08/10/18 10:18 Urine Urobilinogen 0.2 E.U./dL (0.2) 08/10/18 10:18 Ur Leukocyte Esterase 1+ (NEGATIVE) H 08/10/18 10:18 Urine RBC 0-1/hpf (0-5/HPF) 08/10/18 10:18 Urine WBC >100/hpf (0-5/HPF) H 08/10/18 10:18 Urine Bacteria Many (>30) (None) H 08/10/18 10:18 Hyaline Casts 0-1/lpf (None) 08/10/18 10:18 Urine Mucus 1+ (Negative) H 08/10/18 10:18 Ur Culture Indicated? Specimen cultured 08/10/18 10:18 Micro UA Comment Not Reportable 08/10/18 10:18 - Imaging Additional studies: Procedures Insertion of intraocular lens prosthesis at time of cataract extraction, one-stage (08/04/11) Phacoemulsification and aspiration of cataract (08/04/11) Assessment and Plan (1) Colon cancer Problem details: 72-year-old man with initially stage III colon cancer now with metastasis. Current visit: Yes Status: Acute 73-year-old man with colon cancer was initially stage III who is developed metastasis while on adjuvant chemotherapy. He has been stable on FOLFIRI and Avastin and tolerating it with some difficulty but overall finds it manageable since the dose reduction. We will proceed with his 6th cycle of chemotherapy today. He will return to clinic in about 2 weeks for follow-up. His recent CT showed essentially stable disease. He would be due for his next scan I think sometime in mid March.
[2019-01-25] MEDS: DEXAMETHASONE 12 MG in SODIUM CHLORIDE 0.9% 50 ML 212 ML IV (10:30)
[2019-01-25] MEDS: diphenhydrAMINE 25 MG TABLET PO (10:31)
[2019-01-25] MEDS: ACETAMINOPHEN 325 MG TABLET 650 MG PO (10:31)
[2019-01-25] MEDS: SODIUM CHLORIDE 0.9% 100 ML 21 ML IV (10:38)
[2019-01-25] MEDS: ONDANSETRON 16 MG in SODIUM CHLORIDE 0.9% 50 ML 232 ML IV (11:00)
[2019-01-25] MEDS: SODIUM CHLORIDE 0.9% IV (11:39)
[2019-01-25] MEDS: BEVACIZUMAB IV (11:39)
[2019-01-25] MEDS: ATROPINE 0.4 MG/ML VIAL 0.25 MG SUBCUT (12:34)
[2019-01-25] MEDS: IRINOTECAN IV (12:35)
[2019-01-25] MEDS: LEUCOVORIN IV (12:35)
[2019-01-25] MEDS: DEXTROSE 5% IV ×2 (12:35)
[2019-01-25] MEDS: FLUOROURACIL IV (14:54)
[2019-01-25] MEDS: ISOOSMOTIC VEHICLE IV (14:54)
--- NOTE | 2019-01-25 15:19 | PC.NURSE ---
CADD pump settings verified with RSL. Line flushed, equashield attached, pump verified to be running with pt and RSL. Pt disconnects at home.
[2019-02-01 09:34] VITALS: BP 92/65; PULSE 90; RESP 20; TEMP 36.8; O2SAT 94
[2019-02-01] MEDS: SODIUM CHLORIDE 0.9% 1,000 ML 1000 ML IV (11:13)
--- NOTE | 2019-02-01 13:23 | ONC.PN ---
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 Right hemicolectomy in April 2018. 2. 7 cycles of adjuvant 5 FU and leucovorin 3. Metastatic disease involving the adrenal gland Treated with 6 cycles of FOLFIRI and Avastin thus far 4. Stereotactic radiation to the adrenal gland in December 2018. Interval history: The patient is a 73-year-old man who returns today for follow-up. He has a history of stage III colon cancer but unfortunately has developed recurrence with biopsy-proven adrenal metastasis during adjuvant chemotherapy. He had his 6th cycle of FOLFIRI and Avastin 1 weeks ago with a dose reduction. He has had increasing difficulty in tolerating his chemotherapy. He notes ongoing dizziness and lightheadedness whenever he stands. He has fallen a couple of times but has been able to get up. He denies any injuries with his falls. His appetite is quite poor but he is drinking plenty of fluids. He has had some increased nausea and vomiting. He is getting partial relief from Zofran. Overall, he feels generally much weaker than he has previously. He has had some increase in his diarrhea as well. He has had some open sores in the folds of his pannus on the groin. His has been trying her best to keep this clean and dry. She has been using powder as well as some gauze strips. Despite this, his wounds have persisted or perhaps gotten a little bit more severe. She does not see any purulence. He has been struggling at home to move around. Because of his size and weakness, it is difficult for him to get in and out of the shower. He does have a shower chair but even transferring to that is a challenge. They did have home health checking on him a couple times a week. However they were not able to provide any of substantial home care. His tells me that they did at 1 point have a bath aide scheduled but they never showed up. He ideally would like to try and move to [place] to stay with his daughters. In order to do this, there would still have to sell her house. They do not have any specific time frame for this. PMH: Morbid obesity Type 2 diabetes with neuropathy Difficulty with ambulation Chronic CHF with acute exacerbations Urinary tract obstruction Suprapubic catheter Incarcerated ventral hernia Open wound Renal insufficiency Dyspnea Sleep apnea History of right hemicolectomy - Patient Self-Reported Symptoms SR Constitution: Weight loss/gain, Fatigue/Malaise SR ears, nose, mouth, throat issues: Ears ringing, Congestion, Changes in taste, Hoarseness SR respiratory issues: Cough, Shortness of breath, Difficulty breathing, Mucous SR Cardiovascular issues: Shortness of breath with activity or lying flat, Dizzy/lightheaded SR Skin issues: Dry skin SR Gastrointestinal issues: Poor or no appetite, Nausea, Vomiting, Abdominal pain, Heartburn SR Musculoskeletal issues: Muscle weakness, Muscle pain or cramps, Back or neck pain, Cold hands or feet SR Neuro issues: Headache, Lightheaded/dizzy, Tremors or shaking, Difficulty balancing SR Hematologic issues: Bleeding/bruising SR Endocrine issues: Cold intolerance Home Medications and Allergies Home Medications Medication Instructions Recorded Confirmed Type calcium carbonate [Tums] 200 mg PO QID PRN 06/07/18 01/11/19 History cholecalciferol (vitamin D3) 5,000 unit PO DAILY 06/07/18 02/01/19 History [Vitamin D3] diphenoxylate-atropine [Lomotil] 1 tab PO Q6-8H PRN 06/07/18 02/01/19 History ferrous sulfate [iron] 325 mg PO BID 06/07/18 02/01/19 History gabapentin 900 mg PO BID 06/07/18 01/19/19 History zolpidem [Ambien] 10 mg PO BEDTIME PRN 06/07/18 02/01/19 History Lasix 20 mg PO BID 06/15/18 02/01/19 History lidocaine 1 applic TOPICAL PRN PRN 06/15/18 01/11/19 History losartan 50 mg PO BID 07/12/18 02/01/19 History paroxetine HCl [Paxil] 30 mg PO DAILY #30 tab 11/08/18 02/01/19 Rx ondansetron 8 mg PO TID PRN #60 tab 11/22/18 02/01/19 Rx prochlorperazine maleate 10 mg PO Q6-8H PRN #30 tab 12/13/18 02/01/19 Rx [Compazine] oxycodone-acetaminophen 1 tab PO Q4-6H PRN #60 tab 01/11/19 02/01/19 Rx fluorouracil 4,000 mg IV NOW #1 device 01/17/19 Rx carisoprodol [Soma] 350 mg PO TID PRN #30 tab 01/18/19 01/19/19 Rx morphine 15 mg PO BID 01/19/19 02/01/19 History tramadol 50 mg PO BID 01/19/19 02/01/19 History fluorouracil 4,000 mg IV NOW #1 device 01/25/19 Rx Allergies Allergy/AdvReac Type Severity Reaction Status Date / Time cephalexin AdvReac Severe Gastrointestinal Verified 01/19/19 12:55 Upset Exam Vital signs: Vital Signs Temp Pulse Resp BP Pulse Ox 02/01/19 09:34 98.2 F 90 20 92/65 94 Intake and Output 01/31/19 02/01/19 02/01/19 23:59 07:59 15:59 Intake Total 1000 / 1000 Balance 1000 / 1000 Intake: IV 1000 / 1000 Sodium Chloride 0.9% 1,000 ml @ 1000 / 1000 1,000 MLS/HR 1000 mls/hr IV BOLUS ONE Rx#:[id number] - Constitutional positive no acute distress, positive morbidly obese Comments: He is in a wheelchair. He is pale. He is quite weak. It takes assistance of 2 people for him to climb onto the exam table. - Routine HEENT Exam Head: Present: normocephalic, atraumatic Eye: Present: EOMI, PERRL. Absent: conjunctival icterus, scleral injection ENT: Present: mucous membranes moist, oropharynx clear - Routine Neck Exam Present: supple. Absent: lymphadenopathy, thyromegaly - Routine Respiratory Exam Present: Clear to auscultation bilaterally, decreased breath sounds. Absent: rales, wheezes - Routine Cardiovascular Exam Present: RRR, S1, S2. Absent: murmur - Routine Abdominal Exam Present: soft, normoactive bowel sounds. Absent: tenderness, organomegaly Comments: His suprapubic catheter appears to be draining normally. There is no erythema or purulence around the site. In the groin, he does have some maceration of the skin as well as some open areas. There is no purulence. - Routine Neurological Exam Present: alert, oriented X3 - Routine Psychiatric Exam Present: normal affect, normal thought process Results - Labs Laboratory Last Values WBC 6.5 X10^3/uL (4.5-11.0) 01/25/19 08:45 RBC 3.93 X10^6/uL (4.5-5.9) L 01/25/19 08:45 Hgb 12.6 g/dL (13.5-17.5) L 01/25/19 08:45 Hct 37.1 % (41-53) L 01/25/19 08:45 MCV 94.3 fL (80-100) 01/25/19 08:45 MCH 32.2 PG (26-34) 01/25/19 08:45 MCHC 34.1 % (30-36) 01/25/19 08:45 RDW 16.9 % (11.6-14.8) H 01/25/19 08:45 Plt Count 313 X10^3/uL (150-400) 01/25/19 08:45 Neut % (Auto) 65.8 % (50-75) 01/25/19 08:45 Lymph % (Auto) 18.5 % (25-40) L 01/25/19 08:45 [place] % (Auto) 7.8 % (3-14) 01/25/19 08:45 Eos % (Auto) 6.5 % (2-4) H 01/25/19 08:45 Baso % (Auto) 1.4 % (0-2) 01/25/19 08:45 Neut # (Auto) 4300 /uL (1526-1119) 01/25/19 08:45 Lymph # (Auto) 1200 /uL (4177-1227) 01/25/19 08:45 [place] # (Auto) 500 /uL (0-900) 01/25/19 08:45 Eos # (Auto) 400 /uL (0-450) 01/25/19 08:45 Baso # (Auto) 100 /uL (0-100) 01/25/19 08:45 Total Counted 100 07/26/18 09:02 Seg Neutrophils % 77.0 % (38-70) H 07/26/18 09:02 Lymphocytes % (Manual) 8.0 % (25-45) L 07/26/18 09:02 Monocytes % (Manual) 7.0 % (2-11) 07/26/18 09:02 Eosinophils % (Manual) 1.0 % (2-4) L 07/26/18 09:02 Basophils % (Manual) 2.0 % (0-1) H 07/26/18 09:02 Myelocytes % 1.0 % (-0) H 07/26/18 09:02 Blast Cells % 4.0 % (-0) H 07/26/18 09:02 Neutrophils # (Manual) 8316 /uL (3737-0525) H 07/26/18 09:02 Smudge Cells 2+ H 07/26/18 09:02 RBC Morphology Not Reportable 08/10/18 09:10 Hypochromasia 2+ H 07/12/18 08:45 Poikilocytosis 1+ H 07/26/18 09:02 Anisocytosis 1+ H 08/10/18 09:10 Microcytosis 2+ H 06/28/18 08:06 Spherocytes 1+ H 07/26/18 09:02 Smear Path Review 07/26/18 09:02 PT 11.2 SECONDS (10.1-12.7) 09/26/18 08:07 INR 1.0 (0.9-1.3) 09/26/18 08:07 Sodium 138 mmol/L (137-145) 01/25/19 08:45 Potassium 4.2 mmol/L (3.4-5.1) 01/25/19 08:45 Chloride 100 mmol/L (98-107) 01/25/19 08:45 Carbon Dioxide 26 mmol/L (22-32) 01/25/19 08:45 BUN 25 mg/dL (9-20) H 01/25/19 08:45 Creatinine 1.80 mg/dL (0.66-1.25) H 01/25/19 08:45 Estimated GFR 37.3 mL/min (>60) L 01/25/19 08:45 BUN/Creatinine Ratio 13.9 (6-22) 01/25/19 08:45 Glucose 192 mg/dL (80-110) H 01/25/19 08:45 Hemoglobin A1c 5.3 % (4.0-6.0) 07/12/18 09:00 Calcium 9.2 mg/dL (8.4-10.2) 01/25/19 08:45 Magnesium 1.6 mg/dL (1.6-2.3) 10/18/18 08:43 Total Bilirubin 0.3 mg/dL (0.2-1.3) 01/25/19 08:45 AST 36 IU/L (17-59) 01/25/19 08:45 ALT 43 IU/L (21-72) 01/25/19 08:45 Alkaline Phosphatase 101 U/L (38-126) 01/25/19 08:45 B-Natriuretic Peptide 98.8 (<100) 08/30/18 10:15 Total Protein 6.9 g/dL (6.3-8.2) 01/25/19 08:45 Albumin 4.0 g/dL (3.5-5.0) 01/25/19 08:45 Globulin 2.9 g/dL (1.7-4.1) 01/25/19 08:45 Albumin/Globulin Ratio 1.4 (1.0-2.8) 01/25/19 08:45 Carcinoembryonic Ag 3.0 ng/mL (0.1-3.0) 01/25/19 08:45 Urine Color Yellow 08/10/18 10:18 Urine Appearance Slightly cloudy 08/10/18 10:18 Urine pH 5.0 (4.5-8.0) 08/10/18 10:18 Ur Specific [place] 1.025 (1.000-1.035) 08/10/18 10:18 Urine Protein Trace (Negative) H 08/10/18 10:18 Urine Glucose (UA) Negative g/dL (Normal) 08/10/18 10:18 Urine Ketones Negative (NEGATIVE) 08/10/18 10:18 Urine Occult Blood 1+ (Negative) H 08/10/18 10:18 Urine Nitrate Positive (Negative) 08/10/18 10:18 Urine Bilirubin Negative (NEGATIVE) 08/10/18 10:18 Urine Urobilinogen 0.2 E.U./dL (0.2) 08/10/18 10:18 Ur Leukocyte Esterase 1+ (NEGATIVE) H 08/10/18 10:18 Urine RBC 0-1/hpf (0-5/HPF) 08/10/18 10:18 Urine WBC >100/hpf (0-5/HPF) H 08/10/18 10:18 Urine Bacteria Many (>30) (None) H 08/10/18 10:18 Hyaline Casts 0-1/lpf (None) 08/10/18 10:18 Urine Mucus 1+ (Negative) H 08/10/18 10:18 Ur Culture Indicated? Specimen cultured 08/10/18 10:18 Micro UA Comment Not Reportable 08/10/18 10:18 - Imaging Additional studies: Procedures Insertion of intraocular lens prosthesis at time of cataract extraction, one-stage (08/04/11) Phacoemulsification and aspiration of cataract (08/04/11) Assessment and Plan (1) Colon cancer Problem details: 72-year-old man with initially stage III colon cancer now with metastasis. Current visit: Yes Status: Acute 73-year-old man with colon cancer was initially stage III who is developed metastasis while on adjuvant chemotherapy. He has been stable on FOLFIRI and Avastin and tolerating it with increasing difficulty. His CT scan about a month ago and showed essentially stable disease but it appears that his performance status is declining. We will plan on repeating a CT scan to see if there has been any evidence of progression. Will make a referral to the wound clinic. He will get some hydration here today. He will return to clinic in about 1 week for follow-up. He does have hypotension. He will stop hydralazine. If his blood pressure is still low, we may stop his other blood pressure medicines. If his CT scan shows clear progression, I think we would need to consider stopping chemotherapy. One could consider trying FOLFOX. However I think his performance status would be limiting. If his CT scan shows ongoing stable disease, we may still need to consider taking a treatment break to allow his performance status to improve. He does understand that the goal of therapy is palliative. I explained that even if we were controlling his cancer but the making him too ill in the process, may need to make some changes are consider stopping her holding the chemotherapy. He will return to clinic in 1 week for follow-up. Greater than 40 minutes was spent with the patient and his today the majority in counseling.
--- NOTE | 2019-02-01 14:27 | ONC.SCHED ---
[id number] is [phone]
--- NOTE | 2019-02-07 10:03 | ONC.SCHED ---
Mago left this chart for me that she started working on. Part of the CT has been approved but the other part has not been released for approval yet. I talked to human today and they said it should be done by end of day today so we can get the CT scheduled. Also, I don't know if Mago has started the referral process to the wound care center so I'll start that.
--- NOTE | 2019-02-07 17:08 | PC.NURSE ---
1600: Patient's called at 1531 reporting patient has has only been able to get out of bed a couple of times since last treatment () and that he has been vomiting all food and much of his liquids as well since then. She states that he is dizzy and almost passing out when he does get up. This nurse advised patient's to take patient to ER and to call 911 for transport due to risk of his falling.
--- NOTE | 2019-02-08 08:21 | PC.NURSE ---
Addendum entered by Susana Salazar R.N. 02/08/19 08:29: Patient stated understanding of nurse's advice to remain in hospital. Original Note: Called patient in his hospital room after reading note of hospitalist and encouraged patient to stay until discharged as he was stating per report that he would leave against medical advice for his treatment this am. This nurse stated that if he was admitted due to [place] and vomiting that we would then not treat today anyhow.
--- NOTE | 2019-02-08 10:18 | ONC.MSW ---
Description: Care Summary Patient admitted inpt due to weakness, nausea, decreased food/fluid intake and a declining performance status. This has been his baseline for several weeks. Pt's has been expressing frustration, feeling physically and emotionally exhausted, and feels that she can no longer care for pt without assistance, as he has her own chronic pain and health issues. Pt has complained of feeling deeply depressed, feels hopeless, and has expressed he has no quality of life. Despite this, he has refused offers for counseling and/or antidepressant therapy. He and his have ongoing conflictual dynamics at home. has shared multiple times that pt will yell at her, throw things at her, and often becomes emotionally abusive when he is not feeling well. He has been falling, multiple times per week, which has required EMS interventions in order to get him up off of the floor. He and his struggle financially, and have fully utilized the $600 available to them through the [facility] [employer] [facility]. They are unable to afford in-home care, own their own home, and have stated that they don't think that they would qualify for Medicaid. Patient has remained adamant to continue aggressive chemotherapy, even though his functional status has been poor for months. SCRAPER LOADER OPERATOR met with pt/spouse at their last visit, at which time they shared that their goal was to move to [place], where the 's 2-daughters live, in order to have more help with pt's care. They plan to establish care with the local cancer center at that time, as he doesn't want to consider hospice or comfort care at this time, even though he has been told, and states that he understands, that the focus of his chemotherapy is purely palliative in nature. expressed concerns as to how she was going to get him to [place]. She can't afford a plane ticket, and he has had severe nausea/vomiting/diarrhea along with weakness, so she doesn't think flying would be a good idea. He would also need oxygen and medical care while on the flight, he is unable to ambulate independently, and would not fit inside an airplane bathroom due to his size. She is considering driving him down in her SUV, with the back seats down, however she doesn't know how she would get him back out of the vehicle for him to be able to go to the bathroom. SCRAPER LOADER OPERATOR had encouraged pt to consider talking with Dr. Membreno at that time to skip a chemo treatment in order to stabilize his symptoms long enough to travel. He felt unsure about the idea at the time. Today, Dr. Membreno met with him inpt, and told pt that we are not going to be giving him chemotherapy due to his declining performance status, and agreed that a break from chemo would enable pt to gain control of the nausea/vomiting/weakness. Dr. Membreno is planning to order nutrition consult, order physical therapy, and Home Health. Plan: SCRAPER LOADER OPERATOR will plan to visit pt/ later today to assess discharge planning needs and possible placement.
--- NOTE | 2019-02-14 14:17 | ONC.SCHED ---
Left message for Reid regarding getting the CT. We just received auth from his insurance via fax on 02/13/19.
--- NOTE | 2019-02-21 13:46 | ONC.MSW ---
Description: T/C re: [employer] forms, MRF Activity: MEDICAL BILLING MANAGER called and left a message for pt/ to please call me and give an update re: their progress in completing the [employer] forms, and that we will only be able to reimburse them $22.00 of the $77.00 gas receipt that they turned in, due to pt having used all available funds from the [facility] now. Requested a return call.
[2019-02-22 08:28] VITALS: BP 118/86; PULSE 88; RESP 18; TEMP 36.8; O2SAT 97
--- NOTE | 2019-02-22 08:47 | ONC.PN ---
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 Right hemicolectomy in April 2018. 2. 7 cycles of adjuvant 5 FU and leucovorin 3. Metastatic disease involving the adrenal gland Treated with 6 cycles of FOLFIRI and Avastin the last given on January 25, 2019 4. Stereotactic radiation to the adrenal gland in December 2018. Interval history: The patient is a 73-year-old man who returns today for follow-up. Since his last visit, he was hospitalized with progressive weakness and falls, nausea vomiting and diarrhea and dehydration. He had a CT scan during his hospital stay that showed essentially stable cancer. His chemotherapy has been held for about a month now. Since his hospital discharge, he has been feeling gradually better. His strength and energy level have been improving. He is able to walk better and has not had any further falling. His appetite has improved and he has been able to gain back a few the lb that he lost. He notes that food is tasting better. He is not having any mouth sores or skin rash. His pain has been under good control. He denies any fevers chills or sweats. Overall, he is feeling much more like his usual self. He is planning to move to [place] around the of April. PMH: Morbid obesity Type 2 diabetes with neuropathy Difficulty with ambulation Chronic CHF with acute exacerbations Urinary tract obstruction Suprapubic catheter Incarcerated ventral hernia Open wound Renal insufficiency Dyspnea Sleep apnea History of right hemicolectomy - Patient Self-Reported Symptoms SR Constitution: Weight loss/gain, Fatigue/Malaise SR ears, nose, mouth, throat issues: Ears ringing, Congestion, Cough, Changes in taste SR respiratory issues: Cough SR Cardiovascular issues: Dizzy/lightheaded SR Skin issues: Dry skin SR Gastrointestinal issues: Abdominal pain SR Musculoskeletal issues: Muscle weakness SR Neuro issues: Difficulty balancing SR Hematologic issues: Bleeding/bruising SR Endocrine issues: Cold intolerance Home Medications and Allergies Home Medications Medication Instructions Recorded Confirmed Type calcium carbonate [Tums] 200 mg PO QID PRN 06/07/18 02/22/19 History cholecalciferol (vitamin D3) 5,000 unit PO BID 06/07/18 02/22/19 History [Vitamin D3] diphenoxylate-atropine [Lomotil] 1 tab PO Q6-8H PRN 06/07/18 02/22/19 History gabapentin 900 mg PO DAILY 06/07/18 02/22/19 History zolpidem [Ambien] 10 mg PO BEDTIME PRN 06/07/18 02/22/19 History lidocaine 1 applic TOPICAL PRN PRN 06/15/18 02/22/19 History losartan 50 mg PO BID 07/12/18 02/22/19 History ondansetron 8 mg PO TID PRN #60 tab 11/22/18 02/22/19 Rx prochlorperazine maleate 10 mg PO Q6-8H PRN #30 tab 12/13/18 02/22/19 Rx [Compazine] oxycodone-acetaminophen 1 tab PO Q4-6H PRN #60 tab 01/11/19 02/22/19 Rx carisoprodol [Soma] 350 mg PO TID PRN #30 tab 01/18/19 02/22/19 Rx tramadol 50 mg PO BID 01/19/19 02/22/19 History fluorouracil 4,000 mg IV NOW #1 device 01/25/19 02/07/19 Rx furosemide [Lasix] 10 mg PO BID 02/07/19 02/22/19 History morphine 15 mg PO BID 30 Days #60 tab 02/22/19 Rx Allergies Allergy/AdvReac Type Severity Reaction Status Date / Time cephalexin AdvReac Severe Gastrointestinal Verified 01/19/19 12:55 Upset Exam Vital signs: Vital Signs Temp Pulse Resp BP Pulse Ox 02/22/19 08:28 98.2 F 88 18 118/86 97 Intake and Output 02/21/19 02/22/19 02/22/19 23:59 07:59 15:59 Other: Weight 146.9 kg Patient Weight 02/22/19 23:59 Weight 146.9 kg - Constitutional positive no acute distress, positive morbidly obese Comments: He is in a wheelchair but looks stronger than at his last visit. - Routine HEENT Exam Head: Present: normocephalic, atraumatic Eye: Present: EOMI, PERRL. Absent: conjunctival icterus, scleral injection ENT: Present: mucous membranes moist, oropharynx clear - Routine Neck Exam Present: supple. Absent: lymphadenopathy, thyromegaly - Routine Respiratory Exam Present: Clear to auscultation bilaterally. Absent: rales, wheezes - Routine Cardiovascular Exam Present: RRR, S1, S2. Absent: murmur - Routine Abdominal Exam Present: soft, normoactive bowel sounds. Absent: tenderness, organomegaly Comments: He has a suprapubic catheter in place. - Routine Skin Exam Present: intact. Absent: petechiae, rash - Routine Neurological Exam Present: alert, oriented X3 - Routine Psychiatric Exam Present: normal affect, normal thought process Results - Labs Laboratory Last Values WBC 6.5 X10^3/uL (4.5-11.0) 01/25/19 08:45 RBC 3.93 X10^6/uL (4.5-5.9) L 01/25/19 08:45 Hgb 12.6 g/dL (13.5-17.5) L 01/25/19 08:45 Hct 37.1 % (41-53) L 01/25/19 08:45 MCV 94.3 fL (80-100) 01/25/19 08:45 MCH 32.2 PG (26-34) 01/25/19 08:45 MCHC 34.1 % (30-36) 01/25/19 08:45 RDW 16.9 % (11.6-14.8) H 01/25/19 08:45 Plt Count 313 X10^3/uL (150-400) 01/25/19 08:45 Neut % (Auto) 65.8 % (50-75) 01/25/19 08:45 Lymph % (Auto) 18.5 % (25-40) L 01/25/19 08:45 [place] % (Auto) 7.8 % (3-14) 01/25/19 08:45 Eos % (Auto) 6.5 % (2-4) H 01/25/19 08:45 Baso % (Auto) 1.4 % (0-2) 01/25/19 08:45 Neut # (Auto) 4300 /uL (0570-6644) 01/25/19 08:45 Lymph # (Auto) 1200 /uL (6200-4373) 01/25/19 08:45 [place] # (Auto) 500 /uL (0-900) 01/25/19 08:45 Eos # (Auto) 400 /uL (0-450) 01/25/19 08:45 Baso # (Auto) 100 /uL (0-100) 01/25/19 08:45 Total Counted 100 07/26/18 09:02 Seg Neutrophils % 77.0 % (38-70) H 07/26/18 09:02 Lymphocytes % (Manual) 8.0 % (25-45) L 07/26/18 09:02 Monocytes % (Manual) 7.0 % (2-11) 07/26/18 09:02 Eosinophils % (Manual) 1.0 % (2-4) L 07/26/18 09:02 Basophils % (Manual) 2.0 % (0-1) H 07/26/18 09:02 Myelocytes % 1.0 % (-0) H 07/26/18 09:02 Blast Cells % 4.0 % (-0) H 07/26/18 09:02 Neutrophils # (Manual) 8316 /uL (0531-7085) H 07/26/18 09:02 Smudge Cells 2+ H 07/26/18 09:02 RBC Morphology Not Reportable 08/10/18 09:10 Hypochromasia 2+ H 07/12/18 08:45 Poikilocytosis 1+ H 07/26/18 09:02 Anisocytosis 1+ H 08/10/18 09:10 Microcytosis 2+ H 06/28/18 08:06 Spherocytes 1+ H 07/26/18 09:02 Smear Path Review 07/26/18 09:02 PT 11.2 SECONDS (10.1-12.7) 09/26/18 08:07 INR 1.0 (0.9-1.3) 09/26/18 08:07 Sodium 138 mmol/L (137-145) 01/25/19 08:45 Potassium 4.2 mmol/L (3.4-5.1) 01/25/19 08:45 Chloride 100 mmol/L (98-107) 01/25/19 08:45 Carbon Dioxide 26 mmol/L (22-32) 01/25/19 08:45 BUN 25 mg/dL (9-20) H 01/25/19 08:45 Creatinine 1.80 mg/dL (0.66-1.25) H 01/25/19 08:45 Estimated GFR 37.3 mL/min (>60) L 01/25/19 08:45 BUN/Creatinine Ratio 13.9 (6-22) 01/25/19 08:45 Glucose 192 mg/dL (80-110) H 01/25/19 08:45 Hemoglobin A1c 5.3 % (4.0-6.0) 07/12/18 09:00 Calcium 9.2 mg/dL (8.4-10.2) 01/25/19 08:45 Magnesium 1.6 mg/dL (1.6-2.3) 10/18/18 08:43 Total Bilirubin 0.3 mg/dL (0.2-1.3) 01/25/19 08:45 AST 36 IU/L (17-59) 01/25/19 08:45 ALT 43 IU/L (21-72) 01/25/19 08:45 Alkaline Phosphatase 101 U/L (38-126) 01/25/19 08:45 B-Natriuretic Peptide 98.8 (<100) 08/30/18 10:15 Total Protein 6.9 g/dL (6.3-8.2) 01/25/19 08:45 Albumin 4.0 g/dL (3.5-5.0) 01/25/19 08:45 Globulin 2.9 g/dL (1.7-4.1) 01/25/19 08:45 Albumin/Globulin Ratio 1.4 (1.0-2.8) 01/25/19 08:45 Carcinoembryonic Ag 3.0 ng/mL (0.1-3.0) 01/25/19 08:45 Urine Color Yellow 08/10/18 10:18 Urine Appearance Slightly cloudy 08/10/18 10:18 Urine pH 5.0 (4.5-8.0) 08/10/18 10:18 Ur Specific [place] 1.025 (1.000-1.035) 08/10/18 10:18 Urine Protein Trace (Negative) H 08/10/18 10:18 Urine Glucose (UA) Negative g/dL (Normal) 08/10/18 10:18 Urine Ketones Negative (NEGATIVE) 08/10/18 10:18 Urine Occult Blood 1+ (Negative) H 08/10/18 10:18 Urine Nitrate Positive (Negative) 08/10/18 10:18 Urine Bilirubin Negative (NEGATIVE) 08/10/18 10:18 Urine Urobilinogen 0.2 E.U./dL (0.2) 08/10/18 10:18 Ur Leukocyte Esterase 1+ (NEGATIVE) H 08/10/18 10:18 Urine RBC 0-1/hpf (0-5/HPF) 08/10/18 10:18 Urine WBC >100/hpf (0-5/HPF) H 08/10/18 10:18 Urine Bacteria Many (>30) (None) H 08/10/18 10:18 Hyaline Casts 0-1/lpf (None) 08/10/18 10:18 Urine Mucus 1+ (Negative) H 08/10/18 10:18 Ur Culture Indicated? Specimen cultured 08/10/18 10:18 Micro UA Comment Not Reportable 08/10/18 10:18 - Imaging Additional studies: Procedures Insertion of intraocular lens prosthesis at time of cataract extraction, one-stage (08/04/11) Phacoemulsification and aspiration of cataract (08/04/11) Assessment and Plan (1) Colon cancer Problem details: 72-year-old man with initially stage III colon cancer now with metastasis. Current visit: No Status: Acute 73-year-old man with colon cancer was initially stage III who is developed metastasis while on adjuvant chemotherapy. He has been stable on FOLFIRI and Avastin and tolerating it with increasing difficulty. Since taking treatment holiday over the last month, his performance status has markedly improved and he is feeling better. CT scan demonstrates stable disease. Will continue to follow expectantly. He will return to clinic in about 4 weeks for follow-up. I would anticipate that he would need a CT scan shortly after his moved to [place]. I would anticipate that he would continue to hold off on any further chemotherapy until there is evidence of cancer progression.
--- NOTE | 2019-02-22 10:48 | ONC.MSW ---
Description: [facility] Coordination Activity: Completed the [employer] and mailed it. Discussed continued care coordination needs prior to pt moving to [place], the target date is now for the first week of April. Will f/u with pt once the [employer] [facility] responds to the application.
--- NOTE | 2019-03-28 08:32 | ONC.MSW ---
Description: [employer] Forms Activity: Faxed the remaining forms back to the [employer], per their request. PASTRY BAKER will notify pt once a determination has been made re: his dream request.
[2019-03-29 10:56] VITALS: BP 127/80; PULSE 87; RESP 20; TEMP 36.9; O2SAT 95
--- NOTE | 2019-03-29 11:19 | ONC.PN ---
PN -Subjective Interval history: Diagnosis: Colon cancer, T3 N2, ODNI mutation positive, mismatch repair normal Previous treatment: 1. Right hemicolectomy in April 2018. 2. 7 cycles of adjuvant 5 FU and leucovorin 3. Metastatic disease involving the adrenal gland Treated with 6 cycles of FOLFIRI and Avastin the last given on January 25, 2019 4. Stereotactic radiation to the adrenal gland in December 2018. Interval history: The patient is a 73-year-old man who returns today for follow-up. Since his last visit, he has been off of his chemotherapy and reports that he has been feeling mostly better. He is needing less pain medication. He continues on long-acting morphine 15 mg twice a day. He is only taking 1 breakthrough oxycodone on about 4 or 5 days per week. He is not having vomiting but still has some nausea. He has been using oral antiemetics which has been helpful. His appetite has been improved. His strength has been low but has been improving. He has not had any further falls. No shortness of breath. No mouth sores or skin rash. He denies any other changes in his health. He is planning to move to [place] around the of April. PMH: Morbid obesity Type 2 diabetes with neuropathy Difficulty with ambulation Chronic CHF with acute exacerbations Urinary tract obstruction Suprapubic catheter Incarcerated ventral hernia Open wound Renal insufficiency Dyspnea Sleep apnea History of right hemicolectomy - Patient Self-Reported Symptoms SR Constitution: Weight loss/gain, Fatigue/Malaise SR ears, nose, mouth, throat issues: Ears ringing, Congestion, Cough, Changes in taste SR respiratory issues: Cough SR Cardiovascular issues: Dizzy/lightheaded SR Skin issues: Dry skin SR Gastrointestinal issues: Abdominal pain SR Musculoskeletal issues: Muscle weakness SR Neuro issues: Difficulty balancing SR Hematologic issues: Bleeding/bruising SR Endocrine issues: Cold intolerance Home Medications and Allergies Home Medications Medication Instructions Recorded Confirmed Type calcium carbonate [Tums] 200 mg PO QID PRN 06/07/18 02/22/19 History cholecalciferol (vitamin D3) 5,000 unit PO BID 06/07/18 02/22/19 History [Vitamin D3] diphenoxylate-atropine [Lomotil] 1 tab PO Q6-8H PRN 06/07/18 02/22/19 History gabapentin 900 mg PO DAILY 06/07/18 02/22/19 History zolpidem [Ambien] 10 mg PO BEDTIME PRN 06/07/18 02/22/19 History lidocaine 1 applic TOPICAL PRN PRN 06/15/18 02/22/19 History losartan 50 mg PO BID 07/12/18 02/22/19 History ondansetron 8 mg PO TID PRN #60 tab 11/22/18 02/22/19 Rx prochlorperazine maleate 10 mg PO Q6-8H PRN #30 tab 12/13/18 02/22/19 Rx [Compazine] carisoprodol [Soma] 350 mg PO TID PRN #30 tab 01/18/19 02/22/19 Rx tramadol 50 mg PO BID 01/19/19 02/22/19 History fluorouracil 4,000 mg IV NOW #1 device 01/25/19 02/07/19 Rx furosemide [Lasix] 10 mg PO BID 02/07/19 02/22/19 History morphine 15 mg PO Q12H #60 tab 03/29/19 Rx oxycodone-acetaminophen 1 tab PO Q4-6H PRN #60 tab 03/29/19 Rx Allergies Allergy/AdvReac Type Severity Reaction Status Date / Time cephalexin AdvReac Severe Gastrointestinal Verified 01/19/19 12:55 Upset Exam Vital signs: Vital Signs Temp Pulse Resp BP Pulse Ox 03/29/19 10:56 98.4 F 87 20 127/80 95 Intake and Output 03/28/19 03/29/19 03/29/19 23:59 07:59 15:59 Other: Weight 144.7 kg Patient Weight 03/29/19 23:59 Weight 144.7 kg - Constitutional positive no acute distress, positive morbidly obese Comments: He is not further examined. Results - Labs Laboratory Last Values WBC 6.5 X10^3/uL (4.5-11.0) 01/25/19 08:45 RBC 3.93 X10^6/uL (4.5-5.9) L 01/25/19 08:45 Hgb 12.6 g/dL (13.5-17.5) L 01/25/19 08:45 Hct 37.1 % (41-53) L 01/25/19 08:45 MCV 94.3 fL (80-100) 01/25/19 08:45 MCH 32.2 PG (26-34) 01/25/19 08:45 MCHC 34.1 % (30-36) 01/25/19 08:45 RDW 16.9 % (11.6-14.8) H 01/25/19 08:45 Plt Count 313 X10^3/uL (150-400) 01/25/19 08:45 Neut % (Auto) 65.8 % (50-75) 01/25/19 08:45 Lymph % (Auto) 18.5 % (25-40) L 01/25/19 08:45 [place] % (Auto) 7.8 % (3-14) 01/25/19 08:45 Eos % (Auto) 6.5 % (2-4) H 01/25/19 08:45 Baso % (Auto) 1.4 % (0-2) 01/25/19 08:45 Neut # (Auto) 4300 /uL (6371-9848) 01/25/19 08:45 Lymph # (Auto) 1200 /uL (7107-3567) 01/25/19 08:45 [place] # (Auto) 500 /uL (0-900) 01/25/19 08:45 Eos # (Auto) 400 /uL (0-450) 01/25/19 08:45 Baso # (Auto) 100 /uL (0-100) 01/25/19 08:45 Total Counted 100 07/26/18 09:02 Seg Neutrophils % 77.0 % (38-70) H 07/26/18 09:02 Lymphocytes % (Manual) 8.0 % (25-45) L 07/26/18 09:02 Monocytes % (Manual) 7.0 % (2-11) 07/26/18 09:02 Eosinophils % (Manual) 1.0 % (2-4) L 07/26/18 09:02 Basophils % (Manual) 2.0 % (0-1) H 07/26/18 09:02 Myelocytes % 1.0 % (-0) H 07/26/18 09:02 Blast Cells % 4.0 % (-0) H 07/26/18 09:02 Neutrophils # (Manual) 8316 /uL (1151-6523) H 07/26/18 09:02 Smudge Cells 2+ H 07/26/18 09:02 RBC Morphology Not Reportable 08/10/18 09:10 Hypochromasia 2+ H 07/12/18 08:45 Poikilocytosis 1+ H 07/26/18 09:02 Anisocytosis 1+ H 08/10/18 09:10 Microcytosis 2+ H 06/28/18 08:06 Spherocytes 1+ H 07/26/18 09:02 Smear Path Review 07/26/18 09:02 PT 11.2 SECONDS (10.1-12.7) 09/26/18 08:07 INR 1.0 (0.9-1.3) 09/26/18 08:07 Sodium 138 mmol/L (137-145) 01/25/19 08:45 Potassium 4.2 mmol/L (3.4-5.1) 01/25/19 08:45 Chloride 100 mmol/L (98-107) 01/25/19 08:45 Carbon Dioxide 26 mmol/L (22-32) 01/25/19 08:45 BUN 25 mg/dL (9-20) H 01/25/19 08:45 Creatinine 1.80 mg/dL (0.66-1.25) H 01/25/19 08:45 Estimated GFR 37.3 mL/min (>60) L 01/25/19 08:45 BUN/Creatinine Ratio 13.9 (6-22) 01/25/19 08:45 Glucose 192 mg/dL (80-110) H 01/25/19 08:45 Hemoglobin A1c 5.3 % (4.0-6.0) 07/12/18 09:00 Calcium 9.2 mg/dL (8.4-10.2) 01/25/19 08:45 Magnesium 1.6 mg/dL (1.6-2.3) 10/18/18 08:43 Total Bilirubin 0.3 mg/dL (0.2-1.3) 01/25/19 08:45 AST 36 IU/L (17-59) 01/25/19 08:45 ALT 43 IU/L (21-72) 01/25/19 08:45 Alkaline Phosphatase 101 U/L (38-126) 01/25/19 08:45 B-Natriuretic Peptide 98.8 (<100) 11/27/18 10:15 Total Protein 6.9 g/dL (6.3-8.2) 01/25/19 08:45 Albumin 4.0 g/dL (3.5-5.0) 01/25/19 08:45 Globulin 2.9 g/dL (1.7-4.1) 01/25/19 08:45 Albumin/Globulin Ratio 1.4 (1.0-2.8) 01/25/19 08:45 Carcinoembryonic Ag 3.0 ng/mL (0.1-3.0) 01/25/19 08:45 Urine Color Yellow 08/10/18 10:18 Urine Appearance Slightly cloudy 08/10/18 10:18 Urine pH 5.0 (4.5-8.0) 08/10/18 10:18 Ur Specific [place] 1.025 (1.000-1.035) 08/10/18 10:18 Urine Protein Trace (Negative) H 08/10/18 10:18 Urine Glucose (UA) Negative g/dL (Normal) 08/10/18 10:18 Urine Ketones Negative (NEGATIVE) 08/10/18 10:18 Urine Occult Blood 1+ (Negative) H 08/10/18 10:18 Urine Nitrate Positive (Negative) 08/10/18 10:18 Urine Bilirubin Negative (NEGATIVE) 08/10/18 10:18 Urine Urobilinogen 0.2 E.U./dL (0.2) 08/10/18 10:18 Ur Leukocyte Esterase 1+ (NEGATIVE) H 08/10/18 10:18 Urine RBC 0-1/hpf (0-5/HPF) 08/10/18 10:18 Urine WBC >100/hpf (0-5/HPF) H 08/10/18 10:18 Urine Bacteria Many (>30) (None) H 08/10/18 10:18 Hyaline Casts 0-1/lpf (None) 08/10/18 10:18 Urine Mucus 1+ (Negative) H 08/10/18 10:18 Ur Culture Indicated? Specimen cultured 08/10/18 10:18 Micro UA Comment Not Reportable 08/10/18 10:18 - Imaging Additional studies: Procedures Insertion of intraocular lens prosthesis at time of cataract extraction, one-stage (08/04/11) Phacoemulsification and aspiration of cataract (08/04/11) Assessment and Plan (1) Colon cancer Problem details: 72-year-old man with initially stage III colon cancer now with metastasis. Current visit: No Status: Acute 73-year-old man with colon cancer was initially stage III who is developed metastasis while on adjuvant chemotherapy. He has been stable on FOLFIRI and Avastin but was tolerating it poorly. He has been doing better since stopping his chemotherapy. I think he will likely require follow-up CT shortly after his moved to [place]. I am not sure whether he will be strong enough to tolerate any additional chemotherapy if he does have evidence of progression. It would likely depend on his performance status at the time period
== END ==
DX: C18.9 Malignant neoplasm of colon, unspecified (principal); C79.70 Secondary malignant neoplasm of unspecified adrenal gland; E66.01 Morbid (severe) obesity due to excess calories; E11.40 Type 2 diabetes mellitus with diabetic neuropathy, unspecified; I50.9 Heart failure, unspecified; G47.30 Sleep apnea, unspecified; Z79.84 Long term (current) use of oral hypoglycemic drugs
CPT/HCPCS: 36415; 36592; 80053; 81001; 82378; 83036; 83735; 83880; 85025; 85049; 85610; 87077; 87086; 87186; 96360; 96361; 96365; 96366; 96367; 96368; 96372; 96374; 96375; 96376; 96409; 96411; 96413; 96415; 96417; 96523; 99205; 99213; 99214; 99215; J0461; J0640; J1100; J2060; J2405; J2997; J3480; J9035; J9190; J9206

== ENCOUNTER → 2019-03-29 13:02 | Outpatient (CLI) | payer OTHER, SELFPAY | PROVIDERS: Family Provider Family Medicine; PCP Family Medicine; Visit Provider Family Medicine | DX: S31.109D Unspecified open wound of abdominal wall, unspecified quadrant without penetration into peritoneal cavity, subsequent encounter (principal); B37.2 Candidiasis of skin and nail | CPT/HCPCS: 99213 ==